=== PATIENT | female | born 1995 | race Caucasian/White ===

== ENCOUNTER → 2018-03-16 16:09 | Outpatient (CLI) | payer OTHER, SELFPAY ==
[2018-03-16 17:48] LABS: hCG Titer Quant., Serum 9526 mIU/mL (<9 non-preg)
== END ==
PROVIDERS: Visit Provider Obstetrics & Gynecology
DX: O20.0 Threatened abortion (principal)
CPT/HCPCS: 36415; 84702

== ENCOUNTER → 2018-03-16 17:44 | Outpatient (CLI) | payer OTHER, SELFPAY ==
[2018-03-16 20:15] LABS: Chlamydia Trachomatis by PCR Negative (Negative); Neisserai gonorrhoeae by PCR Negative (Negative); Probe Check PASS; Sample Adequacy Control PASS; Specimen Processing Control PASS
[2018-03-21 08:52] LABS: HPV Reflexed? NOT INDICATED
== END ==
PROVIDERS: Visit Provider Obstetrics & Gynecology
DX: O20.0 Threatened abortion (principal); Z12.4 Encounter for screening for malignant neoplasm of cervix
CPT/HCPCS: 87086; 87088; 87491; 87591; 88175; G0145

== ENCOUNTER → 2018-03-23 16:15 | Outpatient (CLI) | payer OTHER, SELFPAY ==
--- NOTE | 2018-03-23 16:17 | US_ITS ---
STUDY: FIRST TRIMESTER OBSTETRICAL ULTRASOUND REASON FOR EXAM: Female, 22 years old. Threaded miscarriage. LMP: Unknown. TECHNIQUE: Transvaginal PRIOR ULTRASOUND: None. FINDINGS: There is visualization of a single gestational sac in a normal intrauterine position. The mean sac diameter (MSD) measures 2.11 cm, indicating an estimated gestational age (EGA) of 7 weeks, 1 days. The gestational sac shape is within normal limits. There is a visualized yolk sac. The yolk sac measures 0.35 cm. The placenta is non-visualized. There is visualization of a live embryo. The crown-rump length (CRL) measures 0.62 cm, indicating an estimated gestational age (EGA) of 6 weeks, 4 days. There is demonstrated cardiac activity with a heart rate of 124 bpm. The estimated gestation age (EGA) by US is 6 weeks, 6 days. The estimated date of delivery (CAMILLE) by US is November 10, 2018. The uterus measures 9.2 x 6 x 5.1 cm. There is no demonstrated uterine fibroid. The cervix is closed. The right ovary is not visualized. There is no visualized right adnexal mass or complex lesion. The left ovary measures 2.2 x 2.0 x 1.3 cm. There is no left ovarian cyst. There is no visualized left adnexal mass or complex lesion. There is no fluid in the cul de sac. US/Init OB < 14Wks US IMPRESSION: 1. Single intrauterine at 6 weeks, 6 days. CAMILLE is November 10, 2018. 2. heart rate 124 bpm. 3. Nonvisualization of the right ovary. Electronically Signed: Christopher Amaya DO at 23:10 EDT Tel [phone], Service support ,
== END ==
PROVIDERS: Family Provider Family Medicine; PCP Family Medicine; Visit Provider Obstetrics & Gynecology
DX: O20.0 Threatened abortion (principal)
CPT/HCPCS: 76801

== ENCOUNTER 2018-03-30 06:48 | Emergency (ER) | payer OTHER, SELFPAY ==
[2018-03-30 06:49] VITALS: BP 121/68; PULSE 74; RESP 24; TEMP 36.6; O2SAT 97; BMI 55.0
--- NOTE | 2018-03-30 07:17 | EKG12_ITS ---
Test Reason : SOB Blood Pressure : / mmHG Vent. Rate : 065 BPM Atrial Rate : 065 BPM P-R Int : 130 ms QRS Dur : 094 ms QT Int : 392 ms P-R-T Axes : -11 -10 010 degrees QTc Int : 407 ms Normal sinus rhythm with sinus arrhythmia Normal ECG Confirmed by ASAF RM, RASHAD ([id number]), magazine editor MARY BELTRAN ([id number]) on 03/31/2018 1:17:40 PM Referred By: Kristie Longo Confirmed By:RASHAD RON MD
--- NOTE | 2018-03-30 07:17 | VDLE_ITS ---
Reason For Study: SOB RIGHT LEFT GSV is normal. GSV is normal. CFV is compressible, spontaneous, phasic, CFV is compressible, spontaneous, phasic, competent and demonstrates normal competent, and demonstrates normal augmentation. augmentation. FV is compressible, spontaneous, phasic, FV is compressible, spontaneous, phasic, competent and demonstrates normal competent and demonstrates normal augmentation. augmentation. POP V is compressible, spontaneous, phasic, POP V is compressible, spontaneous, phasic, competent and demonstrates normal competent and demonstrates normal augmentation. augmentation. T/P Trunk is compressible. T/P Trunk is compressible. PTV is compressible. PTV is compressible. RT PerV is compressible. LT PerV is compressible. Procedure Exam performed portable in ED. The exam was diagnostic. A preliminary report was called and/or faxed to Dr. Fenton. Interpretation Summary Deep veins of the lower extremities are bilaterally patent and compressible segmentally. There is no evidence of deep vein thrombosis on either side. Valvular competence appears intact within the proximal deep venous systems bilaterally. The greater saphenous veins appear bilaterally patent and compressible segmentally. Ordering Physician: Deric Fenton Performed By: Sin Villanueva RVT
--- NOTE | 2018-03-30 07:18 | ED.VISSUMM ---
- ER Visit Summary Date of Service: 03/30/18 Chief Complaint: Shortness of breath History of Present Illness: The patient is a [address] Calle and Dr. Marco Galindo. She is a at 8 weeks by an ultrasound on March 23. She reports she has shortness of breath began at 130 this morning. It is moderate in severity currently and at worst. Is worsened by nothing including exertion or coughing. Is relieved by nothing. Patient denies any fever or cough. She has chest tightness that began approximately 1 AM. 5 out of 10 severity. It is increased with laying back and deep breaths. There is no change with exertion. She denies any personal or family history of DVT. No recent travel. She does report that she has mild ankle swelling bilaterally that is chronic and unchanged. She denies any calf pain. Physical Examination: Vitals: Stable. Afebrile. General: Well-nourished and well-developed. Head: Normocephalic atraumatic. Neck: Supple, no lymphadenopathy. No JVD. Nontender. Cardiovascular: Regular rate and rhythm. No murmurs. Respiratory: No respiratory distress. Clear to auscultation bilaterally. Abdominal: Soft, nontender, nondistended, normal bowel sounds. No guarding, rebound, or peritoneal signs. Back: Nontender. Extremities: Nontender, no edema. Skin: Normal color, no rash. Neurologic: Alert and oriented ?3. Cranial nerves II through XII are intact. Normal strength and sensation. Psych: Normal affect. Test Results: EKG shows sinus arrhythmia with no acute changes. Troponins negative. 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 Chem-7 is marked for creatinine is 0.47. CBC is more for hemoglobin 11.8 and segment neutrophils 72. Chest x-ray shows no acute disease. Bilateral lower extremity Dopplers are negative. Emergency Department Course and Treatment: We were unable to obtain heart tones. Patient is resting comfortably. She has had no vaginal bleeding or abdominal pain. Treatment Plan: Patient will be discharged instructions follow-up her primary care physician 1-2 days if not improving. Return to the emergency department for any worsening symptoms. Disposition: To home in improved and stable condition. Impression: 1. Dyspnea, uncertain cause. 2. First trimester . This note was generated with [employer] software. It may contain incorrect words, spelling, and punctuation that were not noted in review of the chart prior to signing ED Disposition - Plan for ED Patient: Chief Complaint: Shortness of Breath Instructions: ED Dyspnea Shortness of Breath Referrals: Kimani Kim MD [Primary Care Provider] - 1-2 Days if not improving
[2018-03-30] MEDS: 0.9% Normal Saline 1,000 ML 150 ML IV (07:57)
[2018-03-30 07:58] LABS: Absolute Lymphocyte Count 1.49 X10^3/ul (0.83-4.51); Absolute Neutrophil Count 5.5 X10^3/uL (2.0-7.7); Basophil# 0.02 X10^3/uL; Basophil% 0.3 % (0-1); Eosinophil# 0.05 X10^3/uL; Eosinophils% 0.6 % (0-5); Hematocrit 37.1 % (37-47); Hemoglobin 11.8 g/dl (12.0-15.0); Lymphocyte # 1.49 X10^3/ul (4.0); Lymphocyte % 19.4 % (19-41); Mean Corp Hgb Conc 31.8 g/gl (32-36); Mean Corpuscular Hgb 26.8 pg (27.0-32.0); Mean Corpuscular Volume 84.3 fL (81-99); Mean Platelet Vol. 9.9 fl (6.2-12.0); Monocyte# 0.61 X10^3/uL; Monocyte% 7.9 % (0-10); Neutrophil # 5.52 X10^3/uL (2.7-7.7); Neutrophil % 71.7 % (47-70); POSITIVE COUNT NO; POSITIVE DIFFERENTIAL NO; POSITIVE MORPHOLOGY NO; Platelet Count 307 K/mm3 (150-450); RBC Distribution Width CV 14.1 % (11.6-14.6); White Blood Count 7.7 K/mm3 (4.4-11.0)
--- NOTE | 2018-03-30 08:06 | RAD_ITS ---
STUDY: X-RAY CHEST REASON FOR EXAM: Female, 22 years old. Shortness of breath. TECHNIQUE: Single AP portable view of the chest. COMPARISON: None. FINDINGS: EKG electrodes are seen. Mild degree of vascular congestion. There is no demonstrated pleural abnormality. Normal size heart. Normal mediastinum and henrique. Normal visualized pulmonary arteries. Normal visualized aortic arch and descending thoracic aorta. Normal visualized thoracic spine. Normal visualized ribs, clavicles, and shoulders. There is no demonstrated abnormality of the visualized soft tissue structures of the upper abdomen. RAD/Chest 1 View (Portable) IMPRESSION: Mild degree of pulmonary vascular congestion. Electronically Signed: Obinna Mason MD at 8:27 EDT Tel [phone], Service support ,
[2018-03-30 08:15] LABS: Anion Gap 7 (5-15); BUN 7 mg/dL (7-18); BUN/Creat Ratio 14.8 RATIO (10-20); Calcium,Total 8.8 mg/dL (8.5-10.1); Chloride 106 mmol/L (98-107); Creatinine, Serum 0.47 mg/dL (0.55-1.02); EST Glomerular Filtration Rate 170 mL/min (>60); Est Glom Filt Rate - Afr Amer 206 mL/min (>60); Estimated Creatinine Clearance 159.38 ml/min; Glucose 103 mg/dL (74-106); Potassium 3.8 mmol/L (3.5-5.1); Sodium Level 139 mmol/L (136-145)
[2018-03-30 08:22] LABS: BNP,B-Type NATRIURETIC PEPTIDE 11.9 pg/mL (0-100)
[2018-03-30 09:05] VITALS: BP 126/79; PULSE 61; RESP 15; O2SAT 99
--- NOTE | 2018-03-31 10:10 | CM.ED ---
ED CALLBACK: Follow-up call placed to patient. Patient states she is feeling well today and denies shortness of breath. Patient denies further needs at this time.
== END 2018-03-30 09:06 | disposition home or self-care (01) ==
LOC: ED 07:22
PROVIDERS: Emergency Provider Emergency Medicine; Family Provider Family Medicine; PCP Family Medicine
DX: O26.891 Other specified pregnancy related conditions, first trimester (principal); R06.00 Dyspnea, unspecified; Z3A.08 8 weeks gestation of pregnancy; R56.9 Unspecified convulsions; F32.9 Major depressive disorder, single episode, unspecified; Z79.899 Other long term (current) drug therapy
CPT/HCPCS: 71045; 80048; 83880; 84484; 85025; 93005; 93970; 96360; 99284; J7030; A4216

== ENCOUNTER → 2018-05-04 11:43 | Outpatient (CLI) | payer OTHER, SELFPAY ==
[2018-05-04 12:54] LABS: Absolute Lymphocyte Count 1.31 X10^3/ul (0.83-4.51); Basophil# 0.01 X10^3/uL; Basophil% 0.1 % (0-1); Eosinophil# 0.03 X10^3/uL; Eosinophils% 0.4 % (0-5); Hematocrit 35.3 % (37-47); Hemoglobin 11.4 g/dl (12.0-15.0); Lymphocyte # 1.31 X10^3/ul (4.0); Lymphocyte % 17.1 % (19-41); Mean Corp Hgb Conc 32.3 g/gl (32-36); Mean Corpuscular Hgb 27.2 pg (27.0-32.0); Mean Corpuscular Volume 84.2 fL (81-99); Mean Platelet Vol. 10.1 fl (6.2-12.0); Monocyte# 0.34 X10^3/uL; Monocyte% 4.4 % (0-10); Neutrophil # 5.96 X10^3/uL (2.7-7.7); Neutrophil % 77.9 % (47-70); Platelet Count 308 K/mm3 (150-450); RBC Distribution Width CV 13.8 % (11.6-14.6); RBC Distribution Width SD 42.1 fl (35.1-43.9); Red Blood Count 4.19 M/mm3 (4.2-5.4); White Blood Count 7.7 K/mm3 (4.4-11.0)
[2018-05-04 12:56] LABS: POSITIVE COUNT NO; POSITIVE DIFFERENTIAL NO; POSITIVE MORPHOLOGY NO
[2018-05-04 13:13] LABS: Glucose Challenge Gest 1H 50g 150 mg/dL (70-140)
[2018-05-05 03:59] LABS: Rapid Plasmin Reagin (RPR) NONREACTIVE (NONREACTIVE)
[2018-05-05 10:57] LABS: HIV - WCH Non-Reactive (Nonreactive); Rubella IgG 63.3 IU/mL
[2018-05-08 14:17] LABS: HEPATITIS B SURFACE AG Negative (Negative)
== END ==
PROVIDERS: Family Provider Family Medicine; PCP Family Medicine; Visit Provider Obstetrics & Gynecology
DX: O09.90 Supervision of high risk pregnancy, unspecified, unspecified trimester (principal); O99.351 Diseases of the nervous system complicating pregnancy, first trimester; Z3A.00 Weeks of gestation of pregnancy not specified
CPT/HCPCS: 36415; 80177; 82950; 85025; 86592; 86703; 86762; 86850; 86900; 87340

== ENCOUNTER → 2018-05-05 06:58 | Outpatient (CLI) | payer OTHER, SELFPAY ==
[2018-05-05 08:14] LABS: Glucose GTT-Gestation. Fasting 93 mg/dL (<105)
[2018-05-05 09:21] LABS: Glucose GTT-Gestational 1 Hr 160 mg/dL (<190)
[2018-05-05 10:10] LABS: Glucose GTT-Gestational 2 Hr 122 mg/dL (<165)
[2018-05-05 11:34] LABS: Glucose GTT-Gestational 3 Hr 111 L (<145)
[2018-05-05 12:06] LABS: Chlamydia Trachomatis by PCR Negative (Negative); Neisserai gonorrhoeae by PCR Negative (Negative); Probe Check PASS; Sample Adequacy Control PASS; Specimen Processing Control PASS
== END ==
PROVIDERS: Nurse Practitioner Women's Health; Family Provider Family Medicine; PCP Family Medicine; Visit Provider Obstetrics & Gynecology
DX: O09.90 Supervision of high risk pregnancy, unspecified, unspecified trimester (principal); R73.09 Other abnormal glucose
CPT/HCPCS: 36415; 82951; 82952; 87086; 87088; 87491; 87591

== ENCOUNTER → 2018-06-01 16:17 | Outpatient (CLI) | payer OTHER, SELFPAY | PROVIDERS: Family Provider Family Medicine; PCP Family Medicine; Visit Provider Nurse Practitioner Women's Health | DX: R10.2 Pelvic and perineal pain (principal) | CPT/HCPCS: 87086; 87088 ==

== ENCOUNTER → 2018-08-08 18:28 | Outpatient (CLI) | payer OTHER, SELFPAY ==
[2018-08-08 14:39] VITALS: BMI 53.8
--- OUTSIDE RECORDS SUMMARY | 2018-10-04 09:52 | XMS RPT_ITS ---
:1995 Author Organization OHIP Support Name Relationship Address Phone COW Unavailable [address] + [place] [address] ARMANI MISHRA Unavailable [address] + [place] [address] DOLORES QUINN Unavailable [address] + [place] [address] COW Unavailable [address] + [place] [address] ARMANI MISHRA Unavailable [address] + [place] [address] DOLORES QUINN Unavailable [address] + [place] [address] COW Unavailable [address] + [place] [address] ARMANI MISHRA Unavailable [address] + [place] [address] DOLORES QUINN Unavailable . + [place] [address] COW Unavailable [address] + [place] [address] ARMANI MISHRA Unavailable [address] + [place] [address] DOLORES QUINN Unavailable Unavailable + [place] [address] COW Unavailable [address] + [place] [address] ARMANI MISHRA Unavailable [address] + [place] [address] DOLORES QUINN Unavailable . + [place] [address] ARMANI MISHRA Unavailable Unavailable Unavailable ARMANI MISHRA Unavailable [address] [place] [address] ARMANI MISHRA Unavailable [address] [place] [address] GABE MISHRA Unavailable [address] + [place] [address] DOLORES QUINN Unavailable [address] + [place] [address] COW Unavailable [address] + [place] [address] ARMANI MISHRA Unavailable [address] + [place] [address] DOLORES QUINN Unavailable . + [place] [address] COW Unavailable [address] + [place] [address] ARMANI MISHRA Unavailable [address] + [place] [address] DOLORES QUINN Unavailable . + [place] [address] COW Unavailable [address] + [place] [address] ARMANI MISHRA Unavailable [address] + [place] [address] DOLORES QUINN Unavailable . + [place] [address] ARMANI MISHRA Unavailable [address] + [place] [address] COW Unavailable [address] + [place] [address] ARMANI MISHRA Unavailable [address] + [place] [address] DOLORES QUINN Unavailable . + [place] [address] COW Unavailable [address] + [place] [address] ARMANI MISHRA Unavailable [address] + [place] [address] DOLORES QUINN Unavailable . + [place] [address] + [place] [address] ARMANI MISHRA Unavailable [address] + [place] [address] DOLORES QUINN Unavailable . + [place] [address] + [place] [address] ARMANI MISHRA Unavailable [address] + [place] [address] DOLORES QUINN Unavailable Unavailable + [place] [address] + [place] [address] ARMANI MISHRA Unavailable [address] + [place] [address] DOLORES QUINN Unavailable Unavailable + [place] [address] + [place] [address] ARMANI MISHRA Unavailable [address] + [place] [address] DOLORES QUINN Unavailable Unavailable + [place] [address] + [place] [address] ARMANI MISHRA Unavailable [address] + [place] [address] DOLORES QUINN Unavailable . + [place] [address] + [place] [address] ARMANI MISHRA Unavailable [address] + [place] [address] DOLORES QUINN Unavailable . + [place] [address] + [place] [address] ARMANI MISHRA Unavailable [address] + [place] [address] DOLORES QUINN Unavailable Unavailable + COW Unavailable [address] + [place] [address] ARMANI MISHRA Unavailable [address] + [place] [address] DOLORES QUINN Unavailable Unavailable + ARMANI MISHRA Unavailable [address] + [place] [address] UE Unavailable Unavailable Unavailable . Unavailable . + [place] [address] + [place] [address] ARMANI MISHRA Unavailable [address] + [place] [address] DOLORES QUINN Unavailable Unavailable + [place] [address] . Unavailable Unavailable + [place] [address] . Unavailable Unavailable + [place] [address] ARMANI MISHRA Unavailable Unavailable Unavailable ARMANI MISHRA Unavailable [address] [place] [address] ARMANI MISHRA Unavailable [address] [place] [address] GABE MISHRA Unavailable [address] + [place] [address] DOLORES QUINN Unavailable [address] + [place] [address] ARMANI MISHRA Unavailable Unavailable Unavailable ARMANI MISHRA Unavailable [address] [place] [address] ARMANI MISHRA Unavailable [address] [place] [address] GABE MISHRA Unavailable [address] + [place] [address] DOLORES QUINN Unavailable [address] + [place] [address] ARMANI MISHRA Unavailable Unavailable Unavailable ARMANI MISHRA Unavailable [address] [place] [address] ARMANI MISHRA Unavailable [address] [place] [address] GABE MISHRA Unavailable [address] + [place] [address] DOLORES QUINN Unavailable [address] + [place] [address] ARMANI MISHRA Unavailable [address] [place] [address] GABE MISHRA Unavailable [address] + [place] [address] ARMANI MISHRA Unavailable [address] [place] [address] DOLORES QUINN Unavailable [address] + [place] [address] Care Team Providers Name Role Phone Burak RM, Mago Whittaker Attending Unavailable ELZBIETA RM, ULICES H. Primary Care Unavailable TULIO URIARTE MD, JR. Attending Unavailable ELZBIETA RM, ULICES H. Primary Care Unavailable TULIO URIARTE MD, JR. Attending Unavailable ELZBIETA RM, ULICES H. Primary Care Unavailable Mago Sumner MD Attending Unavailable ELZBIETA RM, ULICES H. Primary Care Unavailable TULIO URIARTE MD, JR. Attending Unavailable ELZBIETA RM, ULICES H. Primary Care Unavailable ERIC BONILLA Attending Unavailable KRISTIE RAMÍREZ Referring Unavailable NO PRIMARY CARE, Primary Care Unavailable AnsonanthKristie anthony Attending Unavailable Marcanthony, Kristie Attending Unavailable Marcanthony, Kristie Referring Unavailable Marcanthony, Kristie Attending Unavailable Marcanthony, Kristie Attending Unavailable Marcanthony, Kristie Attending Unavailable Marcanthony Kristie Referring Unavailable Elzbieta, Ulices Primary Care Unavailable Elzbieta, Ulices Primary Care Unavailable Deric Fenton Attending Unavailable MarcanthonyKristie Attending Unavailable Elzbieta, Ulices Referring Unavailable Elzbieta, Ulices Primary Care Unavailable MarcanthonyKristie Attending Unavailable Elzbieta, Ulices Referring Unavailable Elzbieta, Ulices Primary Care Unavailable MarcanthonyKristie Attending Unavailable Elzbieta, Ulices Primary Care Unavailable MarcanthonyKristie Attending Unavailable Marcanthony, Kristie Referring Unavailable Elzbieta, Ulices Primary Care Unavailable Tulio Uriarte Attending Unavailable Elzbieta, Ulices Primary Care Unavailable MarcanthonyKristie Attending Unavailable Elzbieta, Ulices Referring Unavailable Elzbieta, Ulices Primary Care Unavailable Jacky, Sofy Attending Unavailable Elzbieta, Ulices Referring Unavailable Elzbieta, Ulices Primary Care Unavailable Jacky, Sofy Attending Unavailable Ple[place], Sofy Referring Unavailable Elzbieta, Ulices Primary Care Unavailable MarcanthonyKristie Attending Unavailable Elzbieta, Ulices Referring Unavailable Jen Donaldson Attending Unavailable Jacky, Sofy Attending Unavailable Elzbieta, Ulices Referring Unavailable [place], Sofy Attending Unavailable Elzbieta, Ulices Referring Unavailable Jacky, Sofy Attending Unavailable Elzbieta, Ulices Primary Care Unavailable [place], Sofy Referring Unavailable MarcanthonyKristie Attending Unavailable Elzbieta, Ulices Referring Unavailable Marcanthony, Kristie Attending Unavailable Kristie Ramírez Referring Unavailable Maria Fernanda Garduno Primary Care Unavailable Kristie Ramírez Attending Unavailable Kristie Ramírez Referring Unavailable Maria Fernanda Garduno Primary Care Unavailable PROBLEMS PROBLEMS DATE TYPE CONDITION / CODE ATTENDING STATUS SOURCE 08/15/2018 Unknown O09.90 - Marcanthony, Active [place] Supervision of [facility] high risk Hospital , Repository unspecified, unspecified trimester / O09.90(ICD-10) 08/15/2018 Unknown Z23 - Encounter Marcanthony, Active [place] for immunization / [facility] Z23(ICD-10) Hospital Repository 08/09/2018 Unknown N39.0 - Urinary [place], Sofy Active [place] tract infection, Community site not specified Hospital / N39.0(ICD-10) Repository 07/19/2018 Unknown O34.219 - Maternal [place], Sofy Active [place] care for Community unspecified type Hospital scar from previous Repository delivery / O34.219(ICD-10) 07/19/2018 Unknown R73.09 - Other [place], Sofy Active [place] abnormal glucose / Community R73.09(ICD-10) Hospital Repository 07/19/2018 Unknown O99.352 - Diseases Jacky, Sofy Active [place] of the nervous [facility] Hospital complicating Repository , second trimester / O99.352(ICD-10) 07/19/2018 Unknown Z3A.23 - 23 weeks [place], Sofy Active [place] gestation of [facility] / Hospital Z3A.23(ICD-10) Repository 06/23/2018 Unknown G40.909 - Marcanthony, Active [place] Epilepsy, [facility] unspecified, not Hospital intractable, Repository without status epilepticus / G40.909(ICD-10) 06/23/2018 Unknown Z3A.19 - 19 weeks Marcanthony, Active [place] gestation of [facility] / Hospital Z3A.19(ICD-10) Repository 06/01/2018 Unknown O99.351 - Diseases Jacky, Sofy Active [place] of the nervous [facility] Hospital complicating Repository , first trimester / O99.351(ICD-10) 06/01/2018 Unknown Z3A.12 - 12 weeks Jacky, Sofy Active [place] gestation of [facility] / Hospital Z3A.12(ICD-10) Repository 06/01/2018 Unknown R10.2 - Pelvic and Pleasant DaleSofy ang Active [place] perineal pain / Community R10.2(ICD-10) Hospital Repository 06/01/2018 Unknown O26.899 - Other Pleasant DaleSofy Active [place] specified [facility] related Hospital conditions, Repository unspecified trimester / O26.899(ICD-10) 06/01/2018 Unknown R10.9 - JackySofy Active [place] Unspecified Community abdominal pain / Hospital R10.9(ICD-10) Repository 03/22/2018 Unknown O20.0 - Threatened Donta, Active [place] / [facility] O20.0(ICD-10) Hospital Repository 03/16/2018 Unknown Z12.4 - Encounter Donta, Active [place] for screening for [facility] malignant neoplasm Hospital of cervix / Repository Z12.4(ICD-10) PROCEDURES PROCEDURES No Procedure Records FoundRESULTS RESULTS OB ANATOMY SCAN Observed: 08/21/2018 Status: F Source: [place] 4:03 PM [facility] REPOSITORY [facility] Imaging Services [address] [place] [id number] OB Anatomy Scan MR#: [id number] Acct: [id number] Name: ROBERT MISHRA Rep #: [id number] : 1995 F 23 From: Christopher Amaya DO PCP: SHERLY Anton Status: REG CLI Study: OB Anatomy Scan Date of Exam: 08/21/18 Exam# [id number] Ordering Dr: Kristie Ramírez MD STUDY: SECOND AND THIRD TRIMESTER OBSTETRICAL ULTRASOUND REASON FOR EXAM: Female, 23 years old. Anatomy scan. LMP: March 23, 2018. TECHNIQUE: PICC line TECHNICAL QUALITY: Adequate. PRIOR ULTRASOUND: None. FINDINGS: There is a single intrauterine fetus. The fetus is in a cephalic presentation. There is demonstrated cardiac activity with a heart rate of 153 bpm. There is a normal amniotic fluid volume. The largest amniotic fluid pocket measures 5.17 cm. The amniotic fluid index (FRANCIE) is 12.48 cm. The placenta is fundal and posterior and not low-lying There are Grade 1 placental changes. The cervix measures 4.45 cm in length. The bilateral adnexal regions are normal. BIOMETRY: BPD: 7.4 cm: 29 weeks, 5 days HC: 26.65 cm: 29 weeks, 1 days AC: 24.26 cm: 28 weeks, 4 days FL: 5.49 cm: 29 weeks, 0 days CI: 79 FL/BPD: 74 FL/HC: FL/AC: 23 HC/AC: 1.10 age by current US: 29 weeks, 1 days. CAMILLE by current US: November 05, 2018. Estimated weight: 1287 grams, +/- 188 grams, 63 %. Age by LMP: 28 weeks, 1 days. CAMILLE by LMP: November 12, 2018. ANATOMY: Gender: Male Cranium: Normal lateral ventricles. Normal choroid plexus. Normal cerebellum. Normal cisterna magna. There is limited visualization of the face, nose and lips. Chest: Normal 4-chamber heart. Abdomen/Pelvis: Normal diaphragm. Normal stomach. Normal abdominal wall. Is limited visualization of the cord insertion. Normal 3 vessel cord. Normal kidneys. Normal bladder. Spine: Normal cervical spine. Normal thoracic spine. Normal lumbar spine. Normal sacrum. Extremities: There is limited visualization of the bilateral upper extremities. Normal bilateral lower extremities. US/OB Anatomy Scan IMPRESSION: 1. Live single intrauterine at 29 weeks, 1 day. CAMILLE is November 05, 2018. 2. EFW of 1287 g. 3. FRANCIE of 12.48 cm. 4. Fundal and posterior grade 1 placenta. 5. Vertex presentation. 6. Mildly limited evaluation of anatomy due to maternal habitus. There is no visualized abnormality. Electronically Signed: Christopher Amaya DO at 16:56 EST Tel [phone], Service support , CC: SHERLY Garduno; Kristie Ramírez MD Interpretative Dancer: Signed CBC W/DIFF, AUTOMATED Collected: 08/15/2018 Status: F Source: [place] 4:39 PM [facility] REPOSITORY TYPE CODE TESTS RESULT OUT OF RANGE REFERENCE UNITS LAB L100.1000 4.4-11.0 K/mm3 Normal WBC 10.5 LAB L100.1200 4.2-5.4 M/mm3 Low RBC 4.10 LAB L100.1300 12.0-15.0 g/dl Low HGB 10.8 LAB L100.1400 37-47 % Low HCT 33.9 LAB L100.1500 81-99 fL Normal MCV 82.7 LAB L100.1600 27.0-32.0 pg Low MCH 26.3 LAB L100.1700 32-36 g/gl Low MCHC 31.9 LAB L100.1810 11.6-14.6 % High RDW CV 14.9 LAB L100.1820 35.1-43.9 fl High RDW SD 44.0 LAB L100.1900 150-450 K/mm3 Normal PLT 371 LAB L100.2000 6.2-12.0 fl Normal MPV 10.5 LAB L100.2100 47-70 % High NEUT% 77.5 LAB L100.2200 19-41 % Low LY% 15.5 LAB L100.2300 0-10 % Normal MONO% 6.2 LAB L100.2400 0-5 % Normal EO% 0.5 LAB L100.2500 0-1 % Normal BASO% 0.1 LAB L100.2550 0.0-0.9 % Normal IM GRAN % 0.200 Result Comment: IG% - Immature Granulocytes (promyelocytes, myelocytes and metamyelocytes) > 1% indicates that a LEFT SHIFT is Present. LAB L100.2620 2.0-7.7 X10 3/uL High Absolute Neut 8.1 LAB L100.2720 0.83-4.51 X10 3/ul Normal Absolute Lymph 1.62 Performed By: #### L100.0100 #### [facility] [address], [address] GLUCOSE CHALLENGE GEST Collected: 08/15/2018 Status: F Source: [place] 1H 50G 4:39 PM [facility] REPOSITORY TYPE CODE TESTS RESULT OUT OF RANGE REFERENCE UNITS LAB L501.0250 70-140 mg/dL Normal GLU GEST 100 50g 1H Performed By: #### L501.0250 #### [facility] [address] [place], [address] OUTREACH TEAM MEMBER OFFICE VISIT Observed: 08/15/2018 Status: F Source: [place] REPORT 4:12 PM [facility] REPOSITORY [facility] [address] [place] [address] OFFICE VISIT Date of Service: 08/15/18 MR#: [id number] Acct: [id number] Name: ROBERT MISHRA Rep #: [id number] : 1995 Provider: Kristie Ramírez MD Age/Sex: 23/F Location: [facility] Status: Signed Intake Vital Signs08/15/18 Body Mass Index (BMI) 53.8 08/15/18 Height 5 ft 4 in 08/15/18 Weight: 313 lb 4 oz 08/15/18 Body Mass Index (BMI) 53.7 08/15/18 Blood Pressure 110/82 H Intake Visit Reasons: 27 weeks Chief Complaint: est ob Flue Gas Analyst Required: No Is patient in pain?: No Allergies acetaminophen [From Percocet] Allergy (Verified 08/15/18 15:23) Rash oxycodone [From Percocet] Allergy (Verified 08/15/18 15:23) Rash paper tape Adverse Reaction (Mild, Uncoded 08/15/18 15:23) Rash Medications sertraline 50 mg tablet 50 mg PO QDAY 03/16/18 [History Confirmed 08/15/18] esomeprazole magnesium 20 mg capsule,delayed release 20 mg PO DAILY 05/04/18 [History Confirmed 08/15/18] folic acid 1 mg tablet 1 mg PO DAILY 05/04/18 [History Confirmed 08/15/18] vitamin,calcium,zjsmklmr-alpi-vnogg acid tablet 1 tab PO DAILY 05/04/18 [History Confirmed 08/15/18] levetiracetam ER 500 mg tablet,extended release 24 hr 2,000 mg PO DAILY 05/26/18 [History Confirmed 08/15/18] Last Menstral Period: 02/03/18 Zika: Zika virus screening: Negative : No 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) MRSA infection (Acute 2017) Migraine with aura (Acute) Surgical History H/O section (Acute 03/2016) H/O exploratory laparotomy (Acute) Family History Father Hypertension Heart disease Depression Grandfather Cancer Unknown Leukemia Social History adopted: No household members: children housing: condominium number of children: 2 current occupational status: employed current occupation: [employer] pets and animals: Yes history of recent travel: No other: comes 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 DateName GA/Weeks Outcome Route Bth WeighInfant GeLabor LgtAnesthesiDel LocatProvider FOB t n h a n Delivery Date: 03/17/16 On 03/16/18 @ 15:30 Juani Tobar Bennett Breech failed version HPI 27 weeks: Details: ROBERT MISHRA is a 23 year old who presents for routine OB visit. OB Visit CAMILLE Calculator Estimated Delivery Date 11/12/18 Based on Ultrasound Date 03/23/18 Current WG 27w 2d Number 1 Expected Delivery Route/Plan desires TOLAC - 41% likelihood of success but previous cs for breech, will proceed with TOLAC. handouts given on education Specific Issue/Plans flu vaccine: given tdap vaccine: given rhogam: na LARC form signed: labor support person: [] pain management: [] cut cord/dad catch: [] : [] PP control planned: [] special requests: [] Initial Weight: 319 lb Date Weight BP Urine PrFHR FuHt Pres MoCTX DilationFetal StVisit NoProviderComments E ot v te GA G Effac lucose ed Visit Notes Visit Date: 08/15/18 no vb lof good fm no regular ctx cbc gct tdap Kristie Ramírez MD on 08/15/18 Visit Date: 08/08/18 Work in for lower right pelvic pain into back. Good FM. No VB, LOF SHERLY Fernando on 08/08/18 Visit Date: 07/19/18 No VB, LOF. Doing well SHERLY Fernando on 07/19/18 Visit Date: 06/23/18 no vb some crmaping. having a boy. declined afp Kristie Ramírez MD on 06/23/18 Visit Date: 06/01/18 work in for cramping. Was awake most of night worried. No spotting or bleeding. Brief US confirms active IUD with FHT SHERLY Fernando on 06/01/18 Visit Date: 05/26/18 no vb lof some nausea still. declines genetic and AFP screening. Kristie Ramírez MD on 05/26/18 Visit Date: 05/04/18 had some bleeding last week, some cramping. nausea present but manageable Kristie Ramírez MD on 05/04/18 Visit Date: 04/21/18 no vb cramping doing well Kristie Ramírez MD on 04/22/18 Visit Date: 03/16/18 No visit notes to display Diagnostics Diagnostics Labs Blood Type O POSITIVE 05/04/18 Antibody Screen NEGATIVE 05/04/18 Hct 35.3 % (37-47) L 05/04/18 Hgb 11.4 g/dl (12.0-15.0) L 05/04/18 Rubella IgG Antibody 63.3 IU/mL 05/04/18 RPR NONREACTIVE (NONREACTIVE) 05/04/18 Hep Bs Antigen Negative (Negative) 05/04/18 Chlam trachomat DNA PCR Negative (Negative) 05/05/18 N.gonorrhoeae DNA (PCR) Negative (Negative) 05/05/18 Glucose 1 Hr 50 gm 150 mg/dL (70-140) H 05/04/18 Miscellaneous Test Cancelled 05/04/18 Details: HIV: Urine Culture: Sequential Screen: NIPT Screen: Results [id number] Office Urine Glucose Negative Last Edit by Jen M Donaldson on 08/15/18 16:01 Office Urine Protein Negative Last Edit by Jen Donaldson on 08/15/18 16:01 Immunizations Boostrix Tdap Performing Provider: Kristie Ramírez MD Administered by: Jen Donaldson on 08/15/18 15:45 Dose Route Admin Location Lot Number Expiration Date NDC Ruby Developer 0.5 mL IM Right Arm (SQ) [id number] 07/01/25 49093-272-06 [employer] VIS Given Date VIS Publication Date 08/15/18 11/05/14 Eligibility Eligibility Date Assessment AND Plan Problems 1. BMI greater than 40 1st trimester glucola, weekly nsts and q4 week us after 32 weeks 2. Previous delivery affecting , antepartum O34.219 3. Supervision of high risk , antepartum O09.90 CAMILLE 11/12/18 PC Chris tiffanie Ames (Reign) 4. Seizure disorder during in second trimester O99.352 dr xiomara webb at [facility], growth us q 4 weeks after 28, nsts weekly after 32 5. 27 weeks gestation of Z3A.27 Normal anatomy scan, will need repeat US as they could not visualize all of anatomy. 6. Abnormal glucose R73.09 3 hr GTT normal Plan movement and labor precautions reviewed. ACOG trimester education reviewed and updated. see problem list details for updated plan management information and see below for orders placed at this visit. GA appropriate handout given. Orders Orders: Medications Discontinued: Boostrix Tdap (diphth,pertus(acell),tetanus) Discontinued 0.5 mL IM ONCE #1 0RF NS Z23 Reason: Office Medication has been Documented as given Coding Level of Care Code OB Routine Diagnoses BMI greater than 40 Previous delivery affecting , antepartum O34.219 Supervision of high risk , antepartum O09.90 Seizure disorder during in second trimester O99.352 Trimester: second trimester 27 weeks gestation of Z3A.27 Weeks of gestation: 27 weeks Abnormal glucose R73.09 08/15/18 1612 <Electronically signed by Kristie Ramírez MD> Date Kristie Viera Signature: Date (if applicable) CC: OUTREACH TEAM MEMBER OFFICE VISIT Observed: 08/08/2018 Status: F Source: [place] REPORT 2:54 PM [facility] REPOSITORY [facility] [place] [address] [place] [address] OFFICE VISIT Date of Service: 08/08/18 MR#: [id number] Acct: [id number] Name: ROBERT MISHRA Rep #: [id number] : 1995 Provider: SHARI Rico Age/Sex: 23/F Location: [facility] Status: Signed Intake Vital Signs08/08/18 Height 5 ft 4 in 08/08/18 Weight: 313 lb 8 oz 08/08/18 Body Mass Index (BMI) 53.8 08/08/18 Blood Pressure 128/64 H Intake Visit Reasons: 26 weeks-cramping Flue Gas Analyst Required: No Is patient in pain?: Yes Allergies acetaminophen [From Percocet] Allergy (Verified 07/19/18 15:49) Rash oxycodone [From Percocet] Allergy (Verified 07/19/18 15:49) Rash paper tape Adverse Reaction (Mild, Uncoded 06/23/18 08:13) Rash Medications sertraline 50 mg tablet 50 mg PO QDAY 03/16/18 [History Confirmed 08/08/18] venlafaxine ER 75 mg capsule,extended release 24 hr 75 mg PO QHS 03/16/18 [History Confirmed 08/08/18] esomeprazole magnesium 20 mg capsule,delayed release 20 mg PO DAILY 05/04/18 [History Confirmed 08/08/18] folic acid 1 mg tablet 1 mg PO DAILY 05/04/18 [History Confirmed 08/08/18] mecobalamin (vitamin B12) 1,000 mcg disintegrating tablet,sublingual 1,000 mcg SUBLINGUAL DAILY 05/04/18 [History Confirmed 08/08/18] vitamin,calcium,nrkgownm-ivfg-sswoh acid tablet 1 tab PO DAILY 05/04/18 [History Confirmed 08/08/18] levetiracetam ER 500 mg tablet,extended release 24 hr 2,000 mg PO DAILY 05/26/18 [History Confirmed 08/08/18] Last Menstral Period: 02/03/18 Zika: Zika virus screening: Negative : No 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) MRSA infection (Acute 2017) Migraine with aura (Acute) Surgical History H/O section (Acute 03/2016) H/O exploratory laparotomy (Acute) Family History Father Hypertension Heart disease Depression Grandfather Cancer Unknown Leukemia Social History adopted: No household members: [facility] number [facility]: 2 current occupational status: employed current occupation: [employer] pets and animals: Yes history of recent travel: No other: comes 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 DateName GA/Weeks Outcome Route Bth WeighInfant GeLabor LgtAnesthesiDel LocatProvider FOB t n h a n Delivery Date: 03/17/16 On 03/16/18 @ 15:30 Juani Tobar Bennett Breech failed version HPI 26 weeks-cramping: Details: ROBERT MISHRA is a 23 year old who presents for routine OB visit. OB Visit CAMILLE Calculator Estimated Delivery Date 11/12/18 Based on Ultrasound Date 03/23/18 Current WG 26w 2d Number 1 Expected Delivery Route/Plan desires TOLAC - 41% likelihood of success but previous cs for breech, will proceed with TOLAC. handouts given on education Specific Issue/Plans flu vaccine: given tdap vaccine: [] rhogam: [] LARC form signed: [] labor support person: [] pain management: [] cut cord/dad catch: [] : [] PP control planned: [] special requests: [] Initial Weight: 319 lb Date Weight BP Urine PrFHR FuHt Pres MoCTX DilationFetal StVisit NoProviderComments E ot v te GA G Effac lucose ed Visit Notes Visit Date: 08/08/18 Work in for lower right pelvic pain into back. Good FM. No VB, LOF SHERLY Fernando on 08/08/18 Visit Date: 07/19/18 No VB, LOF. Doing well SHERLY Fernando on 07/19/18 Visit Date: 06/23/18 no vb some crmaping. having a boy. declined afp Kristie Ramírez MD on 06/23/18 Visit Date: 06/01/18 work in for cramping. Was awake most of night worried. No spotting or bleeding. Brief US confirms active IUD with FHT SHERLY Fernando on 06/01/18 Visit Date: 05/26/18 no vb lof some nausea still. declines genetic and AFP screening. Kristie Ramírez MD on 05/26/18 Visit Date: 05/04/18 had some bleeding last week, some cramping. nausea present but manageable Kristie Ramírez MD on 05/04/18 Visit Date: 04/21/18 no vb cramping doing well Kristie Ramírez MD on 04/22/18 Visit Date: 03/16/18 No visit notes to display Diagnostics Diagnostics Labs Blood Type O POSITIVE 05/04/18 Antibody Screen NEGATIVE 05/04/18 Hct 35.3 % (37-47) L 05/04/18 Hgb 11.4 g/dl (12.0-15.0) L 05/04/18 Obstetrics Ultrasound 03/23/18 Rubella IgG Antibody 63.3 IU/mL 05/04/18 RPR NONREACTIVE (NONREACTIVE) 05/04/18 Hep Bs Antigen Negative (Negative) 05/04/18 Chlam trachomat DNA PCR Negative (Negative) 05/05/18 N.gonorrhoeae DNA (PCR) Negative (Negative) 05/05/18 Glucose 1 Hr 50 gm 150 mg/dL (70-140) H 05/04/18 Miscellaneous Test Cancelled 05/04/18 Details: HIV: Urine Culture: Sequential Screen: NIPT Screen: Results BMSUA Office Urine Color STRAW Last Edit by Kristin Cummings on 08/08/18 14:46 Office Urine Clarity Cloudy Last Edit by Kristin Cummings on 08/08/18 14:46 Assessment AND Plan Problems 1. Pelvic pain affecting in second trimester, antepartum O26.892; R10.2 2. Supervision of high risk , antepartum O09. CAMILLE 11/12/18 PC Chris [employer] (Reign) 3. Seizure disorder during in second trimester O99.352 dr xiomara webb at [facility], growth us q 4 weeks after 28, nsts weekly after 32 4. BMI greater than 40 1st trimester glucola, weekly nsts and q4 week us after 32 weeks 5. Previous delivery affecting , antepartum O34.219 6. 26 weeks gestation of Z3A.26 Normal anatomy scan, will need repeat US as they could not visualize all of anatomy. Plan UA dip X 10 negative. Culture pending-denies UTI symptoms Reassured probably round ligament pain-heat to area, tylenol, stretching Reviewed S AND S labor, kick counts RTO routine OB. Orders Orders: Coding Level of Care Code OB Routine Diagnoses Pelvic pain affecting in second trimester, antepartum O26.892; R10.2 Trimester: second trimester Supervision of high risk , antepartum O Seizure disorder during in second trimester O99.352 Trimester: second trimester BMI greater than 40 Previous delivery affecting , antepartum O34.219 26 weeks gestation of Z3A.26 Weeks of gestation: 26 weeks 08/08/18 1454 <Electronically signed by Sofy DUBOIS> Date Sofy DUBOIS Cosigner Signature: Date (if applicable) CC: Observed: 08/08/2018 Status: F Source: [facility] CULTURE, URINE 12:00 AM [facility] REPOSITORY Urine Culture ORGANISM 1: Mixed Gram Positive Organisms Thompson Count 50,000-80,000 MIX CULTURE Mixed contaminants. Submit a new specimen if indicated. Performed By: #### M100.0650 #### [facility] [address] [place], [address] [facility] Collected: 07/21/2018 Status: F Source: [facility] 9:07 AM [facility] REPOSITORY TYPE CODE TESTS RESULT OUT OF REFERENCE UNITS RANGE LAB LEVETI(BRYANT 12.0-46.0 UG/ML NC) Levetiracetam Lvl Low <2.0 Result Comment: Result rechecked. This test was developed and its performance characteristics determined by [facility] [place] ([facility]). It has not been cleared or approved by the FDA. [facility] is regulated under CLIA as qualified to perform high-complexity testing. This test is used for clinical purposes. It should not be regarded as investigational or for research. Performed By: [facility] [address] [place] [address] Drum Sander: Destinee Issa M.D. IA#: [id number] Phone#: Performed By: #### ISIAH #### [place] [address] [address] OUTREACH TEAM MEMBER OFFICE VISIT Observed: 07/19/2018 Status: F Source: [facility] REPORT 4:04 PM [facility] REPOSITORY [facility] [address] [place] [address] OFFICE VISIT Date of Service: 07/19/18 MR#: [id number] Acct: [id number] Name: ROEBRT MISHRA Panfilo Rep #: [id number] : 1995 Provider: SHARI Rico Age/Sex: 22/F Location: [facility] Status: Signed Intake Vital Signs07/19/18 Height 5 ft 4 in 07/19/18 Weight: 310 lb 2 oz 07/19/18 Body Mass Index (BMI) 53.2 07/19/18 Blood Pressure 122/76 H Intake Visit Reasons: 23 weeks Flue Gas Analyst Required: No Is patient in pain?: No Allergies acetaminophen [From Percocet] Allergy (Verified 07/19/18 15:49) Rash oxycodone [From Percocet] Allergy (Verified 07/19/18 15:49) Rash paper tape Adverse Reaction (Mild, Uncoded 06/23/18 08:13) Rash Medications sertraline 50 mg tablet 50 mg PO QDAY 03/16/18 [History Confirmed 07/19/18] venlafaxine ER 75 mg capsule,extended release 24 hr 75 mg PO QHS 03/16/18 [History Confirmed 07/19/18] esomeprazole magnesium 20 mg capsule,delayed release 20 mg PO DAILY 05/04/18 [History Confirmed 07/19/18] folic acid 1 mg tablet 1 mg PO DAILY 05/04/18 [History Confirmed 07/19/18] mecobalamin (vitamin B12) 1,000 mcg disintegrating tablet,sublingual 1,000 mcg SUBLINGUAL DAILY 05/04/18 [History Confirmed 07/19/18] vitamin,calcium,zoltlhgb-scdy-ghwwa acid tablet 1 tab PO DAILY 05/04/18 [History Confirmed 07/19/18] levetiracetam ER 500 mg tablet,extended release 24 hr 2,000 mg PO DAILY 05/26/18 [History Confirmed 07/19/18] Last Menstral Period: 02/03/18 Zika: Zika virus screening: Negative : No Nurse's Note: Pt. states she has been light headed and dizzy at random times. 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) MRSA infection (Acute 2016) Migraine with aura (Acute) Surgical History H/O section (Acute 03/2016) H/O exploratory laparotomy (Acute) Family History Father Hypertension Heart disease Depression Grandfather Cancer Unknown Leukemia Social History adopted: No household members: [facility]: [facility] current occupational status: employed current occupation: [employer] pets and animals: Yes history of recent travel: No other: comes 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 DateName GA/Weeks Outcome Route Bth WeighInfant GeLabor LgtAnesthesiDel LocatProvider FOB t n h a n Delivery Date: 03/17/16 On 03/16/18 @ 15:30 Juani Tobar Bennett Breech failed version HPI 23 weeks: Details: ROBERT MISHRA is a 22 year old who presents for routine OB visit. OB Visit CAMILLE Calculator Estimated Delivery Date 11/12/18 Based on Ultrasound Date 03/23/18 Current WG 23w 3d Number 1 Expected Delivery Route/Plan desires TOLAC - 41% likelihood of success but previous cs for breech, will proceed with TOLAC. handouts given on education Specific Issue/Plans flu vaccine: given tdap vaccine: [] rhogam: [] LARC form signed: [] labor support person: [] pain management: [] cut cord/dad catch: [] : [] PP control planned: [] special requests: [] Initial Weight: 319 lb Date Weight BP Urine PrFHR FuHt Pres MoCTX DilationFetal StVisit NoProviderComments E ot v te GA G Effac lucose ed Visit Notes Visit Date: 07/19/18 No VB, LOF. Doing well SHERLY Fernando on 07/19/18 Visit Date: 06/23/18 no vb some crmaping. having a boy. declined afp Kristie Ramírez MD on 06/23/18 Visit Date: 06/01/18 work in for cramping. Was awake most of night worried. No spotting or bleeding. Brief US confirms active IUD with FHT SHERLY Fernando on 06/01/18 Visit Date: 05/26/18 no vb lof some nausea still. declines genetic and AFP screening. Kristie Ramírez MD on 05/26/18 Visit Date: 05/04/18 had some bleeding last week, some cramping. nausea present but manageable Kristie Ramírez MD on 05/04/18 Visit Date: 04/21/18 no vb cramping doing well Kristie Ramírez MD on 04/22/18 Visit Date: 03/16/18 No visit notes to display Diagnostics Diagnostics Labs Blood Type O POSITIVE 05/04/18 Antibody Screen NEGATIVE 05/04/18 Hct 35.3 % (37-47) L 05/04/18 Hgb 11.4 g/dl (12.0-15.0) L 05/04/18 Obstetrics Ultrasound 03/23/18 Rubella IgG Antibody 63.3 IU/mL 05/04/18 RPR NONREACTIVE (NONREACTIVE) 05/04/18 Hep Bs Antigen Negative (Negative) 05/04/18 Chlam trachomat DNA PCR Negative (Negative) 05/05/18 N.gonorrhoeae DNA (PCR) Negative (Negative) 05/05/18 Glucose 1 Hr 50 gm 150 mg/dL (70-140) H 05/04/18 Miscellaneous Test Cancelled 05/04/18 Details: HIV: Urine Culture: Sequential Screen: NIPT Screen: Results [id number] Office Urine Glucose Negative Last Edit by Kristin Cummings on 07/19/18 16:02 Office Urine Protein Negative Last Edit by Kristin Cummings on 07/19/18 16:02 Assessment AND Plan Problems 1. Supervision of high risk , antepartum O09.90 CAMILLE 11/12/18 PC Chris Armani (Reign) 2. 23 weeks gestation of Z3A.23 Normal anatomy scan, will need repeat US as they could not visualize all of anatomy. 3. Abnormal glucose level R73.09 3 hr GTT normal 4. Previous delivery affecting , antepartum O34.219 5. BMI greater than 40 1st trimester glucola, weekly nsts and q4 week us after 32 weeks 6. Seizure disorder during in second trimester O99.352 [facility] growth us q 4 weeks after 28, nsts weekly after 32 Plan Orders placed: none Reviewed of labor precautions, movement/kick counts ACOG trimester education reviewed and updated See problem list details for updated plan of care Gestational age appropriate handout given RTO: 4 weeks Orders Orders: Coding Level of Care Code OB Routine Diagnoses Supervision of high risk , antepartum O09.90 23 weeks gestation of Z3A.23 Weeks of gestation: 23 weeks Abnormal glucose level R73.09 Previous delivery affecting , antepartum O34.219 BMI greater than 40 Seizure disorder during in second trimester O99.352 Trimester: second trimester 07/19/18 1604 <Electronically signed by Sofy DUBOIS> Date Sofy Rico NP-C Cosigner Signature: Date (if applicable) CC: OUTREACH TEAM MEMBER OFFICE VISIT Observed: 06/23/2018 Status: F Source: [facility] REPORT 8:55 AM [facility] [address] [place] [address] OFFICE VISIT Date of Service: 06/23/18 MR#: [id number] Acct: [id number] Name: ROBERT MISHRA Rep #: [id number] : 1995 Provider: Kristie Ramírez MD Age/Sex: 22/F Location: [facility] Status: Signed with Addenda ADDENDUM by Jen Donaldson on 06/23/18 at 0855 OFFICE PROCEDURES Office Procedure Documentation entered by Jen Donaldson 06/23/18 08:55: Immunizations Fluad 2018- 65yr up(PF)45 mcg(15 mcgx3)/0.5 mL intramuscular syringe Performing Provider: Kristie Ramírez MD Administered by: Jen Donaldson on 06/23/18 08:54 Dose Route Admin Location Lot Number Expiration Date NDC Ruby Developer 0.5 mL IM Left Arm (SQ) [id number] 03/11/19 81679-830-28 SEQIRUS VIS Given Date VIS Publication Date 06/23/18 11/05/14 Eligibility Eligibility Date 06/23/18854 <Electronically signed by Jen Donaldson > Date Mendoza,Jen Villalta cc: * Signed Intake Vital Signs06/23/18 Height 5 ft 4 in 06/23/18 Weight: 306 lb 8 oz 06/23/18 Body Mass Index (BMI) 52.6 06/23/18 Blood Pressure 116/80 Intake Visit Reasons: 19 weeks Chief Complaint: est ob Flue Gas Analyst Required: No Is patient in pain?: No Allergies acetaminophen [From Percocet] Allergy (Verified 06/23/18 08:13) Rash oxycodone [From Percocet] Allergy (Verified 06/23/18 08:13) Rash paper tape Adverse Reaction (Mild, Uncoded 06/23/18 08:13) Rash Medications sertraline 50 mg tablet 50 mg PO QDAY 03/16/18 [History Confirmed 06/23/18] venlafaxine ER 75 mg capsule,extended release 24 hr 75 mg PO QHS 03/16/18 [History Confirmed 06/01/18] esomeprazole magnesium 20 mg capsule,delayed release 20 mg PO DAILY 05/04/18 [History Confirmed 06/01/18] folic acid 1 mg tablet 1 mg PO DAILY 05/04/18 [History Confirmed 06/23/18] mecobalamin (vitamin B12) 1,000 mcg disintegrating tablet,sublingual 1,000 mcg SUBLINGUAL DAILY 05/04/18 [History Confirmed 06/23/18] vitamin,calcium,zdtahthr-dpxm-xazww acid tablet 1 tab PO DAILY 05/04/18 [History Confirmed 06/23/18] levetiracetam ER 500 mg tablet,extended release 24 hr 2,000 mg PO DAILY 05/26/18 [History Confirmed 06/23/18] Last Menstral Period: 02/03/18 Zika: Zika virus screening: Negative PFS PFSH Medical History Anxiety (Acute) Depression (Acute) Epilepsy (Acute) 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) MRSA infection (Acute 2017) Migraine with aura (Acute) Surgical History H/O section (Acute 03/2016) H/O exploratory laparotomy (Acute) Family History Father Hypertension Heart disease Depression Grandfather Cancer Unknown Leukemia Social History adopted: No household members: [facility] number of children: 2 current occupational status: employed current occupation: [employer] pets and animals: Yes history of recent travel: No other: comes in contact with international school Smoking Status: Never smoker second hand exposure: No alcohol intake: current alcohol intake frequency: holidays/special occasions only details: not while substance use type: does not use seatbelt use: always do you feel safe at home: Yes additional social history: [employer]- [employer] Son- Gabe age 2 Step [facility]- Reign age 8 Pregancy History 2 Elective abortions Hx Para 1 Spontaneous abortions Past Pregnancies Del. DateName GA/Weeks Outcome Route Bt WeighInfant GeLabor LgtAnesthesiDel LocatProvider FOB t n h a n Delivery Date: 03/17/16 On 03/16/18 @ 15:30 Juani Tobar Bennett Breech failed version HPI 19 weeks: Details: ROBERT MISHRA is a 22 year old who presents for routine OB visit. OB Visit CAMILLE Calculator Estimated Delivery Date 11/12/18 Based on Ultrasound Date 03/23/18 Current WG 19w 5d Number 1 Expected Delivery Route/Plan desires TOLAC - 41% likelihood of success but previous cs for breech, will proceed with TOLAC. handouts given on education Specific Issue/Plans flu vaccine: given tdap vaccine: [] rhogam: [] LARC form signed: [] labor support person: [] pain management: [] cut cord/dad catch: [] : [] PP control planned: [] special requests: [] Initial Weight: 319 lb Date Weight BP Urine PrFHR FuHt Pres MoCTX DilationFetal StVisit NoProviderComments E ot v te GA G Effac lucose ed Visit Notes Visit Date: 06/23/18 no vb some crmaping. having a boy. declined afp Kristie Ramírez MD on 06/23/18 Visit Date: 06/01/18 work in for cramping. Was awake most of night worried. No spotting or bleeding. Brief US confirms active IUD with FHT SHERLY Fernando on 06/01/18 Visit Date: 05/26/18 no vb lof some nausea still. declines genetic and AFP screening. Kristie Ramírez MD on 05/26/18 Visit Date: 05/04/18 had some bleeding last week, some cramping. nausea present but manageable Kristie Ramírez MD on 05/04/18 Visit Date: 04/21/18 no vb cramping doing well Kristie Ramírez MD on 04/22/18 Visit Date: 03/16/18 No visit notes to display Diagnostics Diagnostics Labs Blood Type O POSITIVE 05/04/18 Antibody Screen NEGATIVE 05/04/18 Hct 35.3 % (37-47) L 05/04/18 Hgb 11.4 g/dl (12.0-15.0) L 05/04/18 Obstetrics Ultrasound 03/23/18 Rubella IgG Antibody 63.3 IU/mL 05/04/18 RPR NONREACTIVE (NONREACTIVE) 05/04/18 Hep Bs Antigen Negative (Negative) 05/04/18 Chlam trachomat DNA PCR Negative (Negative) 05/05/18 N.gonorrhoeae DNA (PCR) Negative (Negative) 05/05/18 Glucose 1 Hr 50 gm 150 mg/dL (70-140) H 05/04/18 Miscellaneous Test Cancelled 05/04/18 Details: HIV: Urine Culture: Sequential Screen: NIPT Screen: Results [id number] Office Urine Glucose Negative Last Edit by Jen Donaldson on 06/23/18 08:19 Office Urine Protein Negative Last Edit by Jen Donaldson on 06/23/18 08:19 Assessment AND Plan Problems 1. BMI greater than 40 1st trimester glucola, weekly nsts and q4 week us after 32 weeks 2. Previous delivery affecting , antepartum O34.219 3. Supervision of high risk , antepartum O09.90 [facility] 11/12/18 PC Chris Armani (Reign) 4. Seizure disorder during in second trimester O99.352; G40.909 dr xiomara webb at [facility], growth us q 4 weeks after 28, nsts weekly after 32 5. 19 weeks gestation of Z3A.19 6. Abnormal glucose R73.09 3 hr GTT normal Plan ACOG trimester education reviewed and updated. see problem list details for updated plan management information and see below for orders placed at this visit. GA appropriate handout given. Orders Orders: Coding Level of Care Code OB Routine Diagnoses BMI greater than 40 Previous delivery affecting , antepartum O34.219 Supervision of high risk , antepartum O09.90 Seizure disorder during in second trimester O99.352; G40.909 Trimester: second trimester 19 weeks gestation of Z3A.19 Weeks of gestation: 19 weeks Abnormal glucose R73.09 06/23/18 0853 <Electronically signed by Kristie Ramírez MD> Date Kristie Ramírez MD Cosigner Signature: Date (if applicable) CC: Observed: 06/01/2018 Status: F Source: [facility] CULTURE, URINE 4:28 PM [facility] REPOSITORY Urine Culture Below infection level. ORGANISM 1: Mixed Gram Positive Organisms Thompson Count 1000-10,000 Performed By: #### M100.0650 #### [place] [facility] J[place] [address], [address] OUTREACH TEAM MEMBER OFFICE VISIT Observed: 06/01/2018 Status: F Source: [facility] REPORT 8:09 AM [facility] REPOSITORY [facility] [address] [place] [address] OFFICE VISIT Date of Service: 06/01/18 MR#: [id number] Acct: [id number] Name: ROBERT MISHRA Rep #: [id number] : 1995 Provider: SHARI Rico Age/Sex: 22/F [facility] Status: Signed Intake Vital Signs06/01/18 Height 5 ft 4 in 06/01/18 Weight: 311 lb 4 oz 06/01/18 Body Mass Index (BMI) 53.4 06/01/18 Blood Pressure 120/80 Intake Visit Reasons: OB-CRAMPING Chief Complaint: est ob, cramping Flue Gas Analyst Required: No Is patient in pain?: Yes Allergies acetaminophen [From Percocet] Allergy (Verified 06/01/18 08:02) Rash oxycodone [From Percocet] Allergy (Verified 06/01/18 08:02) Rash paper tape Adverse Reaction (Mild, Uncoded 06/01/18 08:02) Rash Medications sertraline 50 mg tablet 50 mg PO QDAY 03/16/18 [History Confirmed 06/01/18] venlafaxine ER 75 mg capsule,extended release 24 hr 75 mg PO QHS 03/16/18 [History Confirmed 06/01/18] esomeprazole magnesium 20 mg capsule,delayed release 20 mg PO DAILY 05/04/18 [History Confirmed 06/01/18] folic acid 1 mg tablet 1 mg PO DAILY 05/04/18 [History Confirmed 06/01/18] mecobalamin (vitamin B12) 1,000 mcg disintegrating tablet,sublingual 1,000 mcg SUBLINGUAL DAILY 05/04/18 [History Confirmed 06/01/18] vitamin,calcium,qoqyjhlg-kxrc-jbxkk acid tablet 1 tab PO DAILY 05/04/18 [History Confirmed 06/01/18] levetiracetam ER 500 mg tablet,extended release 24 hr 2,000 mg PO DAILY 05/26/18 [History Confirmed 06/01/18] Last Menstral Period: 02/03/18 Zika: Zika virus screening: Negative : No 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) MRSA infection (Acute 2017) Migraine with aura (Acute) Surgical History H/O section (Acute 03/2016) H/O exploratory laparotomy (Acute) Family History Father Hypertension Heart disease Depression Grandfather Cancer Unknown Leukemia Social History adopted: No household members: [facility] number of children: 2 current occupational status: employed current occupation: [employer] pets and animals: Yes history of recent travel: No other: comes 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 DateName GA/Weeks Outcome Route Bth WeighInfant GeLabor LgtAnesthesiDel LocatProvider FOB t n h a n Delivery Date: 03/17/16 On 03/16/18 @ 15:30 Juani Tobar Bennett Breech failed version HPI OB-CRAMPING: Details: ROBERT MISHRA is a 22 year old who presents for routine OB visit. OB Visit CAMILLE Calculator Estimated Delivery Date 11/12/18 Based on Ultrasound Date 03/23/18 Current WG 16w 4d Number 1 Expected Delivery Route/Plan Specific Issue/Plans flu vaccine: [] tdap vaccine: [] rhogam: [] LARC form signed: [] labor support person: [] pain management: [] cut cord/dad catch: [] : [] PP control planned: [] special requests: [] Initial Weight: 319 lb Date Weight BP Urine PrFHR FuHt Pres MoCTX DilationFetal StVisit NoProviderComments E ot v te GA G Effac lucose ed Visit Notes Visit Date: 06/01/18 work in for cramping. Was awake most of night worried. No spotting or bleeding. Brief US confirms active IUD with FHT SHERLY Fernando on 06/01/18 Visit Date: 05/26/18 no vb lof some nausea still. declines genetic and AFP screening. Kristie Ramírez MD on 05/26/18 Visit Date: 05/04/18 had some bleeding last week, some cramping. nausea present but manageable Kristie Ramírez MD on 05/04/18 Visit Date: 04/21/18 no vb cramping doing well Kristie Ramírez MD on 04/22/18 Visit Date: 03/16/18 No visit notes to display Diagnostics Diagnostics Labs Blood Type O POSITIVE 05/04/18 Antibody Screen NEGATIVE 05/04/18 Hct 35.3 % (37-47) L 05/04/18 Hgb 11.4 g/dl (12.0-15.0) L 05/04/18 Obstetrics Ultrasound 03/23/18 Rubella IgG Antibody 63.3 IU/mL 05/04/18 RPR NONREACTIVE (NONREACTIVE) 05/04/18 Hep Bs Antigen Negative (Negative) 05/04/18 Chlam trachomat DNA PCR Negative (Negative) 05/05/18 N.gonorrhoeae DNA (PCR) Negative (Negative) 05/05/18 Glucose 1 Hr 50 gm 150 mg/dL (70-140) H 05/04/18 Miscellaneous Test Cancelled 05/04/18 Details: HIV: Urine Culture: Sequential Screen: NIPT Screen: Assessment AND Plan Problems 1. Cramping affecting , antepartum O26.899; R10.9 2. Supervision of high risk , antepartum O09.90 [facility] 11/12/18 PC Chris Armani (Reign) 3. Seizure disorder during in first trimester O99.351 dr xiomara webb at [facility] 4. BMI greater than 40 1st trimester glucola, weekly nsts and q4 week us after 32 weeks 5. Previous delivery affecting , antepartum O34.219 6. 12 weeks gestation of Z3A.12 7. Abnormal glucose R73.09 3 hr GTT normal Plan Reassured. Active IUP with FHT on US Tylenol, warm bath Has anatomy US and routine OB in 2 weeks Orders Orders: Coding Level of Care Code OB Routine Diagnoses Cramping affecting , antepartum O26.899; R10.9 Supervision of high risk , antepartum O09.90 Seizure disorder during in first trimester O99.351 Trimester: first trimester BMI greater than 40 Previous delivery affecting , antepartum O34.219 12 weeks gestation of Z3A.12 Weeks of gestation: 12 weeks Abnormal glucose R73.09 06/01/18 0809 <Electronically signed by Sofy DUBOIS> Date Sofy SHARPEC Cosigner Signature: Date (if applicable) CC: OUTREACH TEAM MEMBER OFFICE VISIT Observed: 05/26/2018 Status: F Source: [facility] REPORT 3:36 PM [facility] [address] [place] [address] OFFICE VISIT Date of Service: 05/26/18 MR#: [id number] Acct: [id number] Name: ROBERT MISHRA Rep #: [id number] : 1995 Provider: Kristie Ramírez MD Age/Sex: 22/F Location: [facility] Status: Signed Intake Vital Signs05/26/18 Height 5 ft 4 in 05/26/18 Weight: 315 lb 05/26/18 Body Mass Index (BMI) 54.1 05/26/18 Blood Pressure 121/60 Intake Visit Reasons: EST OB Chief Complaint: est ob Flue Gas Analyst Required: No Is patient in pain?: No Allergies acetaminophen [From Percocet] Allergy (Verified 05/26/18 15:15) Rash oxycodone [From Percocet] Allergy (Verified 05/26/18 15:15) Rash paper tape Adverse Reaction (Mild, Uncoded 05/26/18 15:15) Rash Medications sertraline 50 mg tablet 50 mg PO QDAY 03/16/18 [History Confirmed 05/26/18] venlafaxine ER 75 mg capsule,extended release 24 hr 75 mg PO QHS 03/16/18 [History Confirmed 05/26/18] esomeprazole magnesium 20 mg capsule,delayed release 20 mg PO DAILY 05/04/18 [History Confirmed 05/26/18] folic acid 1 mg tablet 1 mg PO DAILY 05/04/18 [History Confirmed 05/26/18] mecobalamin (vitamin B12) 1,000 mcg disintegrating tablet,sublingual 1,000 mcg SUBLINGUAL DAILY 05/04/18 [History Confirmed 05/26/18] vitamin,calcium,xfbkjdoq-wyvh-yfsex acid tablet 1 tab PO DAILY 05/04/18 [History Confirmed 05/26/18] levetiracetam ER 500 mg tablet,extended release 24 hr 2,000 mg PO DAILY 05/26/18 [History Confirmed 05/26/18] Last Menstral Period: 02/03/18 Zika: Zika virus screening: Negative : No 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) MRSA infection (Acute 2016) Migraine with aura (Acute) Surgical History H/O section (Acute 03/2016) H/O exploratory laparotomy (Acute) Family History Father Hypertension Heart disease Depression Grandfather Cancer Unknown Leukemia Social History adopted: No household members: children housing: condominium number of children: 2 current occupational status: employed current occupation: [employer] pets and animals: Yes history of recent travel: No other: comes 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 DateName GA/Weeks Outcome Route Bth WeighInfant GeLabor LgtAnesthesiDel LocatProvider FOB t n h a n Delivery Date: 03/17/16 On 03/16/18 @ 15:30 Juani Tobar Bennett Breech failed version HPI EST OB: Details: ROBERT MISHRA is a 22 year old who presents for routine OB visit. OB Visit CAMILLE Calculator Estimated Delivery Date 11/12/18 Based on Ultrasound Date 03/23/18 Current WG 15w 5d Number 1 Expected Delivery Route/Plan Initial Weight: 319 lb Date Weight BP Urine PrFHR FuHt Pres MoCTX DilationFetal StVisit NoProviderComments E ot v te GA G Effac lucose ed Visit Notes Visit Date: 05/26/18 no vb lof some nausea still. declines genetic and AFP screening. Kristie Ramírez MD on 05/26/18 Visit Date: 05/04/18 had some bleeding last week, some cramping. nausea present but manageable Kristie Ramírez MD on 05/04/18 Visit Date: 04/21/18 no vb cramping doing well Kristie Ramírez MD on 04/22/18 Visit Date: 03/16/18 No visit notes to display Diagnostics Diagnostics Labs Blood Type O POSITIVE 05/04/18 Antibody Screen NEGATIVE 05/04/18 Hct 35.3 % (37-47) L 05/04/18 Hgb 11.4 g/dl (12.0-15.0) L 05/04/18 Obstetrics Ultrasound 03/23/18 Rubella IgG Antibody 63.3 IU/mL 05/04/18 RPR NONREACTIVE (NONREACTIVE) 05/04/18 Hep Bs Antigen Negative (Negative) 05/04/18 Chlam trachomat DNA PCR Negative (Negative) 05/05/18 N.gonorrhoeae DNA (PCR) Negative (Negative) 05/05/18 Glucose 1 Hr 50 gm 150 mg/dL (70-140) H 05/04/18 Miscellaneous Test Cancelled 05/04/18 Details: HIV: Urine Culture: Sequential Screen: NIPT Screen: ROS Const Denies fever(s) GI Denies abdominal pain, Reports as per HPI Denies vaginal discharge, Denies abnormal vaginal bleeding, Reports as per HPI Exam Const General: healthy appearing, comfortable, no acute distress GI Inspection: normal to inspection Palpation: soft, nontender Assessment AND Plan Problems 1. Abnormal glucose R73.09 3 hr GTT normal 2. 12 weeks gestation of Z3A.12 3. Previous delivery affecting , antepartum O34.219 4. BMI greater than 40 1st trimester glucola, weekly nsts and q4 week us after 32 weeks 5. Seizure disorder during in first trimester O99.351 dr xiomara webb at [facility] 6. Supervision of high risk , antepartum O09.90 CAMILLE 11/12/18 PC Chris Ames (Reign) Plan ACOG trimester education reviewed and updated. see problem list details for updated plan management information and see below for orders placed at this visit. GA appropriate handout given. Orders Orders: Medications New: Coding Level of Care Code OB Routine Diagnoses Abnormal glucose R73.09 12 weeks gestation of Z3A.12 Weeks of gestation: 12 weeks Previous delivery affecting , antepartum O34.219 BMI greater than 40 Seizure disorder during in first trimester O99.351 Trimester: first trimester Supervision of high risk , antepartum O09.90 05/26/18 1536 <Electronically signed by Kristie Ramírez MD> Date Kristie Ramírez MD Cosigner Signature: Date (if applicable) CC: GESTATIONAL GTT 3HR Collected: 05/05/2018 Status: F Source: [facility] AguiarG 7:06 AM [facility] REPOSITORY Order Comment: Is Patient Fasting? Y TYPE CODE TESTS RESULT OUT OF RANGE REFERENCE UNITS LAB L501.0650 <105 mg/dL Normal GLU 93 GTT-FASTING Result Comment: GLUCOSE TOLERANCE TEST FOR Reference Interval GESTATIONAL DIABETES Fasting <105 mg/dL 1 hour <190 mg/dl 2 hour <165 mg/dl 3 hour <145 mg/dl LAB L501.0660 <190 mg/dL Normal GLU GTT- 1HR 160 LAB L501.0670 <165 mg/dL Normal GLU GTT- 2HR 122 LAB L501.0680 <145 L Normal GLU GTT- 3HR 111 Performed By: #### L500.4710 #### [facility] [address] [place], [address] CT/NG WCH BY PCR Collected: 05/05/2018 Status: F Source: [facility] 7:04 AM [facility] REPOSITORY TYPE CODE TESTS RESULT OUT OF RANGE REFERENCE UNITS LAB L8200.2100 Negative Normal Chlam Negative Trac PCR LAB L8200.2200 Negative Normal NG by Negative PCR Performed By: #### L8200.1999, M100.0650 #### [facility] [address] [place], [address] Observed: 05/05/2018 Status: F Source: [facility] CULTURE, URINE 7:04 AM [facility] REPOSITORY Urine Culture Below infection level. ORGANISM 1: Mixed Gram Pos AND Gram Neg Org Thompson Count 1000-10,000 Performed By: #### L8200.1999, M100.0650 #### [facility] [address] [place], [address] CBC W/DIFF, AUTOMATED Collected: 05/04/2018 Status: F Source: [facility] 12:29 PM [facility] REPOSITORY TYPE CODE TESTS RESULT OUT OF RANGE REFERENCE UNITS LAB L100.1000 4.4-11.0 K/mm3 Normal WBC 7.7 LAB L100.1200 4.2-5.4 M/mm3 Low RBC 4.19 LAB L100.1300 12.0-15.0 g/dl Low HGB 11.4 LAB L100.1400 37-47 % Low HCT 35.3 LAB L100.1500 81-99 fL Normal MCV 84.2 LAB L100.1600 27.0-32.0 pg Normal MCH 27.2 LAB L100.1700 32-36 g/gl Normal MCHC 32.3 LAB L100.1810 11.6-14.6 % Normal RDW CV 13.8 LAB L100.1820 35.1-43.9 fl Normal RDW SD 42.1 LAB L100.1900 150-450 K/mm3 Normal PLT 308 LAB L100.2000 6.2-12.0 fl Normal MPV 10.1 LAB L100.2100 47-70 % High NEUT% 77.9 LAB L100.2200 19-41 % Low LY% 17.1 LAB L100.2300 0-10 % Normal MONO% 4.4 LAB L100.2400 0-5 % Normal EO% 0.4 LAB L100.2500 0-1 % Normal BASO% 0.1 LAB L100.2550 0.0-0.9 % Normal IM GRAN % 0.100 Result Comment: IG% - Immature Granulocytes (promyelocytes, myelocytes and metamyelocytes) > 1% indicates that a LEFT SHIFT is Present. LAB L100.2620 2.0-7.7 X10 3/uL Normal Absolute Neut 6.0 LAB L100.2720 0.83-4.51 X10 3/ul Normal Absolute Lymph 1.31 Performed By: #### L100.0100, B101.7450 #### [facility] [address] [place], [place], [id number] #### L3100.0390, L3310.0000 #### [facility] (refer to report for specific site) refer to report for address and phone number TYPE AND SCREEN Collected: 05/04/2018 Status: F Source: [place] 12:29 PM [facility] REPOSITORY Order Comment: Reason for Type AND Screen/Red Cells: TYPE CODE TESTS RESULT OUT OF RANGE REFERENCE UNITS LAB B10.0800 O Normal BLOOD TYPE GEL POSITIVE LAB B100.4000 Normal Antibody NEGATIVE Screen Performed By: #### L100.0100, B101.7450 #### [facility] [address] [place], [place], [id number] #### L3100.0390, L3310.0000 #### [facility] (refer to report for specific site) refer to report for address and phone number HEPATITIS B SURFACE Collected: 05/04/2018 Status: F Source: [facility] AG 12:29 PM [facility] REPOSITORY TYPE CODE TESTS RESULT OUT OF RANGE REFERENCE UNITS LAB L3100.0400 Negative Normal HB Negative SURF AG Result Comment: Performed at: - [facility] [address] [id number] Drum Sander: Duy Abdi MD, Phone: [phone] Performed at: - [facility] [id number] Drum Sander: Akin Santa PhD, Phone: [phone] Performed By: #### L100.0100, B101.7450 #### [facility] [address] [place], [place], [id number] #### L3100.0390, L3310.0000 #### [facility] (refer to report for specific site) refer to report for address and phone number KEPPRA (LEVETIRACETAM) Collected: 05/04/2018 Status: F Source: [facility] 12:29 PM [facility] REPOSITORY TYPE CODE TESTS RESULT OUT OF REFERENCE UNITS RANGE LAB L3310.0000 10.0-40.0 ug/mL Low KEPPRA 5.0 Performed By: #### L100.0100, B101.7450 #### [facility] [address] [place], [place] [address]. [place], [place], [id number] #### L3100.0390, L3310.0000 #### [facility] (refer to report for specific site) refer to report for address and phone number GLUCOSE CHALLENGE GEST Collected: 05/04/2018 Status: F Source: [facility] 1H 50G 12:29 PM [facility] REPOSITORY TYPE CODE TESTS RESULT OUT OF RANGE REFERENCE UNITS LAB L501.0250 70-140 mg/dL High GLU GEST 150 50g 1H Performed By: #### L501.0250 #### [facility] [address] [place] [address]. [place], [place], [address] RAPID PLASMIN REAGIN Collected: 05/04/2018 Status: F Source: [facility] (RPR) 12:29 PM [facility] REPOSITORY TYPE CODE TESTS RESULT OUT OF REFERENCE UNITS RANGE LAB L700.5000 NONREACTIVE NONREACTIVE Normal RPR Performed By: #### L700.5000, L509.4000, L3890.6005 #### [facility] [address] [place], [place], [id number] RUBELLA IGG Collected: 05/04/2018 Status: F Source: [facility] 12:29 PM [facility] REPOSITORY Order Comment: Comments: keppra level TYPE CODE TESTS RESULT OUT OF RANGE REFERENCE UNITS LAB L509.4000 IU/mL Normal Rubella IgG 63.3 Result Comment: Antibody results Interpretation of Immune Status < 5 IU/ml Presumed Non-immune 5 - < 10 IU/ml Equivocal > or = 10 IU/ml Presumed Immune Performed By: #### L700.5000, L509.4000, L3890.6005 #### [facility] [address] [place], [address] HIV - [facility] Collected: 05/04/2018 Status: F Source: [facility] 12:29 PM [facility] REPOSITORY Order Comment: Comments: keppra level TYPE CODE TESTS RESULT OUT OF RANGE REFERENCE UNITS LAB L3890.6005 Nonreactive Normal HIV - [facility] Non-Reactive Performed By: #### L700.5000, L509.4000, L3890.6005 #### [facility] [address] [place], [address] OUTREACH TEAM MEMBER OFFICE VISIT Observed: 05/04/2018 Status: F Source: [facility] REPORT 11:24 AM [facility] REPOSITORY [facility] [address] [place] [address] OFFICE VISIT Date of Service: 05/04/18 MR#: [id number] Acct: [id number] Name: ROBERT MISHRA Rep #: [id number] : 1995 Provider: Kristie Ramírez MD Age/Sex: 22/F Location: [facility] Status: Signed Intake Vital Signs05/04/18 Height 5 ft 4 in 05/04/18 Weight: 313 lb 8 oz 05/04/18 Body Mass Index (BMI) 53.8 05/04/18 Blood Pressure 124/84 Intake Visit Reasons: OB- CRAMPING Flue Gas Analyst Required: No Is patient in pain?: Yes (Can get to a level 8 at times) Pain scale (1-10): 5 Allergies acetaminophen [From Percocet] Allergy (Verified 05/04/18 11:05) Rash oxycodone [From Percocet] Allergy (Verified 05/04/18 11:05) Rash paper tape Adverse Reaction (Mild, Uncoded 03/30/18 06:51) Rash Medications levetiracetam ER 500 mg tablet,extended release 24 hr 1,500 mg PO QDAY tab 03/16/18 [History Confirmed 05/04/18] sertraline 50 mg tablet 50 mg PO QDAY 03/16/18 [History Confirmed 05/04/18] venlafaxine ER 75 mg capsule,extended release 24 hr 75 mg PO QHS 03/16/18 [History Confirmed 05/04/18] esomeprazole magnesium 20 mg capsule,delayed release 20 mg PO DAILY 05/04/18 [History Confirmed 05/04/18] folic acid 1 mg tablet 1 mg PO DAILY 05/04/18 [History Confirmed 05/04/18] mecobalamin (vitamin B12) 1,000 mcg disintegrating tablet,sublingual 1,000 mcg SUBLINGUAL DAILY 05/04/18 [History Confirmed 05/04/18] vitamin,calcium,eyhkmpxu-oqqg-aghfb acid tablet 1 tab PO DAILY 05/04/18 [History Confirmed 05/04/18] Last Menstral Period: 02/03/18 Zika: Zika virus screening: Negative : No 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) MRSA infection (Acute 2016) Migraine with aura (Acute) Surgical History H/O section (Acute 03/2016) H/O exploratory laparotomy (Acute) Family History Father Hypertension Heart disease Depression Grandfather Cancer Unknown Leukemia Social History adopted: No household members: children housing: condominium number of children: 2 current occupational status: employed current occupation: [employer] pets and animals: Yes history of recent travel: No other: comes in contact with international school Smoking Status: Never smoker second hand exposure: No alcohol intake: current alcohol intake frequency: holidays/special occasions only details: not while substance use type: does not use seatbelt use: always do you feel safe at home: Yes additional social history: [employer]- [employer] Son- Gabe age 2 Step DGHT- Reign age 8 Pregancy History 2 Elective abortions Hx Para 1 Spontaneous abortions Past Pregnancies Del. DateName GA/Weeks Outcome Route Bth WeighInfant GeLabor LgtAnesthesiDel LocatProvider FOB t n h a n Delivery Date: 03/17/16 On 03/16/18 @ 15:30 Juani Tobar Bennett Breech failed version HPI OB- CRAMPING: Details: ROBERT MISHRA is a 22 year old who presents for routine OB visit. OB Visit CAMILLE Calculator Estimated Delivery Date 11/12/18 Based on Ultrasound Date 03/23/18 Current WG 12w 4d Number 1 Expected Delivery Route/Plan Initial Weight: 319 lb Date Weight BP Urine PrFHR FuHt Pres MoCTX DilationFetal StVisit NoProviderComments E ot v te [place] G Effac lucose ed Visit Notes Visit Date: 05/04/18 had some bleeding last week, some cramping. nausea present but manageable Kristie Ramírez MD on 05/04/18 Visit Date: 04/21/18 no vb cramping doing well Kristie Ramírez MD on 04/22/18 Visit Date: 03/16/18 No visit notes to display Diagnostics Diagnostics Labs Hct 37.1 % (37-47) 03/30/18 Hgb 11.8 g/dl (12.0-15.0) L 03/30/18 Obstetrics Ultrasound 03/23/18 Chlam trachomat DNA PCR Negative (Negative) 03/16/18 N.gonorrhoeae DNA (PCR) Negative (Negative) 03/16/18 Details: HIV: Urine Culture: Sequential Screen: NIPT Screen: Assessment AND Plan Problems 1. Supervision of high risk , antepartum O09.90 CAM[place] 11/12/18 PC Chris [employer] (Reign) 2. Seizure disorder during in first trimester O99.351 dr xiomara webb at [facility] 3. BMI greater than 40 1st trimester glucola, weekly nsts and q4 week us after 32 weeks 4. Previous delivery affecting , antepartum O34.219 5. 12 weeks gestation of Z3A.12 Plan Patient oriented to practice and discussed care expectations and screenings. ACOG book offered to patient. Discussed routine and specially indicated labs if needed- patient consents to testing. see problem list details for plan information. Optional screening including carrier screenings, neural tube defect screening, sequential screening, and NIPT screening offered to patient and patient chose: declined Coding Level of Care Code OB Routine Diagnoses Supervision of high risk , antepartum O09.90 Seizure disorder during in first trimester O99.351 Trimester: first trimester BMI greater than 40 Previous delivery affecting , antepartum O34.219 12 weeks gestation of Z3A.12 Weeks of gestation: 12 weeks 05/04/18 1124 <Electronically signed by Kristie Ramírez MD> Date Kristie Ramírez MD Cosigner Signature: Date (if applicable) CC: OUTREACH TEAM MEMBER OFFICE VISIT Observed: 04/22/2018 Status: F Source: [facility] REPORT 11:57 PM [facility] [address] [place] [address] OFFICE VISIT Date of Service: 04/21/18 MR#: [id number] Acct: [id number] Name: ROBERT MISHRA Rep #: [id number] : 1995 Provider: Kristie Ramírez MD Age/Sex: 22/F Location: [facility] Status: Signed Intake Vital Signs04/21/18 Height 5 ft 4 in 04/21/18 Weight: 319 lb 6 oz 04/21/18 Body Mass Index (BMI) 54.8 04/21/18 Blood Pressure 117/73 Intake Visit Reasons: 11 WEEK OB Flue Gas Analyst Required: No Is patient in pain?: No Allergies acetaminophen [From Percocet] Allergy (Verified 04/21/18 15:30) Rash oxycodone [From Percocet] Allergy (Verified 04/21/18 15:30) Rash paper tape Adverse Reaction (Mild, Uncoded 03/30/18 06:51) Rash Medications levetiracetam ER 500 mg tablet,extended release 24 hr 1,500 mg PO QDAY tab 03/16/18 [History Confirmed 04/21/18] multivitamin with iron tablet 1 tab PO QDAY 03/16/18 [History Confirmed 04/21/18] sertraline 50 mg tablet 50 mg PO QDAY 03/16/18 [History Confirmed 04/21/18] venlafaxine ER 75 mg capsule,extended release 24 hr 75 mg PO QHS 03/16/18 [History Confirmed 04/21/18] Last Menstral Period: 02/03/18 Zika: Zika virus screening: Negative : No 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) MRSA infection (Acute 2016) Migraine with aura (Acute) Surgical History H/O section (Acute 03/2016) H/O exploratory laparotomy (Acute) Family History Father Hypertension Heart disease Depression Grandfather Cancer Unknown Leukemia Social History adopted: No household members: [facility] number [facility]: 2 current occupational status: employed current occupation: [employer] pets and animals: Yes history of recent travel: No other: comes 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 DateName GA/Weeks Outcome Route Bth WeighInfant GeLabor LgtAnesthesiDel LocatProvider FOB t n h a n Delivery Date: 03/17/16 On 03/16/18 @ 15:30 Juani Tobar Bennett Breech failed version HPI 11 WEEK OB: Details: ROBERT MISHRA is a 22 year old who presents for routine OB visit. OB Visit CAMILLE Calculator Estimated Delivery Date 11/12/18 Based on Ultrasound Date 03/23/18 Current WG 10w 6d Number 1 Expected Delivery Route/Plan Initial Weight: Not Recorded Date Weight BP Urine PFHR FuHt Pres MCTX DilatioFetal SVisit NProvideComment rot ov n t ote r s EGA Ef Gluco faced se 03/16/1319 lb 131/86 8 6 oz 5w 4d Visit Notes Visit Date: 04/21/18 no vb cramping doing well Kristie Ramírez MD on 04/22/18 Visit Date: 03/16/18 No visit notes to display Diagnostics Diagnostics Labs Hct 37.1 % (37-47) 03/30/18 Hgb 11.8 g/dl (12.0-15.0) L 03/30/18 Obstetrics Ultrasound 03/23/18 Chlam trachomat DNA PCR Negative (Negative) 03/16/18 N.gonorrhoeae DNA (PCR) Negative (Negative) 03/16/18 Details: HIV: Urine Culture: Sequential Screen: NIPT Screen: Results [id number] Office Urine Glucose Negative Last Edit by Carolee Brantley on 04/21/18 15:31 Office Urine Protein Negative Last Edit by Carolee Brantley on 04/21/18 15:31 Assessment AND Plan Problems 1. BMI greater than 40 1st trimester glucola, weekly nsts and q4 week us after 32 weeks 2. Previous delivery affecting , antepartum O34.219 3. Seizure disorder during in first trimester O99.351; G40.909 dr xiomara webb at [facility] 4. Supervision of high risk , antepartum O09.90 [place] 11/12/18 CHAUNCEY Perez Armani (Reign) Plan ACOG trimester education reviewed and updated. see problem list details for updated plan management information and see below for orders placed at this visit. [place] appropriate handout given. Orders Orders: Coding Level of Care Code OB Routine Diagnoses BMI greater than 40 Previous delivery affecting , antepartum O34.219 Seizure disorder during in first trimester O99.351; G40.909 Trimester: first trimester Supervision of high risk , antepartum O09.90 04/22/18 2357 <Electronically signed by Kristie Ramírez MD> Date Kristie Ramírez MD Cosigner Signature: Date (if applicable) CC: VENOUS DUPLEX LOWER Observed: 04/05/2018 Status: F Source: [place] EXTREMITY 5:28 PM [facility] REPOSITORY [facility] Cardiovascular Services [address] [place] [address] Venous Duplex US - Bob Extrem 03/30/18817 MR#: [id number] Acct: [id number] Name: ROBERT MISHRA Rep #: [id number] : 1995 22 From: Chilo Ybarra MD Attending Dr: Status: DEP ER Ordering Dr: Deric Fenton MD Date: 03/30/18 Location: ED Sex: F C Admitted: Reason For Study: SOB RIGHT LEFT GSV is normal. GSV is normal. CFV is compressible, spontaneous, phasic, CFV is compressible, spontaneous, phasic, competent and demonstrates normal competent, and demonstrates normal augmentation. augmentation. FV is compressible, spontaneous, phasic, FV is compressible, spontaneous, phasic, competent and demonstrates normal competent and demonstrates normal augmentation. augmentation. POP V is compressible, spontaneous, phasic, POP V is compressible, spontaneous, phasic, competent and demonstrates normal competent and demonstrates normal augmentation. augmentation. T/P Trunk is compressible. T/P Trunk is compressible. PTV is compressible. PTV is compressible. RT PerV is compressible. LT PerV is compressible. Procedure Exam performed portable in ED. The exam was diagnostic. A preliminary report was called and/or faxed to Dr. Fenton. Interpretation Summary Deep veins of the lower extremities are bilaterally patent and compressible segmentally. There is no evidence of deep vein thrombosis on either side. Valvular competence appears intact within the proximal deep venous systems bilaterally. The greater saphenous veins appear bilaterally patent and compressible segmentally. Ordering Physician: Deric Fenton Performed By: Sin Villanueva RVT 04/05/181726 Date Chilo Ybarra MD CC: Ulices Kim MD; Deric Fenton MD Date Dictated: 03/30/18817 Date Transcribed: 04/05/181726 Interpretative Dancer: Signed 12 LEAD ELECTROCARDIOGRAM Observed: 03/31/2018 Status: F Source: [place] 1:18 PM [facility] REPOSITORY [facility] Cardiovascular Services [address] [place] [id number] 12 Lead EKG 03/30/18 0733 MR#: [id number] Acct: [id number] Name: ROBERT MISHRA Rep #: [id number] : 1995 22 From: Jose Juan Hunter MD Attending Dr: Status: DEP ER Ordering Dr: Deric Fenton MD Date: 03/30/18 Location: ED Sex: F C Admitted: Test Reason : SOB Blood Pressure : / mmHG Vent. Rate : 065 BPM Atrial Rate : 065 BPM P-R Int : 130 ms QRS Dur : 094 ms QT Int : 392 ms P-R-T Axes : -11 -10 010 degrees QTc Int : 407 ms Normal sinus rhythm with sinus arrhythmia Normal ECG Confirmed by JOSE JUAN HUNTER MD ([id number]), graphic editor MARY BELTRAN ([id number]) on 03/31/2018 1:17:40 PM Referred By: Kristie Ramírez Confirmed By:JOSE JUAN HUNTER MD 03/31/18 1317 Date Jose Juan Hunter MD CC: Ulices Kim MD; Deric Fenton MD Signed EMERGENCY DEPARTMENT Observed: 03/30/2018 Status: F Source: [place] SUMMARY 4:27 PM [facility] REPOSITORY [facility] Medical Records Department [address] [place] [address] Emergency Department Summary 03/30/18717 MR#: [id number] Acct: [id number] Name: ROBERT MISHRA Rep #: [id number] : 1995 22 From: Deric Fenton MD PCP: Ulices Kim MD Status: DEP ER - ER Visit Summary Date of Service: 03/30/18 Chief Complaint: Shortness of breath History of Present Illness: The patient is a [address] Calle and Dr. Marco Galindo. She is a at 8 weeks by an ultrasound on March 23. She reports she has shortness of breath began at 130 this morning. It is moderate in severity currently and at worst. Is worsened by nothing including exertion or coughing. Is relieved by nothing. Patient denies any fever or cough. She has chest tightness that began approximately 1 AM. 5 out of 10 severity. It is increased with laying back and deep breaths. There is no change with exertion. She denies any personal or family history of DVT. No recent travel. She does report that she has mild ankle swelling bilaterally that is chronic and unchanged. She denies any calf pain. Physical Examination: Vitals: Stable. Afebrile. General: Well-nourished and well-developed. Head: Normocephalic atraumatic. Neck: Supple, no lymphadenopathy. No JVD. Nontender. Cardiovascular: Regular rate and rhythm. No murmurs. Respiratory: No respiratory distress. Clear to auscultation bilaterally. Abdominal: Soft, nontender, nondistended, normal bowel sounds. No guarding, rebound, or peritoneal signs. Back: Nontender. Extremities: Nontender, no edema. Skin: Normal color, no rash. Neurologic: Alert and oriented 3. Cranial nerves II through XII are intact. Normal strength and sensation. Psych: Normal affect. Test Results: EKG shows sinus arrhythmia with no acute changes. Troponins negative. PT LOCKSTITCH ZIPPER SETTER is 11.9. Chem-7 is marked for creatinine is 0.47. CBC is more for hemoglobin 11.8 and segment neutrophils 72. Chest x-ray shows no acute disease. Bilateral lower extremity Dopplers are negative. Emergency Department Course and Treatment: We were unable to obtain heart tones. Patient is resting comfortably. She has had no vaginal bleeding or abdominal pain. Treatment Plan: Patient will be discharged instructions follow- up her primary care physician 1-2 days if not improving. Return to the emergency department for any worsening symptoms. Disposition: To home in improved and stable condition. Impression: 1. Dyspnea, uncertain cause. 2. First trimester . This note was generated with Interact.ioation software. It may contain incorrect words, spelling, and punctuation that were not noted in review of the chart prior to signing ED Disposition - Plan for ED Patient: Chief Complaint: Shortness of Breath Instructions: ED Dyspnea Shortness of Breath Referrals: Ulices Kim MD [Primary Care Provider] - 1-2 Days if not improving What to do if you have Problems For any increased pain, shortness of breath, bleeding, nausea or vomiting, chest pain, or any unexpected problems, contact your Primary Care Provider. Call [facility] ([phone]) or report to the closest Emergency Room. Call 911 if necessary. 03/30/18 7544 <Electronically signed by Deric Fenton MD> Date Deric Fenton MD Cosigner Signature (If Indicated): Date CC: Ulices Kim MD CHEST 1 VIEW Observed: 03/30/2018 Status: F Source: [place] (PORTABLE) 8:05 AM [facility] REPOSITORY [facility] Imaging Services [address] [place] [id number] Chest 1 View (Portable) MR#: [id number] Acct: [id number] Name: ROBERT MISHRA Rep #: [id number] : 1995 F 22 From: Obinna Mason MD PCP: Ulices Kim MD Status: REG ER Study: Chest 1 View (Portable) Date of Exam: 03/30/18 Exam# [id number] Ordering Dr: Deric Fenton MD STUDY: X-RAY CHEST REASON FOR EXAM: Female, 22 years old. Shortness of breath. TECHNIQUE: Single AP portable view of the chest. COMPARISON: None. FINDINGS: EKG electrodes are seen. Mild degree of vascular congestion. There is no demonstrated pleural abnormality. Normal size heart. Normal mediastinum and henrqiue. Normal visualized pulmonary arteries. Normal visualized aortic arch and descending thoracic aorta. Normal visualized thoracic spine. Normal visualized ribs, clavicles, and shoulders. There is no demonstrated abnormality of the visualized soft tissue structures of the upper abdomen. RAD/Chest 1 View (Portable) IMPRESSION: Mild degree of pulmonary vascular congestion. Electronically Signed: Obinna Mason MD at 8:27 EDT Tel [phone], Service support , CC: Ulices Kim MD; Deric Fenton MD Interpretative Dancer: Signed CBC W/DIFF, AUTOMATED Collected: 03/30/2018 Status: F Source: [facility] 7:45 AM [facility] REPOSITORY TYPE CODE TESTS RESULT OUT OF RANGE REFERENCE UNITS LAB L100.1000 4.4-11.0 K/mm3 Normal WBC 7.7 LAB L100.1200 4.2-5.4 M/mm3 Normal RBC 4.40 LAB L100.1300 12.0-15.0 g/dl Low HGB 11.8 LAB L100.1400 37-47 % Normal HCT 37.1 LAB L100.1500 81-99 fL Normal MCV 84.3 LAB L100.1600 27.0-32.0 pg Low MCH 26.8 LAB L100.1700 32-36 g/gl Low MCHC 31.8 LAB L100.1810 11.6-14.6 % Normal RDW CV 14.1 LAB L100.1820 35.1-43.9 fl High RDW SD 44.0 LAB L100.1900 150-450 K/mm3 Normal PLT 307 LAB L100.2000 6.2-12.0 fl Normal MPV 9.9 LAB L100.2100 47-70 % High NEUT% 71.7 LAB L100.2200 19-41 % Normal LY% 19.4 LAB L100.2300 0-10 % Normal MONO% 7.9 LAB L100.2400 0-5 % Normal EO% 0.6 LAB L100.2500 0-1 % Normal BASO% 0.3 LAB L100.2550 0.0-0.9 % Normal IM GRAN % 0.100 Result Comment: IG% - Immature Granulocytes (promyelocytes, myelocytes and metamyelocytes) > 1% indicates that a LEFT SHIFT is Present. LAB L100.2620 2.0-7.7 X10 3/uL Normal Absolute Neut 5.5 LAB L100.2720 0.83-4.51 X10 3/ul Normal Absolute Lymph 1.49 Performed By: #### L100.0100 #### [facility] [address] [place], [address] BASIC METABOLIC Collected: 03/30/2018 Status: F Source: [place] PROFILE ([facility]) 7:45 AM [facility] REPOSITORY TYPE CODE TESTS RESULT OUT OF RANGE REFERENCE UNITS LAB L501.0100 74-106 mg/dL Normal GLU 103 Result Comment: Fasting Glucose result from 100 to 125 mg/dL suggests IMPAIRED HOMEOSTASIS per A.D.A. criteria. Please note revised GLUCOSE reference range effective 2017. LAB L501.1000 7-18 mg/dL Normal BUN 7 LAB L501.1100 0.55-1.02 mg/dL Low CREAT,SERUM 0.47 Result Comment: The validity of the calculated GFR AND GFRAA in patients over 70 years has not been determined. Clinical correlation is essential. LAB L501.1110 >60 mL/min Normal EST GFR 170 Result Comment: Non- GFR Calc LAB L501.1115 >60 mL/min Normal EST GFR - AA 206 Result Comment: GFR Calc LAB L501.1255 ml/min Normal Estimated CRCL 159.38 LAB L501.1300 10-20 RATIO BUN/CRE Normal 14.8 LAB L501.2200 8.5-10 mg/dL .1 CA Normal 8.8 LAB L501.5300 136-14 mmol/L 5 NA Normal 139 LAB L501.5600 3.5-5. mmol/L 1 K Normal 3.8 LAB L501.5900 98-107 mmol/L CL Normal 106 LAB L501.6100 21.0-3 mmol/L 2.0 CO2 Normal 26.0 LAB L501.6200 5-15 GAP Normal 7 Performed By: #### L500.2500, L501.4010 #### [facility] [address] [place], [address] TROPONIN-I Collected: 03/30/2018 Status: F Source: [facility] 7:45 AM [facility] REPOSITORY TYPE CODE TESTS RESULT OUT OF RANGE REFERENCE UNITS LAB L501.4010 <0.045 ng/mL Normal < 0.015 TROPONIN-I Result Comment: TROPONIN-I EXPECTED VALUES <0.045 Negative 0.045 - 0.590 Consistent with Cardiac Damage > OR = 0.600 Critical Value Not every elevated troponin is indicative of PA. These values should be used with clinical judgement in examining the patient's clinical picture for diagnosis. To establish a diagnosis of PA versus myocardial injury, there must be a demonstrated rise and/or fall in the troponin values, in addition to ischemic symptoms, EKG changes, new regional wall motion abnormality, and/or angiographical evidence. PLEASE NOTE: REFERENCE RANGES EDITED 18 Performed By: #### L500.2500, L501.4010 #### [facility] [address] [place], [address] BNP,B-TYPE NATRIURETIC Collected: 03/30/2018 Status: F Source: [facility] PEPTIDE 7:45 AM [facility] REPOSITORY TYPE CODE TESTS RESULT OUT OF RANGE REFERENCE UNITS LAB L503.6620 0-100 pg/mL Normal B-TYPE 11.9 RYLEE PEP Performed By: #### L503.6620 #### [facility] [address] [place], [address] INIT OB < 14WKS US Observed: 03/23/2018 Status: F Source: [facility] 4:17 PM [facility] REPOSITORY [facility] Imaging Services [address] [address] Init OB < 14Wks US MR#: [id number] Acct: [id number] Name: ROBERT MISHRA Rep #: [id number] : 1995 F 22 From: Christopher Amaya DO PCP: Ulices Kim MD Status: REG CLI Study: Init OB < 14Wks US Date of Exam: 03/23/18 Exam# [id number] Ordering Dr: Kristie Ramírez MD STUDY: FIRST TRIMESTER OBSTETRICAL ULTRASOUND REASON FOR EXAM: Female, 22 years old. Threaded miscarriage. LMP: Unknown. TECHNIQUE: Transvaginal PRIOR ULTRASOUND: None. FINDINGS: There is visualization of a single gestational sac in a normal intrauterine position. The mean sac diameter (MSD) measures 2.11 cm, indicating an estimated gestational age (EGA) of 7 weeks, 1 days. The gestational sac shape is within normal limits. There is a visualized yolk sac. The yolk sac measures 0.35 cm. The placenta is non-visualized. There is visualization of a live embryo. The crown-rump length (CRL) measures 0.62 cm, indicating an estimated gestational age (EGA) of 6 weeks, 4 days. There is demonstrated cardiac activity with a heart rate of 124 bpm. The estimated gestation age (EGA) by US is 6 weeks, 6 days. The estimated date of delivery (CAMILLE) by US is November 10, 2018. The uterus measures 9.2 x 6 x 5.1 cm. There is no demonstrated uterine fibroid. The cervix is closed. The right ovary is not visualized. There is no visualized right adnexal mass or complex lesion. The left ovary measures 2.2 x 2.0 x 1.3 cm. There is no left ovarian cyst. There is no visualized left adnexal mass or complex lesion. There is no fluid in the cul de sac. US/Init OB < 14Wks US IMPRESSION: 1. Single intrauterine at 6 weeks, 6 days. CAMILLE is November 10, 2018. 2. heart rate 124 bpm. 3. Nonvisualization of the right ovary. Electronically Signed: Christopher Amaya DO at 23:10 EDT Tel [phone], Service support , CC: Ulices Kim MD; Kristie Ramírez MD Interpretative Dancer: Signed HCG TITER QUANT., Collected: 03/16/2018 Status: F Source: [place] SERUM 4:14 PM [facility] REPOSITORY TYPE CODE TESTS RESULT OUT OF RANGE REFERENCE UNITS LAB L700.8000 <9 non-preg mIU/mL High HCG 9526 QUANT. Performed By: #### L700.8000 #### [facility] [address] [place], [address] OUTREACH TEAM MEMBER OFFICE VISIT Observed: 03/16/2018 Status: F Source: [place] REPORT 4:10 PM [facility] REPOSITORY [facility] [address] [place] [address] OFFICE VISIT Date of Service: 03/16/18 MR#: [id number] Acct: [id number] Name: ROBERT MISHRA Rep #: [id number] : 1995 Provider: Kristie Ramírez MD Age/Sex: 22/F Location: [facility] Status: Signed Intake Vital Signs03/16/18 Height 5 ft 4 in 03/16/18 Weight: 319 lb 6 oz 03/16/18 Body Mass Index (BMI) 54.8 03/16/18 Blood Pressure 131/86 Intake Visit Reasons: NOB - LMP UNKNOWN -ER FOLLOW UP Flue Gas Analyst Required: No Accompanied by: Is patient in pain?: No Allergies acetaminophen [From Percocet] Allergy (Verified 03/16/18 15:15) Rash oxycodone [From Percocet] Allergy (Verified 03/16/18 15:15) Rash paper tape Adverse Reaction (Mild, Uncoded 03/16/18 15:15) Rash Medications levetiracetam ER 500 mg tablet,extended release 24 hr 1,500 mg PO QDAY tab 03/16/18 [History Confirmed 03/16/18] multivitamin with iron tablet 1 tab PO QDAY 03/16/18 [History Confirmed 03/16/18] sertraline 50 mg tablet 50 mg PO QDAY 03/16/18 [History Confirmed 03/16/18] venlafaxine ER 75 mg capsule,extended release 24 hr 75 mg PO QHS 03/16/18 [History Confirmed 03/16/18] Last Menstral Period: 02/03/18 Zika: Zika virus screening: Negative : No 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) MRSA infection (Acute 2016) Migraine with aura (Acute) Surgical History H/O section (Acute 03/2016) H/O exploratory laparotomy (Acute) Family History Father Hypertension Heart disease Depression Grandfather Cancer Unknown Leukemia Social History adopted: No household members: [facility] number of children: 2 current occupational status: employed current occupation: [employer] pets and animals: Yes history of recent travel: No other: comes in contact with international school Smoking Status: Former smoker second hand exposure: No alcohol intake: current alcohol intake frequency: holidays/special occasions only details: not while substance use type: does not use seatbelt use: always do you feel safe at home: Yes additional social history: [employer]- [employer] Son- Gabe age 2 Step DGHT- Reign age 8 Pregancy History 2 Elective abortions Hx Para 1 Spontaneous abortions Past Pregnancies Del. DateName GA/Weeks Outcome Route Bth WeighInfant GeLabor LgtAnesthesiDel LocatProvider FOB t n h a n Delivery Date: 03/17/16 On 03/16/18 @ 15:30 Juani Tobar Bennett Breech failed version HPI NOB - LMP UNKNOWN -ER FOLLOW UP: Details: ROBERT MISHRA is a 22 year old who presents for New OB visit. OB Visit CAMILLE Calculator Estimated Delivery Date 11/11/18 Based on Ultrasound Date 03/16/18 Current WG 5w 5d Number 1 Comments: us done at bedside, seeing a GS with MSD 13.7 mm and yolk sac but no pole. normal adnexa Initial Weight: Not Recorded Date Weight BP Urine PrFHR FuHt Pres MoCTX DilationFetal StVisit NoProviderComments E ot v te GA G Effac lucose ed Menstrual History Last Menstral Period: 02/03/18 ROS Const Denies fever(s), Reports system reviewed and no additional complaints, except as docu, Reports fatigue Eyes Reports system reviewed and no additional complaints, except as docu ENT Reports system reviewed and no additional complaints, except as docu Card Denies chest pain, Denies shortness of breath Resp Reports system reviewed and no additional complaints, except as docu, Denies shortness of breath, Denies cough GI Reports nausea, Denies abdominal pain Reports system reviewed and no additional complaints, except as docu Musc Reports system reviewed and no additional complaints, except as docu Skin/Breast Reports system reviewed and no additional complaints, except as docu Neuro Yes system reviewed and no additional complaints, except as docu Psych Reports system reviewed and no additional complaints, except as docu Endo Reports fatigue, Reports system reviewed and no additional complaints, except as docu Exam Const General: healthy appearing, comfortable, no acute distress Orientation: alert [facility] Head: normal to inspection, atraumatic, normocephalic Ears: external ears normal, hearing grossly normal bilaterally Nose: nares normal, external nose normal Mouth: oral mucosae normal Teeth and gingiva: dentition normal Eyes General: appearance normal, both eyes and all related structures Neck Neck: no lymphadenopathy, supple, normal visual inspection Thyroid: thyroid normal Chest Chest palpation AND inspection: normal inspection of the chest Breast inspection: normal inspection of the breasts, normal inspection of the axillae Breast palpation: normal palpation of the breasts, normal palpation of the axillae Resp Effort AND Inspection: normal respiratory effort GI Inspection: normal to inspection Palpation: soft, no hepatosplenomegaly General: bladder normal to palpation External Female Exam: normal external appearance, normal appearance of the urethra Urethra: normal appearance of the urethra Speculum Exam - Vagina: normal appearance of the vagina, normal vaginal discharge Speculum Exam - Cervix: normal appearance of the cervix Bimanual Exam- Vagina AND Uterus: bladder normal to palpation, normal bimanual exam, uterus non-tender, other Bimanual Exam- Adnexa, other: adnexae non-tender Skin General: no rashes or lesions noted Neuro Motor: muscle tone normal throughout, no movement abnormalities noted Extrem General: normal to inspection, full ROM Assessment AND Plan Problems 1. Threatened O20.0 Plan recommend fu visit in 1 week to confirm viability, will do new ob labs then, obtain [place] records. hcg today. Coding Level of Care Code OB Routine Diagnoses Threatened O20.0 03/16/18 1610 <Electronically signed by Kristie Ramírez MD> Date Kristie Ramírez MD Cosigner Signature: Date (if applicable) CC: CT/NG WCH BY PCR Collected: 03/16/2018 Status: F Source: [place] 4:00 PM [facility] REPOSITORY TYPE CODE TESTS RESULT OUT OF RANGE REFERENCE UNITS LAB L8200.2100 Negative Normal Chlam Negative Trac PCR LAB L8200.2200 Negative Normal NG by Negative PCR Performed By: #### L8200.2000 #### [facility] [address] [place], [address] Observed: 03/16/2018 Status: F Source: [facility] CULTURE, URINE 4:00 PM [facility] REPOSITORY Urine Culture ORGANISM 1: Mixed Gram Pos AND Gram Neg Org Thompson Count 1000-10,000 MIX CULTURE Mixed contaminants. Submit a new specimen if indicated. Performed By: #### M100.0650 #### [facility] [address] [place], [address] PAP I-G W/RFX Collected: 03/16/2018 Status: F Source: [facility] HRHPV-APTIMA 4:00 PM [facility] REPOSITORY Order Comment: CYTOLOGY INFORMATION: - CLINICAL INFORMATION: - DATE LMP/MENOPAUSE: UNK LMP - COLLECTION VIAL: Thin Prep Vial - SALVAGE WORKER SOURCE: CERVICAL - COLLECTION TECHNIQUE: CX BROOM ONLY Specimen Comment: [id number] Specimen Comment: No. of containers..01 ThinPrep Vial TYPE CODE TESTS RESULT OUT OF RANGE REFERENCE UNITS LAB L7400.0800 . Normal DIAGN Comment Result Comment: NEGATIVE FOR INTRAEPITHELIAL LESION AND MALIGNANCY. LAB L7400.0900 . Normal ADEQ Comment Result Comment: Satisfactory for evaluation. Endocervical and/or squamous metaplastic cells (endocervical component) are present. LAB L7400.1400 . Normal PERFORM Comment Result Comment: Ann Woodard, Ship Worker (ASCP) LAB L7400.2575 . Normal TEST METHOD Comment Result Comment: This liquid based ThinPrep(R) pap test was screened with the use of an image guided system. LAB L7400.2600 . Normal . COMM LAB L7400.2700 . Normal PAPSMR Comment Result Comment: The Pap smear is a screening test designed to aid in the detection of premalignant and malignant conditions of the uterine cervix. It is not a diagnostic procedure and should not be used as the sole means of detecting cervical cancer. Both false-positive and false-negative reports do occur. LAB L7400.2800 . Normal HPV RFLX Comment Result Comment: The HPV DNA reflex criteria were not met with this specimen result therefore, no HPV testing was performed. Performed at: [address] [id number] [place] Sander: Nina Coughlin MD, Phone: [phone] Performed By: #### L7400.0353 #### [facility] (refer to report for specific site) refer to report for address and phone number [phone] Collected: 03/13/2018 Status: F Source: [facility] 5:51 PM [facility] REPOSITORY TYPE CODE TESTS RESULT OUT OF REFERENCE UNITS RANGE LAB HCGQ(LOINC mIU/mL ) hCG, quantitative 4411.0 Result Comment: Above normal(expected)range Quantitative hCG reference ranges: 3 Weeks 5-12 mIU/mL 4 Weeks 10-708 mIU/mL 5 Weeks 217-8,245 mIU/mL 6 Weeks 152-32,177 mIU/mL 7 Weeks 4,059-153,767 mIU/mL 8 Weeks 31,366-149,094 mIU/mL 9 Weeks 59,109-135,901 mIU/mL 10 Weeks 44,186-170,409 mIU/mL 12 Weeks 27,107-201,615 mIU/mL 14 Weeks 24,302-93,646 mIU/mL 16 Weeks 8,905-55,332 mIU/mL Performed By: #### HCGQ, ABOG, ANSG #### [address] [address] GEL ABO Collected: 03/13/2018 Status: F Source: [facility] 5:51 PM [facility] REPOSITORY TYPE CODE TESTS RESULT OUT OF RANGE REFERENCE UNITS LAB ABORH(INC ) Unknown ABO/Rh O POS Interp Performed By: #### HCGQ, ABOG, ANSG #### [address] [address] GEL ABS Collected: 03/13/2018 Status: F Source: [facility] 5:51 PM [facility] REPOSITORY TYPE CODE TESTS RESULT OUT OF REFERENCE UNITS RANGE LAB ANSG(LOINC ) Antibody Negative ABSC Screen Gel Performed By: #### HCGQ, ABOG, ANSG #### [address] [address] UA Collected: 03/13/2018 Status: F Source: [facility] 5:32 PM [facility] REPOSITORY TYPE CODE TESTS RESULT OUT OF RANGE REFERENCE UNITS LAB SPCUA(BRYANT NC) UA Specimen Type Clean Catch LAB CLRUA(BRYANT NC) UA Color Yellow LAB APPUA(BRYANT Clear NC) UA Appear Unknown Slightly Cloudy LAB SGUA(LOIN C) UA Spec Grav 1.020 LAB GLUA(LOIN Negative mg/dL C) UA Glucose Negative LAB BILUA(BRYANT Negative NC) UA Bili Negative LAB KETUA(BRYANT Negative mg/dL NC) UA Ketones Negative LAB BLDUA(BRYANT Negative NC) UA Blood Unknown Large LAB PHUA(LOIN C) UA pH 6.5 LAB PROUA(BRYANT Negative mg/dL NC) UA Protein Trace LAB UROUA(BRYANT E.U./dL NC) UA Urobilinogen 0.2 LAB NITUA(BRYANT Negative NC) UA Nitrite Negative LAB LEUUA(BRYANT Negative NC) UA Leuk Est Unknown Trace Performed By: #### UA, UAMICAO, PREGU #### [address] [place], [place] [address] .URINALYSIS MICROSCOPIC Collected: 03/13/2018 Status: F Source: [place] () 5:32 PM [facility] REPOSITORY TYPE CODE TESTS RESULT OUT OF RANGE REFERENCE UNITS LAB WBCUA(LOIN None Seen /hpf C) Unknown UA WBC 0-5 LAB RBCUA(LOIN None Seen /hpf C) Unknown UA RBC LOADED LAB EPIUA(LOIN None Seen /hpf C) Unknown UA Squam Epithelial 0-5 Performed By: #### UA, UAMICAO, PREGU #### [place] [id number] PREGU Collected: 03/13/2018 Status: F Source: [facility] 5:32 PM [facility] REPOSITORY TYPE CODE TESTS RESULT OUT OF RANGE REFERENCE UNITS LAB PREGU(LOIN C) Test Positive Urine LAB PRUG1(LOIN C) Unknown test HCG detected. (u) int Performed By: #### UA, UAMICAO, PREGU #### [address] [address] ALLERGIES ALLERGIES DATE TYPE / CODE NAME / CODE REACTION SEVERITY SOURCE 08/15/2018 Drug oxycodone/F Rash Unknown [place] Allergy/816241777(S [id number](R [facility] NOMED CT) XNORM) Hospital Repository 08/15/2018 Drug acetaminoph Rash Unknown [facility] Allergy/[id number](S en/[id number] [facility] NOMED CT) 05(RXNORM) Hospital Repository 08/15/2018 Miscellaneous paper tape Rash PA [place] Allergy/942639051(S [facility]) Hospital Repository ENCOUNTERS ENCOUNTERS ADMIT/DISCHARGE ACCOUNT NUMBER ADMITTING ENCOUNTER LOCATION SOURCE CLASS 08/21/2018 [id number] Ambulatory [facility] ding:US Repository 08/15/2018 [id number] Ambulatory [facility] ding:LAB Repository 08/15/2018/08/15/20 [id number] Ambulatory BMSBuilding: [place] 18 BMS[facility] Repository 08/08/2018 [id number] Ambulatory [facility] ding:LABSPEC Repository 08/08/2018/08/08/20 [id number] Ambulatory BMSBuilding: [place] 18 BMS[facility] Repository 07/21/2018/07/22/20 [id number] Ambulatory BBuilding:[place] [facility] Repository 07/19/2018/07/19/20 [id number] Ambulatory BMSBuilding: [place] 18 BMS.[facility] Repository 07/11/2018 [id number] Ambulatory BMSBuilding: [place] BMS.[facility] Repository 06/23/2018/06/23/20 [id number] Ambulatory BMSBuilding: [place] 18 BMS.[facility] Repository 06/22/2018/06/22/20 [id number] [facility] Repository 06/01/2018 [id number] Ambulatory [facility] ding:LABSPEC Repository 06/01/2018/06/01/20 [id number] Ambulatory BMSBuilding: [place] 18 BMS.[facility] Repository 05/26/2018/05/26/20 [id number] Ambulatory BMSBuilding: [place] 18 BMS.[facility] Repository 05/16/2018 [id number] Ambulatory [facility] ding:LAB.FUT Repository URE 05/05/2018 [id number] Ambulatory [facility] ding:LAB Repository 05/04/2018 [id number] Ambulatory [facility] ding:LAB Repository 05/04/2018/05/04/20 [id number] Ambulatory BMSBuilding: [place] 18 BMS.[facility] Repository 04/21/2018/04/21/20 [id number] Ambulatory BMSBuilding: [place] 18 BMS.[facility] Repository 03/30/2018/03/30/20 [id number] Emergency [address] ding:ED Repository 03/23/2018 [id number] Ambulatory [facility] ding:US Repository 03/22/2018 [id number] Ambulatory BMSBuilding: [place] BMS.[facility] Repository 03/16/2018 [id number] Ambulatory [facility] ding:LABSPEC Repository 03/16/2018 [id number] Ambulatory [facility] ding:POLAB3 Repository 03/16/2018/03/16/20 [id number] Ambulatory BMSBuilding: [place] 18 BMS.[facility] Repository 03/16/2018 [id number] Ambulatory BMSBuilding: [place] BMS.[facility] Repository 03/13/2018/03/13/20 [id number] Emergency BBuilding:ER [address] [employer] [facility] Repository 01/31/2018/02/01/20 [id number] Ambulatory [address] ding:[employer] [facility] Repository 01/04/2018/01/05/20 [id number] Ambulatory [address] ding:[employer] [facility] Repository 10/26/2017/10/26/19 [id number] Emergency BBuilding:ER [address] [employer] [facility] Repository PAYERS PAYERS ENCOUNTER GUARANTOR PAYER SUBSCRIBER SOURCE 08/21/2018 ROBERT Whittaker Primary ROBERT PADGETT Insurance:Jose Alfredo NÚÑEZ: [facility] Number: [id number] [facility] [id number] [place], [place] [address]Rbr: Date:7927-20-02[address]DQJAHMFOCLW, [place] () [address]OP: 08/21/2018 Secondary NOT GIVENUNK [place] Insurance:SELF PAY [facility] Number: Effective Repository Date:2018-08-15 08/15/2018 ROBERT Whittaker Primary ROBERT [id number] Insurance:Jose Alfredo BARRIOSB: [facility] Number: [id number] [facility] [id number] [place], [place] [address]Sha: Date:7121-73-27[address]ZZFRZOTOSJF, [place] () [address]GU: 08/15/2018 Secondary NOT GIVENUNK [place] Insurance:SELF PAY [facility] Number: Effective Repository Date:2018-08-15 08/15/2018 ROBERT E Primary ROBERT E [place] [id number] Insurance:CIGNAPolicy [facility]: [id number] [facility] [id number] [place], [place] [address]Stq: Date:9579-20-38ZN [address]VGSSNNAOFLW, [place] () [address]LJ: 08/15/2018 Secondary NOT GIVENUNK [place] Insurance:SELF PAY [facility] Number: Effective Repository Date:2018-08-15 08/08/2018 ROBERT E Primary ROBERT E [place] [id number] Insurance:CIGNAPoly PINEY RIVERDOB: [facility] Number: [id number] [facility] [id number] [place], [place] [address]Fby: Date:6415-26-30[address]ZSPGSIEXYBH, [place] () [address]OL: 08/08/2018 Secondary NOT GIVENUNK [place] Insurance:SELF PAY [facility] Number: Effective Repository Date:2018-08-08 08/08/2018 ROBERT E Primary ROBERT E [place] [id number] Insurance:CIGNAPolicy HARRISDOB: [facility] Number: [id number] [facility] [id number] [place], [place] [address]Qal: Date:5096-47-25JQ [address]FZHJMDEHBTQ, [place] () [address]OM: 08/08/2018 Secondary NOT GIVENUNK [place] Insurance:SELF PAY [facility] Number: Effective Repository Date:2018-08-08 07/21/2018 ROBERT E Primary [facility]:NING BARRIOSB: [facility] [id number] Number: [id number] Repository [place] [id number] [facility] Date:2018-07-21 - [place] 4520-74-40Utyb [place] [address]Snv: [address]~SSTEINER1 Name:CPO ARGUETA 993@[facility] 737973Eqgtnzpvsqx, [place] ()Tel: (708) l: [phone]: () [phone] () () 07/19/2018 ROBERT E Primary ROBERT E [place] [id number] Insurance:CIGNAPolicy HARRISDOB: Community [place]ARA Number: [id number] [facility] [id number] [place], [place] [address]Cxy: Date:3971-79-04XB [address]ILDFLAGZZLM, [place] () [address]LI: 07/19/2018 Secondary NOT GIVENUNK [place] Insurance:SELF PAY [facility] Number: Effective Repository Date:2018-07-19 07/11/2018 ROBERT E Primary ROBERT E [place] [id number] Insurance:CIGNAPolicy HARRISDOB: Community [place] Number: [id number] [id number] [place] Date:3482-71-46QY [address] [address]Fsd: [phone]) 231809ENZTSRESJRX, [place] [phone] () [address]EV: 07/11/2018 Secondary NOT GIVENUNK [place] Insurance:SELF PAY [facility] Number: Effective Repository Date:2018-07-11 06/23/2018 ROBERT E Primary ROBERT E [place] [id number] Insurance:CIGNAPolicy HARRISDOB: Community [place] Number: [id number] [id number] Repository [place] Date:5193-99-52BR [address] [address]Ode: [phone]) 656061ZZUKEARYNLQ, [place] [phone] () [address]UN: 06/23/2018 Secondary NOT GIVENUNK [place] Insurance:SELF PAY [facility] Number: Effective Repository Date:2018-06-23 06/22/2018 ROBERT Primary ROBERT [facility] HARRISDOB: Insurance:CIGNAPolicy HARRISDOB: Hospital Number: [id number] N Repository DARA [id number] [facility]IN [facility] Date: [place], [place] [address]Hqi: , [place] [address] () 06/01/2018 ROBERT E Primary ROBERT E [place] [id number] [address] Insurance:CIGNAPolicy HARRISDOB: Community [place]T Number: [id number] Hospital [id number] [place] Date:4458-65-62QB [address]Dqi: 330 358214CTNMUAXADQS, [place] [phone] () [address]PH: 06/01/2018 Secondary NOT GIVENUNK [place] Insurance:SELF PAY [facility] Number: Effective Repository Date:2018-06-01 06/01/2018 ROBERT E Primary ROBERT E [place] [id number] [address] Insurance:CIGNAPolicy HARRISDOB: Community [place] Number: [id number] Hospital [id number] [place] Date:1315-01-62SW [address] [address]Lij: [phone]) 157530JNOIQIAKUAN, [place] [phone] () 298[address]WO: 06/01/2018 Secondary NOT GIVENUNK [place] Insurance:SELF PAY [facility] Number: Effective Repository Date:2018-06-01 05/26/2018 ROBERT E Primary ROBERT E [place] [id number] [address] Insurance:CIGNAPolicy HARRISDOB: Community [place] Number: [id number] Hospital [id number] [place] Date:6397-35-29VT [address] [address]Gsb: ([phone], [place] [phone] () [address]NK: 05/26/2018 Secondary NOT GIVENUNK [place] Insurance:SELF PAY [facility] Number: Effective Repository Date:2018-05-26 05/16/2018 ROBERT E Primary ROBERT E [place] [id number] [address] Insurance:CIGNAPolicy HARRISDOB: Community [place] Number: [id number] Hospital [id number] [place] Date:2338-42-90EA [address] [address]Exh: [phone]) 227740YMXAVAWQSTW, [place] [phone] () [address]EJ: 05/16/2018 Secondary NOT GIVENUNK [place] Insurance:SELF PAY [facility] Number: Effective Repository Date:2018-05-16 05/05/2018 ROBERT E Primary ROBERT E [place] [id number] [address] Insurance:CIGNAPolicy HARRISDOB: Community [place] Number: [id number] Hospital [id number] [place] Date:4752-94-69EI [address] [address]Xiu: [phone] 803118ITGFECAYVAY, [place] [phone] () [address]IH: 05/05/2018 Secondary NOT GIVENUNK [place] Insurance:SELF PAY [facility] Number: Effective Repository Date:2018-05-05 05/04/2018 ROBERT E Primary ROBERT E [place] [id number] [address] Insurance:CIGNAPolicy HARRISDOB: Community [place] Number: [id number] Hospital [id number] [place] Date:1435-40-04MK [address] [address]Abv: ([phone]) 319667LXYNJVLTBLN, [place] [phone] () 626[address]PF: 05/04/2018 Secondary NOT GIVENUNK [place] Insurance:SELF PAY [facility] Number: Effective Repository Date:2018-05-04 05/04/2018 ROBERT E Primary ROBERT E [place] [id number] [address] MA[address] Insurance:CIGNAPolicy DANICADOB: Community [place] Number: [id number] Hospital [id number] [place] Date:7317-76-55OL [address] [address]Zsi: ([phone], [place] [phone] () [address]ZF: 05/04/2018 Secondary NOT GIVENUNK [place] Insurance:SELF PAY [facility] Number: Effective Repository Date:2018-05-04 04/21/2018 ROBERT E Primary ROBERT E [place] [id number] [address] Insurance:CIGNAPolicy DANICADOB: Community [place] Number: [id number] Hospital [id number] [place] Date:1986-45-46AM [address] [address]Gqx: [phone]) 659896QUGTWFWPEFW, [place] [phone] () [address]OH: 04/21/2018 Secondary NOT GIVENUNK [place] Insurance:SELF PAY [facility] Number: Effective Repository Date:2018-04-21 03/30/2018 ROBERT E Primary ROBERT E [place] [id number] [address] Insurance:CIGNAPolicy DANICADOB: Community [place] Number: [id number] Hospital [id number] [place] Date:4251-34-20WA [address] [address]Alx: 330 [id number], [place] [phone] () [address]MZ: 03/30/2018 Secondary NOT GIVENUNK [place] Insurance:SELF PAY [facility] Number: Effective Repository Date:2018-03-30 03/23/2018 ROBERT E Primary ROBERT E [place] [id number] N [address] Insurance:CIGNAPolicy DANICADOB: Community [place] Number: [id number] Hospital [id number] [place] Date:7523-96-98SQ [address] [address]Rlr: ([phone]) 137473QSCNMIBJLIO, [place] [phone] () 53[address]FD: 03/23/2018 Secondary NOT GIVENUNK [place] Insurance:SELF PAY Community [facility] Number: Effective Repository Date:2018-03-20 03/22/2018 ROBERT Friend [id number] [address] Insurance:CIGNAPolicy Luis Community [place] Number: [facility] [id number] [place] Date:3652-02-67VQ [address] [address]Yab: (113) [phone], [place] [phone] () 68[address]PJ: 03/22/2018 Secondary NOT GIVENUNK [place] Insurance:SELF PAY Community [facility] Number: Effective Repository Date:2018-03-16 03/16/2018 ROBERT Villalta Ph[place] [id number] N [address] Insurance:CIGNAPolicy [place] Community [place] Number: [facility] [id number] [place] Date:5366-45-38OK [address] [address]Hre: (000) 751978PNIMETRRVOE, [place] [phone] () 389[address]CV: 03/16/2018 Secondary NOT GIVENUNK [place] Insurance:SELF PAY Community [facility] Number: Effective Repository Date:2018-03-16 03/16/2018 ROBERT Villalta Ph[place] [id number] [address] Insurance:CIGNAPolicy [place] Community [place] Number: [facility] [id number] [place] Date:7620-27-89DJ [address] [address]Rrl: ([phone]) 691775NRNWSOUWBFD, [place] [phone] () 23[address]QI: 03/16/2018 Secondary NOT GIVENUNK [place] Insurance:SELF PAY Community [facility] Number: Effective Repository Date:2018-03-16 03/16/2018 ROBERT Villalta Ph[place] [id number] [address] Insurance:CIGNAPolicy [place] Community [place] Number: [facility] [id number] [place] Date:3605-92-37CS [address] [address]Tsy: ([phone]) 155724OMJLVQTAMZW, [place] [phone] () 555[address]TH: 03/16/2018 Secondary NOT GIVENUNK [place] Insurance:SELF PAY Community [facility] Number: Effective Repository Date:2018-03-16 03/16/2018 ROBERT Primary NOT GIVENUNK [place] [id number] [address] Insurance:SELF PAY Community [facility] Number: Effective Repository , [place] Date:2018-03-13 285[address]Lnf: (HP) 03/13/2018 ROBERT E Primary ROBERT E [facility] Insurance:[place] HARRISDOB: [facility] N [id number] Number: [id number] N [address] [id number] [address] [facility] Date:2018-03-13 - [facility] [place] 1898-55-35Gpwf , [place] [address]Aou: 03284~SSTEINER1 Name:[address] ()Tel: (124) l: [phone]: (WP) [phone] () (WP) 01/31/2018 ROBERT E [facility] HARRISDOB: [facility] N [id number] Number: [id number] N [address] [id number] [address] [facility] Date:2018-01-31 - [facility] [place] 2078-65-15Qqxk , [place] [address]Wvy: 75471~SSTEINER1 Name:[address] ()Tel: 330) l: [phone] [address]-2692WP: (WP) [phone] (HP) (WP) 01/04/2018 ROBERT E Primary ROBERT E [facility] PINEY RIVERDOB: Insurance:[place] HARRISDOB: [facility] N [id number] Number: [id number] N Repository [facility] [id number] [facility] Date:2018-01-04 - [facility], [place] 5229-93-16Vuzh , [place] [address]Edw: 86703~SSTEINER1 Name:[address]@GMAIL.MARVEL Johnson (HP)Tel: (878) l: [phone]: (WP) [phone] (HP) (WP) 10/26/2017 ROBERT E Primary ROBERT E [facility] HARRISDOB: [place] HARRISDOB: [facility] N [id number] Number: [id number] N [facility] [id number] [facility] Date:2017-10-26 - [facility], [place] 9839-58-85Cfaq , [place] [address]Yer: 43910~SSTEINER1 Name:[address]@GMALICE.MARVEL Johnson (HP)Tel: (944) l: [phone] [address]-4[address]WP: (WP) [phone] (HP) (WP)
== END ==
PROVIDERS: Family Provider Family Medicine; PCP Family Medicine; Referring Provider Nurse Practitioner Women's Health; Visit Provider Nurse Practitioner Women's Health
DX: N39.0 Urinary tract infection, site not specified (principal)
CPT/HCPCS: 87086; 87088

== ENCOUNTER → 2018-08-15 16:14 | Outpatient (CLI) | payer OTHER, SELFPAY ==
[2018-08-15 15:24] VITALS: BMI 53.8
[2018-08-15 17:10] LABS: Absolute Lymphocyte Count 1.62 X10^3/ul (0.83-4.51); Absolute Neutrophil Count 8.1 X10^3/uL (2.0-7.7); Basophil# 0.01 X10^3/uL; Basophil% 0.1 % (0-1); Eosinophil# 0.05 X10^3/uL; Eosinophils% 0.5 % (0-5); Hematocrit 33.9 % (37-47); Hemoglobin 10.8 g/dl (12.0-15.0); Lymphocyte # 1.62 X10^3/ul (4.0); Lymphocyte % 15.5 % (19-41); Mean Corp Hgb Conc 31.9 g/gl (32-36); Mean Corpuscular Hgb 26.3 pg (27.0-32.0); Mean Corpuscular Volume 82.7 fL (81-99); Mean Platelet Vol. 10.5 fl (6.2-12.0); Monocyte# 0.65 X10^3/uL; Monocyte% 6.2 % (0-10); Neutrophil % 77.5 % (47-70); Platelet Count 371 K/mm3 (150-450); RBC Distribution Width CV 14.9 % (11.6-14.6); White Blood Count 10.5 K/mm3 (4.4-11.0)
[2018-08-15 17:11] LABS: POSITIVE COUNT NO; POSITIVE DIFFERENTIAL NO; POSITIVE MORPHOLOGY NO
[2018-08-15 17:59] LABS: Glucose Challenge Gest 1H 50g 100 mg/dL (70-140)
== END ==
PROVIDERS: Family Provider Nurse Practitioner Family; PCP Nurse Practitioner Family; Referring Provider Obstetrics & Gynecology; Visit Provider Obstetrics & Gynecology
DX: O09.90 Supervision of high risk pregnancy, unspecified, unspecified trimester (principal)
CPT/HCPCS: 36415; 82950; 85025

== ENCOUNTER → 2018-08-21 16:01 | Outpatient (CLI) | payer OTHER, SELFPAY ==
[2018-08-08 14:39] VITALS: BMI 53.8
[2018-08-15 15:24] VITALS: BMI 53.8
--- NOTE | 2018-08-21 16:03 | US_ITS ---
STUDY: SECOND AND THIRD TRIMESTER OBSTETRICAL ULTRASOUND REASON FOR EXAM: Female, 23 years old. Anatomy scan. LMP: March 23, 2018. TECHNIQUE: PICC line TECHNICAL QUALITY: Adequate. PRIOR ULTRASOUND: None. FINDINGS: There is a single intrauterine fetus. The fetus is in a cephalic presentation. There is demonstrated cardiac activity with a heart rate of 153 bpm. There is a normal amniotic fluid volume. The largest amniotic fluid pocket measures 5.17 cm. The amniotic fluid index (FRANCIE) is 12.48 cm. The placenta is fundal and posterior and not low-lying There are Grade 1 placental changes. The cervix measures 4.45 cm in length. The bilateral adnexal regions are normal. BIOMETRY: BPD: 7.4 cm: 29 weeks, 5 days HC: 26.65 cm: 29 weeks, 1 days AC: 24.26 cm: 28 weeks, 4 days FL: 5.49 cm: 29 weeks, 0 days CI: 79 FL/BPD: 74 FL/HC: FL/AC: 23 HC/AC: 1.10 age by current US: 29 weeks, 1 days. CAMILLE by current US: November 05, 2018. Estimated weight: 1287 grams, +/- 188 grams, 63 %. Age by LMP: 28 weeks, 1 days. CAMILLE by LMP: November 12, 2018. ANATOMY: Gender: Male Cranium: Normal lateral ventricles. Normal choroid plexus. Normal cerebellum. Normal cisterna magna. There is limited visualization of the face, nose and lips. Chest: Normal 4-chamber heart. Abdomen/Pelvis: Normal diaphragm. Normal stomach. Normal abdominal wall. Is limited visualization of the cord insertion. Normal 3 vessel cord. Normal kidneys. Normal bladder. Spine: Normal cervical spine. Normal thoracic spine. Normal lumbar spine. Normal sacrum. Extremities: There is limited visualization of the bilateral upper extremities. Normal bilateral lower extremities. US/OB Anatomy Scan IMPRESSION: 1. Live single intrauterine at 29 weeks, 1 day. CAMILLE is November 05, 2018. 2. EFW of 1287 g. 3. FRANCIE of 12.48 cm. 4. Fundal and posterior grade 1 placenta. 5. Vertex presentation. 6. Mildly limited evaluation of anatomy due to maternal habitus. There is no visualized abnormality. Electronically Signed: Christopher Amaya DO at 16:56 EST Tel [phone], Service support ,
--- OUTSIDE RECORDS SUMMARY | 2018-10-08 00:59 | XMS RPT_ITS ---
:1995 Author Organization OHIP Support Name Relationship Address Phone COW Unavailable [address] + [place] [address] ARMANI MISHRA Unavailable [address] + [place] [address] DOLORES QUINN Unavailable [address] + [place] [address] COW Unavailable [address] + [place] [address] ARMANI MISHRA Unavailable [address] + [place] [address] DOLORES QUINN Unavailable [address] + [place] [address] COW Unavailable [address] + [place] [address] ARMANI MISHRA Unavailable [address] + [place] [address] DOLORES QUINN Unavailable [address] + [place] [address] COW Unavailable [address] + [place] [address] ARMANI MISHRA Unavailable [address] + [place] [address] DOLORES QUINN Unavailable [address] + [place] [address] COW Unavailable [address] + [place] [address] ARMANI MISHRA Unavailable [address] + [place] [address] DOLORES QUINN Unavailable [address] + [place] [address] COW Unavailable [address] + [place] [address] ARMANI MISHRA Unavailable [address] + [place] [address] DOLORES QUINN Unavailable [address] + [place] [address] COW Unavailable [address] + [place] [address] ARMANI MISHRA Unavailable [address] + [place] [address] DOLORES QUINN Unavailable [address] + [place] [address] COW Unavailable [address] + [place] [address] ARMANI MISHRA Unavailable [address] + [place] [address] DOLORES QUINN Unavailable [address] + [place] [address] COW Unavailable [address] + [place] [address] ARMANI MISHRA Unavailable [address] + [place] [address] DOLORES QUINN Unavailable [address] + [place] [address] COW Unavailable [address] + [place] [address] ARMANI MISHRA Unavailable [address] + [place] [address] DOLORES QUINN Unavailable [address] + [place] [address] COW Unavailable [address] + [place] [address] ARMANI MISHRA Unavailable [address] + [place] [address] DOLORES QUINN Unavailable [address] + [place] [address] COW Unavailable [address] + [place] [address] ARMANI MISHRA Unavailable [address] + [place] [address] DOLORES QUINN Unavailable [address] + [place] [address] COW Unavailable [address] + [place] [address] ARMANI MISHRA Unavailable [address] + [place] [address] DOLORES QUINN Unavailable . + [place] [address] COW Unavailable [address] + [place] [address] ARMANI MISHRA Unavailable [address] + [place] [address] DOLORES QUINN Unavailable Unavailable + [place] [address] COW Unavailable [address] + [place] [address] ARMANI MISHRA Unavailable [address] + [place] [address] DOLORES QUINN Unavailable . + [place] [address] ARMANI MISHRA Unavailable Unavailable Unavailable ARMANI MISHRA Unavailable [address] [place] [address] ARMANI MISHRA Unavailable [address] [place] [place] [address] GABE MISHRA Unavailable [address] [place] + [place] [address] DOLORES QUINN Unavailable [address] + [place] [address] COW Unavailable [address] + [place] [address] ARMANI MISHRA Unavailable [address] + [place] [address] DOLORES QUINN Unavailable . + [place] [address] COW Unavailable [address] + [place] [address] ARMANI MISHRA Unavailable [address] + [place] [address] DOLORES UQINN Unavailable . + [place] [address] COW Unavailable [address] + [place] [address] ARMANI MISHRA Unavailable [address] + [place] [address] DOLORES QUINN Unavailable . + [place] [address] ARMANI MISHRA Unavailable [address] + [place] [address] COW Unavailable [address] + [place] [address] ARMANI MISHRA Unavailable [address] + [place] [address] DOLORES QUINN Unavailable . + [place] [address] COW Unavailable [address] + [place] [address] ARMANI MISHRA Unavailable [address] + [place] [address] DOLORES QUINN Unavailable . + [place] [address] + [place] [address] ARMANI MISHRA Unavailable [address] + [place] [address] DOLORES QUINN Unavailable . + [place] [address] + [place] [address] ARMANI MISHRA Unavailable [address] + [place] [address] DOLORES QUINN Unavailable Unavailable + [place] [address] + [place] [address] ARMANI MISHRA Unavailable [address] + [place] [address] DOLORES QUINN Unavailable Unavailable + [place] [address] + [place] [address] ARMANI MISHRA Unavailable [address] + [place] [address] DOLORES QUINN Unavailable Unavailable + [place] [address] + [place] [address] ARMANI MISHRA Unavailable [address] + [place] [address] DOLORES QUINN Unavailable . + [place] [address] + [place] [address] ARMANI MISHRA Unavailable [address] + [place] [address] DOLORES QUINN Unavailable . + [place] [address] + [place] [address] ARMANI MISHRA Unavailable [address] + [place] [address] DOLORES QUINN Unavailable Unavailable + COW Unavailable [address] + [place] [address] ARMANI MISHRA Unavailable [address] + [place] [address] DOLORES QUINN Unavailable Unavailable + ARMANI MISHRA Unavailable [address] + [place] [address] UE Unavailable Unavailable Unavailable . Unavailable . + [place] [address] + [place] [address] ARMANI MISHRA Unavailable [address] + [place] [address] DOLORES QUINN Unavailable Unavailable + [place] [address] . Unavailable Unavailable + [place] [address] . Unavailable Unavailable + [place] [address] ARMANI MISHRA Unavailable Unavailable Unavailable ARMANI MISHRA Unavailable [address] [place] [address] ARMANI MISHRA Unavailable [address] [place] [address] GABE MISHRA Unavailable [address] [place] + [place] [address] DOLORES QUINN Unavailable [address] + [place] [address] ARMANI MISHRA Unavailable Unavailable Unavailable DANICA ARMANI Unavailable [address] [place] [address] ARMANI MISHRA Unavailable [address] [place] [address] GABE MISHRA Unavailable [address] [place] + [place] [address] DOLORES QUINN Unavailable [address] + [place] [address] ARMANI MISHRA Unavailable Unavailable Unavailable MISHRA, ARMANI Unavailable [address] [place] [address] ARMANI MISHRA Unavailable [address] [place] [address] GABE MISHRA Unavailable [address] + [place] [address] DOLORES QUINN Unavailable [address] + [place] [address] ARMANI MISHRA Unavailable [address] [place] [address] GABE MISHRA Unavailable [address] [place] + [place] [address] ARMANI MISHRA Unavailable [address] [place] [address] DOLORES QUINN Unavailable [address] + [place] [address] Care Team Providers Name Role Phone Mago Sumner MD Attending Unavailable ULICES RUFF MD Primary Care Unavailable TULIO AYALA MD, JR. Attending Unavailable ULICES RUFF MD Primary Care Unavailable TULIO AYALA MD, JR. Attending Unavailable ULICES RUFF MD Primary Care Unavailable Mago Sumner MD Attending Unavailable ULICES RUFF MD Primary Care Unavailable TULIO AYALA MD, JR. Attending Unavailable ULICES RUFF MD Primary Care Unavailable ERIC BONILLA Attending Unavailable KRISTIE RAMÍREZ Referring Unavailable NO PRIMARY MD KIRT Primary Care Unavailable Sofy Rico Attending Unavailable Ulices Ruff Referring Unavailable Kristie Ramírez Attending Unavailable Kristie Ramírez Referring Unavailable Maria Fernanda Garduno Primary Care Unavailable Serjio Oconnor Attending Unavailable Maria Fernanda Garduno Referring Unavailable Serjio Oconnor Attending Unavailable Serjio Oconnor Referring Unavailable Lorson, Maria Fernanda Primary Care Unavailable Kristie Ramírez Attending Unavailable Marcanthony, Kristie Attending Unavailable Judy, Ulices Referring Unavailable Marcanthony, Kristie Attending Unavailable Marcanthony, Kristie Referring Unavailable Marcanthony, Kristie Attending Unavailable Marcanthony, Kristie Referring Unavailable Marcanthony, Kristie Consulting Unavailable Marcanthony, Kristie Attending Unavailable Judy, Ulices Referring Unavailable Lorson, Bement Primary Care Unavailable Marcanthony, Kristie Attending Unavailable Marcanthony, Kristie Referring Unavailable Bavis, Tulio Consulting Unavailable Marcanthony, Kristie Attending Unavailable Marcanthony, Kristie Referring Unavailable Lorson, Bement Primary Care Unavailable Bavis, Tulio Consulting Unavailable Marcanthony, Kristie Consulting Unavailable Marcanthony, Kristie Attending Unavailable Marcanthony, Kristie Referring Unavailable Marcanthony, Kristie Attending Unavailable Marcanthony, Kristie Attending Unavailable Marcanthony, Kristie Attending Unavailable Marcanthony, Kristie Referring Unavailable Judy, Ulices Primary Care Unavailable Judy, Ulices Primary Care Unavailable Deric Fenton Attending Unavailable Marcanthony, Kristie Attending Unavailable Judy, Ulices Referring Unavailable Judy, Ulices Primary Care Unavailable Marcanthony, Kristie Attending Unavailable Judy, Ulices Referring Unavailable Judy, Ulices Primary Care Unavailable Marcanthony, Kristie Attending Unavailable Judy, Ulices Primary Care Unavailable Marcanthony, Kristie Attending Unavailable Marcanthony, Kristie Referring Unavailable Judy, Ulices Primary Care Unavailable Bavis, Tulio Attending Unavailable Judy, Ulices Primary Care Unavailable Marcanthony, Kristie Attending Unavailable Judy, Ulices Referring Unavailable Judy, Ulices Primary Care Unavailable Jacky, Sofy Attending Unavailable Judy, Ulices Referring Unavailable Judy, Ulices Primary Care Unavailable ArmstrongSofy Attending Unavailable Jacky, Sofy Referring Unavailable Judy, Ulices Primary Care Unavailable Marcanthony, Kristie Attending Unavailable Judy, Ulices Referring Unavailable Jen Donaldson Attending Unavailable Armstrong, Sofy Attending Unavailable Judy, Ulices Referring Unavailable Armstrong, Sofy Attending Unavailable Judy, Ulices Referring Unavailable Armstrong, Sofy Attending Unavailable Judy, Ulices Primary Care Unavailable Jacky, Sofy Referring Unavailable Marcanthony, Kristie Attending Unavailable Judy, Ulices Referring Unavailable Marcanthony, Kristie Attending Unavailable Marcanthony, Kristie Referring Unavailable Lorson, Bement Primary Care Unavailable Marcanthony, Kristie Attending Unavailable Marcanthony, Kristie Referring Unavailable Lorson, Bement Primary Care Unavailable PROBLEMS PROBLEMS DATE TYPE CONDITION / CODE ATTENDING STATUS SOURCE 10/03/2018 Unknown G40.019 - Marcanthony, Active [place] Localization-relat [facility] ed (focal) Hospital (partial) 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, intractable, without status epilepticus / G40.019(ICD-10) 10/03/2018 Unknown R56.9 - Marcanthony, Active [place] Unspecified [facility] convulsions / Hospital R56.9(ICD-10) Repository 09/26/2018 Unknown O09.90 - Marcanthony, Active [place] Supervision of [facility] high risk Hospital , Repository unspecified, unspecified trimester / O09.90(ICD-10) 09/26/2018 Unknown G40.909 - Marcanthony, Active [facility] Epilepsy, [facility] unspecified, not Hospital intractable, Repository without status epilepticus / G40.909(ICD-10) 09/26/2018 Unknown O34.219 - Maternal Marcanthony, Active [place] care for [facility] unspecified type Hospital scar from previous Repository delivery / O34.219(ICD-10) 09/26/2018 Unknown R73.09 - Other Marcanthony, Active [facility] abnormal glucose / [facility] R73.09(ICD-10) Hospital Repository 09/26/2018 Unknown O99.019 - Anemia Marcanthony, Active [place] complicating [facility] , Hospital unspecified Repository trimester / O99.019(ICD-10) 09/26/2018 Unknown O99.213 - Obesity Marcanthony, Active [place] complicating [facility] , third Hospital trimester / Repository O99.213(ICD-10) 09/26/2018 Unknown O99.353 - Diseases Marcanthony, Active [place] of the nervous [facility] Hospital complicating Repository , third trimester / O99.353(ICD-10) 09/26/2018 Unknown Z3A.33 - 33 weeks Marcanthony, Active [place] gestation of [facility] / Hospital Z3A.33(ICD-10) Repository 09/18/2018 Unknown O99.350 - Diseases Marcanthony, Active [place] of the nervous [facility] Hospital complicating Repository , unspecified trimester / O99.350(ICD-10) 09/15/2018 Unknown O99.352 - Diseases Marcanthony, Active [facility] of the nervous [facility] complicating Repository , second trimester / O99.352(ICD-10) 09/15/2018 Unknown Z3A.31 - 31 weeks Donta, Active [place] gestation of [facility] / Hospital Z3A.31(ICD-10) Repository 09/11/2018 Unknown J02.9 - Acute Elvin, Serjio Active [place] pharyngitis, Community unspecified / Hospital J02.9(ICD-10) Repository 08/30/2018 Unknown Z3A.29 - 29 weeks Armstrong, Sofy Active [facility] gestation of [facility] / Hospital Z3A.29(ICD-10) Repository 08/15/2018 Unknown Z23 - Encounter Donta, Active [facility] for immunization / [place] [address](ICD-10) Hospital Repository 08/09/2018 Unknown N39.0 - Urinary Armstrong, Sofy Active [facility] tract infection, Community site not specified Hospital / N39.0(ICD-10) Repository 07/19/2018 Unknown Z3A.23 - 23 weeks Jacky, Sofy Active [facility] gestation of [facility] / Hospital Z3A.23(ICD-10) Repository 06/23/2018 Unknown Z3A.19 - 19 weeks Ansonanthony, Active [facility] gestation of [facility] / Hospital Z3A.19(ICD-10) Repository 06/01/2018 Unknown O99.351 - Diseases Armstrong, Sofy Active [facility] of the [facility] complicating Repository , first trimester / O99.351(ICD-10) 06/01/2018 Unknown Z3A.12 - 12 weeks Armstrong, Sofy Active [place] gestation of [facility] / Hospital Z3A.12(ICD-10) Repository 06/01/2018 Unknown R10.2 - Pelvic and Jacky, Sofy Active [facility] perineal pain / Community R10.2(ICD-10) Hospital Repository 06/01/2018 Unknown O26.899 - Other Armstrong, Sofy Active [place] specified Community related Hospital conditions, Repository unspecified trimester / O26.899(ICD-10) 06/01/2018 Unknown R10.9 - Armstrong, Sofy Active [facility] Unspecified Community abdominal pain / Hospital R10.9(ICD-10) Repository 03/22/2018 Unknown O20.0 - Threatened Donta Active [facility] / [facility] O20.0(ICD-10) Hospital Repository 03/16/2018 Unknown Z12.4 - Encounter Donta, Active [place] for screening for [facility] malignant neoplasm Hospital of cervix / Repository Z12.4(ICD-10) PROCEDURES PROCEDURES No Procedure Records FoundRESULTS RESULTS MAPPING PILOT OFFICE VISIT Observed: 09/26/2018 Status: F Source: [place] REPORT 3:58 PM [facility] REPOSITORY [facility] [address] [place] [address] OFFICE VISIT Date of Service: 09/26/18 MR#: [id number] Acct: [id number] Name: HAZEL MISHRA Rep #: [id number] : 1995 Provider: Kristie Ramírez MD Age/Sex: 23/F Location[place] [facility] Status: Signed Intake Vital Signs09/26/18 Body Mass Index (BMI) 54.4 09/26/18 Height 5 ft 4 in 09/26/18 Weight: 317 lb 09/26/18 Body Mass Index (BMI) 54.3 09/26/18 Blood Pressure 110/70 Intake Visit Reasons: 33 weeks/needs c/s packet and soap Chief Complaint: est ob Job Compositor Required: No Is patient in pain?: No Allergies acetaminophen [From Percocet] Allergy (Verified 09/26/18 15:16) Rash oxycodone [From Percocet] Allergy (Verified 09/26/18 15:16) Rash paper tape Adverse Reaction (Mild, Uncoded 09/26/18 15:16) Rash Medications sertraline 50 mg tablet 50 mg PO QDAY 03/16/18 [History Confirmed 09/26/18] esomeprazole magnesium 20 mg capsule,delayed release 20 mg PO DAILY 05/04/18 [History Confirmed 09/26/18] folic acid 1 mg tablet 1 mg PO DAILY 05/04/18 [History Confirmed 09/26/18] vitamin,calcium,nizgobag-wlqs-fbgwg acid tablet 1 tab PO DAILY 05/04/18 [History Confirmed 09/26/18] levetiracetam ER 500 mg tablet,extended release 24 hr 2,000 mg PO DAILY 05/26/18 [History Confirmed 09/26/18] ferrous sulfate 325 mg (65 mg iron) tablet 325 mg PO BID #60 tab 08/23/18 [Rx Confirmed 09/26/18] Last Menstral Period: 02/03/18 Zika: Zika virus screening: Negative : No 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) MRSA infection (Acute 2017) Migraine with aura (Acute) Surgical History H/O section (Acute 03/2016) H/O exploratory laparotomy (Acute) Family History Father Hypertension Heart disease Depression Grandfather Cancer Unknown Leukemia Social History adopted: No household members: [facility] number [facility] children: 2 current occupational status: employed current occupation: [employer] / [employer] pets and animals: Yes history of recent travel: No other: 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 DateName GA/Weeks Outcome Route Bt WeighInfant GeLabor LgtAnesthesiDel LocatProvider FOB t n h a n Delivery Date: 03/17/16 On 03/16/18 @ 15:30 Juani Tobar Bennett Breech failed version HPI 33 weeks/needs c/s packet and soap: Details: HAZEL MISHRA is a 23 year old who presents for routine OB visit. OB Visit CAMILLE Calculator Estimated Delivery Date 11/12/18 Based on Ultrasound Date 03/23/18 Current WG 33w 2d Number 1 Expected Delivery Route/Plan desires TOLAC - 41% likelihood of success but previous cs for breech, will proceed with TOLAC. handouts given on education Specific Issue/Plans flu vaccine: given tdap vaccine: given rhogam: na LARC form signed: declines labor support person: [employer] pain management: epidural cut cord/dad catch: yes : yes PP control planned: [] special requests: [] Initial Weight: 319 lb Date Weight BP Urine PrFHR FuHt Pres MoCTX DilationFetal StVisit NoProviderComments E ot v te GA G Effac lucose ed Visit Notes Visit Date: 09/26/18 discussed increased anxiety symptoms- recommend increased zoloft. growth us schedule oct 19 Kristie Ramírez MD on 09/26/18 Visit Date: 09/15/18 no vb lof good fm no regular ctx Kristie Ramírez MD on 09/15/18 Visit Date: 08/30/18 No VB, LOF. Doing well ANNEMARIE FernandoC on 08/30/18 Visit Date: 08/15/18 no vb lof good fm no regular ctx cbc gct tdap Kristie Ramírez MD on 08/15/18 Visit Date: 08/08/18 Work in for lower right pelvic pain into back. Good FM. No VB, LOF ANNEMARIE FernandoC on 08/08/18 Visit Date: 07/19/18 No VB, [...] notes to display Diagnostics Diagnostics Labs Hct 33.9 % (37-47) L 08/15/18 Hgb 10.8 g/dl (12.0-15.0) L 08/15/18 Obstetrics Ultrasound 09/18/18 Glucose 1 Hr 50 gm 100 mg/dL (70-140) 08/15/18 Details: HIV: Urine Culture: Sequential Screen: NIPT Screen: Results [id number] Office Urine Glucose Negative Last Edit by Jen Donaldson on 09/26/18 15:21 Office Urine Protein Negative Last Edit by Jen Donaldson on 09/26/18 15:21 Assessment AND Plan Problems 1. Obesity affecting in third trimester O99.213 2. Anemia during O99.019 Recommended Iron 3. Previous delivery affecting , antepartum O34.219 plan TOLAC if active labor. RLTCS and BTL 4. Supervision of high risk , antepartum O09.90 PRR CAMILLE 11/12/18 boy Yariel GROSSMAN Chris [employer] (Reign) 5. Seizure disorder during in third trimester O99.353; G40.909 dr xiomara webb at [facility], growth us q 4 weeks after 28, nsts weekly after 32 in WP 6. 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 Normal anatomy scan. 7. Abnormal glucose R73.09 3 hr GTT normal Plan movement and labor precautions reviewed. ACOG trimester education reviewed and updated. see problem list details for updated plan management information and see below for orders placed at this visit. GA appropriate handout given. Orders Orders: Coding Level of Care Code OB Routine Diagnoses Obesity affecting in third trimester O99.213 Anemia during O99.019 Previous delivery affecting , antepartum O34.219 Supervision of high risk , antepartum O09.90 Seizure disorder during in third trimester O99.353; G40.909 Trimester: third trimester 33 weeks gestation of Z3A.33 Weeks of gestation: 33 weeks Abnormal glucose R73.09 09/26/18 1558 <Electronically signed by Kristie Ramírez MD> Date Kristie Ramírez MD [facility] Signature: Date (if applicable) CC: OB LIMITED WITH Observed: 09/18/2018 Status: F Source: [facility] [employer] 3:51 PM [facility] REPOSITORY [facility] Imaging Services [address] [place] [address] OB Limited With Biometrics MR#: [id number] Acct: [id number] Name: HAZEL MISHRA Rep #: [id number] : 1995 F 23 From: Cory Hernandez MD PCP: Ulices Ruff MD Status: REG CLI Study: OB Limited With Biometrics Date of Exam: 09/18/18 Exam# [id number] Ordering Dr: Sofy Rico VALUE ADVISOR-C STUDY: SECOND AND THIRD TRIMESTER OBSTETRICAL ULTRASOUND - LIMITED REASON FOR EXAM: Female, 23 years old. Assess growth. Anatomy follow-up. On prior imaging, limited visualization of the face, nose and lips. Limited visualization of the bilateral upper extremities. LMP: 02/05/2018. GA (LMP) 32 week 1 day with CAMILLE 11/12/2018. PRIOR ULTRASOUND: 08/21/2018 TECHNIQUE: Transabdominal ultrasound evaluation was performed. FINDINGS: Single live intrauterine gestation, cephalic presentation, cardiac rate 155 bpm. The placenta is grade 1, fundal anterior, not low-lying. Next line cervical length 4.2 cm, closed. Amniotic fluid index 10.6 cm, deepest vertical pocket 4.5 cm. The maternal adnexa are visualized with no acute abnormality. BIOMETRY: Measurement in centimeters. BPD: 8.5: 34 weeks, 3 days HC: 30.2: 33 weeks, 5 days AC: 29.1: 33 weeks, 1 days FL: 6.4: 33 weeks, 2 days age by prior US: 33 weeks, 1 days. CAMILLE by prior US: 11/05/2018. age by current US: 33 weeks, 5 days. CAMILLE by current US: 11/01/2018. Estimated weight: 2167 grams, +/- 316 grams, 77 percentile. Gender: Gender is not assessed. Anatomic survey: facial features including nose and lips are appropriately visualized on today's study and appear normal. Sagittal midline view of the face appears normal. The 2 upper extremities are present. There is not detailed evaluation of the upper extremity bones. The remaining anatomic images were obtained for assessment of dates, positioning and viability only. No gross anatomic abnormality was observed. US/OB Limited With Biometrics IMPRESSION: Completed anatomic survey. No anatomic abnormality is observed. Single live intrauterine gestation with appropriate cardiac activity, normal amniotic fluid index, closed cervix, no previa. Measurements on today's study are closely concordant with last measured dates, within 4 days of measurements on the prior study of 08/21/2018. Measurements are discordant with dates based on last menses. No acute or maternal abnormality is evident. Electronically Signed: Cory Hernadnez MD at 14:47 EST Tel , Service support , CC: SHARI Rico; Ulices Ruff MD Petroleum Engineer: Signed MAPPING PILOT OFFICE VISIT Observed: 09/15/2018 Status: F Source: [facility] REPORT 3:54 PM [facility] REPOSITORY [facility] [address] [place] [address]. [address] [place] [address] OFFICE VISIT Date of Service: 09/15/18 MR#: [id number] Acct: [id number] Name: HAZEL MISHRA Rep #: [id number] : 1995 Provider: Kristie Ramírez MD Age/Sex: 23/F Location[place] [facility] Status: Signed Intake Vital Signs09/15/18 Body Mass Index (BMI) 53.8 09/15/18 Height 5 ft 5 in 09/15/18 Weight: 318 lb 09/15/18 Body Mass Index (BMI) 52.9 09/15/18 Blood Pressure 124/82 H Intake Visit Reasons: 31 weeks Chief Complaint: est ob Job Compositor Required: No Is patient in pain?: No Allergies acetaminophen [From Percocet] Allergy (Verified 09/15/18 15:25) Rash oxycodone [From Percocet] Allergy (Verified 09/15/18 15:25) Rash paper tape Adverse Reaction (Mild, Uncoded 09/15/18 15:25) Rash Medications sertraline 50 mg tablet 50 mg PO QDAY 03/16/18 [History Confirmed 09/15/18] esomeprazole magnesium 20 mg capsule,delayed release 20 mg PO DAILY 05/04/18 [History Confirmed 09/15/18] folic acid 1 mg tablet 1 mg PO DAILY 05/04/18 [History Confirmed 09/15/18] vitamin,calcium,uhvsgtfk-stgm-ogluw acid tablet 1 tab PO DAILY 05/04/18 [History Confirmed 09/15/18] levetiracetam ER 500 mg tablet,extended release 24 hr 2,000 mg PO DAILY 05/26/18 [History Confirmed 09/15/18] ferrous sulfate 325 mg (65 mg iron) tablet 325 mg PO BID #60 tab 08/23/18 [Rx Confirmed 09/15/18] Last Menstral Period: 02/03/18 Zika: Zika virus [...] 2 current occupational status: employed current occupation: [employer] pets and animals: Yes history of recent travel: No other: comes in contact with international school Smoking Status: Never smoker second hand exposure: No alcohol intake: current alcohol intake frequency: holidays/special occasions only details: not while substance use type: does not use seatbelt use: always do you feel safe at home: Yes additional social history: [employer]- [facility] Son- Gabe age 2 Step DGHT- Reign age 8 Pregancy History 2 Elective abortions Hx Para 1 Spontaneous abortions Past Pregnancies Del. DateName GA/Weeks Outcome Route Bth WeighInfant GeLabor LgtAnesthesiDel LocatProvider FOB t n h a n Delivery Date: 03/17/16 On 03/16/18 @ 15:30 Juani Tobar Bennett Breech failed version HPI 31 weeks: Details: HAZEL MISHRA is a 23 year old who presents for routine OB visit. OB Visit CAMILLE Calculator Estimated Delivery Date 11/12/18 Based on Ultrasound Date 03/23/18 Current WG 31w 5d Number 1 Expected Delivery Route/Plan desires TOLAC - 41% likelihood of success but previous cs for breech, will proceed with TOLAC. handouts given on education Specific Issue/Plans flu vaccine: given tdap vaccine: given rhogam: na LARC form signed: declines labor support person: [employer] pain management: epidural cut cord/dad catch: yes : yes PP control planned: [] special requests: [] Initial Weight: 319 lb Date Weight BP Urine PrFHR FuHt Pres MoCTX DilationFetal StVisit NoProviderComments E ot v te GA G Effac lucose ed Visit Notes Visit Date: 09/15/18 no vb lof good fm no regular ctx Kristie Ramírez MD on 09/15/18 Visit Date: 08/30/18 No VB, LOF. Doing well SHERLY Fernando on 08/30/18 Visit Date: 08/15/18 no vb lof good fm no regular ctx cbc gct tdap Kristie Ramírez MD on 08/15/18 Visit Date: 08/08/18 Work in for lower right pelvic pain into back. Good FM. No VB, LOF ANNEMARIE FernandoC on 08/08/18 Visit Date: 07/19/18 No VB, [...] notes to display Diagnostics Diagnostics Labs Hct 33.9 % (37-47) L 08/15/18 Hgb 10.8 g/dl (12.0-15.0) L 08/15/18 Obstetrics Ultrasound 08/21/18 Glucose 1 Hr 50 gm 100 mg/dL (70-140) 08/15/18 Blood Type O POSITIVE 05/04/18 Antibody Screen NEGATIVE 05/04/18 Rubella IgG Antibody 63.3 IU/mL 05/04/18 RPR NONREACTIVE (NONREACTIVE) 05/04/18 Hep Bs Antigen Negative (Negative) 05/04/18 Chlam trachomat DNA PCR Negative (Negative) 05/05/18 N.gonorrhoeae DNA (PCR) Negative (Negative) 05/05/18 Miscellaneous Test Cancelled 05/04/18 Details: HIV: Urine Culture: Sequential Screen: NIPT Screen: Results [id number] Office Urine Glucose Negative Last Edit by Jen Donaldson on 09/15/18 15:31 Office Urine Protein Negative Last Edit by Jen Donaldson on 09/15/18 15:31 Assessment AND Plan Problems 1. Previous delivery affecting , antepartum O34.219 plan TOLAC if active labor. RLTCS and BTL 2. Supervision of high risk , antepartum O09.90 PRR CAMILLE 11/12/18 PC Chris Armani (Reign) 3. Seizure disorder during in second trimester O99.352 keppra, dr bavis at [facility], growth us q 4 weeks after 28, nsts weekly after 32 in WP 4. 31 weeks gestation of Z3A.31 carrier, genetic, ntd screening declined. Normal anatomy scan. 5. Abnormal glucose R73.09 3 hr GTT normal 6. Anemia during O99.019 Recommended Iron 7. Obesity affecting in third trimester O99.213 Plan ACOG trimester education reviewed and updated. see problem list details for updated plan management information and see below for orders placed at this visit. GA appropriate handout given. Orders Orders: Coding Level of Care Code OB Routine Diagnoses Previous delivery affecting , antepartum O34.219 Supervision of high risk , antepartum O09.90 Seizure disorder during in second trimester O99.352 Trimester: second trimester 31 weeks gestation of Z3A.31 Weeks of gestation: 31 weeks Abnormal glucose R73.09 Anemia during O99.019 Obesity affecting in third trimester O99.213 09/15/18 1554 <Electronically signed by Kristie Ramírez MD> Date Kristie Ramírez MD [facility] Signature: Date (if applicable) CC: URGENT CARE VISIT Observed: 09/12/2018 Status: F Source: [facility] REPORT 2:06 PM [facility] REPOSITORY [facility] [address] [place] [address] OFFICE VISIT Date of Service: 09/11/18 MR#: [id number] Acct: [id number] Name: HAZEL MISHRA Rep #: [id number] : 1995 Provider: Serjio WEBB Age/Sex: 23/F Location: [facility] Status: Signed Intake Vital Signs09/11/18 Body Mass Index (BMI) 53.8 09/11/18 Height 5 ft 5 in Intake Visit Reasons: COUGH/SORE THROAT Chief Complaint: Cough/ sore throat Job Compositor Required: No Accompanied by: Self Allergies acetaminophen [From Percocet] Allergy (Verified 09/11/18 12:23) Rash oxycodone [From Percocet] Allergy (Verified 09/11/18 12:23) Rash paper tape Adverse Reaction (Mild, Uncoded 09/11/18 12:23) Rash Medications sertraline 50 mg tablet 50 mg PO QDAY 03/16/18 [History Confirmed 09/11/18] esomeprazole magnesium 20 mg capsule,delayed release 20 mg PO DAILY 05/04/18 [History Confirmed 09/11/18] folic acid 1 mg tablet 1 mg PO DAILY 05/04/18 [History Confirmed 09/11/18] vitamin,calcium,jsdqhroo-qozq-goezu acid tablet 1 tab PO DAILY 05/04/18 [History Confirmed 09/11/18] levetiracetam ER 500 mg tablet,extended release 24 hr 2,000 mg PO DAILY 05/26/18 [History Confirmed 09/11/18] ferrous sulfate 325 mg (65 mg iron) tablet 325 mg PO BID #60 tab 08/23/18 [Rx Confirmed 09/11/18] PFSH Medical History Anxiety (Acute) Depression (Acute) Epilepsy (Acute) 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) MRSA infection (Acute 2016) Migraine with aura (Acute) Surgical History H/O section (Acute 03/2016) H/O exploratory laparotomy (Acute) Family History Father Hypertension Heart disease Depression Grandfather Cancer Unknown Leukemia Social History adopted: No household members: [facility] number of children: 2 current occupational status: employed current occupation: [employer] / [employer] pets and animals: Yes history of recent travel: No other: comes in contact with international school Smoking Status: Never smoker second hand exposure: No alcohol intake: current alcohol intake frequency: holidays/special occasions only details: not while substance use type: does not use seatbelt use: always do you feel safe at home: Yes additional social history: [employer]- [employer] Son- Gabe age 2 Step DGHT- Reign age 8 HPI HPI Chief Complaint: Cough/ sore throat Details: HAZEL MISHRA, is a 23 F who presents to the office today for complaint of cough, sore throat for the past 2 days. Patient states that her sore throat is worse at night in the morning and then improves throughout the day. She describes her cough as dry, nonproductive and denies hemoptysis, shortness of breath or difficulty breathing. She denies any fever, chills, sweats. No other associated symptoms or alleviating/aggravating factors. ROS Const Constitutional: No fever(s), chills, headache(s), night sweats or abnormal sleep pattern ENT ENT: Positive for nasal discharge, nasal congestion, sore throat and post nasal drip; no headache(s), ear pain or ear discharge Resp Respiratory: Positive for cough Cough: Yes non-productive; no wheezing, hemoptysis, shortness of breath or pain with cough Cardio Cardiology: No chest pain at rest or shortness of breath Neuro Neurology: No headache(s), behavioral changes or confusion Psych Psychiatric: No abnormal sleep pattern, No behavioral changes, No confusion Aller/Imm Allergy/Immunologic: No wheezing Exam Const General: cooperative, well developed HENMT Head: normal to inspection, atraumatic Ears: hearing grossly normal bilaterally Nose: nasal discharge clear Face and sinus: normal facial exam Mouth: oral mucosae normal Throat: abnormal tonsil bilaterally Resp Effort AND Inspection: normal respiratory effort, no audible wheezes Auscultation: Bilateral: Clear to Auscultation Cardio Palpation: normal PMI Rate: regular rate Rhythm: regular rhythm Neuro General: alert, CN's II-XI intact bilaterally Psych Appearance: grossly normal Mental Status: mental status grossly normal Assessment AND Plan Problems 1. Acute pharyngitis, unspecified etiology J02.9 Status Acute Plan Patient was swabbed and the swab will be sent to the hospital for culture and patient advised of any positive results. Encouraged to get plenty of rest, drink lots of clear liquids, and use Tylenol or Ibuprofen (unless contraindicated) for fever and comfort. Patient also educated on other symptomatic management techniques. To be seen in 7-10 days if no improvement; sooner if worsening of symptoms. Patient advised of potential red flags and when appropriate to report to the ED. Patient verbalized understanding and agree with all the above. Orders Orders: Coding Level of Care Code Off vis,est,level 3 Diagnoses Acute pharyngitis, unspecified etiology J02.9 Pharyngitis/tonsillitis etiology: unspecified etiology 09/12/18 1406 <Electronically signed by Serjio WEBB> Date Serjio WEBB Cosigner Signature: Date (if applicable) CC: Observed: 09/11/2018 Status: F Source: [facility] CULTURE, R/O STREP A 12:00 AM [facility] REPOSITORY JACQUI Culture No Group A Beta Streptococcus isolated. * This cultures intended use is to screen for Beta Streptococcus A only. All other pathogens and potential pathogens will not be screened for or reported. If a complete workup of all potential pathogens is indicated an order for a routine throat culture is required. Performed By: #### M100.010 #### [facility] [address] [place], [address] MAPPING PILOT OFFICE VISIT Observed: 08/30/2018 Status: F Source: [facility] REPORT 3:32 PM [facility] REPOSITORY [facility] [address] [place] [address] OFFICE VISIT Date of Service: 08/30/18 MR#: [id number] Acct: [id number] Name: HAZEL MISHRA Rep #: [id number] : 1995 Provider: SHARI Rico Age/Sex: 23/F Location: [facility] Status: Signed Intake Vital Signs08/30/18 Body Mass Index (BMI) 53.8 08/30/18 Height 5 ft 4 in 08/30/18 Weight: 313 lb 8 oz 08/30/18 Body Mass Index (BMI) 53.8 08/30/18 Blood Pressure 100/62 Intake Visit Reasons: 29 weeks Job Compositor Required: No Is patient in pain?: No Allergies acetaminophen [From Percocet] Allergy (Verified 08/30/18 15:19) Rash oxycodone [From Percocet] Allergy (Verified 08/30/18 15:19) Rash paper tape Adverse Reaction (Mild, Uncoded 08/15/18 15:23) Rash Medications sertraline 50 mg tablet 50 mg PO QDAY 03/16/18 [History Confirmed 08/30/18] esomeprazole magnesium 20 mg capsule,delayed release 20 mg PO DAILY 05/04/18 [History Confirmed 08/30/18] folic acid 1 mg tablet 1 mg PO DAILY 05/04/18 [History Confirmed 08/30/18] vitamin,calcium,uaqsxasf-jggp-wobyi acid tablet 1 tab PO DAILY 05/04/18 [History Confirmed 08/30/18] levetiracetam ER 500 mg tablet,extended release 24 hr 2,000 mg PO DAILY 05/26/18 [History Confirmed 08/30/18] ferrous sulfate 325 mg (65 mg iron) tablet 325 mg PO BID #60 tab 08/23/18 [Rx Confirmed 08/30/18] Last Menstral Period: 02/03/18 Zika: Zika virus [...] 2 current occupational status: employed current occupation: [employer] / [employer] pets and animals: Yes history of recent travel: No other: 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 DateName GA/Weeks Outcome Route Bth WeighInfant GeLabor LgtAnesthesiDel LocatProvider FOB t n h a n Delivery Date: 03/17/16 On 03/16/18 @ 15:30 Juani Tobar Bennett Breech failed version HPI 29 weeks: Details: HAZEL MISHRA is a 23 year old who presents for routine OB visit. OB Visit CAMILLE Calculator Estimated Delivery Date 11/12/18 Based on Ultrasound Date 03/23/18 Current WG 29w 3d Number 1 Expected Delivery Route/Plan desires TOLAC - 41% likelihood of success but previous cs for breech, will proceed with TOLAC. handouts given on education Specific Issue/Plans flu vaccine: given tdap vaccine: given rhogam: na LARC form signed: declines labor support person: [employer] pain management: epidural cut cord/dad catch: yes : yes PP control planned: [] special requests: [] Initial Weight: 319 lb Date Weight BP Urine PFHR FuHt Pres MCTX DilatioFetal SVisit NProvideComment rot ov n t ote r s EGA Ef Gluco faced se 03/16/1319 lb 131/86 8 6 oz (+ 5w6 oz) 4d Visit Notes Visit Date: 08/30/18 No VB, LOF. Doing well Sofy Rico NP-C on 08/30/18 Visit Date: 08/15/18 no vb lof good fm no regular ctx cbc gct tdap Kristie Ramírez MD on 08/15/18 Visit Date: 08/08/18 Work in for lower right pelvic pain into back. Good FM. No VB, LOF Sofy Rico NP-C on 08/08/18 Visit Date: 07/19/18 No VB, LOF. Doing well Sofy Rico NP-C on 07/19/18 Visit Date: 06/23/18 no vb [...] notes to display Diagnostics Diagnostics Labs Hct 33.9 % (37-47) L 08/15/18 Hgb 10.8 g/dl (12.0-15.0) L 08/15/18 Obstetrics Ultrasound 08/21/18 Chlam trachomat DNA PCR Negative (Negative) 05/05/18 N.gonorrhoeae DNA (PCR) Negative (Negative) 05/05/18 Glucose 1 Hr 50 gm 100 mg/dL (70-140) 08/15/18 Details: HIV: Urine Culture: Sequential Screen: NIPT Screen: Results [id number] Office Urine Glucose Negative Last Edit by Kristin Cummings on 08/30/18 15:18 Office Urine Protein Negative Last Edit by Kristin Cummings on 08/30/18 15:18 Assessment AND Plan Problems 1. Supervision of high risk , antepartum O09.90 CAMILLE 11/12/18 PC Chris Armani (Reign) 2. Seizure disorder during in second trimester O99.352 dr xiomara webb at [facility], growth us q 4 weeks after 28, nsts weekly after 32 3. BMI greater than 40 1st trimester glucola, weekly nsts and q4 week us after 32 weeks 4. Previous delivery affecting , antepartum O34.219 5. 29 weeks gestation of Z3A.29 Normal anatomy scan, will need repeat US as they could not visualize all of anatomy. 6. Abnormal glucose level R73.09 3 hr GTT normal 7. Anemia during O99.019 Recommended Iron Plan Orders placed: growth US WCH at 32 wk then q 4 wk NST weekly at 32 weeks Encouraged to start FE Reviewed of labor precautions, movement/kick counts ACOG trimester education reviewed and updated See problem list details for updated plan of care Gestational age appropriate handout given RTO: 2 weeks Orders Orders: Coding Level of Care Code OB Routine Diagnoses Supervision of high risk , antepartum O09.90 Seizure disorder during in second trimester O99.352 Trimester: second trimester BMI greater than 40 Previous delivery affecting , antepartum O34.219 29 weeks gestation of Z3A.29 Weeks of gestation: 29 weeks Abnormal glucose level R73.09 Anemia during O99.019 08/30/18 1532 <Electronically signed by Sofy DUBOIS> Date Sofy DUBOIS Cosigner Signature: Date (if applicable) CC: OB ANATOMY SCAN Observed: 08/21/2018 Status: F Source: ARVERNE 4:03 PM [facility] REPOSITORY [facility] Imaging Services [address] [place] [address] OB Anatomy Scan MR#: [id number] Acct: [id number] Name: HAZEL MISHRA Rep #: [id number] : 1995 F 23 From: Christopher Amaya DO PCP: SHERLY Anton Status: REG CLI Study: OB Anatomy Scan Date of Exam: 08/21/18 Exam# [id number] Ordering Dr: Kristie Ramírez MD STUDY: SECOND [...] Christopher Amaya DO at 16:56 EST Tel [phone], Service support , CC: SHERLY Garduno; Kristie Ramírez MD Petroleum Engineer: Signed CBC W/DIFF, AUTOMATED Collected: 08/15/2018 Status: F Source: [facility] 4:39 PM [facility] REPOSITORY TYPE CODE TESTS RESULT OUT OF [...] Lymph 1.62 Performed By: #### L100.0100 #### [facility] [address] [place], [address] GLUCOSE CHALLENGE GEST Collected: 08/15/2018 Status: F Source: [facility] 1H 50G 4:39 PM [facility] REPOSITORY TYPE CODE TESTS RESULT OUT OF RANGE REFERENCE UNITS LAB L501.0250 70-140 mg/dL Normal GLU GEST 100 50g 1H Performed By: #### L501.0250 #### [facility] [address] [place], [address] MAPPING PILOT OFFICE VISIT Observed: 08/15/2018 Status: F Source: ARVERNE REPORT 4:12 PM [facility] REPOSITORY [facility] [address] [place] [address] OFFICE VISIT Date of Service: 08/15/18 MR#: [id number] Acct: [id number] Name: HAZEL MISHRA Rep #: [id number] : 1995 Provider: Kristie Ramírez MD Age/Sex: 23/F Location[place] [facility] Status: Signed Intake Vital Signs08/15/18 Body Mass Index (BMI) 53.8 08/15/18 Height 5 ft 4 in 08/15/18 Weight: 313 lb 4 oz 08/15/18 Body Mass Index (BMI) 53.7 08/15/18 Blood Pressure 110/82 H Intake Visit Reasons: 27 weeks Chief Complaint: est ob Job Compositor Required: No Is patient in pain?: No [...] mg PO DAILY 05/04/18 [History Confirmed 08/15/18] vitamin,calcium,wvsmnqmm-spfp-cahcu acid tablet 1 tab PO DAILY 05/04/18 [...] 2 current occupational status: employed current occupation: [employer] / [employer] pets and animals: Yes history of recent travel: No other: 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 DateName GA/Weeks Outcome Route Bth WeighInfant GeLabor LgtAnesthesiDel LocatProvider FOB t n h a n Delivery Date: 03/17/16 On 03/16/18 @ 15:30 Juani Tobar Bennett Breech failed version HPI 27 weeks: Details: HAZEL MISHRA is a 23 year old who [...] into back. Good FM. No VB, LOF ANNEMARIE FernandoC on 08/08/18 Visit Date: 07/19/18 No VB, [...] Edit by Jen Donaldson on 08/15/18 16:01 Office Urine Protein Negative Last Edit by Jen Donaldson on 08/15/18 16:01 Immunizations Boostrix Tdap Performing Provider: Kristie Ramírez MD Administered by: Jen Donaldson on 08/15/18 15:45 Dose Route Admin Location Lot Number Expiration Date NDC Automatic Door Mechanic 0.5 mL IM Right Arm (SQ) [id number] 07/01/25 05011-715-38 [employer] VIS Given Date VIS Publication Date 08/15/18 11/05/14 Eligibility Eligibility Date Assessment AND Plan Problems 1. BMI greater than 40 1st trimester glucola, weekly nsts and q4 week us after 32 weeks 2. Previous delivery affecting , antepartum O34.219 3. Supervision of high risk , antepartum O09.90 CAMILLE 11/12/18 PC Chris Ames (Reign) 4. Seizure disorder during in second trimester O99.352 dr xiomara webb at [facility], growth us q 4 weeks after [...] Kristie Viera Signature: Date (if applicable) CC: MAPPING PILOT OFFICE VISIT Observed: 08/08/2018 Status: F Source: [facility] REPORT 2:54 PM [facility] REPOSITORY [facility] [address] [place] [address] OFFICE VISIT Date of Service: 08/08/18 MR#: [id number] Acct: [id number] Name: HAZEL MISHRA Rep #: [id number] : 1995 Provider: SHARI Rico Age/Sex: 23/F Location: [facility] Status: Signed Intake Vital Signs08/08/18 Height 5 ft 4 in 08/08/18 Weight: 313 lb 8 oz 08/08/18 Body Mass Index (BMI) 53.8 08/08/18 Blood Pressure 128/64 H Intake Visit Reasons: 26 weeks-cramping Job Compositor Required: No Is patient in pain?: Yes [...] mcg SUBLINGUAL DAILY 05/04/18 [History Confirmed 08/08/18] vitamin,calcium,netrbuhm-xnei-pmtlf acid tablet 1 tab PO DAILY 05/04/18 [...] History adopted: No household members: children housing: [facility] number of children: 2 current occupational status: employed current occupation: [employer] / [employer] pets and animals: Yes history of recent travel: No other: 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 DateName GA/Weeks Outcome Route Bth WeighInfant GeLabor LgtAnesthesiDel LocatProvider FOB t n h a n Delivery Date: 03/17/16 On 03/16/18 @ 15:30 Juani Tobar Bennett Breech failed version HPI 26 weeks-cramping: Details: HAZEL MISHRA is a 23 year old who [...] 2. Supervision of high risk , antepartum O. CAMILLE 11/12/18 PC Chris Ames (Reign) 3. Seizure disorder during in second trimester O99.352 dr xiomara webb at [facility], growth us q 4 weeks after [...] trimester Supervision of high risk , antepartum O.90 Seizure disorder during in second trimester O99.352 Trimester: second trimester BMI greater than 40 Previous delivery affecting , antepartum O34.219 26 weeks gestation of Z3A.26 Weeks of gestation: 26 weeks 08/08/18 1454 <Electronically signed by Sofy DUBOIS> Date Sofy DUBOIS Cosign Signature: Date (if applicable) CC: Observed: 08/08/2018 Status: F Source: [facility] CULTURE, URINE 12:00 AM [facility] REPOSITORY Urine Culture ORGANISM 1: Mixed Gram Positive Organisms [place] Count 50,000-80,000 MIX CULTURE Mixed contaminants. Submit a new specimen if indicated. Performed By: #### M100.0650 #### [facility] [address] [place], [address] KE Collected: 07/21/2018 Status: F Source: [facility] 9:07 AM [facility] REPOSITORY TYPE CODE TESTS RESULT OUT OF REFERENCE UNITS RANGE LAB LEVETI(BRYANT 12.0-46.0 UG/ML NC) Levetiracetam Lvl Low <2.0 Result Comment: Result rechecked. This test was developed and its performance characteristics determined by [facility] [place] ([facility]). It has not been cleared or approved by the FDA. [facility] is regulated under CLIA as qualified to perform high-complexity testing. This test is used for clinical purposes. It should not be regarded as investigational or for research. Performed By: [facility] [address] [place] [address] Ribbing Machine Operator: Destinee Issa M.D. IA#: [id number] Phone#: Performed By: #### ISIAH #### [address] [address] MAPPING PILOT OFFICE VISIT Observed: 07/19/2018 Status: F Source: [facility] REPORT 4:04 PM [facility] REPOSITORY [facility] [address] [place] [address] OFFICE VISIT Date of Service: 07/19/18 MR#: [id number] Acct: [id number] Name: HAZEL MISHRA Rep #: [id number] : 1995 Provider: SHARI Rico Age/Sex: 22/F Location: [facility] Status: Signed Intake Vital Signs07/19/18 Height 5 ft 4 in 07/19/18 Weight: 310 lb 2 oz 07/19/18 Body Mass Index (BMI) 53.2 07/19/18 Blood Pressure 122/76 H Intake Visit Reasons: 23 weeks Job Compositor Required: No Is patient in pain?: No [...] mcg SUBLINGUAL DAILY 05/04/18 [History Confirmed 07/19/18] vitamin,calcium,rmctchqm-mqxn-plhzz acid tablet 1 tab PO DAILY 05/04/18 [History Confirmed 07/19/18] levetiracetam ER 500 mg tablet,extended release 24 hr 2,000 mg PO DAILY 05/26/18 [History Confirmed 07/19/18] Last Menstral Period: 02/03/18 Zika: Zika virus screening: Negative : No Nurse's Note: Pt. states she has been light headed and dizzy at random times. 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) MRSA infection (Acute 2016) Migraine with aura (Acute) Surgical History H/O section (Acute 03/2016) H/O exploratory laparotomy (Acute) Family History Father Hypertension Heart disease Depression Grandfather Cancer Unknown Leukemia Social History adopted: No household members: children housing: condominium number of children: 2 current occupational status: employed current occupation: [employer] pets and animals: Yes history of recent travel: No other: 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 DateName GA/Weeks Outcome Route Bth WeighInfant GeLabor LgtAnesthesiDel LocatProvider FOB t n h a n Delivery Date: 03/17/16 On 03/16/18 @ 15:30 Juani Tobar Bennett Breech failed version HPI 23 weeks: Details: HAZEL MISHRA is a 22 year old who [...] second trimester O99.352 dr xiomara webb at [facility], [place] q 4 weeks after [...] DUBOIS Cosigner Signature: Date (if applicable) CC: MAPPING PILOT OFFICE VISIT Observed: 06/23/2018 Status: F Source: [facility] REPORT 8:55 AM [facility] [address] [place] [address] OFFICE VISIT Date of Service: 06/23/18 MR#: [id number] Acct: [id number] Name: HAZEL MISHRA Panfilo Rep #: [id number] : 1995 Provider: Kristie Ramírez MD Age/Sex: 22/F Location[place] [facility] Status: Signed with Addenda ADDENDUM by Jen Donaldson on 06/23/18 at 0855 OFFICE PROCEDURES Office Procedure Documentation entered by Jen Donaldson 06/23/18 08:55: Immunizations Fluad 2017- 65yr up(PF)45 mcg(15 mcgx3)/0.5 mL intramuscular syringe Performing Provider: Kristie Ramírez MD Administered by: Jen Donaldson on 06/23/18 08:54 Dose Route Admin Location Lot Number Expiration Date [facility] Automatic Door Mechanic 0.5 mL IM Left Arm (SQ) [id number] 03/11/19 [id number] SEQIRUS VIS Given Date VIS Publication Date 06/23/18 11/05/14 Eligibility Eligibility Date 06/23/1855 <Electronically signed by Jen Donaldson > Date Jen Donaldson cc: * Signed Intake Vital Signs06/23/18 Height 5 ft 4 in 06/23/18 Weight: 306 lb 8 oz 06/23/18 Body Mass Index (BMI) 52.6 06/23/18 Blood Pressure 116/80 Intake Visit Reasons: 19 weeks Chief Complaint: est ob Job Compositor Required: No Is patient in pain?: No [...] mcg SUBLINGUAL DAILY 05/04/18 [History Confirmed 06/23/18] vitamin,calcium,hucgfgrs-qrns-gvqzl acid tablet 1 tab PO DAILY 05/04/18 [History Confirmed 06/23/18] levetiracetam ER 500 mg tablet,extended release 24 hr 2,000 mg PO DAILY 05/26/18 [History Confirmed 06/23/18] Last Menstral Period: 02/03/18 Zika: Zika virus screening: Negative 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) MRSA infection (Acute 2017) Migraine with aura (Acute) Surgical History H/O section (Acute 03/2016) H/O exploratory laparotomy (Acute) Family History Father Hypertension Heart disease Depression Grandfather Cancer Unknown Leukemia Social History adopted: No household members: [facility] number [facility]: 2 current occupational status: employed current occupation: [employer] pets [employer] animals: Yes history of recent travel: No other: 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 DateName GA/Weeks Outcome Route Bth WeighInfant GeLabor LgtAnesthesiDel LocatProvider FOB t n h a n Delivery Date: 03/17/16 On 03/16/18 @ 15:30 Juani Tobar Bennett Breech failed version HPI 19 weeks: Details: HAZEL MISHRA is a 22 year old who [...] trimester O99.352; G40.909 dr xiomara webb at [facility], [place] q 4 weeks after [...] F Source: [facility] CULTURE, URINE 4:28 PM [facility] REPOSITORY Urine Culture Below infection level. ORGANISM 1: Mixed Gram Positive Organisms Brighton Count 1000-10,000 Performed By: #### M100.0650 #### [facility] [address] [place], [address] MAPPING PILOT OFFICE VISIT Observed: 06/01/2018 Status: F Source: [facility] REPORT 8:09 AM [facility] REPOSITORY [facility] [address] [place] [address] OFFICE VISIT Date of Service: 06/01/18 MR#: [id number] Acct: [id number] Name: HAZEL MISHRA Rep #: [id number] : 1995 Provider: SHARI Rico Age/Sex: 22/F Location[place] [facility] Status: Signed Intake Vital Signs06/01/18 Height 5 ft 4 in 06/01/18 Weight: 311 lb 4 oz 06/01/18 Body Mass Index (BMI) 53.4 06/01/18 Blood Pressure 120/80 Intake Visit Reasons: OB-CRAMPING Chief Complaint: est ob, cramping Job Compositor Required: No Is patient in pain?: Yes [...] mcg SUBLINGUAL DAILY 05/04/18 [History Confirmed 06/01/18] vitamin,calcium,hbaewdav-ilgq-ovmha acid tablet 1 tab PO DAILY 05/04/18 [...] History adopted: No household members: children [facility] number of children: 2 current occupational status: employed current occupation: [employer] / [employer] pets [employer] animals: Yes history of recent travel: No other: 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 DateName GA/Weeks Outcome Route Bth WeighInfant GeLabor LgtAnesthesiDel LocatProvider FOB t n h a n Delivery Date: 03/17/16 On 03/16/18 @ 15:30 Juani Tobar Bennett Breech failed version HPI OB-CRAMPING: Details: HAZEL MISHRA is a 22 year old who [...] DUBOIS Cosigner Signature: Date (if applicable) CC: MAPPING PILOT OFFICE VISIT Observed: 05/26/2018 Status: F Source: [facility] REPORT 3:36 PM [facility] [address] [place], [place] [address] OFFICE VISIT Date of Service: 05/26/18 MR#: [id number] Acct: [id number] Name: HAZEL MISHRA Rep #: [id number] : 1995 Provider: Kristie Ramírez MD Age/Sex: 22/F Location[place] [facility] Status: Signed Intake Vital Signs05/26/18 Height 5 ft 4 in 05/26/18 Weight: 315 lb 05/26/18 Body Mass Index (BMI) 54.1 05/26/18 Blood Pressure 121/60 Intake Visit Reasons: EST OB Chief Complaint: est ob Job Compositor Required: No Is patient in pain?: No [...] mcg SUBLINGUAL DAILY 05/04/18 [History Confirmed 05/26/18] vitamin,calcium,pogvrkxr-dfit-blhkt acid tablet 1 tab PO DAILY 05/04/18 [...] History adopted: No household members: children [facility] number of children: 2 current occupational status: employed current occupation: [employer] pets and animals: Yes history of recent travel: No other: 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 DateName GA/Weeks Outcome Route Bth WeighInfant GeLabor LgtAnesthesiDel LocatProvider FOB t n h a n Delivery Date: 03/17/16 On 03/16/18 @ 15:30 Juani Tobar Bennett Breech failed version HPI EST OB: Details: HAZEL MISHRA is a 22 year old who [...] first trimester O99.351 dr xiomara webb at [facility] 6. Supervision of high risk , antepartum [...] 3HR Collected: 05/05/2018 Status: F Source: [facility] 100G 7:06 AM [facility] REPOSITORY Order Comment: Is Patient Fasting? Y [...] 3HR 111 Performed By: #### L500.4710 #### [facility] [address] [place], [address] CT/NG WCH BY PCR Collected: 05/05/2018 Status: F Source: [facility] 7:04 AM [facility] REPOSITORY TYPE CODE TESTS RESULT OUT OF RANGE REFERENCE UNITS LAB L8200.2100 Negative Normal Chlam Negative Trac PCR LAB L8200.2200 Negative Normal NG by Negative PCR Performed By: #### L8200.1999, M100.0650 #### [facility] [address] [place], [address] Observed: 05/05/2018 Status: F Source: [facility] CULTURE, URINE 7:04 AM [facility] REPOSITORY Urine Culture Below infection level. ORGANISM 1: Mixed Gram Pos AND Gram Neg Org Brighton Count 1000-10,000 Performed By: #### L8200.1999, M100.0650 #### [facility] [address] [place], [address] CBC W/DIFF, AUTOMATED Collected: 05/04/2018 Status: F Source: [facility] 12:29 PM [facility] REPOSITORY TYPE CODE TESTS RESULT OUT OF [...] 1.31 Performed By: #### L100.0100, B101.7450 #### [facility] [address] [place], [address] #### L3100.0390, L3310.0000 #### [facility] (refer to report for specific site) refer to report for address and phone number TYPE AND SCREEN Collected: 05/04/2018 Status: F Source: [place] 12:29 PM [facility] REPOSITORY Order Comment: Reason for Type AND Screen/Red Cells: TYPE CODE TESTS RESULT OUT OF RANGE REFERENCE UNITS LAB B10.0800 O Normal BLOOD TYPE GEL POSITIVE LAB B100.4000 Normal Antibody NEGATIVE Screen Performed By: #### L100.0100, B101.7450 #### [facility] [address] [place], [address] #### L3100.0390, L3310.0000 #### [facility] (refer to report for specific site) refer to report for address and phone number HEPATITIS B SURFACE Collected: 05/04/2018 Status: F Source: [place] AG 12:29 PM [facility] REPOSITORY TYPE CODE TESTS RESULT OUT OF RANGE REFERENCE UNITS LAB L3100.0400 Negative Normal HB Negative SURF AG Result Comment: Performed at: [facility] [id number] Ribbing Machine Operator: Duy Abdi MD, Phone: [phone] Performed at: [address] [id number] Ribbing Machine Operator: Akin Santa PhD, Phone: [phone] Performed By: #### L100.0100, B101.7450 #### [facility] [address] [place] [address]. [place], [place], [address] #### L3100.0390, L3310.0000 #### [facility] (refer to report for specific site) refer to report for address and phone number KEPPRA (LEVETIRACETAM) Collected: 05/04/2018 Status: F Source: [facility] 12:29 PM [facility] REPOSITORY TYPE CODE TESTS RESULT OUT OF REFERENCE UNITS RANGE LAB L3310.0000 10.0-40.0 ug/mL Low KEPPRA 5.0 Performed By: #### L100.0100, B101.7450 #### [facility] [address] [place], [place] [address]. [place], [place], [id number] #### L3100.0390, L3310.0000 #### [facility] (refer to report for specific site) refer to report for address and phone number GLUCOSE CHALLENGE GEST Collected: 05/04/2018 Status: F Source: [facility] 1H 50G 12:29 PM [facility] REPOSITORY TYPE CODE TESTS RESULT OUT OF RANGE REFERENCE UNITS LAB L501.0250 70-140 mg/dL High GLU GEST 150 50g 1H Performed By: #### L501.0250 #### [facility] [address] [place], [place] [address]. [place], [place], [id number] RAPID PLASMIN REAGIN Collected: 05/04/2018 Status: F Source: [facility] (RPR) 12:29 PM [facility] REPOSITORY TYPE CODE TESTS RESULT OUT OF REFERENCE UNITS RANGE LAB L700.5000 NONREACTIVE NONREACTIVE Normal RPR Performed By: #### L700.5000, L509.4000, L3890.6005 #### [facility] [address] [place] [address]. [place], [address] RUBELLA IGG Collected: 05/04/2018 Status: F Source: [facility] 12:29 PM [facility] REPOSITORY Order Comment: Comments: keppra level TYPE CODE TESTS RESULT OUT OF RANGE REFERENCE UNITS LAB L509.4000 IU/mL Normal Rubella IgG 63.3 Result Comment: Antibody results Interpretation of Immune Status < 5 IU/ml Presumed Non-immune 5 - < 10 IU/ml Equivocal > or = 10 IU/ml Presumed Immune Performed By: #### L700.5000, L509.4000, L3890.6005 #### [facility] [address] [place], [address] HIV - [facility] Collected: 05/04/2018 Status: F Source: [facility] 12:29 PM [facility] REPOSITORY Order Comment: Comments: keppra level TYPE CODE TESTS RESULT OUT OF RANGE REFERENCE UNITS LAB L3890.6005 Nonreactive Normal HIV - [facility] Non-Reactive Performed By: #### L700.5000, L509.4000, L3890.6005 #### [facility] [address] [place], [address] MAPPING PILOT OFFICE VISIT Observed: 05/04/2018 Status: F Source: [facility] REPORT 11:24 AM [facility] REPOSITORY [facility] [address] [place] [address] OFFICE VISIT Date of Service: 05/04/18 MR#: [id number] Acct: [id number] Name: HAZEL MISHRA Rep #: [id number] : 1995 Provider: Kristie Ramírez MD Age/Sex: 22/F Location[place] [facility] Status: Signed Intake Vital Signs05/04/18 Height 5 ft 4 in 05/04/18 Weight: 313 lb 8 oz 05/04/18 Body Mass Index (BMI) 53.8 05/04/18 Blood Pressure 124/84 Intake Visit Reasons: OB- CRAMPING Job Compositor Required: No Is patient in pain?: Yes [...] mcg SUBLINGUAL DAILY 05/04/18 [History Confirmed 05/04/18] vitamin,calcium,lmformtu-wzup-sedqt acid tablet 1 tab PO DAILY 05/04/18 [...] 2 current occupational status: employed current occupation: [employer] animals: Yes history of recent travel: No other: comes in contact with international school Smoking Status: Never smoker second hand exposure: No alcohol intake: current alcohol intake frequency: holidays/special occasions only details: not while substance use type: does not use seatbelt use: always do you feel safe at home: Yes additional social history: [employer]- [facility] Son- Gabe age 2 Step DGHT- Reign age 8 Pregancy History 2 Elective abortions Hx Para 1 Spontaneous abortions Past Pregnancies Del. DateName GA/Weeks Outcome Route Bth WeighInfant GeLabor LgtAnesthesiDel LocatProvider FOB t n h a n Delivery Date: 03/17/16 On 03/16/18 @ 15:30 Juani Tobar Bennett Breech failed version HPI OB- CRAMPING: Details: HAZEL MISHRA is a 22 year old who [...] MD Cosigner Signature: Date (if applicable) CC: MAPPING PILOT OFFICE VISIT Observed: 04/22/2018 Status: F Source: [facility] REPORT 11:57 PM [facility] [address] [place] [address] OFFICE VISIT Date of Service: 04/21/18 MR#: [id number] Acct: [id number] Name: DANICAHAZEL E Rep #: [id number] : 1995 Provider: Kristie Ramírez MD Age/Sex: 22/F Location[place] [facility] Status: Signed Intake Vital Signs04/21/18 Height 5 ft 4 in 04/21/18 Weight: 319 lb 6 oz 04/21/18 Body Mass Index (BMI) 54.8 04/21/18 Blood Pressure 117/73 Intake Visit Reasons: 11 WEEK OB Job Compositor Required: No Is patient in pain?: No [...] History adopted: No household members: children [facility] number of children: 2 current occupational status: employed current occupation: [employer] pets [employer] animals: Yes history of recent travel: No other: 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 DateName GA/Weeks Outcome Route Bth WeighInfant GeLabor LgtAnesthesiDel LocatProvider FOB t n h a n Delivery Date: 03/17/16 On 03/16/18 @ 15:30 Juani Tobar Bennett Breech failed version HPI 11 WEEK OB: Details: HAZEL MISHRA is a 22 year old who [...] O09.90 [place] 11/12/18 PC Chris [employer] (Reign) Plan ACOG trimester education reviewed [...] of high risk , antepartum O09.90 04/22/18 7707 <Electronically signed by Kristie Ramírez MD> Date Kristie Ramírez MD Cosigner Signature: Date (if applicable) CC: VENOUS DUPLEX LOWER Observed: 04/05/2018 Status: F Source: [facility] EXTREMITY 5:28 PM [facility] REPOSITORY [facility] Cardiovascular Services [address] [place] [address] Venous Duplex US - Bob Extrem 03/30/18817 MR#: [id number] Acct: [id number] Name: HAZEL MISHRA Rep #: [id number] : 1995 22 From: Chilo Ybarra MD [...] 04/05/181726 Date Chilo Ybarra MD CC: Ulices Ruff MD; Deric Fenton MD Date Dictated: 03/30/18817 Date Transcribed: 04/05/181726 Petroleum Engineer: Signed 12 LEAD ELECTROCARDIOGRAM Observed: 03/31/2018 Status: F Source: [place] 1:18 PM [facility] REPOSITORY [facility] Cardiovascular Services [address] [place] [address] [place] [address] 12 Lead EKG 03/30/18 0733 MR#: [id number] Acct: [id number] Name: HAZEL MISHRA Rep #: [id number] : 1995 22 From: Jose Juan Hunter [...] with sinus arrhythmia Normal ECG Confirmed by ASAF RM, JOSE JUAN ([id number]), supervising editor news reel MARY BELTRAN ([id number]) on 03/31/2018 1:17:40 PM Referred By: Kristie Ramírez Confirmed By:JOSE JUAN HUNTER MD 03/31/18 1317 Date Jose Juan Hunter MD CC: Ulices Ruff MD; Deric Fenton MD Signed EMERGENCY DEPARTMENT Observed: 03/30/2018 Status: F Source: [place] SUMMARY 4:27 PM [facility] REPOSITORY [facility] Medical Records Department [address] [place] [address] Emergency Department Summary 03/30/18717 MR#: [id number] Acct: [id number] Name: HAZEL MISHRA Rep #: [id number] : 1995 22 From: Deric Fenton MD PCP: Ulices Ruff MD Status: DEP ER - ER Visit [...] with no acute changes. Troponins negative. PT VALUE ADVISOR is 11.9. Chem-7 is marked for creatinine [...] trimester . This note was generated with WALTOP dictation software. It may contain incorrect words, spelling, and punctuation that were not noted in review of the chart prior to signing ED Disposition - Plan for ED Patient: Chief Complaint: Shortness of Breath Instructions: ED Dyspnea Shortness of Breath Referrals: Ulices Ruff MD [Primary Care Provider] - 1-2 Days if not improving What to do if you have Problems For any increased pain, shortness of breath, bleeding, nausea or vomiting, chest pain, or any unexpected problems, contact your Primary Care Provider. Call [facility] ([phone]) or report to the closest Emergency Room. Call 911 if necessary. 03/30/18 3565 <Electronically signed by Deric Fenton MD> Date Deric Fenton MD Cosigner Signature (If Indicated): Date CC: Ulices Ruff MD CHEST 1 VIEW Observed: 03/30/2018 Status: F Source: [facility] (PORTABLE) 8:05 AM [facility] REPOSITORY [facility] Imaging Services [address] [place] [address] Chest 1 View (Portable) MR#: [id number] Acct: [id number] Name: HAZEL MISHRA Rep #: [id number] : 1995 F 22 From: Obinna Mason MD PCP: Ulices Ruff MD Status: REG ER Study: Chest 1 View (Portable) Date of Exam: 03/30/18 Exam# [id number] Ordering Dr: Deric Fenton MD STUDY: X-RAY CHEST REASON FOR EXAM: Female, 22 years old. Shortness of breath. TECHNIQUE: Single AP portable view of the chest. COMPARISON: None. FINDINGS: EKG electrodes are seen. Mild degree of vascular congestion. There is no demonstrated pleural abnormality. Normal size heart. Normal mediastinum and henrique. Normal visualized pulmonary arteries. Normal visualized aortic arch and descending thoracic aorta. Normal visualized thoracic spine. Normal visualized ribs, clavicles, and shoulders. There is no demonstrated abnormality of the visualized soft tissue structures of the upper abdomen. RAD/Chest 1 View (Portable) IMPRESSION: Mild degree of pulmonary vascular congestion. Electronically Signed: Obinna Mason MD at 8:27 EDT Tel [phone], Service support , CC: Ulices Ruff MD; Deric Fenton MD Petroleum Engineer: Signed CBC W/DIFF, AUTOMATED Collected: 03/30/2018 Status: F Source: [place] 7:45 AM [facility] REPOSITORY TYPE CODE TESTS RESULT OUT OF [...] Lymph 1.49 Performed By: #### L100.0100 #### [facility] [address] [place] [address]. [place], [address] BASIC METABOLIC Collected: 03/30/2018 Status: F Source: [facility] PROFILE (BMP) 7:45 AM [facility] REPOSITORY TYPE CODE TESTS RESULT OUT OF [...] 7 Performed By: #### L500.2500, L501.4010 #### [facility] [address] [place], [place], [address] TROPONIN-I Collected: 03/30/2018 Status: F Source: [facility] 7:45 AM [facility] REPOSITORY TYPE CODE TESTS RESULT OUT OF RANGE REFERENCE UNITS LAB L501.4010 <0.045 ng/mL Normal < 0.015 TROPONIN-I Result Comment: TROPONIN-I EXPECTED VALUES <0.045 Negative 0.045 - 0.590 Consistent with Cardiac Damage > OR = 0.600 Critical Value Not every elevated troponin is indicative of MA. These values should be used with clinical judgement in examining the patient's clinical picture for diagnosis. To establish a diagnosis of MA versus myocardial injury, there must be a demonstrated rise and/or fall in the troponin values, in addition to ischemic symptoms, EKG changes, new regional wall motion abnormality, and/or angiographical evidence. PLEASE NOTE: REFERENCE RANGES EDITED 18 Performed By: #### L500.2500, L501.4010 #### [facility] [address] [place], [place], [address] BNP,B-TYPE NATRIURETIC Collected: 03/30/2018 Status: F Source: [facility] PEPTIDE 7:45 [facility] TYPE CODE TESTS RESULT OUT OF RANGE REFERENCE UNITS LAB L503.6620 0-100 pg/mL Normal B-TYPE 11.9 RYLEE PEP Performed By: #### L503.6620 #### [facility] [address] [place], [address] INIT OB < 14WKS US Observed: 03/23/2018 Status: F Source: [facility] 4:17 PM [facility] REPOSITORY [facility] Imaging Services [address] [place] [address] Init OB < 14Wks US MR#: [id number] Acct: [id number] Name: HAZEL MISHRA Rep #: [id number] : 1995 F 22 From: Christopher Amaya DO PCP: Ulices Ruff MD Status: REG CLI Study: Init OB < 14Wks US Date of Exam: 03/23/18 Exam# [id number] Ordering Dr: Kristie Ramírez MD STUDY: FIRST [...] Christopher Amaya DO at 23:10 EDT Tel [phone], Service support , CC: Ulices Ruff MD; Kristie Ramírez MD Petroleum Engineer: Signed HCG TITER QUANT., Collected: 03/16/2018 Status: F Source: [facility] SERUM 4:14 PM [facility] REPOSITORY TYPE CODE TESTS RESULT OUT OF RANGE REFERENCE UNITS LAB L700.8000 <9 non-preg mIU/mL High HCG 9526 QUANT. Performed By: #### L700.8000 #### [facility] [address] [place], [address] MAPPING PILOT OFFICE VISIT Observed: 03/16/2018 Status: F Source: ARVERNE REPORT 4:10 PM [facility] REPOSITORY [facility] [address] [place] [address] OFFICE VISIT Date of Service: 03/16/18 MR#: [id number] Acct: [id number] Name: HZAEL MISHRA Rep #: [id number] : 1995 Provider: Kristie Ramírez MD Age/Sex: 22/F [place] [facility] [place]: Signed Intake Vital Signs03/16/18 Height 5 ft 4 in 03/16/18 Weight: 319 lb 6 oz 03/16/18 Body Mass Index (BMI) 54.8 03/16/18 Blood Pressure 131/86 Intake Visit Reasons: NOB - LMP UNKNOWN -ER FOLLOW UP Job Compositor Required: No Accompanied by: Is patient in [...] History adopted: No household members: [facility] number [facility] children: 2 current occupational status: employed current occupation: [employer] pets and animals: Yes history of recent travel: No other: comes in contact with international school Smoking Status: Former smoker second hand exposure: No alcohol intake: current alcohol intake frequency: holidays/special occasions only details: not while substance use type: does not use seatbelt use: always do you feel safe at home: Yes additional social history: [employer]- [employer] Son- Gabe age 2 Step DGHT- Reign age 8 Pregancy History 2 Elective abortions Hx Para 1 Spontaneous abortions Past Pregnancies Del. DateName GA/Weeks Outcome Route Bth WeighInfant GeLabor LgtAnesthesiDel LocatProvider FOB t n h a n Delivery Date: 03/17/16 On 03/16/18 @ 15:30 Juani Tobar Bennett Breech failed version HPI NOB - LMP UNKNOWN -ER FOLLOW UP: Details: HAZEL MISHRA is a 22 year old who [...] appearing, comfortable, no acute distress Orientation: alert [facility] Head: normal to inspection, atraumatic, normocephalic Ears: [...] will do new ob labs then, obtain [place] records. hcg today. Coding Level of Care Code OB Routine Diagnoses Threatened O20.0 03/16/18 1610 <Electronically signed by Kristie Ramírez MD> Date Kristie Ramírez MD Cosigner Signature: Date (if applicable) CC: CT/NG WCH BY PCR Collected: 03/16/2018 Status: F Source: ARVERNE 4:00 PM [facility] REPOSITORY TYPE CODE TESTS RESULT OUT OF RANGE REFERENCE UNITS LAB L8200.2100 Negative Normal Chlam Negative Trac PCR LAB L8200.2200 Negative Normal NG by Negative PCR Performed By: #### L8200.2000 #### [facility] [place], [place], [address] Observed: 03/16/2018 Status: F Source: AR[place]NE CULTURE, URINE 4:00 PM [facility] REPOSITORY Urine Culture ORGANISM 1: Mixed Gram Pos AND Gram Neg Org [place] Count 1000-10,000 MIX CULTURE Mixed contaminants. Submit a new specimen if indicated. Performed By: #### M100.0650 #### [facility] [address] [facility] [place], [place], [address] PAP I-G W/RFX Collected: 03/16/2018 Status: F Source: PHUC HRHPV-APTIMA 4:00 PM [facility] REPOSITORY Order Comment: CYTOLOGY INFORMATION: - CLINICAL INFORMATION: - DATE LMP/MENOPAUSE: UNK LMP - COLLECTION VIAL: Thin Prep Vial - [place] FORMER SOURCE: CERVICAL - COLLECTION TECHNIQUE: CX BROOM ONLY Specimen Comment: [id number] Specimen Comment: No. of containers..01 ThinPrep Vial TYPE CODE TESTS RESULT OUT OF RANGE REFERENCE UNITS LAB L7400.0800 . Normal DIAGN Comment Result Comment: NEGATIVE FOR INTRAEPITHELIAL LESION AND MALIGNANCY. LAB L7400.0900 . Normal ADEQ Comment Result Comment: Satisfactory for evaluation. Endocervical and/or squamous metaplastic cells (endocervical component) are present. LAB L7400.1400 . Normal PERFORM Comment Result Comment: Ann Woodard, Wedding Photographer (ASCP) LAB L7400.2575 . Normal TEST METHOD [...] no HPV testing was performed. Performed at: - [facility] [id number] Ribbing Machine Operator: Nina Coughlin MD, Phone: [phone] Performed By: #### L7400.0353 #### [facility] (refer to report for specific site) refer to report for address and phone number HCGQ Collected: 03/13/2018 Status: F Source: [facility] 5:51 PM [facility] REPOSITORY TYPE CODE TESTS RESULT OUT OF [...] Performed By: #### HCGQ, ABOG, ANSG #### [facility] [address] [place], [place] [address] GEL ABO Collected: 03/13/2018 Status: F Source: [facility] 5:51 PM [facility] REPOSITORY TYPE CODE TESTS RESULT OUT OF RANGE REFERENCE UNITS LAB ABORH(INC ) Unknown ABO/Rh O POS Interp Performed By: #### HCGQ, ABOG, ANSG #### [address] [place] [place], [place] [address] GEL ABS Collected: 03/13/2018 Status: F Source: [facility] 5:51 PM [facility] REPOSITORY TYPE CODE TESTS RESULT OUT OF REFERENCE UNITS RANGE LAB ANSG(LOINC ) Antibody Negative ABSC Screen Gel Performed By: #### HCGQ, ABOG, ANSG #### [address] [place], [place] [address] UA Collected: 03/13/2018 Status: F Source: [facility] 5:32 PM [facility] REPOSITORY TYPE CODE TESTS RESULT OUT OF [...] Performed By: #### UA, UAMICAO, PREGU #### [address] [address] .URINALYSIS MICROSCOPIC Collected: 03/13/2018 Status: F Source: FLEISCHMANNS () 5:32 PM [facility] REPOSITORY TYPE CODE TESTS RESULT OUT OF RANGE REFERENCE UNITS LAB WBCUA(LOIN None Seen /hpf C) Unknown UA WBC 0-5 LAB RBCUA(LOIN None Seen /hpf C) Unknown UA RBC LOADED LAB EPIUA(LOIN None Seen /hpf C) Unknown UA Squam Epithelial 0-5 Performed By: #### UA, UAMICAO, PREGU #### [address] [address] PREGU Collected: 03/13/2018 Status: F Source: [facility] 5:32 PM [facility] REPOSITORY TYPE CODE TESTS RESULT OUT OF RANGE REFERENCE UNITS LAB PREGU(LOIN C) Test Positive Urine LAB PRUG1(LOIN C) Unknown test HCG detected. (u) int Performed By: #### UA, UAMICAO, PREGU #### [address] [address] ALLERGIES ALLERGIES DATE TYPE / CODE NAME / CODE REACTION SEVERITY SOURCE 10/03/2018 Drug oxycodone/F Rash Unknown Petty Allergy/918164015(S 540194644(R [facility] NOMED CT) XNORM) Hospital Repository 10/03/2018 Drug acetaminoph Rash Unknown Petty Allergy/354139058(S en/O9411728 [facility] NOMED CT) 05(RXNORM) Hospital Repository 10/03/2018 Miscellaneous paper tape Rash MA Phuc Allergy/529738526(S [facility]) Hospital Repository ENCOUNTERS ENCOUNTERS ADMIT/DISCHARGE ACCOUNT NUMBER ADMITTING ENCOUNTER LOCATION SOURCE CLASS 10/03/2018 [id number] Ambulatory BMSBuilding: Petty BMS.CF.[facility] Repository 10/03/2018/10/03/19 [id number] Ambulatory Petty Phuc [facility] ding:WPOUTRo Repository om: WP013 09/26/2018/09/26/19 [id number] Ambulatory BMSBuilding: Petty 19 BMS.[facility] Repository 09/26/2018 [id number] Ambulatory BMSBuilding: Phuc BMS.CF.[facility] Repository 09/25/2018/09/25/19 [id number] Ambulatory [address] ding:WPOUTRo Repository om: WP012 09/18/2018 [id number] Ambulatory [facility] ding:US Repository 09/15/2018/09/15/19 [id number] Ambulatory BMSBuilding: Petty 19 BMS.[facility] Repository 09/11/2018 [id number] Ambulatory [facility] ding:LABSPEC Repository 09/11/2018/09/11/20 [id number] Ambulatory BMSBuilding: Phuc 18 BMS.[facility] Repository 08/30/2018/08/30/20 [id number] Ambulatory BMSBuilding: Phuc 18 BMS.[facility] Repository 08/21/2018 [id number] Ambulatory [facility] ding:US Repository 08/15/2018 [id number] Ambulatory [facility] ding:LAB Repository 08/15/2018/08/15/20 [id number] Ambulatory BMSBuilding: Phuc 18 BMS.[facility] Repository 08/08/2018 [id number] Ambulatory [facility] ding:LABSPEC Repository 08/08/2018/08/08/20 [id number] Ambulatory BMSBuilding: Phuc 18 BMS.[facility] Repository 07/21/2018/07/22/20 [id number] Ambulatory BBuilding:OL [facility] Repository 07/19/2018/07/19/20 [id number] Ambulatory BMSBuilding: Petty 18 BMS.[facility] Repository 07/11/2018 [id number] Ambulatory BMSBuilding: Phuc BMS.[facility] Repository 06/23/2018/06/23/20 [id number] Ambulatory BMSBuilding: Phuc 18 BMS.[facility] Repository 06/22/2018/06/22/20 [id number] Ambulatory Building:MFM [place] 18 [facility] Repository 06/01/2018 [id number] Ambulatory [facility] ding:LABSPEC Repository 06/01/2018/06/01/20 [id number] Ambulatory BMSBuilding: Phuc 18 BMS.[facility] Repository 05/26/2018/05/26/20 [id number] Ambulatory BMSBuilding: Petty 18 BMS.[facility] Repository 05/16/2018 [id number] Ambulatory [facility] ding:LAB.FUT Repository URE 05/05/2018 [id number] Ambulatory [facility] ding:LAB Repository 05/04/2018 [id number] Ambulatory [facility] ding:LAB Repository 05/04/2018/05/04/20 [id number] Ambulatory BMSBuilding: Phuc 18 BMS.[facility] Repository 04/21/2018/04/21/20 [id number] Ambulatory BMSBuilding: Phuc 18 BMS.[facility] Repository 03/30/2018/03/30/20 [id number] Emergency [address] ding:ED Repository 03/23/2018 [id number] Ambulatory [facility] ding:US Repository 03/22/2018 [id number] Ambulatory BMSBuilding: Phuc BMS.[facility] Repository 03/16/2018 [id number] Ambulatory [facility] ding:LABSPEC Repository 03/16/2018 [id number] Ambulatory [facility] ding:POLAB3 Repository 03/16/2018/03/16/20 [id number] Ambulatory BMSBuilding: Phuc 18 BMS.[facility] Repository 03/16/2018 [id number] Ambulatory BMSBuilding: Petty BMS.[facility] Repository 03/13/2018/03/13/20 [id number] Emergency BBuilding:KEYANNA Nolen [address] [place] [address] Repository 01/31/2018/02/01/20 [id number] Ambulatory FLEISCHMANNS [address] ding:[facility] Repository 01/04/2018/01/05/20 [id number] Ambulatory [address] ding:[facility] Repository 10/26/2017/10/26/19 [id number] Emergency BBuilding:ER [address] Repository PAYERS PAYERS ENCOUNTER GUARANTOR PAYER SUBSCRIBER SOURCE 10/03/2018 HAZEL E Primary HAZEL E Petty [id number] Insurance:CIGNAPolicy HARRISDOB: [facility] Number: [id number] [id number] [place]ository [place], [place] [address]Qyb: Date:5444-43-45YG [address]OHHOZPJDLEI, [place] () [address]DN: 10/03/2018 Secondary NOT GIVENUNK Phuc Insurance:SELF PAY [facility] Number: Effective Repository Date:2018-10-03 10/03/2018 HAZEL E Primary HAZEL E Petty [id number] Insurance:CIGNAPolicy HARRISDOB: [facility] Number: [id number] [id number] Repository [place], [place] [address]Ajz: Date:7716-35-55KD [address]NBPOLOKHBYY, [place] () [address]SA: 10/03/2018 Secondary NOT GIVENUNK Phuc Insurance:SELF PAY [facility] Number: Effective Repository Date:2018-10-03 09/26/2018 HAZEL E Primary HAZEL E Petty [id number] Insurance:CIGNAPolicy HARRISDOB: [facility] Number: [id number] [facility] [id number] [place], [place] [address]Cxd: Date:6836-42-92BK [address]OBQEPRDMRQN, [place] () [address]KY: 09/26/2018 Secondary NOT GIVENUNK Phuc Insurance:SELF PAY [facility] Number: Effective Repository Date:2018-09-21 09/26/2018 HAZEL E Primary HAZEL E Petty [id number] Insurance:CIGNAPolicy HARRISDOB: Community DARA Number: [id number] [id number] Repository [place], [place] [address]Feu: Date:4044-89-60GM [address]LECQUYVPCFM, [place] () [address]PI: 09/26/2018 Secondary NOT GIVENUNK Phuc Insurance:SELF PAY [facility] Number: Effective Repository Date:2018-09-26 09/25/2018 HAZEL E Primary HAZEL E Phuc [id number] Insurance:CIGNAPolicy HARRISDOB: [facility] Number: [id number] [id number] Repository [place], [place] [address]Ntb: Date:7554-20-98NH [address]ZQODYPQKFMD, [place] () [address]AO: 09/25/2018 Secondary NOT GIVENUNK Petty Insurance:SELF PAY [facility] Number: Effective Repository Date:2018-09-25 09/18/2018 HAZEL E Primary HAZEL E Phuc [id number] Insurance:CIGNAPolicy HARRISDOB: [facility] Number: [id number] [facility] [id number] Rep[place], [place] [address]Gyd: Date:7285-95-16WK [address]KMHXRGMTYXW, [place] () [address]PD: 09/18/2018 Secondary NOT GIVENUNK Petty Insurance:SELF PAY [facility] Number: Effective Repository Date:2018-09-01 09/15/2018 HAZEL E Primary HAZEL E Phuc [id number] Insurance:CIGNAPolicy HARRISDOB: [facility] Number: [id number] [facility] [id number] Repository [place], [place] [address]Yio: Date:4726-12-32OS [address]YQGLQSDZACHMARVEL VIEIRA () [address]IJ: 09/15/2018 Secondary NOT GIVENUNK Petty Insurance:SELF PAY [facility] Effective Repository Date:2018-09-15 09/11/2018 HAZEL E Primary HAZEL E Phuc [id number] Insurance:CIGNAPolicy HARRISDOB: Community DARA Number: [id number] [id number] Repository [place], [place] [address]Aoy: Date:5096-93-55BR [address]HCXNWXKVSIO, [place] () [address]TD: 09/11/2018 Secondary NOT GIVENUNK Petty Insurance:SELF PAY [facility] Number: Effective Repository Date:2018-09-11 09/11/2018 HAZEL E Primary HAZEL E Phuc [id number] Insurance:CIGNAPolicy [facility] Number: [id number] [id number] Repository [place], [place] [address]Whe: Date:1795-96-17MK [address]PPAYTBPIGFX, [place] () [address]HQ: 09/11/2018 Secondary NOT GIVENUNK Phuc Insurance:SELF PAY [facility] Number: Effective Repository Date:2018-09-11 08/30/2018 HAZEL E Primary HAZEL E Petty [id number] Insurance:CIGNAPolicy HARRISDOB: [facility] DARA Number: [id number] [id number] Repository [place], [place] [address]Vid: Date:9483-84-99YE [address]OZCHGBBYOUPMARVEL VIEIRA () [address]TZ: 08/30/2018 Secondary NOT GIVENUNK Phuc Insurance:SELF PAY [facility] Number: Effective Repository Date:2018-08-30 08/21/2018 HAZEL E Primary HAZEL E Phuc [id number] Insurance:CIGNAPolicy HARRISDOB: Community DARA Number: [id number] [facility] [id number] [place], [place] [address]Fet: Date:0226-02-76LN [address]GKLOVNUDTJWMARVEL VIEIRA () [address]WN: 08/21/2018 Secondary NOT GIVENUNK Phuc Insurance:SELF PAY [facility] Number: Effective Repository Date:2018-08-15 08/15/2018 HAZEL E Primary HAZEL E Phuc [id number] Insurance:CIGNAPolicy HARRISDOB: Community DARA Number: [id number] Health [facility] [id number] Repository [place], [place] [address]Nfi: Date:6130-86-19VI [address]BVULNLAWNJM, [place] () [address]UQ: 08/15/2018 Secondary NOT GIVENUNK Phuc Insurance:SELF PAY [facility] Number: Effective Repository Date:2018-08-15 08/15/2018 HAZEL E Primary HAZEL E Phuc [id number] Insurance:CIGNAPolicy HARRISDOB: Community DARA Number: [id number] [id number] Repository [place], [place] [address]Xir: Date:7434-65-57ZS [address]NKKDLEOWIWZ, [place] () [address]SJ: 08/15/2018 Secondary NOT GIVENUNK Petty Insurance:SELF PAY [facility] Number: Effective Repository Date:2018-08-15 08/08/2018 HAZEL E Primary HAZEL E Phuc [id number] Insurance:CIGNAPolicy HARRISDOB: Community DARA Number: [id number] Health [facility] [id number] Repository [place], [place] [address]Xnd: Date:6311-07-68JE [address]QIAWTHIHBEK, [place] () [address]CP: 08/08/2018 Secondary NOT GIVENUNK Petty Insurance:SELF PAY [facility] Number: Effective Repository Date:2018-08-08 08/08/2018 HAZEL E Primary HAZEL E Petty [id number] Insurance:CIGNAPolicy [facility] Number: [id number] [facility] [id number] Repository [place], [place] [address]Boc: Date:1250-11-77HQ [address]WJHIJKBWVEP, [place] () [address]YO: 08/08/2018 Secondary NOT GIVENUNK Phuc Insurance:SELF PAY [facility] Number: Effective Repository Date:2018-08-08 07/21/2018 HAZEL E Primary [facility]ZEL E [facility]:ARAVIND [facility]: [facility] [address]Qimhhh Number: [id number] [facility] [id number] [facility] Date:2018-07-21 - [place], [place] 4545-71-62Gdfe [place] [address]Ydx: [address]~SSTEINER1 Name:[facility] [address]@[facility] [address]Ubaknlngxfm, [place] ()Tel: (461) l: [phone]: ([phone]) [phone] () () 07/19/2018 HAZEL E Primary HAZEL E Phuc [id number] Insurance:CIGNAPoliczoe HARRISDOB: [facility] Number: [id number] [facility] [id number] Repository [place], [place] [address]Ufu: Date:1869-39-97YC [address]WWSWQFIKCLG, [place] () [address]QL: 07/19/2018 Secondary NOT GIVENUNK Phuc Insurance:SELF PAY [facility] Number: Effective Repository Date:2018-07-19 07/11/2018 HAZEL E Primary HAZEL E Phuc [id number] Insurance:CIGNAPolicy HARRISDOB: Community Dara Number: [id number] [facility] [id number] Repository [place] Date:6928-45-81MK [address] [address]Fkd: [phone], [place] [phone] () [address]LZ: 07/11/2018 Secondary NOT GIVENUNK Phuc Insurance:SELF PAY [facility] Number: Effective Repository Date:2018-07-11 06/23/2018 HAZEL E Primary HAZEL E Petty [id number] Insurance:CIGNAPolicy HARRISDOB: Community Dara Number: [id number] [facility] [id number] Repository [place] Date:5321-41-81OM [address] [address]Roo: [phone], [place] [phone] () [address]BH: 06/23/2018 Secondary NOT GIVENUNK Phuc Insurance:SELF PAY [facility] Number: Effective Repository Date:2018-06-23 06/22/2018 HAZEL Primary HAZEL [facility] HARRISDOB: Insurance:CIGNAPolicy HARRISDOB: [facility] Number: [id number] N Repository DARA [id number] MAIN [facility] Date: [facility], [place] [address]Vvo: , [place] [address] () 06/01/2018 HAZEL E Primary HAZEL E Phuc [id number] Insurance:CIGNAPolicy HARRISDOB: Community STAPT Number: [id number] [facility] [id number] [place] Date:6128-06-80QP [address] [address]Snt: [phone]) [phone], [place] [phone] () [address]DM: 06/01/2018 Secondary NOT GIVENUNK Petty Insurance:SELF PAY [facility] Number: Effective Repository Date:2018-06-01 06/01/2018 HAZEL E Primary HAZEL E Phuc [id number] [address] Insurance:CIGNAPolicy HARRISDOB: Community STAPT Number: [id number] Peaks [facility] [id number] [place] Date:4921-99-42UZ [address] [address]Qbw: [phone], [place] [phone] () [address]CR: 06/01/2018 Secondary NOT GIVENUNK Petty Insurance:SELF PAY [facility] Number: Effective Repository Date:2018-06-01 05/26/2018 HAZEL E Primary HAZEL E Phuc [id number] [address] Insurance:CIGNAPolicy HARRISDOB: Community ST[place] Number: [id number] Peaks Regional Health Center [id number] [place] Date:8539-61-20OJ [address] [address]Wni: [phone], [place] [phone] () [address]RB: 05/26/2018 Secondary NOT GIVENUNK Phuc Insurance:SELF PAY [facility] Number: Effective Repository Date:2018-05-26 05/16/2018 HAZEL E Primary HAZEL E Phuc [id number] [address] Insurance:CIGNAPolicy HARRISDOB: Community ST[place]T Number: [id number] Peaks Regional Health Center [id number] [place] Date:2999-76-19WL [address] [address]Hgw: [phone], [place] [phone] () [address]JA: 05/16/2018 Secondary NOT GIVENUNK Petty Insurance:SELF PAY [facility] Number: Effective Repository Date:2018-05-16 05/05/2018 HAZEL E Primary HAZLE E Petty [id number] [address] Insurance:CIGNAPolicy HARRISDOB: Community [place]T Number: [id number] Peaks Regional Health Center [id number] [place] Date:4782-95-14ZE [address] [address]Wps: [phone]) [phone], [place] [phone] () [address]AG: 05/05/2018 Secondary NOT GIVENUNK Petty Insurance:SELF PAY [facility] Number: Effective Repository Date:2018-05-05 05/04/2018 HAZEL E Primary HAZEL E Petty [id number] [address] Insurance:CIGNAPolicy HARRISDOB: Community [place] Number: [id number] Peaks Regional [facility] Center [id number] [place] Date:9631-08-48MS [address] [address]Xmv: [phone]) [phone], [place] [phone] () [address]XY: 05/04/2018 Secondary NOT GIVENUNK Petty Insurance:SELF PAY [facility] Number: Effective Repository Date:2018-05-04 05/04/2018 HAZEL E Primary HAZEL E Phuc [id number] [address] MA[address] Insurance:CIGNAPolicy HARRISDOB: Community [place] Number: [id number] Peaks Regional Health Center [id number] [place] Date:2269-23-00RG [address] [address]Tib: [phone]) [phone], [place] [phone] () [address]US: 05/04/2018 Secondary NOT GIVENUNK Petty Insurance:SELF PAY [facility] Number: Effective Repository Date:2018-05-04 04/21/2018 HAZEL E Primary HAZEL E Petty [id number] [address] MA[address] Insurance:CIGNAPolicy HARRISDOB: Community [place]T Number: [id number] Peaks Regional Health Center [id number] [place] Date:8278-89-25XP [address] [address]Eng: [phone], [place] [phone] () [address]RP: 04/21/2018 Secondary NOT GIVENUNK Petty Insurance:SELF PAY [facility] Number: Effective Repository Date:2018-04-21 03/30/2018 HAZEL E Primary HAZEL E Petty [id number] [address] MA[address] Insurance:CIGNAPolicy HARRISDOB: Community [place] Number: [id number] Peaks Regional Health Center [id number] [place] Date:9248-12-75HX [address] [address]Bde: 330 [id number], [place] [phone] () [address]BA: 03/30/2018 Secondary NOT GIVENUNK Phuc Insurance:SELF PAY [facility] Number: Effective Repository Date:2018-03-30 03/23/2018 HAZEL E Primary HAZEL Panfilo Pettyabhay [id number] [address] Insurance:CIGNAPolicy HARRISDOB: Community ST[place]T Number: [id number] Peaks Regional Health Center [id number] [place] Date:5993-48-29VB [address] [address]Fuw: 330 165771ZDCQVTLXBYG, [place] [phone] () [address]CU: 03/23/2018 Secondary NOT GIVENUNK Petty Insurance:SELF PAY [facility] Number: Effective Repository Date:2018-03-20 03/22/2018 HAZEL Primary Armani [id number] [address] Insurance:CIGNAPolicy [place] Community [place] Number: [facility] [id number] [place] Date:7702-86-75PY [address] [address]Ygu: 330 846669GYDNHGTVUUV, [place] [phone] () [address]TW: 03/22/2018 Secondary NOT GIVENUNK Phuc Insurance:SELF PAY [facility] Number: Effective Repository Date:2018-03-16 03/16/2018 HAZEL Primary Armani [place] Phuc [id number] [address] Insurance:CIGNAPolicy [place] Community [place] Number: [facility] [id number] [place] Date:8162-20-69JN [address] [address]Ffv: [phone]) [phone], [place] [phone] () [address]TF: 03/16/2018 Secondary NOT GIVENUNK Petty Insurance:SELF PAY [facility] Number: Effective Repository Date:2018-03-16 03/16/2018 HAZEL E Primary Armani [id number] [address] Insurance:CIGNAPolicy [place] Community STAPT Number: [facility] [id number] Repository , [place] Date:0376-38-66WN [address] [address]Omf: [phone], [place] [phone] () [address]MI: 03/16/2018 Secondary NOT GIVENUNK Phuc Insurance:SELF PAY Community [facility] Number: Effective Repository Date:2018-03-16 03/16/2018 HAZEL Primary Armani [id number] [address] Insurance:CIGNAPolicy [place] Community ST[place]T Number: [facility] [id number] Repository [place], [place] Date:[id number] [address]Mbm: [phone] [id number], [place] [phone] () [id number]: 03/16/2018 Secondary NOT GIVENUNK Petty Insurance:SELF PAY [facility] Number: Effective Repository Date:2018-03-16 03/16/2018 HAZEL Primary NOT GIVENUNK Petty [id number] Insurance:SELF PAY [facility]: [place] Repository [place] Date:2018-03-13 [id number]: () 03/13/2018 [facility]EL [facility] [place] N [address]Sjlzco Number: [id number] [id number] [facility] Date:2018-03-13 - [place], [place] [id number] , [place] [address]Pws: [id number]~[email or web address] Name:KULWANT [email or web address] 711214Gwslhbmdfgr [place] ()Tel: [phone] l: [phone]: () [phone] (HP) (WP) 01/31/2018 HAZEL E Primary HAZEL E [facility] HARRISDOB: Insurance[place] HARRISDOB: [facility] [place] N [address]Tbatar Number: [id number] [address] [id number] [facility] Date:2018-01-31 - [place], [place] [id number] , [place] [address]Bwj: [id number]~[email or web address] Name:[email or web address] Johnson (HP)Tel: [phone] l: [phone]: (WP) [phone] (HP) (WP) 01/04/2018 HAZEL E Primary HAZEL E [facility] HARRISDOB: Insurance:[place] HARRISDOB: [facility] [place] N [address]Byzcjp Number: [id number] N Repository [address] [id number] [facility] Date:2018-01-04 - [facility], [place] [id number] , [place] [address]Nec: [id number]~[email or web address] Name:[email or web address] Johnson (HP)Tel: [phone]) l: [phone]: (WP) [phone] (HP) (WP) 10/26/2017 HAZEL E Primary HAZEL E [facility] HARRISDOB: Insurance:[place] HARRISDOB: [facility] [place] N [address]Ltoxek Number: [id number] N Repository [address] [id number] [facility] Date:2017-10-26 - [place], [place] [id number] , [place] [address]Lya: [id number]~[email or web address] Name:KULWANT ARGUETA [email or web address]ENTERpanfilo [id number], [place] ()Tel: [phone]) l: [phone]: (EI) [phone] () (WP)
== END ==
PROVIDERS: Family Provider Nurse Practitioner Family; PCP Nurse Practitioner Family; Referring Provider Obstetrics & Gynecology; Visit Provider Obstetrics & Gynecology
DX: Z36.89 Encounter for other specified antenatal screening (principal)
CPT/HCPCS: 76805

== ENCOUNTER → 2018-09-11 14:09 | Outpatient (CLI) | payer OTHER, SELFPAY ==
[2018-09-11 12:24] VITALS: BMI 53.8
== END ==
PROVIDERS: Family Provider Nurse Practitioner Family; PCP Nurse Practitioner Family; Referring Provider Physician Assistant Surgical; Visit Provider Physician Assistant Surgical
DX: J02.9 Acute pharyngitis, unspecified (principal)
CPT/HCPCS: 87081

== ENCOUNTER → 2018-09-18 15:50 | Outpatient (CLI) | payer OTHER, SELFPAY ==
[2018-08-30 15:19] VITALS: BMI 53.8
[2018-09-15 15:28] VITALS: BMI 53.8
--- NOTE | 2018-09-18 15:51 | US_ITS ---
STUDY: SECOND AND THIRD TRIMESTER OBSTETRICAL ULTRASOUND - LIMITED REASON FOR EXAM: Female, 23 years old. Assess growth. Anatomy follow-up. On prior imaging, limited visualization of the face, nose and lips. Limited visualization of the bilateral upper extremities. LMP: 02/05/2018. GA (LMP) 32 week 1 day with CAMILLE 11/12/2018. PRIOR ULTRASOUND: 08/21/2018 TECHNIQUE: Transabdominal ultrasound evaluation was performed. FINDINGS: Single live intrauterine gestation, cephalic presentation, cardiac rate 155 bpm. The placenta is grade 1, fundal anterior, not low-lying. Next line cervical length 4.2 cm, closed. Amniotic fluid index 10.6 cm, deepest vertical pocket 4.5 cm. The maternal adnexa are visualized with no acute abnormality. BIOMETRY: Measurement in centimeters. BPD: 8.5: 34 weeks, 3 days HC: 30.2: 33 weeks, 5 days AC: 29.1: 33 weeks, 1 days FL: 6.4: 33 weeks, 2 days age by prior US: 33 weeks, 1 days. CAMILLE by prior US: 11/05/2018. age by current US: 33 weeks, 5 days. CAMILLE by current US: 11/01/2018. Estimated weight: 2167 grams, +/- 316 grams, 77 percentile. Gender: Gender is not assessed. Anatomic survey: facial features including nose and lips are appropriately visualized on today's study and appear normal. Sagittal midline view of the face appears normal. The 2 upper extremities are present. There is not detailed evaluation of the upper extremity bones. The remaining anatomic images were obtained for assessment of dates, positioning and viability only. No gross anatomic abnormality was observed. US/OB Limited With Biometrics IMPRESSION: Completed anatomic survey. No anatomic abnormality is observed. Single live intrauterine gestation with appropriate cardiac activity, normal amniotic fluid index, closed cervix, no previa. Measurements on today's study are closely concordant with last measured dates, within 4 days of measurements on the prior study of 08/21/2018. Measurements are discordant with dates based on last menses. No acute or maternal abnormality is evident. Electronically Signed: Cory Hernandez MD at 14:47 EST Tel , Service support ,
== END ==
PROVIDERS: Family Provider Nurse Practitioner Family; PCP Family Medicine; Referring Provider Obstetrics & Gynecology; Visit Provider Obstetrics & Gynecology
DX: O99.350 Diseases of the nervous system complicating pregnancy, unspecified trimester (principal); G40.909 Epilepsy, unspecified, not intractable, without status epilepticus; O09.90 Supervision of high risk pregnancy, unspecified, unspecified trimester; Z3A.00 Weeks of gestation of pregnancy not specified
CPT/HCPCS: 76816

== ENCOUNTER 2018-09-25 15:10 | Outpatient (CLI) | payer OTHER, SELFPAY ==
[2018-09-15 15:28] VITALS: BMI 53.8
[2018-09-25 16:04] VITALS: BMI 54.4
--- NOTE | 2018-09-26 02:13 | OB.TRI.HP_ITS ---
- Problem List (1) Anemia during Status: Acute Comment: Recommended Iron (2) Abnormal glucose Status: Acute Comment: 3 hr GTT normal (3) Status: Acute Qualifiers: Comment: carrier, genetic, ntd screening declined. Normal anatomy scan. (4) Previous delivery affecting , antepartum Status: Acute Comment: plan TOLAC if active labor. RLTCS and BTL (5) BMI greater than 40 Status: Acute Comment: 1st trimester glucola, weekly nsts and q4 week us after 32 weeks (6) Seizure disorder during Status: Acute Qualifiers: Comment: [facility], [place] q 4 weeks after 28, nsts weekly after 32 in (7) Supervision of high risk , antepartum Status: Acute Comment: PRR CAMILLE 11/12/18 PC Chris Kwaku (Reign) History of Present Illness Date of Service: 09/25/18 Was patient seen by the physician?: No Reason For Visit: NST History of Present Illness: nst secondary obesity Allergies acetaminophen [From Percocet] Allergy (Verified 09/25/18 16:18) Rash oxycodone [From Percocet] Allergy (Verified 09/25/18 16:18) Rash paper tape Adverse Reaction (Mild, Uncoded 09/25/18 16:18) Rash - Pertinent Past Medical History Medical History: Past Medical History (Last Reviewed 09/15/18 @ 15:28 by Jen Donaldson) Anxiety Depression Epilepsy Grand mal seizure MRSA infection Onset Date: ~2017 Debridement surgery 2017 Migraine with aura Surgical History: Past Surgical History (Last Reviewed 09/15/18 @ 15:28 by Jen Donaldson) H/O section Onset Date: ~03/2016 H/O exploratory laparotomy NST - FHR Rate Baby A Baseline: 140 Variability:: Moderate Accelerations:: 15 x 15 Decelerations:: None NST Reactive:: Yes FHR Category:: Category I Uterine Activity:: no regular Impression/Plan obesity- reassuring NST reactive cat I recommend weekly testing
== END 2018-09-25 16:10 | disposition home or self-care (01) ==
LOC: WPOUT 15:20 → WP 15:21
PROVIDERS: Referring Provider Obstetrics & Gynecology; Visit Provider Obstetrics & Gynecology
DX: O99.213 Obesity complicating pregnancy, third trimester (principal); Z3A.00 Weeks of gestation of pregnancy not specified
CPT/HCPCS: 59025; 59050; 99218; G0378

== ENCOUNTER 2018-10-03 15:25 | Outpatient (CLI) | payer OTHER, SELFPAY ==
[2018-09-26 15:16] VITALS: BMI 54.4
[2018-10-03 15:35] VITALS: BMI 53.9
--- NOTE | 2018-10-03 19:33 | OB.TRI.NOTE ---
- Problem List (1) Anemia during Status: Acute Comment: Recommended Iron (2) Abnormal glucose Status: Acute Comment: 3 hr GTT normal (3) Status: Acute Qualifiers: Comment: carrier, genetic, ntd screening declined. Normal anatomy scan. (4) Previous delivery affecting , antepartum Status: Acute Comment: plan TOLAC if active labor. RLTCS and BTL (5) BMI greater than 40 Status: Acute Comment: 1st trimester glucola, weekly nsts and q4 week us after 32 weeks (6) Seizure disorder during Status: Acute Qualifiers: Comment: [facility], [place] q 4 weeks after 28, nsts weekly after 32 in (7) Supervision of high risk , antepartum Status: Acute Comment: PRR CAMILLE 11/12/18 boy Yariel PC Chris Kwaku (Reign) History of Present Illness Date of Service: 10/03/18 Was patient seen by the physician?: No Reason For Visit: NON STRESS History of Present Illness: nst Allergies acetaminophen [From Percocet] Allergy (Verified 10/03/18 15:37) Rash oxycodone [From Percocet] Allergy (Verified 10/03/18 15:37) Rash paper tape Adverse Reaction (Mild, Uncoded 10/03/18 15:37) Rash - Pertinent Past Medical History Medical History: Past Medical History (Last Reviewed 09/26/18 @ 15:16 by Jen Donaldson) Anxiety Depression Epilepsy Grand mal seizure MRSA infection Onset Date: ~2017 Debridement surgery 2017 Migraine with aura Surgical History: Past Surgical History (Last Reviewed 09/26/18 @ 15:16 by Jen Donaldson) H/O section Onset Date: ~03/2016 H/O exploratory laparotomy NST - FHR Rate Baby A Baseline: 130s Variability:: Moderate Accelerations:: 15 x 15 Decelerations:: None NST Reactive:: Yes FHR Category:: Category I Uterine Activity:: no regular Impression/Plan reactive nst dc home
[2018-10-09 08:53] LABS: KEPPRA (LEVETIRACETAM) 4.9 ug/mL (10.0-40.0)
--- OUTSIDE RECORDS SUMMARY | 2018-12-05 21:26 | XMS RPT_ITS ---
:1995 Author Organization OHIP Support Name Relationship Address Phone COW Unavailable [address] + [place] [address] ARMANI MISHRA Unavailable [address] + [place] [address] DOLORES QUINN Unavailable [address] + [place] [address] COW Unavailable [address] + [place] [address] ARMANI MISHRA Unavailable [address] + [place] [address] DOLORES QUINN Unavailable [address] + [place] [address] COW Unavailable [address] + [place] [address] ARMANI MISHRA Unavailable [address] + [place] [address] DOLORES QUINN Unavailable [address] + [place] [address] COW Unavailable [address] + [place] [address] ARMANI MISHRA Unavailable [address] + [place] [address] DOLORES QUINN Unavailable [address] + [place] [address] COW Unavailable [address] + [place] [address] ARMANI MISHRA Unavailable [address] + [place] [address] DOLORES QUINN Unavailable [address] + [place] [address] COW Unavailable [address] + [place] [address] ARMANI MISHRA Unavailable [address] + [place] [address] DOLORES QUINN Unavailable [address] + [place] [address] COW Unavailable [address] + [place] [address] ARMANI MISHRA Unavailable [address] + [place] [address] DOLORES QUINN Unavailable [address] + [place] [address] COW Unavailable [address] + [place] [address] ARMANI MISHRA Unavailable [address] + [place] [address] DOLORES QUINN Unavailable [address] + [place] [address] COW Unavailable [address] + [place] [address] ARMANI MISHRA Unavailable [address] + [place] [address] DOLORES QUINN Unavailable [address] + [place] [address] COW Unavailable [address] + [place] [address] ARMANI MISHRA Unavailable [address] + [place] [address] DOLORES QUINN Unavailable [address] + [place] [address] COW Unavailable [address] + [place] [address] ARMANI MISHRA Unavailable [address] + [place] [address] DOLORES QUINN Unavailable [address] + [place] [address] COW Unavailable [address] + [place] [address] ARMANI MISHRA Unavailable [address] + [place] [address] DOLORES QUINN Unavailable [address] + [place] [address] COW Unavailable [address] + [place] [address] ARMANI MISHRA Unavailable [address] + [place] [address] DOLORES QUINN Unavailable [address] + [place] [address] COW Unavailable [address] + [place] [address] ARMANI MISHRA Unavailable [address] + [place] [address] DOLORES QUINN Unavailable . + [place] [address] COW Unavailable [address] + [place] [address] ARMANI MISHRA Unavailable [address] + [place] [address] DOLORES QUINN Unavailable Unavailable + [place] [address] COW Unavailable [address] + [place] [address] ARMANI MISHRA Unavailable [address] + [place] [address] DOLORES QUINN Unavailable . + [place] [address] ARMANI MISHRA Unavailable Unavailable Unavailable ARMANI MISHRA Unavailable [address] [place] [place] [address] ARMANI MISHRA Unavailable [address] [place] [address] GABE MISHRA Unavailable [address] [place] + [place] [address] DOLORES QUINN Unavailable [address] + [place] [address] COW Unavailable [address] + [place] [address] ARMANI MISHRA Unavailable [address] + [place] [address] DOLORES QUINN Unavailable . + [place] [address] COW Unavailable [address] + [place] [address] ARMANI MISHRA Unavailable [address] + [place] [address] DOLORES QUINN Unavailable . + [place] [address] COW Unavailable [address] + [place] [address] ARMANI MISHRA Unavailable [address] + [place] [address] DOLORES QUINN Unavailable . + [place] [address] ARMANI MISHRA Unavailable [address] + [place] [address] COW Unavailable [address] + [place] [address] ARMANI MISHRA Unavailable [address] + [place] [address] DOLORES QUINN Unavailable . + [place] [address] COW Unavailable [address] + [place] [address] ARMANI MISHRA Unavailable [address] + [place] [address] DOLORES QUINN Unavailable . + [place] [address] + [place] [address] ARMANI MISHRA Unavailable [address] + [place] [address] DOLORES QUINN Unavailable . + [place] [address] + [place] [address] ARMANI MISHRA Unavailable [address] + [place] [address] DOLORES QUINN Unavailable Unavailable + [place] [address] + [place] [address] ARMANI MISHRA Unavailable [address] + [place] [address] DOLORES QUINN Unavailable Unavailable + [place] [address] + [place] [address] ARMANI MISHRA Unavailable [address] + [place] [address] DOLORES QUINN Unavailable Unavailable + [place] [address] + [place] [address] ARMANI MISHRA Unavailable [address] + [place] [address] DOLORES QUINN Unavailable . + [place] [address] + [place] [address] ARMANI MISHRA Unavailable [address] + [place] [address] DOLORES QUINN Unavailable . + [place] [address] + [place] [address] ARMANI MISHRA Unavailable [address] + [place] [address] DOLORES QUINN Unavailable Unavailable + COW Unavailable [address] + [place] [address] ARMANI MISHRA Unavailable [address] + [place] [address] DOLORES QUINN Unavailable Unavailable + ARMANI MISHRA Unavailable [address] + [place] [address] UE Unavailable Unavailable Unavailable . Unavailable . + [place] [address] + [place] [address] ARMANI MISHRA Unavailable [address] + [place] [address] DOLORES QUINN Unavailable Unavailable + [place] [address] . Unavailable Unavailable + [place] [address] . Unavailable Unavailable + [place] [address] ARMANI MISHRA Unavailable Unavailable Unavailable ARMANI MISHRA Unavailable [address] [place] [place] [address] ARMANI MISHRA Unavailable [address] [place] [place] [address] GABE MISHRA Unavailable [address] + [place] [address] DOLORES QUINN Unavailable [address] + [place] [address] ARMANI MISHRA Unavailable Unavailable Unavailable ARMANI MISHRA Unavailable [address] [place] [place] [address] ARMANI MISHRA Unavailable [address] [place] [place] [address] GABE MISHRA Unavailable [address] + [place] [address] DOLORES QIUNN Unavailable [address] + [place] [address] ARMANI MISHRA Unavailable Unavailable Unavailable ARMANI MISHRA Unavailable [address] [place] [place] [address] ARMANI MISHRA Unavailable [address] [place] [address] GABE MISHRA Unavailable [address] + [place] [address] DOLORES QUINN Unavailable [address] + [place] [address] ARMANI MISHRA Unavailable [address] [place] [place] [address] GABE MISHRA Unavailable [address] + [place] [address] ARMANI MISHRA Unavailable [address] [place] [address] DOLORES QUINN Unavailable [address] + [place] [address] Care Team Providers Name Role Phone Mago Sumner MD Attending Unavailable ULCIES RUFF MD Primary Care Unavailable TULIO AYALA MD, JR. Attending Unavailable ULICES RUFF MD Primary Care Unavailable TULIO AYALA MD, JR. Attending Unavailable ULICES RUFF MD Primary Care Unavailable Mago Sumner MD Attending Unavailable ULICES RUFF MD Primary Care Unavailable TULIO AYALA MD, JR. Attending Unavailable ULICES RUFF MD Primary Care Unavailable ERIC BONILLA Attending Unavailable KRISTIE RAMÍREZ Referring Unavailable NO CAROLYN MORALEZ MD Primary Care Unavailable Serjio Oconnor Attending Unavailable Elvin, Serjio Referring Unavailable Lorson, Gibsland Primary Care Unavailable Marcanthony, Kristie Attending Unavailable Marcanthony, Kristie Referring Unavailable Marcanthony, Kristie Consulting Unavailable Lorson, [place] Primary Care Unavailable Marcanthony, Kristie Attending Unavailable Marcanthony, Kristie Referring Unavailable Bavis, Tulio Consulting Unavailable Marcanthony, Kristie Attending Unavailable Marcanthony, Kristie Referring Unavailable Lorson, [place] Primary Care Unavailable Bavis, Tulio Consulting Unavailable Marcanthony, Kristie Consulting Unavailable Marcanthony, Kristie Attending Unavailable Marcanthony, Kristie Referring Unavailable Judy, Ulices Primary Care Unavailable Marcanthony, Kristie Attending Unavailable Judy, Ulices Referring Unavailable Judy, Ulices Primary Care Unavailable Marcanthony, Kristie Attending Unavailable Judy, Ulices Referring Unavailable Judy, Ulices Primary Care Unavailable Bavis, Tulio Attending Unavailable Judy, Ulices Primary Care Unavailable Jacky, Sofy Attending Unavailable Mobile, Sofy Referring Unavailable Judy, Ulices Primary Care Unavailable Jen Donaldson Attending Unavailable Mobile, Sofy Attending Unavailable Judy, Ulices Referring Unavailable Marcanthony, Kristie Attending Unavailable Marcanthony, Kristie Referring Unavailable Lorson, [place] Primary Care Unavailable Judy, Mulberry Primary Care Unavailable JossyDeric blanton Attending Unavailable Marcanthony, Kristie Attending Unavailable Marcanthony, Kristie Attending Unavailable Marcanthony, Kristie Attending Unavailable Marcanthony, Kristie Referring Unavailable Lorson, [place] Primary Care Unavailable Marcanthony, Kristie Attending Unavailable Judy, Ulices Referring Unavailable Marcanthony, Kristie Attending Unavailable Marcanthony, Kristie Referring Unavailable Marcanthony, Kristie Attending Unavailable Marcanthony, Kristie Attending Unavailable Marcanthony, Kristie Referring Unavailable Marcanthony, Kristie Attending Unavailable Judy, Ulices Referring Unavailable Elvin, Serjio Attending Unavailable Lorson, Maria Fernanda Referring Unavailable Marcanthony, Kristie Attending Unavailable Marcanthony, Kristie Referring Unavailable Lorson, [place] Primary Care Unavailable Marcanthony, Kristie Attending Unavailable Marcanthony, Kristie Referring Unavailable Lorson, [place] Primary Care Unavailable Marcanthony, Kristie Attending Unavailable Judy, Ulices Referring Unavailable Mobile, Sofy Attending Unavailable Judy, Ulices Primary Care Unavailable Mobile, Sofy Referring Unavailable Jacky, Sofy Attending Unavailable Judy, Ulices Referring Unavailable Marcanthony, Kristie Attending Unavailable Judy, Ulices Referring Unavailable Marcanthony, Kristie Attending Unavailable Judy, Ulices Referring Unavailable Judy, Ulices Primary Care Unavailable Sofy Rico Attending Unavailable Judy, Ulices Referring Unavailable Marcanthony, Kristie Attending Unavailable Judy, Ulices Primary Care Unavailable JackySofy ang Attending Unavailable Judy, Ulices Referring Unavailable Judy, Ulices Primary Care Unavailable Marcanthony, Kristie Attending Unavailable Marcanthony, Kristie Referring Unavailable Judy, Ulices Primary Care Unavailable PROBLEMS PROBLEMS DATE TYPE CONDITION / CODE ATTENDING STATUS SOURCE 10/03/2018 Unknown G40.019 - Marcanthony, Active [place] Localization-relat [facility] ed (focal) Hospital (partial) 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, intractable, without status epilepticus / G40.019(ICD-10) 10/03/2018 Unknown R56.9 - Marcanthony, Active [place] Unspecified [facility] convulsions / Hospital R56.9(ICD-10) Repository 09/26/2018 Unknown O09.90 - Marcanthony, Active [place] Supervision of [facility] risk Hospital , Repository unspecified, unspecified trimester / O09.90(ICD-10) 09/26/2018 Unknown O34.219 - Maternal Marcanthony, Active [place] care for [facility] unspecified type Hospital scar from previous Repository delivery / O34.219(ICD-10) 09/26/2018 Unknown O99.213 - Obesity Marcanthony, Active [place] complicating [facility] , third Hospital trimester / Repository O99.213(ICD-10) 09/26/2018 Unknown O99.019 - Anemia Marcanthony, Active [place] complicating [facility] , Hospital unspecified Repository trimester / O99.019(ICD-10) 09/26/2018 Unknown O99.353 - Diseases Marcanthony, Active [place] of the nervous [facility] system Hospital complicating Repository , third trimester / O99.353(ICD-10) 09/26/2018 Unknown G40.909 - Marcanthony, Active [place] Epilepsy, [facility] unspecified, not Hospital intractable, Repository without status epilepticus / G40.909(ICD-10) 09/26/2018 Unknown Z3A.33 - 33 weeks Marcanthony, Active [place] gestation of [facility] / Hospital Z3A.33(ICD-10) Repository 09/26/2018 Unknown R73.09 - Other Marcanthony, Active [place] abnormal glucose / [facility] R73.09(ICD-10) Hospital Repository 09/18/2018 Unknown O99.350 - Diseases Marcanthony, Active [place] of the nervous [facility] Hospital complicating Repository , unspecified trimester / O99.350(ICD-10) 09/15/2018 Unknown O99.352 - Diseases Marcanthony, Active [place] of the [facility] complicating Repository , second trimester / O99.352(ICD-10) 09/15/2018 Unknown Z3A.31 - 31 weeks Marcanthony, Active [place] gestation of [facility] / Hospital Z3A.31(ICD-10) Repository 09/11/2018 Unknown J02.9 - Acute Elvin, Serjio Active [place] pharyngitis, Community unspecified / Hospital J02.9(ICD-10) Repository 08/30/2018 Unknown Z3A.29 - 29 weeks Mobile, Sofy Active [place] gestation of [facility] / Hospital Z3A.29(ICD-10) Repository 08/15/2018 Unknown Z23 - Encounter Marcanthraj, Active [place] for immunization / [facility] Z23(ICD-10) Hospital Repository 08/09/2018 Unknown N39.0 - Urinary Jacky, Sofy Active [place] tract infection, Community site not specified Hospital / N39.0(ICD-10) Repository 07/19/2018 Unknown Z3A.23 - 23 weeks Jacky, Sofy Active [place] gestation of [facility] / Hospital Z3A.23(ICD-10) Repository 06/23/2018 Unknown Z3A.19 - 19 weeks Marcanthony, Active [place] gestation of [facility] / Hospital Z3A.19(ICD-10) Repository 06/01/2018 Unknown O99.351 - Diseases Jacky, Sofy Active [place] of the [facility] Hospital complicating Repository , first trimester / O99.351(ICD-10) 06/01/2018 Unknown Z3A.12 - 12 weeks Jacky, Sofy Active [place] gestation of [facility] / Hospital Z3A.12(ICD-10) Repository 06/01/2018 Unknown R10.2 - Pelvic and Jacky, Sofy Active [place] perineal pain / Community R10.2(ICD-10) Hospital Repository 06/01/2018 Unknown O26.899 - Other Jacky, Sofy Active [place] specified Community related Hospital conditions, Repository unspecified trimester / O26.899(ICD-10) 06/01/2018 Unknown R10.9 - Mobile, Sofy Active [place] Unspecified Community abdominal pain / Hospital R10.9(ICD-10) Repository 03/22/2018 Unknown O20.0 - Threatened Donta, Active [facility] / [facility] O20.0(ICD-10) Hospital Repository 03/16/2018 Unknown Z12.4 - Encounter Donta, Active [place] for screening for [facility] malignant neoplasm [facility] / Repository Z12.4(ICD-10) PROCEDURES PROCEDURES No Procedure Records FoundRESULTS RESULTS PRINCIPAL ANDROID DEVELOPER OFFICE VISIT Observed: 09/26/2018 Status: F Source: [facility] REPORT 3:58 PM [facility] REPOSITORY [facility] [address] [place] [address]. [address] [place] [address] OFFICE VISIT Date of Service: 09/26/18 MR#: [id number] Acct: [id number] Name: HAZEL MISHRA Rep #: [id number] : 1995 Provider: Kristie Ramírez MD Age/Sex: 23/F Location: [facility] Status: Signed Intake Vital Signs09/26/18 Body Mass Index (BMI) 54.4 09/26/18 Height 5 ft 4 in 09/26/18 Weight: 317 lb 09/26/18 Body Mass Index (BMI) 54.3 09/26/18 Blood Pressure 110/70 Intake Visit Reasons: 33 weeks/needs c/s packet and soap Chief Complaint: est ob Quill Fixer Required: No Is patient in pain?: No [...] mg PO DAILY 05/04/18 [History Confirmed 09/26/18] vitamin,calcium,smrljsvq-yhng-cnbew acid tablet 1 tab PO DAILY 05/04/18 [...] 2 current occupational status: employed current occupation: [employer] pets and animals: Yes history of recent travel: No other: 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 Seizure disorder during in third trimester O99.353; G40.909 dr xiomara webb at [facility], growth us q 4 weeks after [...] MD Cosigner Signature: Date (if applicable) CC: OB LIMITED WITH Observed: 09/18/2018 Status: F Source: [facility] BIOMETRICS 3:51 PM [facility] REPOSITORY [facility] Imaging Services [address] [place] [address] [place] [address] OB Limited With Biometrics MR#: [id number] Acct: [id number] Name: HAZEL MISHRA Rep #: [id number] : 1995 F 23 From: Coyr Hernandez MD PCP: Ulices Ruff MD Status: REG CLI Study: OB Limited With Biometrics Date of Exam: 09/18/18 Exam# [id number] Ordering Dr: Sofy Rico TUBE BACKER-C STUDY: SECOND AND THIRD TRIMESTER OBSTETRICAL ULTRASOUND [...] maternal abnormality is evident. Electronically Signed: Cory Hernandez MD at 14:47 EST Tel , Service support , CC: SHARI Rico; Ulices Ruff MD Immunohematologist: Signed PRINCIPAL ANDROID DEVELOPER OFFICE VISIT Observed: 09/15/2018 Status: F Source: [facility] REPORT 3:54 PM [facility] REPOSITORY [facility] [address] [place] [address] OFFICE VISIT Date of Service: 09/15/18 MR#: [id number] Acct: [id number] Name: HAZEL MISHRA Rep #: [id number] : 1995 Provider: Kristie Ramírez MD Age/Sex: 23/F Location: [facility] Status: Signed Intake Vital Signs09/15/18 Body Mass Index (BMI) 53.8 09/15/18 Height 5 ft 5 in 09/15/18 Weight: 318 lb 09/15/18 Body Mass Index (BMI) 52.9 09/15/18 Blood Pressure 124/82 H Intake Visit Reasons: 31 weeks Chief Complaint: est ob Quill Fixer Required: No Is patient in pain?: No [...] mg PO DAILY 05/04/18 [History Confirmed 09/15/18] vitamin,calcium,dxqicmqr-oaej-vtadz acid tablet 1 tab PO DAILY 05/04/18 [...] 2 current occupational status: employed current occupation: [employer] pets and animals: Yes history of recent travel: No other: comes in contact with international school Smoking Status: Never smoker second hand exposure: No alcohol intake: current alcohol intake frequency: holidays/special occasions only details: not while substance use type: does not use seatbelt use: always do you feel safe at home: Yes additional social history: [employer] Son- Gabe age 2 Step DGHT- Reign [...] second trimester O99.352 dr xiomara webb at [facility], [place] q 4 weeks after [...] MD Cosigner Signature: Date (if applicable) CC: URGENT CARE VISIT Observed: 09/12/2018 Status: F Source: [facility] REPORT 2:06 PM [facility] REPOSITORY [address] [place] [address] OFFICE VISIT Date of Service: 09/11/18 MR#: [id number] Acct: [id number] Name: HAZEL MISHRA Rep #: [id number] : 1995 Provider: Serjio WEBB Age/Sex: 23/F Location: [facility] Status: Signed Intake Vital Signs09/11/18 Body Mass Index (BMI) 53.8 09/11/18 Height 5 ft 5 in Intake Visit Reasons: COUGH/SORE THROAT Chief Complaint: Cough/ sore throat Quill Fixer Required: No Accompanied by: Self Allergies acetaminophen [...] mg PO DAILY 05/04/18 [History Confirmed 09/11/18] vitamin,calcium,dwwchxhy-csvg-ubkul acid tablet 1 tab PO DAILY 05/04/18 [...] History adopted: No household members: [facility] number of children: 2 current occupational status: employed current occupation: [employer] pets and animals: Yes history of recent travel: No other: comes in contact with international school Smoking Status: Never smoker second hand exposure: No alcohol intake: current alcohol intake frequency: holidays/special occasions only details: not while substance use type: does not use seatbelt use: always do you feel safe at home: Yes additional social history: [employer]- [employer] Son- Gabe age 2 Step DGHT- Reign [...] wheezing Exam Const General: cooperative, well developed HENDE Head: normal to inspection, atraumatic Ears: hearing [...] CC: Observed: 09/11/2018 Status: F Source: [facility] MARTE, R/O STREP A 12:00 AM [facility] REPOSITORY JACQUI Culture No Group A Beta Streptococcus isolated. * This cultures intended use is to screen for Beta Streptococcus A only. All other pathogens and potential pathogens will not be screened for or reported. If a complete workup of all potential pathogens is indicated an order for a routine throat culture is required. Performed By: #### M100.010 #### [facility] [address] [place], [address] PRINCIPAL ANDROID DEVELOPER OFFICE VISIT Observed: 08/30/2018 Status: F Source: [facility] REPORT 3:32 PM [facility] REPOSITORY [facility] [address] [place] [address] OFFICE VISIT Date of Service: 08/30/18 MR#: [id number] Acct: [id number] Name: HAZEL MISHRA Rep #: [id number] : 1995 Provider: SHARI Rico Age/Sex: 23/F Location[facility] Status: Signed Intake Vital Signs08/30/18 Body Mass Index (BMI) 53.8 08/30/18 Height 5 ft 4 in 08/30/18 Weight: 313 lb 8 oz 08/30/18 Body Mass Index (BMI) 53.8 08/30/18 Blood Pressure 100/62 Intake Visit Reasons: 29 weeks Quill Fixer Required: No Is patient in pain?: No [...] mg PO DAILY 05/04/18 [History Confirmed 08/30/18] vitamin,calcium,zpxioidk-wxht-atjus acid tablet 1 tab PO DAILY 05/04/18 [...] 2 current occupational status: employed current occupation: [employer] [place] pets and animals: Yes history of recent travel: No other: comes in contact with international school Smoking Status: Never smoker second hand exposure: No alcohol intake: current alcohol intake frequency: holidays/special occasions only details: not while substance use type: does not use seatbelt use: always do you feel safe at home: Yes additional social history: [employer]- [employer] Son- Gabe age 2 Step DGHT- Reign [...] second trimester O99.352 dr [facility] webb [facility] [place] q 4 weeks after [...] ANATOMY SCAN Observed: 08/21/2018 Status: F Source: [facility] 4:03 PM [facility] REPOSITORY [facility] Imaging Services [address] [place] [id number] OB Anatomy Scan MR#: [id number] Acct: [id number] Name: HAZEL MISHRA Rep #: [id number] : 1995 F 23 From: Christopher Amaya DO PCP: SHERLY Anton Status: REG CLI Study: OB Anatomy Scan Date of Exam: 08/21/18 Exam# [id number] Ordering Dr: Kristie Ramírez MD STUDY: SECOND [...] Christopher Amaya DO at 16:56 EST Tel [phone], Service support , CC: SHERLY Garduno; Kristie Ramírez MD Immunohematologist: Signed CBC W/DIFF, AUTOMATED Collected: 08/15/2018 Status: F Source: [facility] 4:39 PM [facility] REPOSITORY TYPE CODE TESTS RESULT OUT OF [...] Lymph 1.62 Performed By: #### L100.0100 #### [facility] [address] [place], [address] GLUCOSE CHALLENGE GEST Collected: 08/15/2018 Status: F Source: [facility] 1H 50G 4:39 PM [facility] REPOSITORY TYPE CODE TESTS RESULT OUT OF RANGE REFERENCE UNITS LAB L501.0250 70-140 mg/dL Normal GLU GEST 100 50g 1H Performed By: #### L501.0250 #### [facility] [address] [place], [address] PRINCIPAL ANDROID DEVELOPER OFFICE VISIT Observed: 08/15/2018 Status: F Source: [facility] REPORT 4:12 PM [facility] REPOSITORY [facility] [address] [address] [place] [address] OFFICE VISIT Date of Service: 08/15/18 MR#: [id number] Acct: [id number] Name: HAZEL MISHRA Rep #: [id number] : 1995 Provider: Kristie Ramírez MD Age/Sex: 23/F Location: [facility] Status: Signed Intake Vital Signs08/15/18 Body Mass Index (BMI) 53.8 08/15/18 Height 5 ft 4 in 08/15/18 Weight: 313 lb 4 oz 08/15/18 Body Mass Index (BMI) 53.7 08/15/18 Blood Pressure 110/82 H Intake Visit Reasons: 27 weeks Chief Complaint: est ob Quill Fixer Required: No Is patient in pain?: No [...] mg PO DAILY 05/04/18 [History Confirmed 08/15/18] vitamin,calcium,tctlzvfx-scut-rkocm acid tablet 1 tab PO DAILY 05/04/18 [...] History adopted: No household members: [facility]: 2 current occupational status: employed current occupation: [employer]: Yes history of recent travel: No other: comes in contact with international school Smoking Status: Never smoker second hand exposure: No alcohol intake: current alcohol intake frequency: holidays/special occasions only details: not while substance use type: does not use seatbelt use: always do you feel safe at home: Yes additional social history: [employer]- [employer] Son- Gabe age 2 Step HT- Reign age 8 Pregancy History 2 Elective [...] Admin Location Lot Number Expiration Date NDC Dynamics Ax Developer 0.5 mL IM Right Arm (SQ) [id number] 07/01/25 93534-605-31 SANOFI-PASTEUR VIS Given Date VIS Publication Date [...] second trimester O99.352 dr xiomara webb at [facility], growth us q 4 weeks after [...] MD Cosigner Signature: Date (if applicable) CC: PRINCIPAL ANDROID DEVELOPER OFFICE VISIT Observed: 08/08/2018 Status: F Source: PULLMAN REPORT 2:54 PM [facility] [address] [place] [address] OFFICE VISIT Date of Service: 08/08/18 MR#: [id number] Acct: [id number] Name: HAZEL MISHRA Rep #: [id number] : 1995 Provider: SHARI Rico Age/Sex: 23/F Location: [facility] Status: Signed Intake Vital Signs08/08/18 Height 5 ft 4 in 08/08/18 Weight: 313 lb 8 oz 08/08/18 Body Mass Index (BMI) 53.8 08/08/18 Blood Pressure 128/64 H Intake Visit Reasons: 26 weeks-cramping Quill Fixer Required: No Is patient in pain?: Yes [...] mcg SUBLINGUAL DAILY 05/04/18 [History Confirmed 08/08/18] vitamin,calcium,dzbwyzat-fuek-wovyq acid tablet 1 tab PO DAILY 05/04/18 [...] History adopted: No household members: children [facility] number of children: 2 current occupational status: employed current occupation: [employer]: Yes history of recent travel: No other: comes in contact with international school Smoking Status: Never smoker second hand exposure: No alcohol intake: current alcohol intake frequency: holidays/special occasions only details: not while substance use type: does not use seatbelt use: always do you feel safe at home: Yes additional social history: [employer]- [employer] Son- Gabe age 2 Step DGHT- Reign [...] US confirms active IUD with FHT SHERLY eFrnando on 06/01/18 Visit Date: 05/26/18 no vb [...] Office Urine Color STRAW Last Edit by Kritsin Cummings on 08/08/18 14:46 Office Urine Clarity Cloudy Last Edit by Kristin Cummings on 08/08/18 14:46 Assessment AND Plan Problems 1. Pelvic pain affecting in second trimester, antepartum O26.892; R10.2 2. Supervision of high risk , antepartum O09.90 [place] 11/12/18 PC Chris [employer]ani (Reign) 3. Seizure disorder during in second trimester O99.352 dr xiomara webb at [facility], growth us q 4 weeks after [...] applicable) CC: Observed: 08/08/2018 Status: F Source: PULLMAN CULTURE, URINE 12:00 AM [facility] REPOSITORY Urine Culture ORGANISM 1: Mixed Gram Positive Organisms Buffalo Count 50,000-80,000 MIX CULTURE Mixed contaminants. Submit a new specimen if indicated. Performed By: #### M100.0650 #### [facility] [address] [place], [address] KEPPRA Collected: 07/21/2018 Status: F Source: [place] 9:07 AM [facility] REPOSITORY TYPE CODE TESTS RESULT OUT OF REFERENCE UNITS RANGE LAB LEVETI(BRYANT 12.0-46.0 UG/ML NC) Levetiracetam Lvl Low <2.0 Result Comment: Result rechecked. This test was developed and its performance characteristics determined by [facility] [place] ([facility]). It has not been cleared or approved by the FDA. -[facility] is regulated under CLIA as qualified to perform high-complexity testing. This test is used for clinical purposes. It should not be regarded as investigational or for research. Performed By: [facility] [address] [place] [address] Craps Manager: Destinee Issa M.D. CLIA#: [id number] Phone#: Performed By: #### ISIAH #### [place] [address] PRINCIPAL ANDROID DEVELOPER OFFICE VISIT Observed: 07/19/2018 Status: F Source: PHUC REPORT 4:04 PM [facility] [address] [place] [address] OFFICE VISIT Date of Service: 07/19/18 MR#: [id number] Acct: [id number] Name: HAZEL MISHRA Rep #: [id number] : 1995 Provider: SHARI Rico Age/Sex: 22/F Location: [facility] Status: Signed Intake Vital Signs07/19/18 Height 5 ft 4 in 07/19/18 Weight: 310 lb 2 oz 07/19/18 Body Mass Index (BMI) 53.2 07/19/18 Blood Pressure 122/76 H Intake Visit Reasons: 23 weeks Quill Fixer Required: No Is patient in pain?: No [...] mcg SUBLINGUAL DAILY 05/04/18 [History Confirmed 07/19/18] vitamin,calcium,cqrlwyjh-uuaa-irhqa acid tablet 1 tab PO DAILY 05/04/18 [History Confirmed 07/19/18] levetiracetam ER 500 mg tablet,extended release 24 hr 2,000 mg PO DAILY 05/26/18 [History Confirmed 07/19/18] Last Menstral Period: 02/03/18 Zika: Zika virus screening: Negative : No Nurse's Note: Pt. states she has been light headed and dizzy at random times. 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) MRSA infection (Acute 2017) Migraine with aura (Acute) Surgical History H/O section (Acute 03/2016) H/O exploratory laparotomy (Acute) Family History Father Hypertension Heart disease Depression Grandfather Cancer Unknown Leukemia Social History adopted: No household members: [facility] number of children: 2 current occupational status: employed current occupation: [employer]: Yes history of recent travel: No other: comes in contact with international school Smoking Status: Never smoker second hand exposure: No alcohol intake: current alcohol intake frequency: holidays/special occasions only details: not while substance use type: does not use seatbelt use: always do you feel safe at home: Yes additional social history: [employer]- [employer] Son- Gabe age 2 Step DGHT- Reign [...] second trimester O99.352 dr xiomara webb at [facility], growth us q 4 weeks after [...] DUBOIS Cosigner Signature: Date (if applicable) CC: PRINCIPAL ANDROID DEVELOPER OFFICE VISIT Observed: 06/23/2018 Status: F Source: PHUC REPORT 8:55 AM [facility] [address] [place] [address] OFFICE VISIT Date of Service: 06/23/18 MR#: [id number] Acct: [id number] Name: HAZEL MISHRA Rep #: [id number] : 1995 Provider: Kristie Ramírez MD Age/Sex: 22/F Location: [facility] Status: Signed with Addenda ADDENDUM by Jen Donaldson on 06/23/18 at 0855 OFFICE PROCEDURES Office Procedure Documentation entered by Jen Donaldson 06/23/18 08:55: Immunizations Fluad 2017- 65yr up(PF)45 mcg(15 mcgx3)/0.5 mL intramuscular syringe Performing Provider: Kristie Ramírez MD Administered by: Jen Donaldson on 06/23/18 08:54 Dose Route Admin Location Lot Number Expiration Date NDC Dynamics Ax Developer 0.5 mL IM Left Arm (SQ) [id number] 03/11/19 50042-153-20 SEQIRUS VIS Given Date VIS Publication Date 06/23/18 11/05/14 Eligibility Eligibility Date 06/23/18 0855 <Electronically signed by Jen Donaldson > Date Jen Donaldson cc: * Signed Intake Vital Signs06/23/18 Height 5 ft 4 in 06/23/18 Weight: 306 lb 8 oz 06/23/18 Body Mass Index (BMI) 52.6 06/23/18 Blood Pressure 116/80 Intake Visit Reasons: 19 weeks Chief Complaint: est ob Quill Fixer Required: No Is patient in pain?: No [...] mcg SUBLINGUAL DAILY 05/04/18 [History Confirmed 06/23/18] vitamin,calcium,thbgding-dgks-dkkie acid tablet 1 tab PO DAILY 05/04/18 [History Confirmed 06/23/18] levetiracetam ER 500 mg tablet,extended release 24 hr 2,000 mg PO DAILY 05/26/18 [History Confirmed 06/23/18] Last Menstral Period: 02/03/18 Zika: Zika virus screening: Negative [facility] Medical History Anxiety (Acute) Depression (Acute) Epilepsy (Acute) 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) MRSA infection (Acute 2016) Migraine with aura (Acute) Surgical History H/O section (Acute 03/2016) H/O exploratory laparotomy (Acute) Family History Father Hypertension Heart disease Depression Grandfather Cancer Unknown Leukemia Social History adopted: No household members: children [facility] number of children: 2 current occupational status: employed current occupation: [employer]: Yes history of recent travel: No other: comes in contact with international school Smoking Status: Never smoker second hand exposure: No alcohol intake: current alcohol intake frequency: holidays/special occasions only details: not while substance use type: does not use seatbelt use: always do you feel safe at home: Yes additional social history: [employer]- [employer] Son- Gabe age 2 Step HT- Reign age 8 Pregancy History 2 Elective [...] trimester O99.352; G40.909 dr xiomara webb at [facility], growth us q 4 weeks after [...] F Source: PHUC CULTURE, URINE 4:28 PM [facility] REPOSITORY Urine Culture Below infection level. ORGANISM 1: Mixed Gram Positive Organisms [place] Count 1000-10,000 Performed By: #### M100.0650 #### [facility] [address], [address] PRINCIPAL ANDROID DEVELOPER OFFICE VISIT Observed: 06/01/2018 Status: F Source: PHUC REPORT 8:09 AM [facility] REPOSITORY [facility] [address] [place] [address] OFFICE VISIT Date of Service: 06/01/18 MR#: [id number] Acct: [id number] Name: HAZEL MISHRA Rep #: [id number] : 1995 Provider: SHARI Rico Age/Sex: 22/F Location: [facility] Status: Signed Intake Vital Signs06/01/18 Height 5 ft 4 in 06/01/18 Weight: 311 lb 4 oz 06/01/18 Body Mass Index (BMI) 53.4 06/01/18 Blood Pressure 120/80 Intake Visit Reasons: OB-CRAMPING Chief Complaint: est ob, cramping Quill Fixer Required: No Is patient in pain?: Yes [...] mcg SUBLINGUAL DAILY 05/04/18 [History Confirmed 06/01/18] vitamin,calcium,szkctytv-rsgb-vgdxe acid tablet 1 tab PO DAILY 05/04/18 [...] 2 current occupational status: employed current occupation: [employer]: Yes history of recent travel: No other: comes in contact with international school Smoking Status: Never smoker second hand exposure: No alcohol intake: current alcohol intake frequency: holidays/special occasions only details: not while substance use type: does not use seatbelt use: always do you feel safe at home: Yes additional social history: [employer]- [employer] Son- Gabe age 2 Step DGHT- Reign [...] Seizure disorder during in first trimester O99.351 keppra[facility] 4. BMI greater than 40 1st trimester [...] DUBOIS Cosigner Signature: Date (if applicable) CC: PRINCIPAL ANDROID DEVELOPER OFFICE VISIT Observed: 05/26/2018 Status: F Source: PHUC REPORT 3:36 PM [facility] [address] [place] [address] OFFICE VISIT Date of Service: 05/26/18 MR#: [id number] Acct: [id number] Name: HAZEL MISHRA Rep #: [id number] : 1995 Provider: Kristie Ramírez MD Age/Sex: 22/F Location: [facility] Status: Signed Intake Vital Signs05/26/18 Height 5 ft 4 in 05/26/18 Weight: 315 lb 05/26/18 Body Mass Index (BMI) 54.1 05/26/18 Blood Pressure 121/60 Intake Visit Reasons: EST OB Chief Complaint: est ob Quill Fixer Required: No Is patient in pain?: No [...] mcg SUBLINGUAL DAILY 05/04/18 [History Confirmed 05/26/18] vitamin,calcium,ozktjhlj-nnyb-qlwdg acid tablet 1 tab PO DAILY 05/04/18 [...] History adopted: No household members: children [facility] number of children: 2 current occupational status: employed current occupation: [employer] [place] [employer]: Yes history of recent travel: No other: comes in contact with international school Smoking Status: Never smoker second hand exposure: No alcohol intake: current alcohol intake frequency: holidays/special occasions only details: not while substance use type: does not use seatbelt use: always do you feel safe at home: Yes additional [facility]- Gabe age 2 Step DGHT- [...] first trimester O99.351 dr xiomara webb at [facility] 6. Supervision of high risk , [...] Status: F Source: PHUC 100G 7:06 AM [facility] REPOSITORY Order Comment: Is Patient Fasting? Y [...] 3HR 111 Performed By: #### L500.4710 #### [facility] [address] [facility] [place], [address] CT/NG WCH BY PCR Collected: 05/05/2018 Status: F Source: PHUC 7:04 AM [facility] REPOSITORY TYPE CODE TESTS RESULT OUT OF RANGE REFERENCE UNITS LAB L8200.2100 Negative Normal Chlam Negative Trac PCR LAB L8200.2200 Negative Normal NG by Negative PCR Performed By: #### L8200.1999, M100.0650 #### [facility] [address] [place], [address] Observed: 05/05/2018 Status: F Source: PHUC CULTURE, URINE 7:04 AM [facility] REPOSITORY Urine Culture Below infection level. ORGANISM 1: Mixed Gram Pos AND Gram Neg Org Buffalo Count 1000-10,000 Performed By: #### L8200.1999, M100.0650 #### [facility] [address] [facility] [place], [address] CBC W/DIFF, AUTOMATED Collected: 05/04/2018 Status: F Source: PHUC 12:29 PM [facility] REPOSITORY TYPE CODE TESTS RESULT OUT OF [...] 1.31 Performed By: #### L100.0100, B101.7450 #### [facility] [address] [place] [address], [address] #### L3100.0390, L3310.0000 #### [facility] (refer to report for specific site) refer to report for address and phone number TYPE AND SCREEN Collected: 05/04/2018 Status: F Source: PULLMAN 12:29 PM [facility] REPOSITORY Order Comment: Reason for Type AND Screen/Red Cells: TYPE CODE TESTS RESULT OUT OF RANGE REFERENCE UNITS LAB B10.0800 O Normal BLOOD TYPE GEL POSITIVE LAB B100.4000 Normal Antibody NEGATIVE Screen Performed By: #### L100.0100, B101.7450 #### [facility] [address] [place], [address] #### L3100.0390, L3310.0000 #### [facility] (refer to report for specific site) refer to report for address and phone number HEPATITIS B SURFACE Collected: 05/04/2018 Status: F Source: PHUC AG 12:29 PM [facility] REPOSITORY TYPE CODE TESTS RESULT OUT OF RANGE REFERENCE UNITS LAB L3100.0400 Negative Normal HB Negative SURF AG Result Comment: Performed at: - [facility] [id number] Craps Manager: Duy Abdi MD, Phone: [phone] Performed at: - [facility] [id number] Craps Manager: Akin Santa PhD, Phone: [phone] Performed By: #### L100.0100, B101.7450 #### [facility] [address] [place] [address], [address] #### L3100.0390, L3310.0000 #### [facility] (refer to report for specific site) refer to report for address and phone number KEPPRA (LEVETIRACETAM) Collected: 05/04/2018 Status: F Source: PHUC 12:29 PM [facility] REPOSITORY TYPE CODE TESTS RESULT OUT OF REFERENCE UNITS RANGE LAB L3310.0000 10.0-40.0 ug/mL Low KEPPRA 5.0 Performed By: #### L100.0100, B101.7450 #### [facility] [address] [facility] [place], [place], [address] #### L3100.0390, L3310.0000 #### [facility] (refer to report for specific site) refer to report for address and phone number GLUCOSE CHALLENGE GEST Collected: 05/04/2018 Status: F Source: PHUC 1H 50G 12:29 PM [facility] REPOSITORY TYPE CODE TESTS RESULT OUT OF RANGE REFERENCE UNITS LAB L501.0250 70-140 mg/dL High GLU GEST 150 50g 1H Performed By: #### L501.0250 #### [facility] [address] [facility] [place], [place], [id number] RAPID PLASMIN REAGIN Collected: 05/04/2018 Status: F Source: PHUC (RPR) 12:29 PM [facility] REPOSITORY TYPE CODE TESTS RESULT OUT OF REFERENCE UNITS RANGE LAB L700.5000 NONREACTIVE NONREACTIVE Normal RPR Performed By: #### L700.5000, L509.4000, L3890.6005 #### [facility] [address] [place], [address] RUBELLA IGG Collected: 05/04/2018 Status: F Source: PHUC 12:29 PM [facility] REPOSITORY Order Comment: Comments: keppra level TYPE CODE TESTS RESULT OUT OF RANGE REFERENCE UNITS LAB L509.4000 IU/mL Normal Rubella IgG 63.3 Result Comment: Antibody results Interpretation of Immune Status < 5 IU/ml Presumed Non-immune 5 - < 10 IU/ml Equivocal > or = 10 IU/ml Presumed Immune Performed By: #### L700.5000, L509.4000, L3890.6005 #### [facility] [address] [place], [address] HIV - WCH Collected: 05/04/2018 Status: F Source: PHUC 12:29 PM [facility] REPOSITORY Order Comment: Comments: keppra level TYPE CODE TESTS RESULT OUT OF RANGE REFERENCE UNITS LAB L3890.6005 Nonreactive Normal HIV - WCH Non-Reactive Performed By: #### L700.5000, L509.4000, L3890.6005 #### [facility] [address] [place], [address] PRINCIPAL ANDROID DEVELOPER OFFICE VISIT Observed: 05/04/2018 Status: F Source: HPUC REPORT 11:24 AM [facility] REPOSITORY [facility] [address] [place] [address] OFFICE VISIT Date of Service: 05/04/18 MR#: [id number] Acct: [id number] Name: SELINA MISHRAKisha Whittaker Rep #: [id number] : 1995 Provider: Kristie Ramírez MD Age/Sex: 22/F Location: [facility] Status: Signed Intake Vital Signs08/23/18 Height 5 ft 4 in 05/04/18 Weight: 313 lb 8 oz 05/04/18 Body Mass Index (BMI) 53.8 05/04/18 Blood Pressure 124/84 Intake Visit Reasons: OB- CRAMPING Quill Fixer Required: No Is patient in pain?: Yes [...] mcg SUBLINGUAL DAILY 05/04/18 [History Confirmed 05/04/18] vitamin,calcium,mcpmcyxz-aedd-rsorz acid tablet 1 tab PO DAILY 05/04/18 [...] 2 current occupational status: employed current occupation: [employer]: Yes history of recent travel: No other: comes in contact with international school Smoking Status: Never smoker second hand exposure: No alcohol intake: current alcohol intake frequency: holidays/special occasions only details: not while substance use type: does not use seatbelt use: always do you feel safe at home: Yes additional social history: [employer]- [employer] Son- Gabe age 2 Step DGHT- Reign [...] first trimester O99.351 dr xiomara webb at [facility] 3. BMI greater than 40 1st trimester [...] MD Cosigner Signature: Date (if applicable) CC: PRINCIPAL ANDROID DEVELOPER OFFICE VISIT Observed: 04/22/2018 Status: F Source: PHUC REPORT 11:57 PM [facility] [address] [place] [address] OFFICE VISIT Date of Service: 04/21/18 MR#: [id number] Acct: [id number] Name: HAZEL MISHRA Rep #: [id number] : 1995 Provider: Kristie Ramírez MD Age/Sex: 22/F Location: [facility] Status: Signed Intake Vital Signs04/21/18 Height 5 ft 4 in 04/21/18 Weight: 319 lb 6 oz 04/21/18 Body Mass Index (BMI) 54.8 04/21/18 Blood Pressure 117/73 Intake Visit Reasons: 11 WEEK OB Quill Fixer Required: No Is patient in pain?: No [...] 2 current occupational status: employed current occupation: [employer] pets and animals: Yes history of recent travel: No other: comes in contact with international school Smoking Status: Never smoker second hand exposure: No alcohol intake: current alcohol intake frequency: holidays/special occasions only details: not while substance use type: does not use seatbelt use: always do you feel safe at home: Yes additional social history: [facility] Son- Gabe age 2 Step DGHT- [...] trimester O99.351; G40.909 dr [facility] 4. Supervision of high risk , antepartum [...] DUPLEX LOWER Observed: 04/05/2018 Status: F Source: PULLMAN EXTREMITY 5:28 PM [facility] REPOSITORY [facility] Cardiovascular Services [address] [place] [address] Venous Duplex - Bob Extrem 03/30/18817 MR#: [id number] Acct: [id number] Name: HAZEL MISHRA Rep #: [id number] : 1995 22 From: Chilo Ybarra MD [...] Ordering Physician: Deric Fenton Performed By: Sin Villanueva, RVT 04/05/181726 Date Chilo Ybarra MD CC: Ulices Ruff MD; Deric Fenton MD Date Dictated: 03/30/18817 Date Transcribed: 04/05/181726 Immunohematologist: Signed 12 LEAD ELECTROCARDIOGRAM Observed: 03/31/2018 Status: F Source: PULLMAN 1:18 PM [facility] REPOSITORY [facility] Cardiovascular Services [address] [place] [address] 12 Lead EKG 03/30/18 0733 MR#: [id number] Acct: [id number] Name: HAZEL MISHRA Rep #: [id number] : 1995 22 From: Jose Juan Hunter [...] Confirmed by JOSE JUAN HUNTER MD ([id number]), editor farm journal MARY BELTRAN ([id number]) on 03/31/2018 1:17:40 PM Referred By: Kristie Ramírez Confirmed By:JOSE JUAN HUNTER MD 03/31/18 1317 Date Jose Juan Hunter MD CC: Ulices Ruff MD; Deric Fenton MD Signed EMERGENCY DEPARTMENT Observed: 03/30/2018 Status: F Source: PULLMAN SUMMARY 4:27 PM [facility] REPOSITORY [facility] Medical Records Department [address] [place] [address] Emergency Department Summary 03/30/18 0718 MR#: [id number] Acct: [id number] Name: HAZEL MISHRA Rep #: [id number] : 1995 22 From: Deric Fenton MD [...] with no acute changes. Troponins negative. PT TUBE BACKER is 11.9. Chem-7 is marked for creatinine [...] trimester . This note was generated with Ensocare dictation software. It may contain incorrect words, [...] problems, contact your Primary Care Provider. Call [facility] ([phone]) or report to the closest Emergency Room. Call 911 if necessary. 03/30/18 9434 <Electronically signed by Deric Fenton MD> Date Deric Fenton MD Cosigner Signature (If Indicated): Date CC: Ulices Ruff MD CHEST 1 VIEW Observed: 03/30/2018 Status: F Source: PHUC (PORTABLE) 8:05 AM [facility] REPOSITORY [facility] Imaging Services [address] [place] [address] Chest 1 View (Portable) MR#: [id number] Acct: [id number] Name: HAZEL MISHRA Rep #: [id number] : 1995 F 22 From: Obinna Mason MD PCP: Ulices Ruff MD Status: REG ER Study: Chest 1 View (Portable) Date of Exam: 03/30/18 Exam# [id number] Ordering Dr: Deric Fenton MD STUDY: X-RAY [...] Obinna Mason MD at 8:27 EDT Tel [phone], Service support , CC: Ulices Ruff MD; Deric Fenton MD Immunohematologist: Signed CBC W/DIFF, AUTOMATED Collected: 03/30/2018 Status: F Source: PHUC 7:45 AM [facility] REPOSITORY TYPE CODE TESTS RESULT OUT OF [...] Lymph 1.49 Performed By: #### L100.0100 #### [facility] [address] [place], [address] BASIC METABOLIC Collected: 03/30/2018 Status: F Source: PH[facility] PROFILE (BMP) 7:45 AM [facility] REPOSITORY TYPE CODE TESTS RESULT OUT OF [...] 7 Performed By: #### L500.2500, L501.4010 #### [facility] [address] [place], [address] TROPONIN-I Collected: 03/30/2018 Status: F Source: PULLMAN 7:45 AM [facility] REPOSITORY TYPE CODE TESTS RESULT OUT OF RANGE REFERENCE UNITS LAB L501.4010 <0.045 ng/mL Normal < 0.015 TROPONIN-I Result Comment: TROPONIN-I EXPECTED VALUES <0.045 Negative 0.045 - 0.590 Consistent with Cardiac Damage > OR = 0.600 Critical Value Not every elevated troponin is indicative of KS. These values should be used with clinical judgement in examining the patient's clinical picture for diagnosis. To establish a diagnosis of KS versus myocardial injury, there must be a demonstrated rise and/or fall in the troponin values, in addition to ischemic symptoms, EKG changes, new regional wall motion abnormality, and/or angiographical evidence. PLEASE NOTE: REFERENCE RANGES EDITED 18 Performed By: #### L500.2500, L501.4010 #### [facility] [address] [place], [address] BNP,B-TYPE NATRIURETIC Collected: 03/30/2018 Status: F Source: PHUC PEPTIDE 7:45 AM [facility] REPOSITORY TYPE CODE TESTS RESULT OUT OF RANGE REFERENCE UNITS LAB L503.6620 0-100 pg/mL Normal B-TYPE 11.9 RYLEE PEP Performed By: #### L503.6620 #### [facility] [address] [place], [address] INIT OB < 14WKS US Observed: 03/23/2018 Status: F Source: PHUC 4:17 PM [facility] REPOSITORY [facility] Imaging Services [address] [place] [address] Init OB < 14Wks US MR#: [id number] Acct: [id number] Name: HAZEL MISHRA Rep #: [id number] : 1995 F 22 From: Christopher Amaya DO PCP: Ulices Ruff MD Status: REG CLI Study: Init OB < 14Wks US Date of Exam: 03/23/18 Exam# [id number] Ordering Dr: Kristie Ramírez MD STUDY: FIRST [...] Christopher Amaya DO at 23:10 EDT Tel [phone], Service support , CC: Ulices Ruff MD; Kristie Ramírez MD Immunohematologist: Signed HCG TITER QUANT., Collected: 03/16/2018 Status: F Source: PULLMAN SERUM 4:14 PM [facility] REPOSITORY TYPE CODE TESTS RESULT OUT OF RANGE REFERENCE UNITS LAB L700.8000 <9 non-preg mIU/mL High HCG 9526 QUANT. Performed By: #### L700.8000 #### [facility] [address] [place], [address] PRINCIPAL ANDROID DEVELOPER OFFICE VISIT Observed: 03/16/2018 Status: F Source: PHUC REPORT 4:10 PM [facility] REPOSITORY [facility] [address] [place] [address] OFFICE VISIT Date of Service: 03/16/18 MR#: [id number] Acct: [id number] Name: HAZEL MISHRA Rep #: [id number] : 1995 Provider: Kristie Ramírez MD Age/Sex: 22/F Location: [facility] Status: Signed Intake Vital Signs03/16/18 Height 5 ft 4 in 03/16/18 Weight: 319 lb 6 oz 03/16/18 Body Mass Index (BMI) 54.8 03/16/18 Blood Pressure 131/86 Intake Visit Reasons: NOB - LMP UNKNOWN -ER FOLLOW UP Quill Fixer Required: No Accompanied by: Is patient in [...] 2 current occupational status: employed current occupation: [employer] pets and animals: Yes history of recent travel: No other: comes in contact with international school Smoking Status: Former smoker second hand exposure: No alcohol intake: current alcohol intake frequency: holidays/special occasions only details: not while substance use type: does not use seatbelt use: always do you feel safe at home: Yes additional social history: [employer] [place] Son- Gabe age 1 Step DGHT- Reign [...] appearing, comfortable, no acute distress Orientation: alert [facility] Head: normal to inspection, atraumatic, normocephalic [...] will do new ob labs then, obtain [facility] records. hcg today. Coding Level of Care Code OB Routine Diagnoses Threatened O20.0 03/16/18 1610 <Electronically signed by Kristie Ramírez MD> Date Kristie Ramírez MD Cosigner Signature: Date (if applicable) CC: CT/NG WCH BY PCR Collected: 03/16/2018 Status: F Source: PHUC 4:00 PM [facility] REPOSITORY TYPE CODE TESTS RESULT OUT OF RANGE REFERENCE UNITS LAB L8200.2100 Negative Normal Chlam Negative Trac PCR LAB L8200.2200 Negative Normal NG by Negative PCR Performed By: #### L8200.2000 #### [place] [facility] [address] [place], [address] Observed: 03/16/2018 Status: F Source: PHUC CULTURE, URINE 4:00 PM [facility] REPOSITORY Urine Culture ORGANISM 1: Mixed Gram Pos AND Gram Neg Org [place] Count 1000-10,000 MIX CULTURE Mixed contaminants. Submit a new specimen if indicated. Performed By: #### M100.0650 #### [facility] [address] [place], [address] PAP I-G W/RFX Collected: 03/16/2018 Status: F Source: PHUC HRHPV-APTIMA 4:00 PM [facility] REPOSITORY Order Comment: CYTOLOGY INFORMATION: - CLINICAL INFORMATION: - DATE LMP/MENOPAUSE: UNK LMP - COLLECTION VIAL: Thin Prep Vial - KEY ACCOUNT EXECUTIVE SOURCE: CERVICAL - COLLECTION TECHNIQUE: CX BROOM ONLY Specimen Comment: [id number] Specimen Comment: No. of containers..01 ThinPrep Vial TYPE CODE TESTS RESULT OUT OF RANGE REFERENCE UNITS LAB L7400.0800 . Normal DIAGN Comment Result Comment: NEGATIVE FOR INTRAEPITHELIAL LESION AND MALIGNANCY. LAB L7400.0900 . Normal ADEQ Comment Result Comment: Satisfactory for evaluation. Endocervical and/or squamous metaplastic cells (endocervical component) are present. LAB L7400.1400 . Normal PERFORM Comment Result Comment: Ann Woodard, Implementation Lead (ASCP) LAB L7400.2575 . Normal TEST METHOD [...] HPV testing was performed. Performed at: - [facility] [place] [id number] Craps Manager: Nina Coughlin MD, Phone: [phone] Performed By: #### L7400.0353 #### [facility] (refer to report for specific site) refer to report for address and phone number HCGQ Collected: 03/13/2018 Status: F Source: [facility] 5:51 PM [facility] REPOSITORY TYPE CODE TESTS RESULT OUT OF [...] Performed By: #### HCGQ, ABOG, ANSG #### [address] [address] GEL ABO Collected: 03/13/2018 Status: F Source: [facility] 5:51 [facility] REPOSITORY TYPE CODE TESTS RESULT OUT OF RANGE REFERENCE UNITS LAB ABORH(LOINC ) Unknown ABO/Rh O POS Interp Performed By: #### HCGQ, ABOG, ANSG #### [address] [address] GEL ABS Collected: 03/13/2018 Status: F Source: [facility] 5:51 [facility] REPOSITORY TYPE CODE TESTS RESULT OUT OF REFERENCE UNITS RANGE LAB ANSG(LOINC ) Antibody Negative ABSC Screen Gel Performed By: #### HCGQ, ABOG, ANSG #### [address] [address] UA Collected: 03/13/2018 Status: F Source: [facility] 5:32 [facility] REPOSITORY TYPE CODE TESTS RESULT OUT OF [...] Performed By: #### UA, UAMICAO, PREGU #### [address] [place], [place] [address] .URINALYSIS MICROSCOPIC Collected: 03/13/2018 Status: F Source: [place] [facility] 5:32 PM [facility] REPOSITORY TYPE CODE TESTS RESULT OUT OF RANGE REFERENCE UNITS LAB WBCUA(LOIN None Seen /hpf C) Unknown UA WBC 0-5 LAB RBCUA(LOIN None Seen /hpf C) Unknown UA RBC LOADED LAB EPIUA(LOIN None Seen /hpf C) Unknown UA Squam Epithelial 0-5 Performed By: #### UA, UAMICAO, PREGU #### [address] [address] PREGU Collected: 03/13/2018 Status: F Source: [facility] 5:32 [facility] REPOSITORY TYPE CODE TESTS RESULT OUT OF RANGE REFERENCE UNITS LAB PREGU(LOIN C) Test Positive Urine LAB PRUG1(LOIN C) Unknown test HCG detected. (u) int Performed By: #### UA, UAMICAO, PREGU #### [address] [address] ALLERGIES ALLERGIES DATE TYPE / CODE NAME / CODE REACTION SEVERITY SOURCE 10/06/2018 Drug oxycodone/F Rash Unknown [facility] Allergy/390003629(S 870741178(R [facility] NOMED CT) XNORM) Hospital Repository 10/06/2018 Drug acetaminoph Rash Unknown [place] Allergy/102258997(S en/K9518700 [facility] NOMED CT) 05(RXNORM) Hospital Repository 10/06/2018 Miscellaneous paper tape Rash [place] Allergy/975512708(S Community NOMED CO) Hospital Repository ENCOUNTERS ENCOUNTERS ADMIT/DISCHARGE ACCOUNT NUMBER ADMITTING ENCOUNTER LOCATION SOURCE CLASS 10/06/2018/10/06/19 [id number] Ambulatory [address] ding:WPOUTRo Repository om: WP013 10/03/2018 [id number] Ambulatory BMSBuilding: [place] BMS.CF.[facility] Repository 10/03/2018/10/03/19 [id number] Ambulatory [address] ding:WPOUTRo Repository om: WP013 09/26/2018/09/26/19 [id number] Ambulatory BMSBuilding: [place] 19 BMS.[facility] Repository 09/26/2018 [id number] Ambulatory BMSBuilding: [place] BMS.CF.[facility] Repository 09/25/2018/09/25/19 [id number] Ambulatory [address] ding:OUTRo Repository om: WP012 09/18/2018 [id number] Ambulatory [facility] ding:US Repository 09/15/2018/09/15/19 [id number] Ambulatory BMSBuilding: [place] 19 BMS.[facility] Repository 09/11/2018 [id number] Ambulatory [facility] ding:LABSPEC Repository 09/11/2018/09/11/20 [id number] Ambulatory BMSBuilding: [place] 18 BMS.[facility] Repository 08/30/2018/08/30/20 [id number] Ambulatory BMSBuilding: [place] 18 BMS.[facility] Repository 08/21/2018 [id number] Ambulatory [facility] ding:US Repository 08/15/2018 [id number] Ambulatory [facility] ding:LAB Repository 08/15/2018/08/15/20 [id number] Ambulatory BMSBuilding: [place] 18 BMS.[facility] Repository 08/08/2018 [id number] Ambulatory [facility] ding:LABSPEC Repository 08/08/2018/08/08/20 [id number] Ambulatory BMSBuilding: [place] 18 BMS.[facility] Repository 07/21/2018/07/22/20 [id number] Ambulatory BBuilding:OL Damián 18 [facility] Repository 07/19/2018/07/19/20 [id number] Ambulatory BMSBuilding: [place] 18 BMS.[facility] Repository 07/11/2018 [id number] Ambulatory BMSBuilding: [place] BMS.[facility] Repository 06/23/2018/06/23/20 [id number] Ambulatory BMSBuilding: [place] 18 BMS.[facility] Repository 06/22/2018/06/22/20 [id number] Ambulatory Building:[facility] [place] 18 [facility] Repository 06/01/2018 [id number] Ambulatory [facility] ding:LABSPEC Repository 06/01/2018/06/01/20 [id number] Ambulatory BMSBuilding: [place] 18 BMS.[facility] Repository 05/26/2018/05/26/20 [id number] Ambulatory BMSBuilding: [place] 18 BMS.[facility] Repository 05/16/2018 [id number] Ambulatory [facility] ding:LAB.FUT Repository URE 05/05/2018 [id number] Ambulatory [facility] ding:LAB Repository 05/04/2018 [id number] Ambulatory [facility] ding:LAB Repository 05/04/2018/05/04/20 [id number] Ambulatory BMSBuilding: [place] 18 BMS.[facility] Repository 04/21/2018/04/21/20 [id number] Ambulatory BMSBuilding: [place] 18 BMS.[facility] Repository 03/30/2018/03/30/20 [id number] Emergency [address] ding:ED Repository 03/23/2018 [id number] Ambulatory [facility] ding:US Repository 03/22/2018 [id number] Ambulatory BMSBuilding: [place] BMS.[facility] Repository 03/16/2018 [id number] Ambulatory [facility] ding:LABSPEC Repository 03/16/2018 [id number] Ambulatory [facility] ding:POLAB3 Repository 03/16/2018/03/16/20 [id number] Ambulatory BMSBuilding: [place] 18 BMS.[facility] Repository 03/16/2018 [id number] Ambulatory BMSBuilding: [place] BMS.[facility] Repository 03/13/2018/03/13/20 [id number] Emergency BBuilding:ER Damián 18 [facility] Repository 01/31/2018/02/01/20 [id number] Ambulatory DAMIÁN Damián [address] [place] [address] ding:ZFixya [facility] Repository 01/04/2018/01/05/20 [id number] Ambulatory DAMIÁN Damián [address] [place] [address] ding:Infinit [facility] Repository 10/26/2017/10/26/19 [id number] Emergency BBuilding:ER Damián[address] [facility] Repository PAYERS PAYERS ENCOUNTER GUARANTOR PAYER SUBSCRIBER SOURCE 10/06/2018 HAZEL E Primary HAZEL E [place] [id number] [facility]: [facility] Number: [id number] Inter[facility] [id number] [place]ository [place], [place] [address]Ghq: Date:4131-20-81QW [address]UKYX[address], [place] () [address]FR: 10/06/2018 Secondary NOT GIVENUNK [place] Insurance:SELF PAY [facility] Number: Effective Repository Date:2018-10-06 10/03/2018 HAZEL E Primary HAZEL E [place] [id number] Insurance:[facility]: [facility] Number: [id number] Intercommunity Hospital [id number] Repository [place], [place] [address]Eqk: Date:0204-15-76UI [address]DGYEUCYKPQS, [place] () [address]GI: 10/03/2018 Secondary NOT GIVENUNK [place] Insurance:SELF PAY [facility] Number: Effective Repository Date:2018-10-03 10/03/2018 HAZEL Panfilo Primary HAZEL E [place] [id number] Insurance:CIGNAPolicy HARRISDOB: Community DARA Number: [id number] Intercommunity Hospital [id number] [place], [place] [address]Ocn: Date:5929-33-60QC [address]NZKCKEYCZCJ, [place] () [address]KJ: 10/03/2018 Secondary NOT GIVENUNK [place] Insurance:SELF PAY [facility] Number: Effective Repository Date:2018-10-03 09/26/2018 HAZEL E Primary HAZEL E [place] [id number] Insurance:CIGNAPolicy HARRISDOB: [facility] DARA Number: [id number] Intercommunity Hospital [id number] Repository [place], [place] [address]Yst: Date:5677-21-95OW [address]JUXLMFECGNO, [place] () [address]PV: 09/26/2018 Secondary NOT GIVENUNK [place] Insurance:SELF PAY [facility] Number: Effective Repository Date:2018-09-21 09/26/2018 HAZEL Whittaker Primary NOT GIVENUNK [place] [id number] Insurance:SELF PAY [facility] Number: Effective [place]ository [place], [place] [address]Wkq: Date:2018-09-26 () 09/25/2018 HAZEL Whittaker Primary HAZEL E [place] [id number] Insurance:CIGNAPolicy HARRISDOB: [facility] [place] Number: [id number] Intercommunity Hospital [id number] Repository [place], [place] [address]Mub: Date:0978-33-20DZ [address]HJHCFWLGZEU, [place] () [address]VQ: 09/25/2018 Secondary NOT GIVENUNK [place] Insurance:SELF PAY [facility] Number: Effective Repository Date:2018-09-25 09/18/2018 HAZEL E Primary HAZEL E [place] [id number] Insurance:CIGNAPolicy HARRISDOB: Community DARA Number: [id number] Intercommunity Hospital [id number] [place], [place] [address]Gao: Date:9872-08-87YI [address]JOLHWUDZGZX, [place] () [address]IT: 09/18/2018 Secondary NOT GIVENUNK [place] Insurance:SELF PAY [facility] Number: Effective Repository Date:2018-09-01 09/15/2018 HAZEL E Primary HAZEL E [place] [id number] Insurance:CIGNAPolicy HARRISDOB: Community DARA Number: [id number] Intercommunity Hospital [id number] Repository [place], [place] [address]Fqy: Date:9510-37-00NU [address]JFGERYEAOIC, [place] () [address]KE: 09/15/2018 Secondary NOT GIVENUNK [place] Insurance:SELF PAY [facility] Number: Effective Repository Date:2018-09-15 09/11/2018 HAZEL E Primary HAZEL E [place] [id number] Insurance:CIGNAPolicy HARRISDOB: Community DARA Number: [id number] Intercommunity Hospital [id number] [place]ository [place], [place] [address]Suk: Date:3419-29-35IR [address]UXTMSVWDJMF, [place] () [address]NB: 09/11/2018 Secondary NOT GIVENUNK [place] Insurance:SELF PAY [facility] Number: Effective Repository Date:2018-09-11 09/11/2018 HAZEL E Primary HAZEL E [place] [id number] Insurance:CIGNAPolicy HARRISDOB: [facility] Number: [id number] Intercommunity Hospital [id number] Repository [place], [place] [address]Ate: Date:6549-11-74QL [address]VEOWADPPBSH, [place] () [address]KC: 09/11/2018 Secondary NOT GIVENUNK [place] Insurance:SELF PAY [facility] Number: Effective Repository Date:2018-09-11 08/30/2018 HAZEL E Primary HAZEL E [place] [id number] Insurance:CIGNAPolicy HARRISDOB: Community DARA Number: [id number] Intercommunity Hospital [id number] [place], [place] [address]Svg: Date:8690-88-92HH [address]NDLEUYLLUKO, [place] () [address]HI: 08/30/2018 Secondary NOT GIVENUNK [place] Insurance:SELF PAY [facility] Number: Effective Repository Date:2018-08-30 08/21/2018 HAZEL E Primary HAZEL E [place] [id number] Insurance:CIGNAPolicy HARRISDOB: [facility] DARA Number: [id number] Intercommunity Hospital [id number] Repository [place], [place] [address]Cjz: Date:8331-52-09RB [address]YQFANXLNVPW, [place] () [address]DF: 08/21/2018 Secondary NOT GIVENUNK [place] Insurance:SELF PAY [facility] Number: Effective Repository Date:2018-08-15 08/15/2018 HAZEL E Primary HAZEL E [place] [id number] Insurance:CIGNAPolicy HARRISDOB: Community DARA Number: [id number] Intercommunity Hospital [id number] Repository [place], [place] [address]Bti: Date:9340-99-60XS [address]JLVBLWWSDYZ, [place] () [address]QK: 08/15/2018 Secondary NOT GIVENUNK [place] Insurance:SELF PAY [facility] Number: Effective Repository Date:2018-08-15 08/15/2018 HAZEL E Primary HAZEL E [place] [id number] Insurance:CIGNAPolicy HARRISDOB: Community DARA Number: [id number] Intercommunity Hospital [id number] Repository [place], [place] [address]Mht: Date:0419-37-15DM [address]ANPNLDDNYPK, [place] () [address]HV: 08/15/2018 Secondary NOT GIVENUNK [place] Insurance:SELF PAY [facility] Number: Effective Repository Date:2018-08-15 08/08/2018 HAZEL E Primary HAZEL E [place] [id number] Insurance:CIGNAPolicy HARRISDOB: Community DARA Number: [id number] Intercommunity Hospital [id number] Repository [place], [place] [address]Hwt: Date:7718-03-21VP [address]LESTCFAOIGL, [place] () [address]NA: 08/08/2018 Secondary NOT GIVENUNK [place] Insurance:SELF PAY [facility] Number: Effective Repository Date:2018-08-08 08/08/2018 HAZEL E Primary HAZEL E [place] [id number] Insurance:CIGNAPolicy HARRISDOB: [facility] [place] Number: [id number] Intercommunity Hospital [id number] Repository [place], [place] [address]Wbv: Date:5557-15-74RD [address]FPFOTDYMVQY, [place] () [address]SJ: 08/08/2018 Secondary NOT GIVENUNK [place] Insurance:SELF PAY [facility] Number: Effective Repository Date:2018-08-08 07/21/2018 HAZEL E Primary [facility]EL E [facility]:CIGNA [facility] [address]Upklxf Number: [id number] Repository DARA [id number] [facility] Date:2018-07-21 - [place], [place] 1029-56-64[place] [address]Gsu: [id number] Name:MARINE FIREFIGHTER ELLIE 993@[facility] [address]Phffyvuqctj, [place] (HP)Tel: (323) l: [phone]: (WP) [phone] (HP) (WP) 07/19/2018 HAZEL E Primary HAZEL E [place] [id number] Insurance:CIGNAPolicy HARRISDOB: [facility] DARA Number: [id number] Intercommunity Hospital [id number] Repository [place], [place] [address]Yxf: Date:3424-83-17TQ [address]DWWAFXDZILW, [place] () [address]JN: 07/19/2018 Secondary NOT GIVENUNK [place] Insurance:SELF PAY [facility] Number: Effective Repository Date:2018-07-19 07/11/2018 HAZEL E Primary HAZEL E [place] [id number] Insurance:CIGNAPolicy [facility] Number: [id number] Medical Center [id number] [place]ository [place] Date:9394-63-74SA [address]Xkw: [phone], [place] [phone] () [address]XC: 07/11/2018 Secondary NOT GIVENUNK [place] Insurance:SELF PAY [facility] Number: Effective Repository Date:2018-07-11 06/23/2018 HAZEL E Primary HAZEL E [place] [id number] Insurance:CIGNAPolicy [facility]ISDOB: [facility] Number: [id number] Medical Center [id number] Repository [place] Date:8338-64-93OS [address] [address]Vwr: [phone], [place] [phone] () [address]AS: 06/23/2018 Secondary NOT GIVENUNK [place] Insurance:SELF PAY [facility] Number: Effective Repository Date:2018-06-23 06/22/2018 HAZEL Primary HAZEL [facility] HARRISDOB: Insurance:CIGNAPolicy HARRISDOB: [facility] Number: [id number] N Repository DARA [id number] [facility] [facility] Date: [facility] [place], [place] [address]: , [place] [address] () 06/01/2018 HAZEL E Primary HAZEL E [place] [id number] Insurance:CIGNAPolicy HARRISDOB: Community STAPT Number: [id number] [facility] Regional Hospital [id number] [place] Date:8593-62-98DI [address] [address]Tsb: [phone]) [phone], [place] [phone] () [address]ED: 06/01/2018 Secondary NOT GIVENUNK [place] Insurance:SELF PAY [facility] Number: Effective Repository Date:2018-06-01 06/01/2018 HAZEL E Primary HAZEL E [place] [id number] Insurance:CIGNAPolicy HARRISDOB: Community STAPT Number: [id number] Peak Regional Hospital [id number] [place] Date:4320-41-97PS [address] [address]Aqe: [phone], [place] [phone] () [address]YE: 06/01/2018 Secondary NOT GIVENUNK [place] Insurance:SELF PAY [facility] Number: Effective Repository Date:2018-06-01 05/26/2018 HAZEL E Primary HAZEL E [place] [id number] [address] Insurance:CIGNAPolicy HARRISDOB: Community STAPT Number: [id number] Peak Regional Hospital [id number] [place] Date:7264-96-97BM [address] [address]Vnq: [phone], [place] [phone] () [address]RL: 05/26/2018 Secondary NOT GIVENUNK [place] Insurance:SELF PAY [facility] Number: Effective Repository Date:2018-05-26 05/16/2018 HAZEL E Primary HAZEL E [place] [id number] Insurance:CIGNAPolicy HARRISDOB: Community [place]APT Number: [id number] Peak Regional Hospital [id number] [place] Date:8348-22-48PR [address] [address]Pnc: [phone]) [phone], [place] [phone] () 201[address]WD: 05/16/2018 Secondary NOT GIVENUNK [place] Insurance:SELF PAY [facility] Number: Effective Repository Date:2018-05-16 05/05/2018 HAZEL E Primary HAZEL E [place] [id number] [address] Insurance:CIGNAPolicy RENEDOB: Community STAPT Number: [id number] Peak Regional Hospital [id number] [place] Date:2567-23-73ZN [address] [address]Gzq: [phone], [place] [phone] () 80[address]OC: 05/05/2018 Secondary NOT GIVENUNK [place] Insurance:SELF PAY [facility] Number: Effective Repository Date:2018-05-05 05/04/2018 HAZEL E Primary HAZEL E [place] [id number] Insurance:CIGNAPolicy RENEDOB: Community STAPT Number: [id number] Peak Regional Hospital [id number] [place] Date:1113-68-05NL [address] [address]Evq: [phone], [place] [phone] () [address]FS: 05/04/2018 Secondary NOT GIVENUNK [place] Insurance:SELF PAY [facility] Number: Effective Repository Date:2018-05-04 05/04/2018 HAZEL E Primary HAZEL E [place] [id number] Insurance:CIGNAPolicy HARRISDOB: Community STAPT Number: [id number] Peak Regional Hospital [id number] [place] Date:7209-24-23AZ [address] [address]Cvu: [phone]) [phone], [place] [phone] () [address]SM: 05/04/2018 Secondary NOT GIVENUNK [place] Insurance:SELF PAY [facility] Number: Effective Repository Date:2018-05-04 04/21/2018 HAZEL E Primary HAZEL E [place] [id number] [address] Insurance:CIGNAPolicy HARRISDOB: Community STAPT Number: [id number] Peak Regional Hospital [id number] [place] Date:7158-91-69QE [address] [address]Obb: [phone]) [phone], [place] [phone] () [address]GN: 04/21/2018 Secondary NOT GIVENUNK [place] Insurance:SELF PAY [facility] Number: Effective Repository Date:2018-04-21 03/30/2018 HAZEL E Primary HAZEL E [place] [id number] [address] Insurance:CIGNAPolicy HARRISDOB: Community [place]APT Number: [id number] Peak Regional Hospital [id number] [place] Date:0315-26-12BU [address] [address]Utp: [phone], [place] [phone] () [address]II: 03/30/2018 Secondary NOT GIVENUNK [place] Insurance:SELF PAY [facility] [facility] Number: Effective Repository Date:2018-03-30 03/23/2018 HAZEL E Primary HAZEL E [place] [id number] Insurance:CIGNAPolicy HARRISDOB: Community STAPT Number: [id number] [id number] [place] Date:8628-13-11[address]Aqq: [phone] [id number], [place] [phone] () 75659VZ: 03/23/2018 Secondary NOT GIVENUNK Phuc Insurance:SELF PAY [facility] Number: Effective Repository Date:2018-03-20 03/22/2018 HAZEL Primary Armani [id number] Insurance:CIGNAPolicy [place] Community STAPT Number: [facility] [id number] [place] Date:4213-99-18[address] [address]Zpx: [id number], [place] [phone] () 30786GC: 03/22/2018 Secondary NOT GIVENUNK Phuc Insurance:SELF PAY [facility] Effective Rep[facility] Date:2018-03-16 03/16/2018 HAZEL Primary Armani [id number] Insurance:CIGNAPolicy [place] Community STAPT Number: [facility] [id number] [place] Date:9849-11-36[address] [address]Fpw: [phone] [id number], [place] [phone] () 31464XO: 03/16/2018 Secondary NOT GIVENUNK Phuc Insurance:SELF PAY [facility] Number: Effective Repository Date:2018-03-16 03/16/2018 HAZEL E Primary Armani [id number] Insurance:CIGNAPolicy [place] Community STAPT Number: [facility] [id number] [place] Date:4790-92-79[address] [address]Bvq: [phone] [id number] [place] [phone] () 02692JD: 03/16/2018 Secondary NOT GIVENUNK [place] Insurance:SELF PAY [facility] Number: Effective Repository Date:2018-03-16 03/16/2018 HAZEL Primary Armani [id number] Insurance:CIGNAPolicy [place] Community STAPT Number: [facility] [id number] [place] Date:3414-69-63[address] [address]Kkk: [phone] [id number], [place] [phone] () 66141AG: 03/16/2018 Secondary NOT GIVENUNK Phuc Insurance:SELF PAY [facility] Number: Effective Repository Date:2018-03-16 03/16/2018 HAZEL Primary NOT GIVENUNK Phuc [id number] Insurance:SELF PAY Community ST[facility]: [place] Date:2018-03-13 91514Bys: (HP) 03/13/2018 HAZEL E Primary HAZEL E [facility] HARRISDOB: Insurance:[place] HARRISDOB: [facility] N [id number] Number: [id number] [address] [id number] [facility] Date:2018-03-13 - [place], [place] 5775-72-64Dfji , [place] [address]Qnm: 77678~SSTEINER1 Name:[email or web address] Johnosn (HP)Tel: [phone]) l: [phone]: (WP) [phone] (HP) (WP) 01/31/2018 HAZEL E Primary HAZEL E [facility] HARRISDOB: Insurance[place] HARRISDOB: [facility] N [id number] Number: [id number] N Repository [address] [id number] [facility] [address] [facility] Date:2018-01-31 - [place], [place] 7673-66-96[place]ge , [place] [address]Mtu: 36239~SSTEINER1 Name:[email or web address] [place] (HP)Tel: ([phone]) l: [phone]: (WP) [phone] (HP) (WP) 01/04/2018 HAZEL E Primary HAZEL E [facility] HARRISDOB: Insurance[place] HARRISDOB: [facility] N [id number] Number: [id number] [address] [id number] [facility] Date:2018-01-04 - [place], [place] 7335-51-20Zjhq , [place] [address]Ccx: 22117~SSTEINER1 Name:[email or web address] (HP)Tel: [phone]) l: [phone]: (WP) [phone] (HP) (WP) 10/26/2017 [facility] HARRISDOB: Insurance:[facility] HARRISDOB: [facility] [id number] N [id number] Number: [id number] N Repository [facility] [id number] [facility] Date:2017-10-26 - [facility] [place], [place] 8352-01-89[place] , [place] [address]Ucs: 41713~SSTEINER1 Name:[address]ANT [email or web address].[place] ()Tel: (095) l: [phone]: (WP) [phone] (HP) (WP)
== END 2018-10-03 16:30 | disposition home or self-care (01) ==
LOC: LAB 15:27 → WPOUT 15:29 → WP 15:30
PROVIDERS: Psychiatry & Neurology Neurology; Family Provider Nurse Practitioner Family; PCP Nurse Practitioner Family; Referring Provider Obstetrics & Gynecology; Visit Provider Obstetrics & Gynecology
DX: O99.350 Diseases of the nervous system complicating pregnancy, unspecified trimester (principal); G40.909 Epilepsy, unspecified, not intractable, without status epilepticus; Z3A.00 Weeks of gestation of pregnancy not specified; Z79.899 Other long term (current) drug therapy
CPT/HCPCS: 36415; 59025; 80177

== ENCOUNTER 2018-10-06 06:16 | Outpatient (CLI) | payer OTHER, SELFPAY ==
[2018-10-06 06:52] VITALS: BMI 54.2
--- NOTE | 2018-10-11 00:27 | OB.TRI.NOTE ---
- Problem List (1) Decreased movement Status: Acute History of Present Illness Date of Service: 10/06/18 Was patient seen by the physician?: No Reason For Visit: DECREASE MOVEMENT History of Present Illness: decased movememnt Allergies acetaminophen [From Percocet] Allergy (Verified 10/10/18 15:20) Rash oxycodone [From Percocet] Allergy (Verified 10/10/18 15:20) Rash paper tape Adverse Reaction (Mild, Uncoded 10/10/18 15:20) Rash - Pertinent Past Medical History Medical History: Past Medical History (Last Reviewed 10/10/18 @ 15:20 by Jen Donaldson) Anxiety Depression Epilepsy Grand mal seizure MRSA infection Onset Date: ~2017 Debridement surgery 2017 Migraine with aura Surgical History: Past Surgical History (Last Reviewed 10/10/18 @ 15:21 by Jen Donaldson) H/O section Onset Date: ~03/2016 H/O exploratory laparotomy NST - FHR Rate Baby A Baseline: 130 Variability:: Moderate Accelerations:: 15 x 15 Decelerations:: None NST Reactive:: Yes FHR Category:: Category I Uterine Activity:: no regular Impression/Plan decreased movement- reactive reassuring dc home
== END 2018-10-06 07:25 | disposition home or self-care (01) ==
LOC: WPOUT 06:41 → WP 06:43
PROVIDERS: Family Provider Nurse Practitioner Family; PCP Nurse Practitioner Family; Referring Provider Obstetrics & Gynecology; Visit Provider Obstetrics & Gynecology
DX: O36.8190 Decreased fetal movements, unspecified trimester, not applicable or unspecified (principal); Z3A.00 Weeks of gestation of pregnancy not specified
CPT/HCPCS: 59025; 59050; 99218; G0378

== ENCOUNTER 2018-10-13 15:20 | Outpatient (CLI) | payer OTHER, SELFPAY ==
[2018-10-10 15:21] VITALS: BMI 54.2
[2018-10-13 15:42] VITALS: BMI 54.8
--- NOTE | 2018-10-18 00:48 | OB.TRI.PN_ITS ---
Progress Notes Date of Service: 10/13/18 Progress Note: nst secondary to obesity FHT 130 moderate variability reactive no decelerations category I tracing [place]: no regular A/P: obesity- weekly nsts
--- NOTE | 2018-10-18 00:49 | OB.TRI.PN_ITS ---
Progress Notes Date of Service: 10/16/18 Progress Note: nst secondary to obesity FHT 130 moderate variability reactive no decelerations category I tracing [place]: no regular A/P: obesity- weekly nsts
== END 2018-10-13 17:15 | disposition home or self-care (01) ==
LOC: WPOUT 15:24 → WP 15:25
PROVIDERS: Referring Provider Obstetrics & Gynecology; Visit Provider Obstetrics & Gynecology
DX: O99.210 Obesity complicating pregnancy, unspecified trimester (principal); Z3A.00 Weeks of gestation of pregnancy not specified
CPT/HCPCS: 59050; 99218; G0378

== ENCOUNTER 2018-10-16 15:10 | Outpatient (CLI) | payer OTHER, SELFPAY ==
[2018-10-16 15:22] VITALS: BMI 54.8
--- NOTE | 2018-10-18 00:49 | OB.TRI.PN ---
Progress Notes Date of Service: 10/16/18 Progress Note: nst secondary to obesity FHT 130 moderate variability reactive no decelerations category I tracing [place]: no regular A/P: obesity- weekly nsts
== END 2018-10-16 16:18 | disposition home or self-care (01) ==
LOC: WPOUT 15:14 → WP 15:15
PROVIDERS: Referring Provider Obstetrics & Gynecology; Visit Provider Obstetrics & Gynecology
DX: O99.210 Obesity complicating pregnancy, unspecified trimester (principal); Z3A.00 Weeks of gestation of pregnancy not specified
CPT/HCPCS: 59025; 59050; 99218; G0378

== ENCOUNTER → 2018-10-17 17:53 | Outpatient (CLI) | payer OTHER, SELFPAY ==
[2018-10-17 15:55] VITALS: BMI 54.8
== END ==
PROVIDERS: Family Provider Family Medicine; PCP Family Medicine; Referring Provider Obstetrics & Gynecology; Visit Provider Obstetrics & Gynecology
DX: Z34.90 Encounter for supervision of normal pregnancy, unspecified, unspecified trimester (principal)
CPT/HCPCS: 87077; 87081; 87186

== ENCOUNTER 2018-10-23 15:40 | Outpatient (CLI) | payer OTHER, SELFPAY ==
[2018-10-17 15:55] VITALS: BMI 54.8
[2018-10-23 16:04] VITALS: BMI 54.8
[2018-10-23 16:38] LABS: Hematocrit 35.7 % (37-47); Mean Corp Hgb Conc 30.8 g/gl (32-36); Mean Corpuscular Hgb 25.5 pg (27.0-32.0); Mean Corpuscular Volume 82.6 fL (81-99); Mean Platelet Vol. 10.7 fl (6.2-12.0); Platelet Count 340 K/mm3 (150-450); RBC Distribution Width CV 15.9 % (11.6-14.6); RBC Distribution Width SD 46.3 fl (35.1-43.9); Red Blood Count 4.32 M/mm3 (4.2-5.4); White Blood Count 9.5 K/mm3 (4.4-11.0)
[2018-10-23 16:40] LABS: Scan Indicated on CBC? Y/N NO
[2018-10-23 16:57] LABS: Protein, Urine (Random) 20.8 mg/dL (<11.9); Protein:Creat Ratio 120 mg/g CRE (0-200)
[2018-10-23 17:15] LABS: ALB/GLOB Ratio 0.6 RATIO (0.9-2.4); AST(SGOT) 6 U/L (15-37); Alanine Aminotransfer ALT/SGPT 14 U/L (13-56); Albumin, Serum 2.3 g/dL (3.2-5.0); Alkaline Phosphatase 101 U/L (45-117); Anion Gap 10 (5-15); BUN 6 mg/dL (7-18); BUN/Creat Ratio 14.4 RATIO (10-20); Calcium,Total 8.6 mg/dL (8.5-10.1); Chloride 108 mmol/L (98-107); Creatinine, Serum 0.42 mg/dL (0.55-1.02); EST Glomerular Filtration Rate 197 mL/min (>60); Est Glom Filt Rate - Afr Amer 238 mL/min (>60); Estimated Creatinine Clearance 176.82 ml/min; Globulin 4.1 g/dL (2.2-4.2); Glucose 90 mg/dL (74-106); Potassium 3.8 mmol/L (3.5-5.1); Protein, Total 6.4 g/dL (6.4-8.2); Sodium Level 140 mmol/L (136-145)
--- NOTE | 2018-11-01 21:10 | OB.TRI.PN_ITS ---
Progress Notes Date of Service: 10/23/18 Progress Note: Progress Note: nst secondary to obesity FHT 130 moderate variability reactive no decelerations category I tracing [place]: no regular A/P: obesity- weekly nsts Laboratory Studies: Laboratory Tests 10/23/18 10/23/18 10/23/18 Range/Units 16:35 16:25 16:25 WBC 9.5 (4.4-11.0) K/mm3 RBC 4.32 (4.2-5.4) M/mm3 Hgb 11.0 L (12.0-15.0) g/dl Hct 35.7 L (37-47) % MCV 82.6 (81-99) fL MCH 25.5 L (27.0-32.0) pg MCHC 30.8 L (32-36) g/gl RDW 15.9 H (11.6-14.6) % RDW Differential 46.3 H (35.1-43.9) fl Plt Count 340 (150-450) K/mm3 MPV 10.7 (6.2-12.0) fl Sodium 140 (136-145) mmol/L Potassium 3.8 (3.5-5.1) mmol/L Chloride 108 H (98-107) mmol/L Carbon Dioxide 22.0 (21.0-32.0) mmol/L Anion Gap 10 (5-15) BUN 6 L (7-18) mg/dL Creatinine 0.42 L (0.55-1.02) mg/dL Estim Creat Clear Calc 176.82 ml/min Est GFR (MDRD) Af Amer 238 (>60) mL/min Est GFR (MDRD) Non-Af 197 (>60) mL/min BUN/Creatinine Ratio 14.4 (10-20) RATIO Glucose 90 (74-106) mg/dL Calcium 8.6 (8.5-10.1) mg/dL Total Bilirubin 0.20 (0.20-1.00) mg/dL AST 6 L (15-37) U/L ALT 14 (13-56) U/L Alkaline Phosphatase 101 (45-117) U/L Total Protein 6.4 (6.4-8.2) g/dL Albumin 2.3 L (3.2-5.0) g/dL Globulin 4.1 (2.2-4.2) g/dL Albumin/Globulin Ratio 0.6 L (0.9-2.4) RATIO U Random Total Protein 20.8 H (<11.9) mg/dL Urine Creatinine 173.00 (NO RANGE EST.) mg/dL Protein/Creatinin Ratio 120 (0-200) mg/g CRE
== END 2018-10-23 17:50 | disposition home or self-care (01) ==
LOC: WPOUT 15:47 → WP 15:47
PROVIDERS: Family Provider Family Medicine; PCP Family Medicine; Referring Provider Obstetrics & Gynecology; Visit Provider Obstetrics & Gynecology
DX: O99.210 Obesity complicating pregnancy, unspecified trimester (principal); Z3A.00 Weeks of gestation of pregnancy not specified
CPT/HCPCS: 59025; 59050; 80053; 82570; 84156; 85027; 99218; G0378

== ENCOUNTER 2018-10-30 15:35 | Outpatient (CLI) | payer OTHER, SELFPAY ==
[2018-10-24 16:15] VITALS: BMI 54.8
[2018-10-30 16:39] VITALS: BMI 55.1
--- NOTE | 2018-11-01 21:13 | OB.TRI.PN_ITS ---
Progress Notes Date of Service: 10/30/18 Progress Note: Progress Note: nst secondary to obesity FHT 130 moderate variability reactive no decelerations category I tracing [place]: no regular A/P: obesity- weekly nsts
== END 2018-10-30 16:42 | disposition home or self-care (01) ==
LOC: WPOUT 15:39 → OBT 15:39
PROVIDERS: Family Provider Family Medicine; PCP Family Medicine; Referring Provider Obstetrics & Gynecology; Visit Provider Obstetrics & Gynecology
DX: O99.210 Obesity complicating pregnancy, unspecified trimester (principal); Z3A.00 Weeks of gestation of pregnancy not specified
CPT/HCPCS: 59025; 59050; 99218; G0378

== ENCOUNTER 2018-11-07 10:00 | Inpatient (IN) | payer OTHER, SELFPAY ==
[2018-09-11 12:24] VITALS: BMI 53.8
[2018-09-15 15:28] VITALS: BMI 53.8
[2018-10-31 15:14] VITALS: BMI 55.1
[2018-11-07] VITALS (17 sets, daily range): BP systolic 107–134; BP diastolic 47–77; PULSE 72–100; RESP 16–20; TEMP 36.1–37; O2SAT 95–100; BMI 55.2
[2018-11-07] MEDS: Lactated Ringers 1,000 ML 999 ML IV (10:18)
[2018-11-07 10:56] LABS: Absolute Lymphocyte Count 1.17 X10^3/ul (0.83-4.51); Absolute Neutrophil Count 7.8 X10^3/uL (2.0-7.7); Basophil# 0.01 X10^3/uL; Basophil% 0.1 % (0-1); Eosinophil# 0.02 X10^3/uL; Eosinophils% 0.2 % (0-5); Hematocrit 37.5 % (37-47); Hemoglobin 11.5 g/dl (12.0-15.0); Lymphocyte # 1.17 X10^3/ul (4.0); Lymphocyte % 12.2 % (19-41); Mean Corp Hgb Conc 30.7 g/gl (32-36); Mean Corpuscular Hgb 25.3 pg (27.0-32.0); Mean Corpuscular Volume 82.4 fL (81-99); Mean Platelet Vol. 10.6 fl (6.2-12.0); Monocyte# 0.59 X10^3/uL; Monocyte% 6.2 % (0-10); Neutrophil # 7.78 X10^3/uL (2.7-7.7); Neutrophil % 81.1 % (47-70); Platelet Count 359 K/mm3 (150-450); RBC Distribution Width CV 15.9 % (11.6-14.6); RBC Distribution Width SD 46.9 fl (35.1-43.9); Red Blood Count 4.55 M/mm3 (4.2-5.4); White Blood Count 9.6 K/mm3 (4.4-11.0)
[2018-11-07 10:58] LABS: POSITIVE COUNT NO; POSITIVE DIFFERENTIAL NO; POSITIVE MORPHOLOGY NO
[2018-11-07] MEDS: Lactated Ringers 1,000 ML 150 ML IV ×2 (11:25→13:17)
--- NOTE | 2018-11-07 11:42 | PCM.HP.OB ---
- Problem List (1) GBS (group B Streptococcus carrier), +RV culture, currently Status: Acute (2) Anemia during Status: Acute Comment: Recommended Iron (3) Abnormal glucose Status: Acute Comment: 3 hr GTT normal (4) Status: Acute Qualifiers: Comment: carrier, genetic, ntd screening declined. Normal anatomy scan. (5) Previous delivery affecting , antepartum Status: Acute Comment: plan TOLAC if active labor. RLTCS and BTL (6) BMI greater than 40 Status: Acute Comment: 1st trimester glucola, weekly nsts and q4 week us after 32 weeks (7) Seizure disorder during Status: Acute Qualifiers: Comment: dr xiomara webb at [facility], growth us q 4 weeks after 28, nsts weekly after 32 in (8) Supervision of high risk , antepartum Status: Acute Comment: PRR CAMILLE 11/12/18 boy Yariel Perez Kwaku (Reign) History Date of Admission: 11/07/18 Final CAMILLE: 11/12/18 Gestational age: 39 Weeks and 2 Days History of this : This is a 23 year-old, , at 39 weeks gestational age presents for RLTCS declined TOLAC. 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 MRSA infection Onset Date: ~2017 A49.02 Debridement surgery 2017 Migraine with aura G43.109 Surgical History: Surgical History (Last Reviewed 10/31/18 @ 15:14 by Jen Donaldson) H/O section Onset Date: ~03/2016 Z98.891 H/O exploratory laparotomy Z98.890 Allergies acetaminophen [From Percocet] Allergy (Verified 11/07/18 09:38) Rash oxycodone [From Percocet] Allergy (Verified 11/07/18 09:38) Rash paper tape Adverse Reaction (Mild, Uncoded 11/07/18 09:38) Rash Home Medications: Home Medications sertraline 50 mg tablet 100 mg PO QDAY 03/16/18 folic acid 1 mg tablet 1 mg PO DAILY 05/04/18 vitamin,calcium,gwbvletw-piaz-obxrs acid tablet 1 tab PO DAILY 05/04/18 levetiracetam ER 500 mg tablet,extended release 24 hr 2,500 mg PO DAILY 05/26/18 Ferrous Sulfate 325 mg PO BID 11/07/18 Smoking Status: Never smoker Alcohol: None Number of Fetus(es): 1 Heart Tracin moderate variability reactive no decelerations category I tracing [place]: regular History Past Pregnancies: Past Pregnancies previos term cs for NRFHTs Labs: Mom's Labs & Results 11/07/18 11/07/18 10:13 10:13 WBC 9.6 RBC 4.55 Hgb 11.5 L Hct 37.5 MCV 82.4 MCH 25.3 L MCHC 30.7 L RDW 15.9 H RDW Differential 46.9 H Plt Count 359 MPV 10.6 Immature Gran % (Auto) 0.200 Neut % (Auto) 81.1 H Lymph % (Auto) 12.2 L [place] % (Auto) 6.2 Eos % (Auto) 0.2 Baso % (Auto) 0.1 Absolute Neuts (auto) 7.8 H Absolute Lymphs (auto) 1.17 Total Counted Not Reportable Blood Type Pending Antibody Screen Pending Course Did the patient receive Yes care? Labs Blood Type: O RH: POSITIVE RPR/VDRL/Syphilis Nonreactive Rubella status Immune HbSAg Negative Date Done: 05/05/18 Chlamydia Negative Gonorrhea Negative HIV/AIDS Non-Reactive Group B Strep: Positive Current Obstetrical History Gestational Diabetes No Incompetent Cervix No Infertility No IUGR No Macrosomia No Hypertension/Pre-eclampsia No Placenta Previa/Abruption No PTL/PROM No Uterine anomaly No Oligohydramnios No Polyhydramnios No Multiple gestation No Past Medical History Asthma No Diabetes No Hypertension No Heart disease No Mitral valve prolapse No Neurologic/Seizure disorder/ Yes: EPILEPSY, MIGRAINES Migraines Kidney disease No Liver disease No Varicosities Yes Clotting disorders/Hx of DVT No Thyroid Dysfunction No Other medical diseases No Psychiatric disorders Yes: ANXIETY, DEPRESSION Major trauma No Abnormal PAP smear No Sleep apnea Yes: CPAP Mammogram in the last 2 years No Medications Taken During Reason for taking medication [ SEIZURES MAGNESIUM] Reason for taking medication [ SEIZURES VITAMIN B] Social History Marital Status: Alleged father KWAKU Hx Smoking No Smoking Status Never smoker Expected Infant Delivery Method: Repeat Section Review of Systems Constitutional: Denies: Fever, Malaise Eyes: Denies: Blurred vision, Vision Change HEENT: Denies: Head Aches, Visual Changes Cardiovascular: Denies: Chest Pain, Palpitations Respiratory: Denies: Cough, Shortness of Breath, Wheezing Gastrointestinal: Denies: Abdominal Pain, Diarrhea, Nausea, Vomiting Genitourinary: Denies: Dysuria, Hematuria Musculoskeletal: Denies: Joint Pain, Muscle pain Skin: Denies: Lesions, Rash Neurological: Denies: Blurred vision, Focal weakness, Headaches Psychiatric: Denies: Anxiety, Depression Endocrine: Denies: Heat/ Cold Intolerance Hematologic/ Lymphatic: Denies: Easy Bruising, Easy Bleeding Physical Exam General: Alert, Cooperative, No apparent distress HEENT: Atraumatic, Normocephalic. Negative for: Thyromegaly, Lymphadenopathy Cardiovascular: Regular rate Lungs: Normal air movement Abdomen: Soft, Non Tender, Gravid Neurological: Deep Tendon Reflexes 2+/4 and Symmetrical, Neuro grossly intact. Negative for: Clonus VP SALES: Normal external genitalia. Negative for: Vulvar lesions Estimated gestational size: Appropriate for gestational size Presentation: Cephalic Assessment/Plan All Active Problems (Last Reviewed 10/31/18 @ 15:14 by Jen Donaldson) GBS (group B Streptococcus carrier), +RV culture, currently (Acute) Anemia during (Acute) Abnormal glucose (Acute) (Acute) Previous delivery affecting , antepartum (Acute) BMI greater than 40 (Acute) Seizure disorder during (Acute) Supervision of high risk , antepartum (Acute) Decreased movement (Resolved) Pharyngitis, acute (Resolved) This is a 23 year-old, , at 39 weeks gestational age presents for LTCS plan RLTCS
--- NOTE | 2018-11-07 11:49 | HP.PCM_ITS ---
- Problem List (1) GBS (group B Streptococcus carrier), +RV culture, currently Status: Acute (2) Anemia during Status: Acute Comment: Recommended Iron (3) Abnormal glucose Status: Acute Comment: 3 hr GTT normal (4) Status: Acute Qualifiers: Comment: carrier, genetic, ntd screening declined. Normal anatomy scan. (5) Previous delivery affecting , antepartum Status: Acute Comment: plan TOLAC if active labor. RLTCS and BTL (6) BMI greater than 40 Status: Acute Comment: 1st trimester glucola, weekly nsts and q4 week us after 32 weeks (7) Seizure disorder during Status: Acute Qualifiers: Comment: dr xiomara webb at [facility], growth us q 4 weeks after 28, nsts weekly after 32 in (8) Supervision of high risk , antepartum Status: Acute Comment: PRR CAM[place] 11/12/18 boy Yariel Perez Kwaku (Reign) History Date of Admission: 11/07/18 Final CAMILLE: 11/12/18 Gestational age: 39 Weeks and 2 Days History of this : This is a 23 year-old, , at 39 weeks gestational age presents for RLTCS declined TOLAC. 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 MRSA infection Onset Date: ~2017 A49.02 Debridement surgery 2017 Migraine with aura G43.109 Surgical History: Surgical History (Last Reviewed 10/31/18 @ 15:14 by Jen Donaldson) H/O section Onset Date: ~03/2016 Z98.891 H/O exploratory laparotomy Z98.890 Allergies acetaminophen [From Percocet] Allergy (Verified 11/07/18 09:38) Rash oxycodone [From Percocet] Allergy (Verified 11/07/18 09:38) Rash paper tape Adverse Reaction (Mild, Uncoded 11/07/18 09:38) Rash Home Medications: Home Medications sertraline 50 mg tablet 100 mg PO QDAY 03/16/18 folic acid 1 mg tablet 1 mg PO DAILY 05/04/18 vitamin,calcium,uwledobu-qtaa-ocyrh acid tablet 1 tab PO DAILY 05/04/18 levetiracetam ER 500 mg tablet,extended release 24 hr 2,500 mg PO DAILY 05/26/18 Ferrous Sulfate 325 mg PO BID 11/07/18 Smoking Status: Never smoker Alcohol: None Number of Fetus(es): 1 Heart Tracin moderate variability reactive no decelerations category I tracing [place]: regular History Past Pregnancies: Past Pregnancies previos term cs for NRFHTs Labs: Mom's Labs & Results 11/07/18 11/07/18 10:13 10:13 WBC 9.6 RBC 4.55 Hgb 11.5 L Hct 37.5 MCV 82.4 MCH 25.3 L MCHC 30.7 L RDW 15.9 H RDW Differential 46.9 H Plt Count 359 MPV 10.6 Immature Gran % (Auto) 0.200 Neut % (Auto) 81.1 H Lymph % (Auto) 12.2 L [place] % (Auto) 6.2 Eos % (Auto) 0.2 Baso % (Auto) 0.1 Absolute Neuts (auto) 7.8 H Absolute Lymphs (auto) 1.17 Total Counted Not Reportable Blood Type Pending Antibody Screen Pending Course Did the patient receive Yes care? Labs Blood Type: O RH: POSITIVE RPR/VDRL/Syphilis Nonreactive Rubella status Immune HbSAg Negative Date Done: 05/05/18 Chlamydia Negative Gonorrhea Negative HIV/AIDS Non-Reactive Group B Strep: Positive Current Obstetrical History Gestational Diabetes No Incompetent Cervix No Infertility No IUGR No Macrosomia No Hypertension/Pre-eclampsia No Placenta Previa/Abruption No PTL/PROM No Uterine anomaly No Oligohydramnios No Polyhydramnios No Multiple gestation No Past Medical History Asthma No Diabetes No Hypertension No Heart disease No Mitral valve prolapse No Neurologic/Seizure disorder/ Yes: EPILEPSY, MIGRAINES Migraines Kidney disease No Liver disease No Varicosities Yes Clotting disorders/Hx of DVT No Thyroid Dysfunction No Other medical diseases No Psychiatric disorders Yes: ANXIETY, DEPRESSION Major trauma No Abnormal PAP smear No Sleep apnea Yes: CPAP Mammogram in the last 2 years No Medications Taken During Reason for taking medication [ SEIZURES MAGNESIUM] Reason for taking medication [ SEIZURES VITAMIN B] Social History Marital Status: Alleged father KWAKU Hx Smoking No Smoking Status Never smoker Expected Infant Delivery Method: Repeat Section Review of Systems Constitutional: Denies: Fever, Malaise Eyes: Denies: Blurred vision, Vision Change HEENT: Denies: Head Aches, Visual Changes Cardiovascular: Denies: Chest Pain, Palpitations Respiratory: Denies: Cough, Shortness of Breath, Wheezing Gastrointestinal: Denies: Abdominal Pain, Diarrhea, Nausea, Vomiting Genitourinary: Denies: Dysuria, Hematuria Musculoskeletal: Denies: Joint Pain, Muscle pain Skin: Denies: Lesions, Rash Neurological: Denies: Blurred vision, Focal weakness, Headaches Psychiatric: Denies: Anxiety, Depression Endocrine: Denies: Heat/ Cold Intolerance Hematologic/ Lymphatic: Denies: Easy Bruising, Easy Bleeding Physical Exam General: Alert, Cooperative, No apparent distress HEENT: Atraumatic, Normocephalic. Negative for: Thyromegaly, Lymphadenopathy Cardiovascular: Regular rate Lungs: Normal air movement Abdomen: Soft, Non Tender, Gravid Neurological: Deep Tendon Reflexes 2+/4 and Symmetrical, Neuro grossly intact. Negative for: Clonus WE[place]ER [place]IRE LOOM: Normal external genitalia. Negative for: Vulvar lesions Estimated gestational size: Appropriate for gestational size Presentation: Cephalic Assessment/Plan All Active Problems (Last Reviewed 10/31/18 @ 15:14 by Jen Donaldson) GBS (group B Streptococcus carrier), +RV culture, currently (Acute) Anemia during (Acute) Abnormal glucose (Acute) (Acute) Previous delivery affecting , antepartum (Acute) BMI greater than 40 (Acute) Seizure disorder during (Acute) Supervision of high risk , antepartum (Acute) Decreased movement (Resolved) Pharyngitis, acute (Resolved) This is a 23 year-old, , at 39 weeks gestational age presents for LTCS plan RLTCS
[2018-11-07] MEDS: Sodium Citrate/Citric Acid 30 ML UDC PO (11:50)
--- NOTE | 2018-11-07 12:28 | FALS_PTH ---
PATIENT: ROBERT QUINN LOC: WP U#:[id number] AGE/SX: / ROOM: WP007 RE11/07/[address]: Dr. Kristie Longo MD : 1995 BED: 1 DIS: 11/10/2018 SPEC #: [id number] RECD: 11/07/18 14:38 STATUS: EMMANUEL REMady #: [id number] PAVAN: 11/07/18 12:[address]: Kristie Longo DEPT: SURGICAL PATHOLOGY RECD BY: Kwaku Littlejohn ENTERED: 11/07/18 14:48 SP TYPE: FALL TUBES OTHR DR: Dr. Kimani Kim MD Tissues: Fallopian tube Procedures: Surgery Specimen Level II HEADER OPERATION: Tubal ligation PRE-OP DIAGNOSIS: Desired sterilization TISSUE SUBMITTED: Fallopian tube MICROSCOPIC DIAGNOSIS Bilateral fallopian tubes, tubal ligation: Completely transected segments of bilateral fallopian tubes, no pathologic diagnosis. SJ:leonard 11/08/18 MICROSCOPIC DESCRIPTION Slides are reviewed. GROSS DESCRIPTION Received is one container labeled with the patient's name and designated bilateral fallopian tubes. The specimen consists of two tubular pieces of pink-vaughn soft tissue. One of the pieces shows a suture, however it is not identified as right or left and measures 1.5 cm in length and 0.5 cm in diameter and inked black. The second piece measures 2 cm in length and 0.5 cm in diameter. The entire specimen is submitted in one cassette. Both pieces will be sectioned at the time of embedding. / JAN:leonard 11/07/18 TC:4 CPT: 43548 x2
[2018-11-07] MEDS: Oxytocin 30 units/NS 500 ml 30 UNITS/500 ML IV.SOLN 167 UNITS IV (12:30)
[2018-11-07] MEDS: Ketorolac 30 MG/ML Syringe IV ×2 (12:51→18:05)
--- NOTE | 2018-11-07 17:24 | PCM.OPRPT ---
Problem List (1) GBS (group B Streptococcus carrier), +RV culture, currently Status: Acute (2) Anemia during Status: Acute Comment: Recommended Iron (3) Abnormal glucose Status: Acute Comment: 3 hr GTT normal (4) Status: Acute Qualifiers: Comment: carrier, genetic, ntd screening declined. Normal anatomy scan. (5) Previous delivery affecting , antepartum Status: Acute Comment: plan TOLAC if active labor. RLTCS and BTL (6) BMI greater than 40 Status: Acute Comment: 1st trimester glucola, weekly nsts and q4 week us after 32 weeks (7) Seizure disorder during Status: Acute Qualifiers: Comment: dr xiomara webb at [facility], growth us q 4 weeks after 28, nsts weekly after 32 in (8) Supervision of high risk , antepartum Status: Acute Comment: PRR CAMILLE 11/12/18 boy Yariel PC Chris Kwaku (Reign) Report of Operation Date of Procedure: 11/07/18 Pre-Operative Diagnosis: previous desired sterilization Post-Operative Diagnosis: same Surgery/Procedure Performed:: rltcs btl parkland method Description of Surgical Findings:: normal uterus tubes ovaries manager statistical programming: Dhiraj Kirk Type of Anesthesia:: Spinal Special Medications: none Specimen's removed: male verex Drains: dean Estimated Blood Loss (mL): 750 Fluids Replaced: crystalloid Description of Procedure: The patient is a 23 yo presented for repeat] . Spinal anesthesia was placed without difficulty. Dean catheter was placed. The patient was placed in the dorsal supine position with leftward tilt. Patient was prepped and draped in the normal sterile fashion. Pfannenstiel skin incision was made with the scalpel and carried through to the underlying layer of fascia with the scalpel. Fascia was nicked in the midline and the incision extended laterally. The rectus bellies were dissected off superiorly and inferiorly with out complication both sharply and bluntly. The peritoneum was entered digitally. The incision was stretched and a low transverse uterine incision was made with the scalpel. The infant's head was delivered atraumatically followed by the anterior and posterior shoulders without complication the rest of the infant delivered. The cord was clamped and cut and the infant was handed off to awaiting nurse. The placenta was delivered spontaneously immediately following and was noted to be intact and have a three-vessel cord. The uterus was exteriorized cleared of all clots and debris, and the incision was closed in a single layer closure using #1 Monocryl. bilateral tubes were ligated via the parkland method with 2-0 plain. The uterus was returned to the maternal abdomen and gutters were cleared of all clots and debris. The ovaries and fallopian tubes were noted to be within normal limits. The peritoneum was closed with 3-0 Monocryl in a running fashion. Fascia was closed with 0 PDS in a running fashion. Subcutaneous tissue was copiously irrigated and the skin was closed with 3-0 Monocryl in a subcuticular fashion. Mepilex dressing were applied without complication. Patient was taken to recovery in stable condition.
[2018-11-07] MEDS: 0.9% Saline Lock 10 ML Syringe IV (18:07)
--- NOTE | 2018-11-07 21:35 | NURSING ---
Dr. Longo called for order for Marjorie. New orders given to restart home meds
[2018-11-07] MEDS: Lactated Ringers 1,000 ML 100 ML IV (22:14)
[2018-11-08] VITALS (10 sets, daily range): BP systolic 96–118; BP diastolic 48–56; PULSE 65–100; RESP 16–20; TEMP 36.4–36.7; O2SAT 96–99
[2018-11-08] MEDS: Ketorolac 30 MG/ML Syringe IV ×5 (00:23→23:54)
[2018-11-08] MEDS: Enoxaparin 40 MG/0.4 ML Syringe SC (05:54)
[2018-11-08 06:19] LABS: Hematocrit 31.4 % (37-47); Hemoglobin 9.8 g/dl (12.0-15.0); Mean Corp Hgb Conc 31.2 g/gl (32-36); Mean Corpuscular Hgb 26.1 pg (27.0-32.0); Mean Corpuscular Volume 83.7 fL (81-99); Mean Platelet Vol. 10.1 fl (6.2-12.0); Platelet Count 271 K/mm3 (150-450); RBC Distribution Width SD 47.4 fl (35.1-43.9); Red Blood Count 3.75 M/mm3 (4.2-5.4); White Blood Count 7.5 K/mm3 (4.4-11.0)
[2018-11-08 06:29] LABS: Scan Indicated on CBC? Y/N NO
[2018-11-08] MEDS: Prenatal Vits Tablet 1 TABLET PO (10:01)
[2018-11-08] MEDS: Ferrous Sulfate 325 MG Tablet PO ×2 (10:02→21:10)
[2018-11-08] MEDS: 0.9% Saline Lock 10 ML Syringe IV ×4 (10:02→23:54)
--- NOTE | 2018-11-08 11:22 | PCM.PN.OB ---
Subjective: doing well no complaints pain controlled no CP SOB N V ambulating well tolerating po lochia moderate, going well - Physical Exam General: Alert, Oriented x3 Vital Signs Temp Pulse Resp BP Pulse Ox 97.9 F 65 18 97/51 L 99 11/08/18 04:00 11/08/18 06:00 11/08/18 06:00 11/08/18 04:00 11/08/18 06:00 Oxygen Flow Rate (L/min) 3 Oxygen Delivery Method Nasal Cannula Weight: 321 lb 13.998 oz Body Mass Index (BMI) 55.2 Intake and Output for Last 24 Hours 11/06/18 11/07/18 11/08/18 23:59 23:59 23:59 Intake Total 3695 / 3695 2207 / 2207 Output Total 575 / 575 1300 / 1300 Balance 3120 / 3120 907 / 907 Laboratory Tests Past 24 Hrs 11/07/18 11/08/18 10:13 06:05 WBC 7.5 RBC 3.75 L Hgb 9.8 L Hct 31.4 L MCV 83.7 MCH 26.1 L MCHC 31.2 L RDW 16.0 H RDW Differential 47.4 H Plt Count 271 MPV 10.1 Blood Type O POSITIVE Antibody Screen NEGATIVE Medical Necessity - Tobacco Use Smoking Status: Never smoker Assessment/Plan All Active Problems (Last Reviewed 10/31/18 @ 15:14 by Jen Donaldson) GBS (group B Streptococcus carrier), +RV culture, currently (Acute) Anemia during (Acute) Abnormal glucose (Acute) (Acute) Previous delivery affecting , antepartum (Acute) BMI greater than 40 (Acute) Seizure disorder during (Acute) Supervision of high risk , antepartum (Acute) Decreased movement (Resolved) Pharyngitis, acute (Resolved) s/p LTCS PPD # 1 1. routine post care 2. breast feeding- support given 3. rh positive 4. rubella immune
[2018-11-08] MEDS: HYDROcodone Bitartrate/Apap 5/325 Tablet PO ×2 (14:08→20:38)
--- NOTE | 2018-11-08 16:28 | NURSING ---
1510 pt facetiming her 1 year old. pt tearful and missing her child
--- NOTE | 2018-11-08 16:29 | NURSING ---
1600 pt up walking in [place] tolerating well
--- NOTE | 2018-11-08 16:35 | NURSING ---
pt void large amount missed hat; states that she feels like she emptied
[2018-11-08] MEDS: Folic Acid 1 MG Tablet PO (21:10)
[2018-11-08] MEDS: Sertraline 100 MG Tablet PO (21:10)
--- NOTE | 2018-11-08 21:34 | NURSING ---
Pt scored 17 on PHQ9. Miladis from crisis notified and notified pt reported thoughts that she would be better off or hurting herself in some way-several days. Per Miladis, Crisis team to be called prior to discharge. molecular biology director updated
--- NOTE | 2018-11-08 21:52 | NURSING ---
RN into room to discuss feelings of harming herself per PHQ9 worksheet. FOB was present in room, therefor RN wrote a note to pt asking if she currently has feelings or a plan to harm herself at this time. pt denies having current thoughts or a plan. Will continue to monitor
[2018-11-09 01:04] VITALS: BP 98/42; PULSE 81; RESP 16; TEMP 36.2; O2SAT 98
[2018-11-09] MEDS: Enoxaparin 40 MG/0.4 ML Syringe SC (05:29)
[2018-11-09] MEDS: 0.9% Saline Lock 10 ML Syringe IV (05:30)
[2018-11-09] MEDS: Ketorolac 30 MG/ML Syringe IV (05:30)
--- NOTE | 2018-11-09 07:26 | PCM.PN.OB ---
Subjective: doing well no complaints pain controlled no CP SOB N V ambulating well tolerating po lochia moderate, better this morning - Physical Exam General: Alert, Oriented x3 Abdomen: Soft, Non Tender, Non-Distended, - - Dressing dry and intact with only old drainage noted. Lower left abdomen mild erythema. Soft. FF below U Vital Signs Temp Pulse Resp BP Pulse Ox 97.1 F L 81 16 98/42 L 98 11/09/18 01:04 11/09/18 01:04 11/09/18 01:04 11/09/18 01:04 11/09/18 01:04 Oxygen Flow Rate (L/min) 3 Oxygen Delivery Method Room Air Weight: 321 lb 13.998 oz Body Mass Index (BMI) 55.2 Intake and Output for Last 24 Hours 11/07/18 11/08/18 11/09/18 23:59 23:59 23:59 Intake Total 3695 / 3695 2207 / 2207 Output Total 575 / 575 1500 / 1500 Balance 3120 / 3120 707 / 707 Medical Necessity - Tobacco Use Smoking Status: Never smoker Assessment/Plan All Active Problems (Last Reviewed 10/31/18 @ 15:14 by Jen Donaldson) GBS (group B Streptococcus carrier), +RV culture, currently (Acute) Anemia during (Acute) Abnormal glucose (Acute) (Acute) Previous delivery affecting , antepartum (Acute) BMI greater than 40 (Acute) Seizure disorder during (Acute) Supervision of high risk , antepartum (Acute) Decreased movement (Resolved) Pharyngitis, acute (Resolved) s/p LTCS PPD # 2 1. routine post care 2. breast feeding- support given/ today 3. rh positive 4. rubella immune
[2018-11-09 08:09] VITALS: BP 116/57; PULSE 85; RESP 18; TEMP 36.7; O2SAT 95
[2018-11-09] MEDS: Ferrous Sulfate 325 MG Tablet PO ×2 (08:15→21:16)
[2018-11-09 10:22] LABS: Pathology Specimen OB SEE PATHOLOGY REPORT
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
[2018-11-09] MEDS: HYDROcodone Bitartrate/Apap 5/325 Tablet PO ×2 (14:29→19:59)
[2018-11-09 14:30] VITALS: BP 128/70; PULSE 107; RESP 18; TEMP 36.9; O2SAT 94
[2018-11-09 19:45] VITALS: BP 127/59; PULSE 90; RESP 16; TEMP 36.9
--- NOTE | 2018-11-09 20:48 | NURSING ---
area of redness above mepilex dressing pt states it has been there all day today and that Sofy Rico saw it this am and didn't say anything about it. pt wonders if it is irritation from tape. will continue to monitor.pt afebrile.
[2018-11-09] MEDS: Folic Acid 1 MG Tablet PO (21:17)
[2018-11-09] MEDS: Sertraline 50 MG Tablet 150 MG PO (21:17)
[2018-11-09] MEDS: Prenatal Vits Tablet 1 TABLET PO (21:54)
--- NOTE | 2018-11-10 00:29 | DCINST_ITS ---
Discharge Diet: No Restrictions Discharge Activity: May Not Drive - for 2 weeks, May not drive while taking narcotic pain medications., May Shower, May Take a Tub Bath - in 7 days May resume sexual activity in: 4-6 weeks Lifting Restrictions: 20 pounds Additional Activity Instructions:: Nothing in the vagina for 4-6 weeks. You may return to work/school in 6 weeks. Call your doctor if your incision/area has: Continuous Slow Oozing, Sudden Increased Bleeding, Increased Pain/ Swelling, Increased Redness, Foul Smelling Discharge Call your doctor if you observe: Fever of 101 or Higher, Using more than one pad per hour - for 2 hours Suture Line Care: Avoid Pulling/Pushing, Avoid Pinching/Bending Cleanse incision/area with: Keep Dressing Clean & Dry Additional Instructions: If you experience any of the following, contact your healthcare provider. * Bleeding that soaks a pad every hour for 2 hours * Fever 100.4 or higher * Unrelieved incision or abdominal pain * Swelling, redness, discharge or bleeding from your incision or episiotomy site * Your incision begins to separate * Problems urinating (including inability to urinate or burning while urinating). * Visual changes * Severe headache * Flu-like symptoms * Pain or redness in one of both of your breasts * Pain, warmth, tenderness or swelling in your legs, especially the calf area * Frequent nausea and vomiting * Symptoms of depression or anxiety If you experience any of the following, call 911 or go to the nearest Emergency Room. * Chest pain * Problems breathing * Seizure activity * Partial or complete paralysis of a body part, slurred speech, weakness or drooping of the face, or a sudden inability to walk or hold your balance Allergies/Adverse Reactions: Allergies acetaminophen [From Percocet] Allergy (Verified 11/07/18 09:38) Rash oxycodone [From Percocet] Allergy (Verified 11/07/18 09:38) Rash paper tape Adverse Reaction (Mild, Uncoded 11/07/18 09:38) Rash Medications to take at Discharge sertraline 50 mg tablet 100 mg PO QDAY 03/16/18 folic acid 1 mg tablet 1 mg PO DAILY 05/04/18 vitamin,calcium,jwmjrwjc-fevt-lpdyj acid tablet 1 tab PO DAILY 05/04/18 levetiracetam ER 500 mg tablet,extended release 24 hr 2,500 mg PO DAILY 05/26/18 Ferrous Sulfate 325 mg PO BID 11/07/18 Hydrocodone/Acetaminophen [[place] 5-325 Tablet] 1 each PO Q4H PRN PRN 7 Days #28 tablet 11/10/18 Naproxen [Naprosyn] 250 - 500 mg PO Q8H PRN PRN #30 tablet 11/10/18 The following prescriptions were given: Hydrocodone/Acetaminophen [[place] 5-325 Tablet] 1 each PO Q4H PRN PRN 7 Days #28 tablet PRN Reason: Pain Naproxen [Naprosyn] 250 - 500 mg PO Q8H PRN PRN #30 tablet PRN Reason: MILD PAIN Follow-Up: Call to make an appointment with your doctor for an incision check in 1-2 weeks. You will also need a 6 week post- follow up appointment. Test results from this visit will be discussed in further detail at your follow- up appointment, if applicable. Please Follow Up With: Kristie Longo MD - Call to make an appointment for an incision check in 1-2 [phone] When: You will need a post- check in 6 weeks. Primary Care Physician: Kimani Kim MD [Primary Care Provider] -
--- NOTE | 2018-11-10 01:11 | NURSING ---
redness above on abdomen remains pt states it itches some she thisks maybe from the tape from surgery.
[2018-11-10] MEDS: Enoxaparin 40 MG/0.4 ML Syringe SC (05:49)
[2018-11-10] MEDS: Naproxen 250 MG Tablet PO (05:55)
--- NOTE | 2018-11-10 09:12 | PCM.PN.OB ---
Subjective: doing well no complaints pain controlled no CP SOB N V ambulating well tolerating po lochia moderate, going well - Physical Exam General: Alert, Oriented x3 Abdomen: - - erythema above incision- dermatitis Vital Signs Temp Pulse Resp BP Pulse Ox 98.5 F 90 16 127/59 H 94 11/09/18 19:45 11/09/18 19:45 11/09/18 19:45 11/09/18 19:45 11/09/18 14:30 Oxygen Flow Rate (L/min) 3 Oxygen Delivery Method Room Air Weight: 321 lb 13.998 oz Body Mass Index (BMI) 55.2 Intake and Output for Last 24 Hours 11/08/18 11/09/18 11/10/18 23:59 23:59 23:59 Intake Total 2207 / 2207 Output Total 1500 / 1500 Balance 707 / 707 Medical Necessity - Tobacco Use Smoking Status: Never smoker Assessment/Plan All Active Problems (Last Reviewed 10/31/18 @ 15:14 by Jen Donaldson) GBS (group B Streptococcus carrier), +RV culture, currently (Acute) Anemia during (Acute) Abnormal glucose (Acute) (Acute) Previous delivery affecting , antepartum (Acute) BMI greater than 40 (Acute) Seizure disorder during (Acute) Supervision of high risk , antepartum (Acute) Decreased movement (Resolved) Pharyngitis, acute (Resolved) s/p LTCS PPD # 3 1. routine post care 2. breast feeding- support given 3. rh positive 4. rubella immune zoloft increased due to depression
[2018-11-10 09:30] VITALS: BP 119/65; PULSE 70; RESP 18; TEMP 36.6; O2SAT 96
--- NOTE | 2018-11-10 11:44 | CM.ED ---
Social Work Note Face to face with pt and spouse. Pt reports to be feeling better. Expresses excitement with going home today. Spouse supportive. Deny further needs. Made aware that SW is available even after discharge and to contact the hospital if needs arise. Again discuss PPD with both MOB and FOB and what symptoms to be aware of. Encourage them to seek assistance from OBGYN or PCP is symptoms persist. PLAN: Discharge home with support of family. Carmela Ochoa, KRISTINE, ANA
--- NOTE | 2018-11-13 06:48 | PCM.DC.SUM ---
Discharge Date and Diagnosis Date of Admission: 11/07/18 Date of Discharge: 11/10/18 - Primary Discharge Diagnosis s/p repeat and tubal Hospital Course and Treatment Operations: - - and btl Summary of Care Provided: patient underwent a section and had a routine recovery with a return of bowel and bladder function, was ambulating, voiding, and tolerating po, and was stable for discharge to home on POD 3. - Physical Exam Vital Signs Temp Pulse Resp BP Pulse Ox 97.8 F 70 18 119/65 96 11/10/18 09:30 11/10/18 09:30 11/10/18 09:30 11/10/18 09:30 11/10/18 09:30 Oxygen Flow Rate (L/min) 3 Oxygen Delivery Method Room Air Weight: 321 lb 13.998 oz Body Mass Index (BMI) 55.2 Discharge Diet: No Restrictions Discharge Activity: May Not Drive - for 2 weeks, May not drive while taking narcotic pain medications., May Shower, May Take a Tub Bath - in 7 days May resume sexual activity in: 4-6 weeks Additional Activity Instructions:: Nothing in the vagina for 4-6 weeks. You may return to work/school in 6 weeks. Call your doctor if your incision/area has: Continuous Slow Oozing, Sudden Increased Bleeding, Increased Pain/ Swelling, Increased Redness, Foul Smelling Discharge Call your doctor if you observe: Fever of 101 or Higher, Using more than one pad per hour - for 2 hours Suture Line Care: Avoid Pulling/Pushing, Avoid Pinching/Bending Cleanse incision/area with: Keep Dressing Clean & Dry Home Medications: Medications to take at Discharge sertraline 50 mg tablet 100 mg PO QDAY 03/16/18 folic acid 1 mg tablet 1 mg PO DAILY 05/04/18 vitamin,calcium,fwwgojee-uluo-fblvw acid tablet 1 tab PO DAILY 05/04/18 levetiracetam ER 500 mg tablet,extended release 24 hr 2,500 mg PO DAILY 05/26/18 Ferrous Sulfate 325 mg PO BID 11/07/18 Hydrocodone/Acetaminophen [[place] 5-325 Tablet] 1 each PO Q4H PRN PRN 7 Days #28 tablet 11/10/18 Naproxen [Naprosyn] 250 - 500 mg PO Q8H PRN PRN #30 tablet 11/10/18 Following Prescrptions Were Given to Patient: Hydrocodone/Acetaminophen [[place] 5-325 Tablet] 1 each PO Q4H PRN PRN 7 Days #28 tablet PRN Reason: Pain Naproxen [Naprosyn] 250 - 500 mg PO Q8H PRN PRN #30 tablet PRN Reason: MILD PAIN Primary Care Physician: Kimani Kim MD [Primary Care Provider] - Please Follow Up With: Kristie Longo MD - Call to make an appointment for an incision check in 1-2 [phone] When: You will need a post- check in 6 weeks. Medical Necessity - Tobacco Use Smoking Status: Never smoker Meaningful Use Info Meaningful Use Diagnoses (Choose all that apply): None applicable
== END 2018-11-10 11:45 | disposition home or self-care (01) | DRG 785 ==
PROVIDERS: Admitting Provider Obstetrics & Gynecology; Family Provider Family Medicine; PCP Family Medicine; Referring Provider Obstetrics & Gynecology; Visit Provider Obstetrics & Gynecology
PROC: 10D00Z1 Extraction of Products of Conception, Low, Open Approach (ICD-10-PCS; CPT 59514; principal; 2018-11-07 11:45)
DX: O98.82 Other maternal infectious and parasitic diseases complicating childbirth (principal); B95.1 Streptococcus, group B, as the cause of diseases classified elsewhere; O99.02 Anemia complicating childbirth; D64.9 Anemia, unspecified; O99.344 Other mental disorders complicating childbirth; F32.9 Major depressive disorder, single episode, unspecified; Z3A.39 39 weeks gestation of pregnancy; Z37.0 Single live birth; O99.353 Diseases of the nervous system complicating pregnancy, third trimester; G40.909 Epilepsy, unspecified, not intractable, without status epilepticus; Z79.899 Other long term (current) drug therapy
CPT/HCPCS: 85025; 85027; 86850; 86900; 88302; 99218; J7120; A4216; G0378; J2405

== ENCOUNTER → 2020-08-14 11:45 | Outpatient (CLI) | payer MEDICAID, SELFPAY ==
[2020-08-14 11:09] VITALS: BMI 53.1
[2020-08-14 13:11] LABS: HIV - WCH Non-Reactive (Nonreactive)
[2020-08-14 20:25] LABS: Chlamydia Trachomatis by PCR Negative (Negative); Neisserai gonorrhoeae by PCR Negative (Negative); Probe Check PASS; Sample Adequacy Control PASS; Specimen Processing Control PASS
[2020-08-15 03:33] LABS: Rapid Plasmin Reagin (RPR) NONREACTIVE (NONREACTIVE)
[2020-08-15 20:07] LABS: HCV Quant. RNA PCR HCV Not Detected IU/mL (.)
[2020-08-18 04:30] LABS: HSV 2 IgG < 0.91 index (0.00-0.90)
== END ==
PROVIDERS: PCP Family Medicine; Referring Provider Nurse Practitioner Women's Health; Visit Provider Nurse Practitioner Women's Health
DX: Z11.3 Encounter for screening for infections with a predominantly sexual mode of transmission (principal)
CPT/HCPCS: 36415; 86592; 86695; 86696; 86703; 87491; 87522; 87591

== ENCOUNTER 2025-07-29 16:45 | Outpatient (CLI) | payer BC, SELFPAY ==
--- OUTSIDE RECORDS SUMMARY | 2025-07-29 19:13 | XMS RPT_ITS | CCD ---
Author Organization [facility] Care Team Providers Care Photoresist Contact Printer Name Role Phone ASHLEY GUNN Primary Care Physician Serjio Oconnor Attending Unavailable Ulices Ruff III Primary Care Provider ASHLEY WHITE Primary Care Unavailable DANIELA CONTRERAS PA-C Attending Unavailab ASHLEY Alvarez Primary Care Unavailable DANIELA CONTRERAS PA-C Attending Unavailab ASHLEY Alvarez Primary Care Unavailable ASHLEY WHITE Attending Unavailable DR MACARENA DRIVER DO Attending Unavailable ASHLEY WHITE Primary Care Unavailable Ulices Ruff III Primary Care Provider LETITIA WOODWARD DO Primary Care Physician [phone] No manager decision support, Md Primary Care Provider Celeste Cheyenne Kumar Unavailable Jaycee Chiu MA Unavailable Unavailable PAVEL PRIMARY MD KIRT Primary Care Unavailable CHEYENNE DE SOUZA Referring UnavailCHEYENNE Davis Attending Unavailrashaun e LETITIA WOODWARD DO Primary Care Unavailable LETITIA WOODWARD DO Attending Unavailable ASHLEY GUNN Attending Unavail able LETITIA WOODWARD DO Primary Care Unavailable AMBER MARCUS MD Attending Unavailable LETITIA WOODWARD DO Primary Care Unavailable ULICES RUFF III Primary Care Unavail able ELSA COWART Attending Unavailable ULICES RUFF III ELLIS Primary Care Unavail able CODY GIL Attending Unavailable Letitia Woodward DO Primary Care Provider [phone] LETITIA WOODWARD Primary Care Unavailable LETITIA WOODWARD Referring Unavailable ARLINE MCGREGOR Attending Unavailable LETITIA WOODWARD Primary Care Unavailable ARLINE MCGREGOR Attending Unavailable Allergies Allergy Classification Reported Allergen(s) Allergy Type Date of Onset Reaction(s) Facility (17 sources) Acetaminophen / oxyCODONE; Translations: [acetaminophen-ox ycodone] Drug Allergy 06-15-20 [facility] (10 sources) Tape, Paper Allergy to substance [facility] (1 source) Acetaminophen Drug Allergy 08-14-20 [facility] (1 source) oxyCODONE Drug Allergy 08-14-20 [facility] (1 source) paper tape; Translations: [paper tape] Propensity to adverse reactions (disorder) 08-14-20 [facility] (6 sources) Penicillins; Translations: [PENICILLINS] Drug Intolerance 05-28-20 [facility] (8 sources) Adhesive Tape-Silicones; Translations: [ADHESIVE TAPE-SILICONES] Drug Allergy 06-15-20 Other: See [facility] (2 sources) Penicillins Drug Intolerance 05-28-20 [facility] (5 sources) Acetaminophen / oxyCODONE; Translations: [OXYCODONE-ACETAM INOPHEN] Drug Allergy 06-15-20 [facility] (4 sources) Adhesive Tape Propensity to adverse reactions 03-20-20 [facility] Medications Current Medications Medication Drug Class(es) Dates Sig (Normalized) Sig (Original) [id number] 200 actuat albuterol 0.09 mg/actuat metered dose inhaler (7 sources) beta2-Adrenergic Agonist Start: 08-13-2024 take 2 puff(s) by inhalation every four hours as needed albuterol 108 (90 Base) MCG/ACT inhaler Inhale 2 puffs every 4 hours as needed for shortness of breath. 08/13/2024 Active Start: 09-13-2022 take 2 puff(s) by in halation every four hours as needed for wheezing Ventolin HFA MDI (90 mcg/inh) inhalation aerosol 2 puff(s), Inhalation, q4h, PRN as needed for wheezing, # 8 gram(s), 0 Refill(s), Pharmacy: [facility]/pharmacy #[id number], 162.6, cm, 08/30/22 13:16:00 EST, Height Start Date: 09/13/22 Status: Ordered Start: 03-27-2022 take 2 puff(s) by in halation every four hours as needed for wheezing ProAir HFA MDI (90 mcg/inh) inhalation aerosol 2 puff(s), Inhalation, q4h, PRN as needed for wheezing, # 8.5 gram(s), 0 Refill(s), Pharmacy: [facility]/pharmacy #[id number], Cough, 162.6, cm, 03/27/22 9:30:00 EDT, Height Start Date: 03/27/22 Status: Ordered azelastine hydrochloride 0.137 mg/actuat metered dose nasal spray (3 sources) Histamine-1 Receptor Antagonist Start: 02-21-2023 azelastine 137 mcg/inh (0.1%) nasal spray Dose = 2 spray(s), Intranasal, BID, # 30 mL, 0 Refill(s), Pharmacy: [facility]/pharmacy #[id number], 162, cm, 02/21/23 13:02:00 EDT, Height Start Date: 02/21/23 Status: Ordered brompheniramine maleate 0.4 mg/ml / dextromethorphan hydrobromide 2 mg/ml / pseudoephedrine hydrochloride 6 mg/ml oral solution (1 source) alpha-Adrenergic Agonist, Uncompetitive E-kxhiay-M-aspartat e Receptor Antagonist, Sigma-1 Agonist Start: 03-27-2022 End: 04-06-2022 take 1 dose by mouth every six hours as needed Bromfed DM oral syrup Dose = 2.5 mL, Oral, q6h, PRN for cold symptoms, X 5 day(s), # 120 mL, 1 Refill(s), Pharmacy: [facility]/pharmacy #[id number], Acute URI, 162.6, cm, 03/27/22 9:30:00 EDT, Height Start Date: 03/27/22 Stop Date: 04/06/22 Status: Ordered busPIRone hydrochloride 5 mg oral tablet (11 sources) Start: 01-09-2024 End: 08-15-2025 take 1 tablet by mouth twice daily busPIRone (Buspar) 5 MG tablet Take 5 mg by mouth 2 times daily. 03/12/2025 Active Start: 02-21-2023 End: 08-20-2023 busPIRone 5 mg oral tablet D ose : 5 mg = 1 tab(s), Oral, BID, # 60 tab(s), 5 Refill(s), Pharmacy: [facility]/pharmacy #[id number], 162, cm, 02/21/23 13:02:00 EDT, Height, kg, 02/21/23 13:02:00 EDT, Dosing Weight Start Date: 02/21/23 Stop Date: 08/20/23 Status: Ordered CPAP Supplies (9 sources) Start: 01-16-2025 CPAP Supplies See Instructions, Full setup (mask/tubing/water res), # 1 EA, 3 Refill(s), HERNAN (obstructive sleep apnea), 166.5 Start Date: 01/16/25 Status: Ordered Quantity: 1.0 Unit: EA Repeat number: 4 Indications: Obstructive sleep apnea (adult) (pediatric); Start: 07-29-2023 CPAP Supplies See Instructions, Mask, # 1 EA, 3 Refill(s), Sleep apnea in adult, 162.1 Start Date: 07/29/23 Status: Ordered Quantity: 1.0 Unit: EA Repeat number: 4 Indications: Sleep apnea, unspecified; Start: 07-29-2023 CPAP Supplies See Instructions, Mask, # 1 EA, 3 Refill(s), Sleep apnea in adult, 162.1 Start Date: 07/29/23 Status: Ordered Start: 07-25-2023 CPAP Supplies See Instructions, Mask, # 1 EA, 3 Refill(s), Pharmacy: [facility]/pharmacy #[id number], Sleep apnea in adult, 162, cm, 02/21/23 13:02:00 EDT, Height, 162.1, kg, 07/01/23 13:28:00 EDT, Dosing Weight Start Date: 07/25/23 Status: Ordered Quantity: 1.0 Unit: EA Repeat number: 4 Indications: Sleep apnea, unspecified; Start: 07-25-2023 CPAP Supplies See Instructions, Mask, # 1 EA, 3 Refill(s), Pharmacy: [facility]/pharmacy #[id number], Sleep apnea in adult, 162, cm, 02/21/23 13:02:00 EDT, Height, 162.1, kg, 07/01/23 13:28:00 EDT, Dosing Weight Start Date: 07/25/23 Status: Ordered famotidine 20 mg oral tablet (1 source) Histamine-2 Receptor Antagonist Start: 03-07-2022 End: 03-12-2022 Pepcid 20 mg oral tablet Dose : 20 mg = 1 tab(s), Oral, BID, # 10 tab(s), 0 Refill(s) Start Date: 03/07/22 Stop Date: 03/12/22 Status: Ordered fexofenadine hydrochloride 180 mg oral tablet (2 sources) Histamine-1 Receptor Antagonist Start: 01-09-2024 Nena 24 Hour Allergy oral tablet Dose : 180 mg = 1 tab(s), Oral, Daily, # 30 tab(s), 0 Refill(s), Pharmacy: [facility]/pharmacy #[id number], 163.5, cm, 01/09/24 16:03:00 EDT, Height, kg, 01/09/24 16:03:00 EDT, Dosing Weight Start Date: 01/09/24 Status: Ordered Start: 02-21-2023 Nena 24 Artur r Allergy oral tablet Dose : 180 mg = 1 tab(s), Oral, Daily, # 30 tab(s), 0 Refill(s), Pharmacy: [facility]/pharmacy #[id number], 162, cm, 02/21/23 13:02:00 EDT, Height Start Date: 02/21/23 Status: Ordered ketorolac tromethamine 10 mg oral tablet (1 source) Nonsteroidal Anti-inflammatory Drug, Cyclooxygenase Inhibitor Start: 01-15-2025 End: 01-18-2025 ketorolac 10 mg oral tablet Dose : 10 mg = 1 tab(s), Oral, QID, PRN as needed for pain, not to exceed 40 mg/day and 5 days duration for all dose forms, X 3 day(s), # 12 tab(s), 0 Refill(s), 01/18/25 12:53:00 AM EDT Start Date: 01/15/25 Stop Date: 01/18/25 Status: Ordered Quantity: 12.0 Unit: tab(s) Repeat number: 1 loratadine 10 mg oral tablet (1 source) Start: 03-07-2022 End: 03-12-2022 Claritin 10 mg oral tablet Dose : 10 mg = 1 tab(s), Oral, Daily, # 5 tab(s), 0 Refill(s) Start Date: 03/07/22 Stop Date: 03/12/22 Status: Ordered 24 hr metFORMIN hydrochloride 500 mg extended release oral tablet (4 sources) Biguanide Start: 03-14-2025 take 1 tablet by mouth every twenty-four hours at dinner metFORMIN XR (Glucophage-XR) 500 MG 24 hr tablet Take 500 mg by mouth with evening meal. Please see attached for detailed directions 03/14/2025 Active pantoprazole 40 mg delayed release oral tablet (5 sources) Proton Pump Inhibitor Start: 03-06-2025 take 1 tablet by mouth once daily before breakfast pantoprazole (ProtoNix) 40 MG EC tablet Take 40 mg by mouth every morning (before breakfast). 03/06/2025 Active Start: 01-16-2025 End: 02-27-2025 pantoprazole 40 mg oral ente patrick coated tablet Dose : 40 mg = 1 tab(s), Oral, BIDAC, # 84 tab(s), 0 Refill(s), Pharmacy: [facility]/pharmacy #[id number], 164, cm, 01/16/25 16:28:00 EDT, Height, kg, 01/16/25 16:28:00 EDT, Dosing Weight Start Date: 01/16/25 Stop Date: 02/27/25 Status: Ordered Quantity: 84.0 Unit: tab(s) Repeat number: 1 predniSONE 10 mg oral tablet (1 source) Start: 03-29-2022 take 3 tablets by mouth twice daily in the morning predniSONE 10 mg oral tablet 3, PO, BID, 1st dose in am, # 27 tab(s), 0 Refill(s) Start Date: 03/29/22 Status: Ordered 12 hr pseudoephedrine hydrochloride 120 mg extended release oral tablet (1 source) alpha-Adrenergi c Agonist Start: 11-19-2021 pseudoephedrine 120 mg oral tablet, extended release Dose : 120 mg = 1 tab(s), Oral, q12h, # 20 tab(s), 0 Refill(s), Pharmacy: [facility]/pharmacy #[id number], 162, cm, 11/19/21 10:00:00 EST, Height, kg, 11/19/21 10:00:00 EST, Dosing Weight Start Date: 11/19/21 Status: Ordered sertraline 100 mg oral tablet (20 sources) Serotonin Reuptake Inhibitor Start: 03-12-2025 take 2 tablets by mouth once daily sertraline (Zoloft) 100 MG tablet Take 200 mg by mouth daily. 03/12/2025 Active Start: 05-21-2024 End: 07-15-2025 sertraline 100 mg oral table t Dose : 200 mg = 2 tab(s), Oral, qDay, # 180 tab(s), 1 Refill(s), Pharmacy: [facility]/pharmacy #[id number], 164, cm, 01/16/25 16:28:00 EDT, Height, kg, 01/16/25 16:28:00 EDT, Dosing Weight Start Date: 01/16/25 Stop Date: 07/15/25 Status: Ordered Quantity: 180.0 Unit: tab(s) Repeat number: 2 Start: 10-10-2023 End: 05-07-2024 sertraline 100 mg oral table t Dose : 200 mg = 2 tab(s), Oral, qDay, # 60 tab(s), 6 Refill(s), Pharmacy: [facility]/pharmacy #[id number], 162, cm, 08/27/23 8:20:00 EST, Height, kg, 08/27/23 8:20:00 EST, Dosing Weight Start Date: 10/10/23 Stop Date: 05/07/24 Status: Ordered Start: 08-30-2022 End: 08-25-2023 sertraline 100 mg oral table t Dose : 200 mg = 2 tab(s), Oral, qDay, # 60 tab(s), 11 Refill(s), Pharmacy: [facility]/pharmacy #[id number], 162.6, cm, 08/30/22 13:16:00 EST, Height, kg, 08/30/22 13:16:00 EST, Dosing Weight Start Date: 08/30/22 Stop Date: 08/25/23 Status: Ordered Start: 01-15-2021 sertraline 100 mg oral tablet Dose : 150 mg = 1.5 tab(s), Oral, qDay, 1 1/2 (ONE AND A HALF) TABLET DAILY, # 135 tab(s), 4 Refill(s), Pharmacy: [facility]/pharmacy #[id number], 164, cm, 04/28/21 16:23:00 EDT, Height, kg, 01/07/21 16:23:00 EDT, Dosing Weight Start Date: 01/15/21 Status: Ordered Start: 06-19-2019 take 1.5 tablets by mouth once daily sertraline (ZOLOFT) 100 mg tablet Take 1.5 tablets by mouth once daily. CONTINUE HOME MEDICATION 06/19/2019 Active Comment on above: Take 1.5 tablets by mouth once daily. CONTINUE HOME MEDICATION Tirzepatide-Weight Management (Zepbound) 2.5 MG/0.5ML solution auto-injector (2 sources) Start: 04-02-2025 End: 05-02-2025 Tirzepatide-Weight Management (Zepbound) 2.5 MG/0.5ML solution auto-injector Indications: BMI 60.0-69.9, adult (HCC) , Class 3 severe obesity due to excess calories with serious comorbidity and body mass index (BMI) of 60.0 to 69.9 in adult , HERNAN on CPAP Inject 2.5 mg under the skin every 7 days. 2 mL 04/02/2025 05/02/2025 Active zonisamide 100 mg oral capsule (20 sources) Anti-epileptic Agent Start: 02-01-2023 End: 04-16-2025 zonisamide 100 mg oral capsule Dose : 400 mg = 4 cap(s), Oral, qHS, # 360 cap(s), 0 Refill(s), Pharmacy: [facility]/pharmacy #[id number], 164, cm, 01/16/25 16:28:00 EDT, Height, kg, 01/16/25 16:28:00 EDT, Dosing Weight Start Date: 01/16/25 Stop Date: 04/16/25 Status: Ordered Quantity: 360.0 Unit: cap(s) Repeat number: 1 Start: 11-18-2021 End: 03-29-2025 take 4 capsules by mouth once daily zonisamide (Zonegran) 100 MG capsule Take 400 mg by mouth daily. 01/22/2025 Active Start: 11-26-2020 zonisamide 100 mg oral capsule Dose : 400 mg = 4 cap(s), Oral, qHS, 0 Refill(s) Start Date: 11/26/20 Status: Ordered Comment on above: Take 4 capsules by m outh daily at bedtime. {20 (nirmatrelvir 150 MG Oral Tablet) / 10 (ritonavir 100 MG Oral Tablet) } Pack [Paxlovid 5-Day] (1 source) Start: 03-29-2022 End: 04-03-2022 Paxlovid 150 mg-100 mg (300 mg-100 mg Dose) oral tablet Dose = 1 packet(s), Oral, BID, Take 1 Packet = two 150mg nirmatrelvir tabs and one 100mg ritonavir tab. 3 tablets to be taken together by mouth twice a day for 5 days, X 5 day(s), # 5 EA, 0 Refill(s) Start Date: 03/29/22 Stop Date: 04/03/22 Status: Ordered Completed/Discontinued Medications Medication Drug Class(es) Dates Sig (Normalized) Sig (Original) albuterol MDI (90 mcg/inh) CFC free inhalation aerosol (2 sources) Start: 08-13-2024 End: 08-27-2024 take 2 puff(s) by inhalation every four hours as needed for wheezing albuterol MDI (90 mcg/inh) CFC free inhalation aerosol 2 puff(s), Inhalation, q4h, PRN as needed for wheezing, # 18 gram(s), 0 Refill(s), Pharmacy: [facility]/pharmacy #[id number], 163, cm, 08/13/24 8:40:00 EST, Height, kg, 08/13/24 8:40:00 EST, Dosing Weight Start Date: 08/13/24 Stop Date: 08/27/24 Status: Ordered Quantity: 18.0 Unit: g Repeat number: 1 erythromycin 0.005 mg/mg ophthalmic ointment (1 source) Macrolide, Macrolide Antimicrobial Start: 12-25-2021 End: 12-31-2021 erythromycin 0.5% ophthalmic ointment Dose = 1 rosalee, Eyes, both, QID, 1 rosalee = 0.5 inch, # 3.5 gram(s), 1 Refill(s), Pharmacy: [facility]/pharmacy #[id number], 162, cm, 11/19/21 10:00:00 EST, Height Start Date: 12/25/21 Stop Date: 12/31/21 Status: Ordered fluconazole 150 mg oral tablet (1 source) Azole Antifungal Start: 05-27-2023 End: 05-27-2023 Diflucan 150 mg oral tablet Dose : 150 mg = 1 tab(s), Oral, qDay, # 1 tab(s), 0 Refill(s), [id number], 162, cm, 02/21/23 13:02:00 EDT, Height, 159, kg, 05/27/23 14:57:00 EDT, Dosing Weight Start Date: 05/27/23 Stop Date: 05/27/23 Status: Ordered fluticasone propionate 0.05 mg/actuat metered dose nasal spray (1 source) Corticosteroid Start: 11-19-2021 End: 01-18-2022 take 1 dose nasal route once daily in the morning fluticasone proprionate NASAL 50 mcg/ spray Dose = 2 spray(s), Nostril, each, qAM, # 16 gram(s), 1 Refill(s), [id number], 162, cm, 11/19/21 10:00:00 EST, Height, kg, 11/19/21 10:00:00 EST, Dosing Weight Start Date: 11/19/21 Stop Date: 01/18/22 Status: Ordered Problems Active Problems Problem Classification Problem Date Documented Da te Episodic/Chronic Anxiety disorders (17 sources) Mixed anxiety and depressive disorder; Translations: [Other specified anxiety disorders] Onset: 06-15-2019 11-26-2020 Chronic Calculus of urinary tract (3 sources) Kidney stone; Translations: [Calculus of kidney] Onset: 01-14-2025 Episodic Conditions associated with dizziness or vertigo (6 sources) Dizziness 01-16-2021 Episodic Diabetes mellitus without complication (6 sources) Hyperglycemia; Translations: [Prediabetes] 01-09-2024 Episodic Epilepsy; convulsions (18 sources) Epilepsy, not refractory; Translations: [Epilepsy, unspecified, not intractable, without status epilepticus] Onset: 05-28-2019 05-28-2019 Chronic Headache; including migraine (10 sources) Headache 11-26-2020 Episodic Miscellaneous mental health disorders (7 sources) 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 Mood disorders (4 sources) Major depressive disorder; Translations: [Major depression in remission] 01-09-2024 Chronic Other circulatory disease (4 sources) Easy bruising 01-09-2024 Episodic Other hereditary and degenerative nervous system conditions (2 sources) Essential tremor 08-20-2024 Chronic Other lower respiratory disease (4 sources) Mass of respiratory structure 08-27-2023 Episodic Other nutritional; endocrine; and metabolic disorders (7 sources) Body mass index 40+ - severely obese; Translations: [Morbid (severe) obesity due to excess calories] Onset: 06-16-2019 06-18-2019 Chronic Other nutritional; endocrine; and metabolic disorders (17 sources) Morbid obesity; Translations: [Body mass index (BMI) 60.0-69.9, adult] 06-28-2022 Chronic Other nutritional; endocrine; and metabolic disorders (4 sources) Severe obesity; Translations: [Class 3 severe obesity due to excess calories with serious comorbidity and body mass index (BMI) of 60.0 to 69.9 in adult] 04-02-2025 Chronic Other nutritional; endocrine; and metabolic disorders (4 sources) Body mass index (BMI) 60.0-69.9, adult; Translations: [Body mass index (BMI) 60.0-69.9, adult ([facility])] Onset: 04-02-2025 Chronic Other nutritional; endocrine; and metabolic disorders (8 sources) Weight gain 08-30-2022 Episodic Other and delivery including normal (7 sources) 03-13-2018 Episodic Comment on above: System added from do cumentation. Status documented as Yes on Admission Other skin disorders (4 sources) Mass of soft tissue 01-09-2024 Episodic Other upper respiratory disease (10 sources) Allergic rhinitis 11-19-2021 Chronic Other upper respiratory disease (9 sources) Seasonal allergy 03-12-2022 Chronic Other upper respiratory disease (4 sources) Chronic rhinitis 01-09-2024 Chronic Otitis media and related conditions (6 sources) Dysfunction of eustachian tube 11-19-2021 Episodic Poisoning by nonmedicinal substances (3 sources) Allergic reaction to bee sting 04-25-2024 Episodic Residual codes; unclassified (14 sources) Obstructive sleep apnea syndrome; Translations: [Obstructive sleep apnea (adult) (pediatric)] 11-26-2020 Chronic Residual codes; unclassified (2 sources) Obstructive sleep apnea (adult) (pediatric); Translations: [Obstructive sleep apnea (adult) (pediatric)] Onset: 04-02-2025 Chronic Residual codes; unclassified (2 sources) Family history of gene mutation; Translations: [Family history of carrier of genetic disease] 08-14-2024 Episodic Skin and subcutaneous tissue infections (7 sources) Abscess; Translations: [Cellulitis of upper limb] 08-30-2022 Episodic Unclassified (20 sources) Patient encounter status 11-26-2020 Unclassified (1 source) Medication non-compliance due to excessive pill burden; Translations: [Medication non-compliance due to excessive pill burden] Onset: 01-29-2025 Unclassified (1 source) Obesity, class 3 (CMS/HCC); Translations: [Obesity, class 3 (CMS/HCC)] Onset: 06-24-2025 Unclassified (1 source) Obesity, class 3 (HCC); Translations: [Obesity, class 3 (HCC)] Onset: 04-02-2025 Past or Other Problems Problem Classification Problem Date Documented Da te Episodic/Chronic Epilepsy; convulsions (20 sources) Seizure; Translations: [Unspecified convulsions] Onset: 04-23-2019 10-30-2014 Episodic Genitourinary symptoms and ill-defined conditions (2 sources) Urgency of urination; Translations: [Urgency of urination] Onset: 05-27-2023 Episodic Unclassified (1 source) Obesity, class 3 (CMS/HCC); Translations: [Obesity, class 3 (CMS/HCC)] Onset: 06-24-2025 Unclassified (1 source) Obesity, class 3 (HCC); Translations: [Obesity, class 3 (HCC)] Onset: 04-02-2025 Results Test Name Value Interpretation Reference Range Facility Office Visiton 06-24-2025 Follow-up visit [id number] Hazel Quinn 1995 F Date Provider Department Center 06/24/2025 [id number] BOND MD None Family History Problem Relation Age of Onset Obesity Mother Hypertension Mother Heart disease Mother Obesity Father Hypertension Father Heart disease Father Heart disease Paternal Grandfather Stroke Paternal Grandfather Obesity Paternal Grandmother Diabetes Paternal Grandmother Heart disease Paternal Grandmother Heart disease Maternal Grandfather Stroke Maternal Grandfather Cancer Maternal Grandfather Family Status - Relation Status Age at Mother Father Paternal Grandfather Alive Paternal Grandmother Alive Maternal Grandfather Alive Level of Service:40141 [place] OFFICE/OUTPATIENT ESTABLISHED MOD MDM 30 MIN Reason for Visit and Comments: Weight Loss [[id number]] - Med Pt FU #2 [facility] Progress Noteon 06-24-2025 Progress Note HPI, PHYSICAL EXAMINATION & PLAN HPI: Patient here today for follow up for non-surgical weight loss management Weight trend since last visit: lost 2 lbs over 3 m stable This patient's excess weight is causing the following co-morbid conditions at this time:HERNAN with or without CPAP Physical Examination: Ht 5' 4 (1.626 m) Wt (!) 367 lb 12.8 oz (167 kg) BMI 63.13 kg/m? Blood pressure (!) 180/83, pulse 84, height 5' 4 (1.626 m), weight (!) 367 lb 12.8 oz (167 kg). General: This patient is calm and pleasant General: This patient is awake, alert, and oriented, and is in no apparent distress. Extremities: No cyanosis, clubbing or edema/ No calf tenderness/No restrictions of movement, is ambulatory without assistance. Neurological: Intact x 4 extremities, no focal deficits notes. Skin: No rashes or lesions noted. Social History: This patient is alone for the evaluation today. She does notsmoke, and does notdrink alcohol. Current Diet This patient?s current diet is: 80% meal plan Her diet contains adequate amounts of protein, adequate amounts of healthy fats, adequate amounts of green, leafy vegetables, and adequate amounts of fruits. Her comfort foods include:none Current Activity Does not exercise Current Eating Behaviors This patients demonstrates the following behaviors as they relate to her eating:structured She eats approximately 5-6 times per day. Her last meal/snack was at 6 am/pm. Progress Made Towards Goals: 3 month weight goal: 30 6 month weight goal: 20 12 month weight goal: 20 Plan: Obesity Class 3 stable Continue current management, continue weight loss program Focus on the meal structure, composition and portion control R/o [place]'s dse Test is ordered Discuss mindfulness in eating Discuss reminders for meal and meal planning HERNAN with or without CPAP Continue current management, continue weight loss program Stable preDM Continue current management, continue weight loss program stable [x] Protein goal of 1g protein per 1 kg of ideal body weight: 65-75 grams [] Patient advised to maintain a food/exercise/behav ior diary until next physician visit and to bring the completed diary to next visit [] Referred patient to surgical weight loss management program (FD to place referral) Physician Diet Recommendations given to patient See Follow up Section of today's encounter for next visit and additional scheduling orders Obtain follow up lab work: BARIATRIC; Non Surg Lab orders: no Patient is not taking anti-obesity medication. I spend a total of 30 minutes on the same day of the visit in discussing/counseli ng the patient regarding the diet and exercise in order to lose weight.Education on the meal plan and 7 rules of eating is provided. Meal prep is encouraged as a foundation of the meal plan. Food journal is encouraged as a feedback system. Exercise and its role in weight loss is explained. Weight loss medications role in weight loss journey is discussed HERNAN Is associated with obesity and weight loss is discussed as a treatment option for HERNAN Full chart review was performed.Clinical documentation is updated and completed. [facility] Progress Note [facility] MEDICAL WEIGHT LOSS MANAGEMENT PROGRAM ROOMING NOTE: FOLLOW UP VISIT Patient: Hazel Quinn Date of : 1995 Service Date: 06/24/2025 Patient History/Assessment Summary: The patient is a pleasant 29 y.o. year old female, who stands Height: 5' 4 (162.6 cm) tall with a weight of Weight: (!) 367 lb 12.8 oz (167 kg) pounds, resulting in a BMI of Body mass index is 63.13 kg/m?. kg/m2. She is here for follow-up for medical treatment of Morbid Obesity Patient has the following question(s): none Pre Program Weight Metrics (Epic) (Surgical Wt Loss Management- baseline) This Visit Medical Subsequent Eval Date: 06/24/25 Height: 5' 4 (162.6 cm) Weight: 367 lb 12.8 oz (167 kg) BMI: 63.13 Weight Change: -1.8 lbs Total Weight Change: -1.8 lbs % EBWL: 1% Subsequent Body Fat %: 75.76 Body Fat % Change: -0.36 Follow Up Weight Metrics Last Three Weights Including Today's Weight: Wt Readings from Last 3 Encounters: 06/24/25 (!) 367 lb 12.8 oz (167 kg) 04/02/25 (!) 369 lb 9.6 oz (168 kg) Diabetes Do you currently have diabetes? No Are you currently prescribed insulin? No Are you currently prescribed an oral medication for diabetes? No GERD (Gastroesophageal Reflux Disease) Do you currently have GERD? No Do you get heartburn type symptoms more than twice per week? No Are you currently on a medication for GERD? (not TUMS) (examples: Prilosec/omeprazole , Zantac/ranitidine, etc.) No Hyperlipidemia (high cholesterol) Do you currently have a diagnosis of high cholesterol? No Are you currently prescribed a medication for high cholesterol? (examples Lipitor/Atorvastati n, Pravastatin, Zetia, Tricor, etc.) No Have you been diagnosed with high cholesterol but chosen not to take medication? No Hypertension (high blood pressure) Do you currently have a diagnosis of Hypertension? No Are you currently on a medication for Hypertension? No Have you been diagnosed with Hypertension but have chosen not to take the medication? No Sleep Apnea Do you currently have Sleep Apnea? No Are you on a device (CPAP, BiPAP, etc) for Sleep Apnea? No Have you been diagnosed with Sleep Apnea but cannot tolerate or have chosen not to treat? No Comorbids summary (flow sheet comorbids) Falls Risk Assessment Patient does take medications which affect BP or mental status Patient does not have newly prescribed or changed dosage of medications within past 30 days which affect BP or mental status Patient has fallen in the past 2 months Patient does not demonstrate unsteady gait Patient uses the following ambulatory assistive devices: none Patient states the presence of the following traits which increases risk of fall: none Patient is not on home O2 Completed by: Latonya Thomas LPN [facility] [id number] 04-03-2025 [id number] Pt sent lab results via [employer]. [facility] 36on 04-03-2025 36 ----- Message from Arline Mcgregor MD sent at 04/02/2025 3:26 PM EDT ----- Please request blood work from PCP and please echo maldonado for HERNAN Thank you [facility] Office Visiton 04-02-2025 Follow-up visit [id number] Hazel Quinn 1995 F Date Provider Department Center 04/02/2025 [id number] MCGREGOR MD None Family History Problem Relation Age of Onset Obesity Mother Hypertension Mother Heart disease Mother Obesity Father Hypertension Father Heart disease Father Heart disease Paternal Grandfather Stroke Paternal Grandfather Obesity Paternal Grandmother Diabetes Paternal Grandmother Heart disease Paternal Grandmother Heart disease Maternal Grandfather Stroke Maternal Grandfather Cancer Maternal Grandfather Family Status - Relation Status Age at Mother Father Paternal Grandfather Alive Paternal Grandmother Alive Maternal Grandfather Alive Level of Service:[id number] FL OFFICE/OUTPATIENT NEW MODERATE MDM 45 MINUTES Reason for Visit and Comments: Weight Loss [595363] - Med Pt [facility] Progress Noteon 04-02-2025 Progress Note [facility] MEDICAL WEIGHT LOSS MANAGEMENT PROGRAM ROOMING NOTE - INITIAL CONSULTATION Patient: Hazel Quinn Date of : 1995 Service Date: 04/02/2025 Patient is here today to discuss medical weight loss management. This patient is alone for the evaluation today Weight Metrics: Non-Surgical Initial Eval Consult Date: 04/02/25 Initial Height: 5' 4 (162.6 cm) Initial Weight: 369 lb 9.6 oz (168 kg) [place] Body Weight: 131 lb (59.4 kg) Initial BMI: 63.43 Initial Body Fat %: 76.12 EBW: 238 lb (Flow Sheet: Surgical Wt Loss Management: Baseline) Diabetes Do you currently have diabetes? No Are you currently prescribed insulin? No Are you currently prescribed an oral medication for diabetes? No GERD (Gastroesophageal Reflux Disease) Do you currently have GERD? Yes Do you get heartburn type symptoms more than twice per week? Yes Are you currently on a medication for GERD? (not TUMS) (examples: Prilosec/omeprazole , Zantac/ranitidine, etc.) Yes Hyperlipidemia (high cholesterol) Do you currently have a diagnosis of high cholesterol? No Are you currently prescribed a medication for high cholesterol? (examples Lipitor/Atorvastati n, Pravastatin, Zetia, Tricor, etc.) No Have you been diagnosed with high cholesterol but chosen not to take medication? No Hypertension (high blood pressure) Do you currently have a diagnosis of Hypertension? No Are you currently on a medication for Hypertension? No Have you been diagnosed with Hypertension but have chosen not to take the medication? No Sleep Apnea Do you currently have Sleep Apnea? Yes Are you on a device (CPAP, BiPAP, etc) for Sleep Apnea? Yes Have you been diagnosed with Sleep Apnea but cannot tolerate or have chosen not to treat? Yes Comorbids Summary (flow sheet comorbids) Falls Risk Assessment Patient does take medications which affect BP or mental status Patient does not have newly prescribed or changed dosage of medications within past 30 days which affect BP or mental status Patient has not fallen in the past 2 months Patient does notdemonstrate unsteady gait Patient uses the following ambulatory assistive devices: none Patient states the presence of the following traits which increases risk of fall: none Patient is not on home O2 Completed by: Latonya Thomas LPN [facility] Progress Noteon 03-20-2025 Progress Note [facility] CNPNon 02-05-2025 CNPN Telephone (NE50MN) ---- HAZEL QUINN ([id number]) 1995 F Date Time Provider Department 02/05/25 CARMELA LONG NE50MN During your visit today, we recorded the following information about you: Carmela Long LISW 02/05/2025 5:09 PM Signed Out-patient Epilepsy Social Work Consult Patient: Hazel Whittaker KAI ) Reason for Consult: Community Resources/Financial Referring Provider: Elsa Cowart Contact Type: Phone call, 1st attempt Presenting Concerns: Patient had bad service during phone call and eventually call dropped. She described difficulties with getting her medications, though was able to get them filled. offered sending [employer] information if needed and patient was agreeable. Resources/Referrals provided: GoodRX coupons provided. Plan for follow up: No need for additional follow up at this time, patient to reach out with additional concerns ANA Guajardo February 05, 2025 5:05 PM Allergies As of Date: 02/05/2025 Noted Allergy Reaction PENICILLINS 05/28/2019 2 - Rash PERCOCET (OXYCODONE-ACETAMIN OPHEN)06/15/2019 2 - Rash TAPE (ADHESIVE TAPE-SILICONES) 06/15/2019 14 - Other: See Comments Comments: Paper tape only, causes irritation Date Reviewed: 10/02/2019 Reviewed by: Trinh Monson ([place]) - Fully Assessed Reason for Visit: Social Work Services [507] Prescriptions as of 02/05/2025 - zonisamide (ZONEGRAN) 100 mg capsule Take 4 capsules by mouth daily at bedtime. - sertraline (ZOLOFT) 100 mg tablet Take 1.5 tablets by mouth once daily. 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*05/28/2019 Convulsions (HCC) [R56.9] 05/28/2019 Seizure (HCC) [R56.9] 06/15/2019 Depression with anxiety [F41.8] 06/15/2019 Obesity, Class III, BMI >= 40 [E66.813] 06/16/2019 Encounter Status:Closed by CARMELA LONG on 02/05/25 Normal [facility] .Auto Diffon 01-26-2025 Basophil, Absolute 0.0 10 3/mcL Normal 0.0-0.3 [facility] Comment on above: Performed By: #### U AMIC, PREGU, UA #### [address] [address] Basophils/100 WBC (Bld) 0.3 % Normal 0.0-2.5 [facility] Comment on above: Performed By: #### U AMIC, PREGU, UA #### [id number] [place], [place] [address] Eosinophil, Absolute 0.1 10 3/mcL Normal 0.0-0.7 [facility] Comment on above: Performed By: #### U AMIC, PREGU, UA #### [id number] [place], [place] [address] Eosinophils/100 WBC (Bld) 0.8 % Normal 0.0-6.0 [facility] Comment on above: Performed By: #### U AMIC, PREGU, UA #### [address] [address] Lymphocyte, Absolute 1.4 10 3/mcL Normal 0.9-4.3 [facility] Comment on above: Performed By: #### U AMIC, PREGU, UA #### [address] [address] Lymphocytes/100 WBC (Bld) 21.0 % Normal 20.0-40.0 [facility] Comment on above: Performed By: #### U AMIC, PREGU, UA #### [address] [address] Monocyte, Absolute 0.5 10 3/mcL Normal 0.1-1.4 [facility] Comment on above: Performed By: #### U AMIC, PREGU, UA #### [address] [address] Monocytes/100 WBC (Bld) 7.8 % Normal 2.0-13.0 [facility] Comment on above: Performed By: #### U AMIC, PREGU, UA #### [address] [address] Neutrophils/100 WBC (Bld) 70.1 % Normal 50.0-75.0 [facility] Comment on above: Performed By: #### U AMIC, PREGU, UA #### [address] [address] .GFRon 01-26-2025 Estimated Glomerular Filtration Rate 102 ml/min/1.73sqm Normal [facility] Comment on above: Result Comment: Stages of Chronic Kidney Disease (CKD) Stage Description eGFR(ml/min/1.73 sq.m.) CKD 1 Normal kidney function or >=90 normal kindney function with possible kidney damage (ex. Proteinuria) CKD 2 Kidney damage with mild loss 60-89 of kidney function CKD 3a Mild to moderate loss of kidney 45-59 function CKD 3b Moderate to severe loss of 30-44 of kindey function CKD 4 Severe loss of kidney function 15-29 CKD 5 Kidney failure <15 Note: (go live 2024) the eGFR calculation was updated to the 2020 CKD-EPI creatinine equation without a race factor to calculate the eGFR results. Performed By: #### U AMIC PREGU, UA #### [place] [id number] .NEUABSon 01-26-2025 Neutrophil, Absolute 4.8 10 3/mcL Normal 2.3-8.1 [facility] Comment on above: Performed By: #### U AMIC PREGU, UA #### [place] [address] A1Con 01-26-2025 Glucose [Mass/Vol] 120 mg/dL Normal [facility] Comment on above: Result Comment: Radha mated Average Glucose calculated by equation ((28.7xA1C)-46.7) Estimated average glucose (eAG) is a calculated value from Hemoglobin A1C and is hardware supplies sales representative of the average blood glucose level in the last 2-3 month period. Normal range: less than 114 mg/dL Performed By: #### Keegan RO PREGU, UA #### [place] [address] HbA1c (Bld) [Mass fraction] 5.8 % Normal 4.3-6.4 [facility] Comment on above: Performed By: #### Keegan AMIC PREGU, UA #### [place] [address] CBCon 01-26-2025 Erythrocyte distribution width (RBC) [Ratio] 15.6 % High 11.5-15.5 [facility] Comment on above: Performed By: #### Keegan AMIC PREGU, UA #### [place] [address] Hematocrit (Bld) [Volume fraction] 40.0 % Normal 34.0-46.0 [facility] Comment on above: Performed By: #### U AMIC PREGU, UA #### [place] [address] Hgb 13.2 G/dL Normal 12.0-16.0 [facility] Comment on above: Performed By: #### ESAU MORA UA #### [address] [address] MCH (RBC) [Entitic mass] 26.9 pg Low 27.0-33.0 [facility] Comment on above: Performed By: #### ESAU MORA UA #### [address] [address] MCHC 33.1 G/dL Normal 32.0-36.0 [facility] Comment on above: Performed By: #### ESAU MORA UA #### [address] [address] MCV (RBC) [Entitic vol] 81.3 fL Normal 80.0-99.0 [facility] Comment on above: Performed By: #### ESAU MORA UA #### [address] [address] Platelet 318 10 3/mcL Normal 150-450 [facility] Comment on above: Performed By: #### ESAU MORA UA #### [address] [address] Platelet mean volume (Bld) [Entitic vol] 8.4 fL Normal 6.6-10.5 [facility] Comment on above: Performed By: #### ESAU MORA, UA #### [address] [address] RBC 4.92 10 6/mcL Normal 4.10-5.30 [facility] Comment on above: Performed By: #### LASHANDA MORAU, UA #### [address] [address] WBC 6.9 10 3/mcL Normal 4.5-10.8 [facility] Comment on above: Performed By: #### ESAU MORA, UA #### [address] [address] CMPon 01-26-2025 Albumin Level 3.5 G/dL Normal 3.5-5.0 [facility] Comment on above: Performed By: #### U AMIC PREGU, UA #### [address] [address] Albumin/Globulin [Mass ratio] 0.8 {ratio} Low 1.1-2.5 [facility] Comment on above: Performed By: #### U AMIC, PREGU, UA #### [address] [address] ALP [Catalytic activity/Vol] 82 U/L Normal 40-135 [facility] Comment on above: Performed By: #### U AMIC PREGU, UA #### [address] [address] ALT [Catalytic activity/Vol] 24 U/L Normal 14-59 [facility] Comment on above: Performed By: #### U AMIC PREGU, UA #### [address] [address] AST [Catalytic activity/Vol] 12 U/L Normal 10-40 [facility] Comment on above: Performed By: #### U AMIC PREGU, UA #### [address] [address] Bili Total 0.3 mg/dL Normal 0.2-1.0 [facility] Comment on above: Result Comment: Use of this assay is not recommended for patients undergoing treatment with eltrombopag due to the potential for falsely elevated results. Performed By: #### U AMIC, PREGU, UA #### [address] [address] BUN/Creatinine Ratio 20 ratio Normal 7-27 [facility] Comment on above: Performed By: #### U AMIC, PREGU, UA #### [address] [address] Calcium [Mass/Vol] 9.4 mg/dL Normal 8.4-10.2 [facility] Comment on above: Performed By: #### U AMIC, PREGU, UA #### [address] [address] Chloride [Moles/Vol] 104 mmol/L Normal 98-107 [facility] Comment on above: Performed By: #### U AMIC, PREGU, UA #### [address] [address] CO2 [Moles/Vol] 23 mmol/L Normal 22-29 [facility] Comment on above: Performed By: #### U AMIC, PREGU, UA #### [address] [address] Creatinine [Mass/Vol] 0.79 mg/dL Normal 0.51-0.95 [facility] Comment on above: Performed By: #### U AMIC, PREGU, UA #### [address] [address] Electrolyte Balance 13.0 mEq/L Normal 4.0-15.0 [facility] Comment on above: Performed By: #### U AMIC, PREGU, UA #### [address] [address] Globulin 4.4 G/dL Normal 2.7-4.4 [facility] Comment on above: Performed By: #### U AMIC, PREGU, UA #### [address] [address] Glucose [Mass/Vol] 118 mg/dL High 70-105 [facility] Comment on above: Performed By: #### U AMIC, PREGU, UA #### [address] [address] Potassium [Moles/Vol] 4.1 mmol/L Normal 3.5-5.1 [facility] Comment on above: Performed By: #### U AMIC, PREGU, UA #### [place] [address] Sodium [Moles/Vol] 140 mmol/L Normal 136-145 [facility] Comment on above: Performed By: #### U AMIC, PREGU, UA #### [place] [id number] Total Protein 7.9 G/dL Normal 6.4-8.2 [facility] Comment on above: Performed By: #### U AMIC, PREGU, UA #### [place] [address] Urea nitrogen [Mass/Vol] 16 mg/dL Normal 7-18 [facility] Comment on above: Performed By: #### U AMIC, PREGU, UA #### [place] [address] HCVon 01-26-2025 Hep C Ab Non-Reactive Normal Non-Reactive [facility] Comment on above: Performed By: #### U AMIC, PREGU, UA #### [place] [address] Hep C Ab Int Normal [facility] Comment on above: Result Comment: Nonr eactive: Samples with a value < 0.80 are considered nonreactive (negative) for antibodies to HCV. A negative test result does not exclude the possibility of exposure to or infection with HCV. HCV antibodies may be undetectable in some stages of the infection and in some clinical conditions. See Interp Performed By: #### U AMIC, PREGU, UA #### [place] [address] LABORATORYOrdered By: SYSTEM SYSTEM on 01-26-2025 Albumin BCP dye [Mass/Vol] 3.5 G/dL Normal 3.5 - 5.0 G/dL AO ADM SS Albumin/Globulin [Mass ratio] 0.8 {ratio} Low 1.1 - 2.5 ratio AO ADM SS ALP [Catalytic activity/Vol] 82 U/L Normal 40 - 135 U/L AO ADM SS ALT With P-5'-P [Catalytic activity/Vol] 24 U/L Normal 14 - 59 U/L AO ADM SS AST With P-5'-P [Catalytic activity/Vol] 12 U/L Normal 10 - 40 U/L AO ADM SS Basophils (Bld) [#/Vol] 0.0 103/mcL Normal 0.0 - 0.3 10^3/mcL AO Workflow SS Basophils/100 WBC (Bld) 0.3 % Normal 0.0 - 2.5 % AO Workflow SS Bilirubin [Mass/Vol] 0.3 mg/dL Normal 0.2 - 1 .0 mg/dL AO ADM SS Comment on above: Interpretive Data: U se of this assay is not recommended for patients undergoing treatment with eltrombopag due to the potential for falsely elevated results. Calcium [Mass/Vol] 9.4 mg/dL Normal 8.4 - 10. 2 mg/dL AO ADM SS Chloride [Moles/Vol] 104 mmol/L Normal 98 - 10 7 mmol/L AO ADM SS CO2 [Moles/Vol] 23 mmol/L Normal 22 - 29 mmol/L AO ADM SS Creatinine [Mass/Vol] 0.79 mg/dL Normal 0.51 - 0.95 mg/dL AO ADM SS Electrolyte Balance 13.0 mEq/L Normal 4.0 - 15 .0 mEq/L AO ADM SS Eosinophil, Absolute 0.1 103/mcL Normal 0.0 - 0 .7 10^3/mcL AO Workflow SS Eosinophils/100 WBC (Bld) 0.8 % Normal 0.0 - 6.0 % AO Workflow SS Erythrocyte distribution width (RBC) [Ratio] 15.6 % High 11.5 - 15.5 % AO Workflow SS Estimated Glomerular Filtration Rate 102 ml/min/1.73sqm Invalid Interpretation Code AO Chemistry S Comment on above: Interpretive Data: Stages of Chronic Kidney Disease (CKD) Stage Description eGFR(ml/min/1.73 sq.m.) CKD 1 Normal kidney function or >=90 normal kindney function with possible kidney damage (ex. Proteinuria) CKD 2 Kidney damage with mild loss 60-89 of kidney function CKD 3a Mild to moderate loss of kidney 45-59 function CKD 3b Moderate to severe loss of 30-44 of kindey function CKD 4 Severe loss of kidney function 15-29 CKD 5 Kidney failure <15 Note: (go live 2024) the eGFR calculation was updated to the 2020 CKD-EPI creatinine equation without a race factor to calculate the eGFR results. Globulin 4.4 G/dL Normal 2.7 - 4.4 G/dL AO ADM SS Glucose [Mass/Vol] 120 mg/dL Invalid Interpretation Code AO Chemistry S Comment on above: Interpretive Data: E stimated average glucose (eAG) is a calculated value from Hemoglobin A1C and is hardware supplies sales representative of the average blood glucose level in the last 2-3 month period. Normal range: less than 114 mg/dL Glucose [Mass/Vol] 118 mg/dL High 70 - 105 mg/dL AO ADM SS HbA1c (Bld) [Mass fraction] 5.8 % Normal 4.3 - 6.4 % AO ADM SS Hematocrit (Bld) [Volume fraction] 40.0 % Normal 34.0 - 46.0 % AO Workflow SS Hemoglobin (Bld) [Mass/Vol] 13.2 G/dL Normal 12.0 - 16.0 G/dL AO Workflow SS Lymphocytes (Bld) [#/Vol] 1.4 103/mcL Normal 0.9 - 4.3 10^3/mcL AO Workflow SS Lymphocytes/100 WBC (Bld) 21.0 % Normal 20.0 - 40.0 % AO Workflow SS MCH (RBC) [Entitic mass] 26.9 pg Low 27.0 - 33.0 pg AO Workflow SS MCHC 33.1 G/dL Normal 32.0 - 36.0 G/dL AO Workflow SS MCV (RBC) [Entitic vol] 81.3 fL Normal 80.0 - 99.0 fL AO Workflow SS Monocytes (Bld) [#/Vol] 0.5 103/mcL Normal 0.1 - 1.4 10^3/mcL AO Workflow SS Monocytes/100 WBC (Bld) 7.8 % Normal 2.0 - 13.0 % AO Workflow SS Neutrophils (Bld) [#/Vol] 4.8 103/mcL Normal 2.3 - 8.1 10^3/mcL AO Workflow SS Neutrophils/100 WBC (Bld) 70.1 % Normal 50.0 - 75.0 % AO Workflow SS Platelet mean volume (Bld) [Entitic vol] 8.4 fL Normal 6.6 - 10.5 fL AO Workflow SS Platelets (Bld) [#/Vol] 318 103/mcL Normal 150 - 450 10^3/mcL AO Workflow SS Potassium [Moles/Vol] 4.1 mmol/L Normal 3.5 - 5.1 mmol/L AO ADM SS Protein [Mass/Vol] 7.9 G/dL Normal 6.4 - 8.2 G/dL AO ADM SS RBC (Bld) [#/Vol] 4.92 106/mcL Normal 4.10 - 5.3 0 10^6/mcL AO Workflow SS Sodium [Moles/Vol] 140 mmol/L Normal 136 - 145 mmol/L AO ADM SS Urea nitrogen [Mass/Vol] 16 mg/dL Normal 7 - 18 mg/dL AO ADM SS Urea nitrogen/Creatinine [Mass ratio] 20 ratio Normal 7 - 27 ratio AO ADM SS WBC (Bld) [#/Vol] 6.9 103/mcL Normal 4.5 - 10.8 10^3/mcL AO Workflow SS LABORATORYOrdered By: Zohaib Parra on 01-26-2025 Cholesterol [Mass/Vol] 160 mg/dL Normal 0 - 200 mg/dL AO ADM SS Comment on above: Interpretive Data: C holesterol Reference Interval: Less than 200 Desirable 200-239 Borderline high risk 240 and above High risk Cholesterol in HDL [Mass/Vol] 54 mg/dL Normal 40 - 60 mg/dL AO ADM SS Cholesterol in LDL [Mass/Vol] 90 mg/dL Normal 0 - 130 mg/dL AO ADM SS Triglyceride [Mass/Vol] 78 mg/dL Normal 0 - 150 mg/dL AO ADM SS Comment on above: Interpretive Data: T riglyceride Reference Interval: Less than 150 Normal 150-199 Borderline high risk 200-499 High risk 500 or higher Very high risk LABORATORYOrdered By: Umesh Dhillon on 01-26-2025 HCV Ab IA Ql Non-Reactive (01/26/25 7:54 AM) Normal Non-Reactive ADM SS HCV Ab IA Ql Nonreactive: Samples with a value < 0.80 are considered nonreactive (negative) for antibodies to HCV. A negative test result does not exclude the possibility of exposure to or infection with HCV. HCV antibodies may be undetectable in some stages of the infection and in some clinical conditions. Invalid Interpretation Code Chemistry S LIPIDon 01-26-2025 Cholesterol [Mass/Vol] 160 mg/dL Normal 0-200 [facility] Comment on above: Result Comment: Chol esterol Reference Interval: Less than 200 Desirable 200-239 Borderline high risk 240 and above High risk Performed By: #### U AMIC, PREGU, UA #### [id number] [place], [place] [address] Cholesterol in HDL [Mass/Vol] 54 mg/dL Normal 40-60 [facility] Comment on above: Performed By: #### U AMIC, PREGU, UA #### [facility] [address] [place], [place] [address] Cholesterol in LDL [Mass/Vol] 90 mg/dL Normal 0-130 [facility] Comment on above: Performed By: #### U AMIC, PREGU, UA #### [facility] [address] [place], [place] [address] Triglyceride [Mass/Vol] 78 mg/dL Normal 0-150 [facility] Comment on above: Result Comment: Trig lyceride Reference Interval: Less than 150 Normal 150-199 Borderline high risk 200-499 High risk 500 or higher Very high risk Performed By: #### U AMIC, PREGU, UA #### [id number] [place], [place] [address] CT ABDOMEN/PELVIS W/O CONTRA STon 01-15-2025 CT ABDOMEN/PELVIS W/O CONTRAST ORIGINAL EXAMINATION: CT OF THE ABDOMEN AND PELVIS WITHOUT CONTRAST 01/15/2025 12:16 am TECHNIQUE: CT of the abdomen and pelvis was performed without the administration of intravenous contrast. Multiplanar reformatted images are provided for review. Automated exposure control, iterative reconstruction, and/or weight based adjustment of the mA/kV was utilized to reduce the radiation dose to as low as reasonably achievable. COMPARISON: CT abdomen-pelvis 06/21/2017 HISTORY: ORDERING SYSTEM PROVIDED HISTORY: Reason for Exam: L flank pain, hematuria FINDINGS: Lower Chest: Visualized lower thorax demonstrates no consolidation or pleural effusion. Organs: The liver demonstrates no biliary duct dilatation or gross mass. The gallbladder demonstrates no calcified gallstones or gross wall thickening. The pancreas demonstrates no gross mass, gross inflammatory process, or ductal dilatation. Spleen is normal in size. Adrenal glands are normal in size. Right kidney demonstrates no hydronephrosis or obstructive calculi. Right ureter is normal caliber. The left kidney demonstrates minimal hydronephrosis without renal calculi. There is minimal left hydroureter, without ureteral calculus. At the posterior left bladder lumen, adjacent the left uterovesical junction, there is a 5 mm calculus. GI/Bowel: Stomach and duodenal sweep demonstrate no acute abnormality. Small bowel and colon are normal in caliber. Appendix is normal in caliber without gross wall thickening or inflammatory change. There are mildly enlarged mesenteric nodes, nonspecific, which may be reactive. Pelvis: Uterus and ovaries are grossly normal in morphology. There are small pelvic calcifications, compatible with vascular calcifications. Peritoneum/Retroper itoneum: Aorta is normal in caliber. Bones/Soft Tissues: Osseous structures are intact. Evaluation for mass and inflammatory process is limited by absence of intravenous contrast. IMPRESSION: 1. 5 mm calculus at the posterior left bladder lumen, adjacent the left uterovesical junction. Minimal left hydroureteronephros is. No renal calculi. Interpreted by: Antonio Sadler Preliminary Report By: Antonio Sadler Electronically signed By Antonio Sadler Dictated Date: 01/15/2025 12:25:34 AM Prelim Date: 01/15/2025 12:41:09 AM Sign Date: 01/15/2025 12:41:09 AM Ordering Provider: AMBER Fernandes [facility]dered By: Carrol Isidro on 01-14-2025 Appearance (U) Slightly Cloudy *ABN* (01/14/25 11:30 PM) Invalid Interpretation Code Clear AO Auto Urine SS Bacteria LM.HPF (Urine sed) [#/Area] Trace /HPF Invalid Interpretation Code Negative AO Auto Urine SS Bilirubin Ql (U) Negative (01/14/25 11:30 PM) Normal Negative AO Auto Urine SS Color (U) Red *ABN* (01/14/25 11:30 PM) Invalid Interpretation Code AO Auto Urine SS Crystals.amorphous LM.HPF (Urine sed) [#/Area] Trace /HPF Normal AO Auto Urine SS Glucose Test strip (U) [Mass/Vol] Negative Normal Negative AO Auto Urine SS HCG ( test) Ql Negative (01/14/25 11:30 PM) Normal AO Manual Urine SS Hemoglobin Auto test strip (U) [Mass/Vol] Large *ABN* (01/14/25 11:30 PM) Invalid Interpretation Code Negative AO Auto Urine SS Ketones Ql (U) Trace mg/dL Invalid Interpretation Code Negative AO Auto Urine SS test (u) int Not detected Invalid Interpretation Code AO Manual Urine SS UA Leuk Est Negative (01/14/25 11:30 PM) Normal Negative AO Auto Urine SS UA Mucous 1+ /HPF Normal AO Auto Urine SS UA Nitrite Negative (01/14/25 11:30 PM) Normal Negative AO Auto Urine SS UA pH 6.0 (01/14/25 11:30 PM) Normal 5.0 - 8.0 AO Auto Urine SS UA Protein 30 mg/dL Normal Negative AO Auto Urine SS UA RBC 5-10 /HPF Invalid Interpretation Code 0-2 AO Auto Urine SS UA Spec Grav 1.025 (01/14/25 11:30 PM) Normal 1.015-1.025 AO Auto Urine SS UA Specimen Type Clean Catch (01/14/25 11:30 PM) Normal AO Auto Urine SS UA Squam Epithelial 0-2 /HPF Normal 0-20 AO Au to Urine SS UA Urobilinogen 0.2 E.U./dL Normal 0.2-1.0 AO Auto Urine SS WBC LM.HPF (Urine sed) [#/Area] 0-2 /HPF Normal 0-5 AO Auto Urine SS PREGUon 01-14-2025 HCG ( test) Ql (U) Negative Normal [facility] Comment on above: Performed By: #### U AMIC, PREGU, UA #### [address] [address] test (u) int Not detected Invalid Interpretation Code [facility] Comment on above: Performed By: #### U AMIC, PREGU, UA #### [address] [address] UAon 01-14-2025 Color (U) Red Abnormal [facility] Comment on above: Performed By: #### U AMIC, PREGU, UA #### [address] [address] Glucose (U) [Mass/Vol] Negative Normal Negative [facility] Comment on above: Performed By: #### U AMIC, PREGU, UA #### [address] [address] Ketones Ql (U) Trace Abnormal Negative [facility] Comment on above: Performed By: #### U AMIC, PREGU, UA #### [address] [address] UA Appear Slightly Cloudy Abnormal Clear [facility] Comment on above: Performed By: #### U AMIC, PREGU, UA #### [address] [address] UA Blood Large Abnormal Negative [facility] Comment on above: Performed By: #### U AMIC, PREGU, UA #### [address] [address] UA Leuk Est Negative Normal Negative [facility] Comment on above: Performed By: #### U AMIC, PREGU, UA #### [address] [address] UA Nitrite Negative Normal Negative [facility] Comment on above: Performed By: #### U AMIC, PREGU, UA #### [address] [address] UA pH 6.0 Normal 5.0 - 8.0 [facility] Comment on above: Performed By: #### U AMIC, PREGU, UA #### [address] [address] UA Protein 30 mg/dL Normal Negative [facility] Comment on above: Performed By: #### U AMIC, PREGU, UA #### [address] [address] UA Spec Grav 1.025 Normal 1.015-1.025 [facility] Comment on above: Performed By: #### U AMIC, PREGU, UA #### [address] [address] UA Specimen Type Clean Catch Normal [facility] Comment on above: Performed By: #### U AMIC, PREGU, UA #### [address] [address] UA Urobilinogen 0.2 E.U./dL Normal 0.2-1.0 [facility] Comment on above: Performed By: #### U AMIC, PREGU, UA #### [address] [address] Urobilinogen (U) [Mass/Vol] Negative Normal Negative [facility] Comment on above: Performed By: #### U AMIC, PREGU, UA #### [address] [address] UAMICon 01-14-2025 UA Amorphus Trace Normal [facility] Comment on above: Performed By: #### U AMIC, PREGU, UA #### [address] [address] UA Bacteria Trace Abnormal Negative [facility] Comment on above: Performed By: #### U AMIC, PREGU, UA #### [place] [address] UA Mucous 1+ /hpf Normal [facility] Comment on above: Performed By: #### U AMIC, PREGU, UA #### [place] [address] UA RBC 5-10 Abnormal 0-2 [facility] Comment on above: Performed By: #### U AMIC, PREGU, UA #### [address] [address] UA Squam Epithelial 0-2 Normal 0-20 [facility] Comment on above: Performed By: #### U AMIC, PREGU, UA #### [address] [address] UA WBC 0-2 Normal 0-5 [facility] Comment on above: Performed By: #### U AMIC, PREGU, UA #### [address] [address] CYTOGENOMIC MICROARRAY DAMIEN SIS OF BLOODon 08-14-2024 Clinical Information Invalid Interpretation Code [facility] Comment on above: Order Comment: No ch arge per proband report What is the reason for Microarray testing?->Parental Testing Child's name/MRN->Yariel López [id number] Billing type:->Institutional Should Pre Authorization be obtained before this is performed?->No CPT Code:->65065 Test code:->MCRY1 Result Comment: Romane r Diagnoses: Family history of gene mutation [Z84.81] 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; uncertain significance Microarray Result Invalid Interpretation Code [facility] Comment on above: Order Comment: No ch arge per proband report What is the reason for Microarray testing?->Parental Testing Child's name/MRN->Yariel López [id number] Billing type:->Institutional Should Pre Authorization be obtained before this is performed?->No CPT Code:->84734 Test code:->MCRY1 Result Comment: TEST : MATERNAL TARGETED CYTOGENOMIC MICROARRAY ANALYSIS This maternal targeted microarray analysis was limited to detect the ~862 Kb deletion of chromosome 2q13 initially reported in the proband (KIKE). 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 RECOMMENDATIONS: Genetic counseling is recommended and available through [facility] at . METHODS: The whole genome microarray analysis was performed the FDA-cleared Affymetrix CytoScan Dx platform, which contains approximately 2.7 million markers, including 1,953,246 unique non-polymorphic copy number probes and 743,304 single nucleotide polymorphism (SNP) probes. The genome-wide functional resolution of this assay is approximately 25 kb for deletions and 50 kb for duplications. This microarray and associated software (Chromosome Analysis Suite Dx) were manufactured by [employer] and used by the [facility] of [facility] for the purpose of identifying DNA copy number gains and losses associated with chromosomal imbalances. This assay will detect aneuploidies, deletions and duplications of the loci represented on the microarray. It will also detect regions of homozygosity (NEYMAR), also referred to as copy-neutral loss of heterozygosity (CN-MARIA DEL CARMEN), regions with absence of heterozygosity (AOH), or long continuous stretches of homozygosity (LCSH) that may represent uniparental isodisomy or regions of the genome identical by descent. Data was analyzed and reported using Oct 2008 genome build GRCh37 [[id number]]. Deletions larger than 200 kb, duplications larger than 500 kb, one NEYMAR larger than 10.0 Mb and >=2 ROHs (each) larger than 5 Mb are generally reported. However, smaller changes with pathogenic potential will also be reported, while larger changes that are well documented benign variants will not be reported. This assay does not rule out balanced chromosome alterations (reciprocal translocation, Robertsonian translocation, inversion and insertion), imbalances of chromosomal regions not represented by probes on the microarray, mosaicism, or point mutations. A normal result does not exclude the diagnosis of any of the disorders tested for on this assay. This test may reveal copy number changes (CNCs) that are associated with recessive disorders or presymptomatic conditions that are not related to this patient's referral indications. CNCs resulting in carrier status for autosomal recessive disorders may not be reported unless concern for a specific disorder is indicated in the test requisition. The microarray test results should only be used in conjunction with other clinical and diagnostic findings, consistent with professional standards of practice, including confirmation by alternative methods, evaluation of parental samples, clinical genetic evaluation, and counseling as appropriate. For further information regarding intended use and limitations, see [email or web address]/[email or web address] and 2020 ACMG Technical Standard on Chromosomal Microarray Analysis (PMID: 36790889). Signature . Invalid Interpretation Code [facility] Comment on above: Order Comment: No ch arge per proband report What is the reason for Microarray testing?->Parental Testing Child's name/MRN->Yariel López [id number] Billing type:->Institutional Should Pre Authorization be obtained before this is performed?->No CPT Code:->09842 Test code:->MCRY1 .Auto Diffon 07-07-2024 Basophil, Absolute 0.0 10 3/mcL Normal 0.0-0.2 [facility] Comment on above: Performed By: #### C BC, ADIFF, PRO, A1C, BMP, LIPID, ANEU, GFR #### [place] [id number] [place], [place] [address] Basophils/100 WBC (Bld) 0.5 % Normal 0.0-2.5 [facility] Comment on above: Performed By: #### C BC, ADIFF, PRO, A1C, BMP, LIPID, ANEU, GFR #### [address] [address] Eosinophil, Absolute 0.0 10 3/mcL Normal 0.0-0.7 [facility] Comment on above: Performed By: #### C BC, ADIFF, PRO, A1C, BMP, LIPID, ANEU, GFR #### [address] [address] Eosinophils/100 WBC (Bld) 0.7 % Normal 0.0-7.0 [facility] Comment on above: Performed By: #### C BC, ADIFF, PRO, A1C, BMP, LIPID, ANEU, GFR #### [address] [address] Lymphocyte, Absolute 1.2 10 3/mcL Normal 0.9-4.3 [facility] Comment on above: Performed By: #### C BC, ADIFF, PRO, A1C, BMP, LIPID, ANEU, GFR #### [address] [address] Lymphocytes/100 WBC (Bld) 19.7 % Low 20.0-40.0 [facility] Comment on above: Performed By: #### C BC, ADIFF, PRO, A1C, BMP, LIPID, ANEU, GFR #### [address] [address] Monocyte, Absolute 0.4 10 3/mcL Normal 0.1-1.4 [facility] Comment on above: Performed By: #### C BC, ADIFF, PRO, A1C, BMP, LIPID, ANEU, GFR #### [address] [address] Monocytes/100 WBC (Bld) 6.3 % Normal 2.0-13.0 [facility] Comment on above: Performed By: #### C BC, ADIFF, PRO, A1C, BMP, LIPID, ANEU, GFR #### [address] [address] Neutrophils/100 WBC (Bld) 72.8 % Normal 50.0-75.0 [facility] Comment on above: Performed By: #### C BC, ADIFF, PRO, A1C, BMP, LIPID, ANEU, GFR #### [address] [address] .GFRon 07-07-2024 GFR 117 ml/min/1.73sqm Normal [facility] Comment on above: Result Comment: GFR Population mean for , Non- Americans Ages 20-29 = 116 mL/min/1.73 sq.m. Ages 30-39 = 107 mL/min/1.73 sq.m. Ages 40-49 = 99 mL/min/1.73 sq.m. Ages 50-59 = 93 mL/min/1.73 sq.m. Ages 60-69 = 85 mL/min/1.73 sq.m. Ages 70+ = 75 mL/min/1.73 sq.m. Chronic Kidney Disease: Less than 60 mL/min/1.73 square meters End Stage Renal Disease: Less than 15 mL/min/1.73 square meters Performed By: #### C BC, ADIFF, PRO, A1C, BMP, LIPID, ANEU, GFR #### [address] [address] GFR Non- 97 ml/min/1.73sqm Normal [facility] Comment on above: Result Comment: GFR Population mean for , Non- Americans Ages 20-29 = 116 mL/min/1.73 sq.m. Ages 30-39 = 107 mL/min/1.73 sq.m. Ages 40-49 = 99 mL/min/1.73 sq.m. Ages 50-59 = 93 mL/min/1.73 sq.m. Ages 60-69 = 85 mL/min/1.73 sq.m. Ages 70+ = 75 mL/min/1.73 sq.m. Chronic Kidney Disease: Less than 60 mL/min/1.73 square meters End Stage Renal Disease: Less than 15 mL/min/1.73 square meters Performed By: #### C BC, ADIFF, PRO, A1C, BMP, LIPID, ANEU, GFR #### [address] [place] [place], [place] [address] .NEUABSon 07-07-2024 Neutrophil, Absolute 4.4 10 3/mcL Normal 2.3-8.1 [facility] Comment on above: Performed By: #### C BC, ADIFF, PRO, A1C, BMP, LIPID, ANEU, GFR #### [address] [address] A1Con 07-07-2024 Glucose [Mass/Vol] 114 mg/dL Normal [facility] Comment on above: Result Comment: Radha mated Average Glucose calculated by equation ((28.7xA1C)-46.7) Estimated average glucose (eAG) is a calculated value from Hemoglobin A1C and is hardware supplies sales representative of the average blood glucose level in the last 2-3 month period. Normal range: less than 114 mg/dL Performed By: #### C BC, ADIFF, PRO, A1C, BMP, LIPID, ANEU, GFR #### [address] [address] HbA1c (Bld) [Mass fraction] 5.6 % Normal 4.3-6.4 [facility] Comment on above: Performed By: #### C BC, ADIFF, PRO, A1C, BMP, LIPID, ANEU, GFR #### [address] [address] BMPon 07-07-2024 BUN/Creatinine Ratio 20 ratio Normal 7-27 [facility] Comment on above: Performed By: #### C BC, ADIFF, PRO, A1C, BMP, LIPID, ANEU, GFR #### [address] [address] Calcium [Mass/Vol] 8.8 mg/dL Normal 8.4-10.2 [facility] Comment on above: Performed By: #### C BC, ADIFF, PRO, A1C, BMP, LIPID, ANEU, GFR #### [address] [address] Chloride [Moles/Vol] 105 mmol/L Normal 98-107 [facility] Comment on above: Performed By: #### C BC, ADIFF, PRO, A1C, BMP, LIPID, ANEU, GFR #### [address] [address] CO2 [Moles/Vol] 25 mmol/L Normal 22-29 [facility] Comment on above: Performed By: #### C BC, ADIFF, PRO, A1C, BMP, LIPID, ANEU, GFR #### [address] [address] Creatinine [Mass/Vol] 0.71 mg/dL Normal 0.55-1.02 [facility] Comment on above: Result Comment: Test ing performed on Siemens Dimension EXL analyzer using a modified kinetic Quintin technique. Performed By: #### C BC, ADIFF, PRO, A1C, BMP, LIPID, ANEU, GFR #### [address] [address] Electrolyte Balance 9.0 mEq/L Normal 4.0-15.0 [facility] Comment on above: Performed By: #### C BC, ADIFF, PRO, A1C, BMP, LIPID, ANEU, GFR #### [place] [id number] Glucose [Mass/Vol] 97 mg/dL Normal 70-105 [facility] Comment on above: Performed By: #### C BC, ADIFF, PRO, A1C, BMP, LIPID, ANEU, GFR #### [address] [address] Potassium [Moles/Vol] 4.5 mmol/L Normal 3.5-5.1 [facility] Comment on above: Performed By: #### C BC, ADIFF, PRO, A1C, BMP, LIPID, ANEU, GFR #### [address] [address] Sodium [Moles/Vol] 139 mmol/L Normal 136-145 [facility] Comment on above: Performed By: #### C BC, ADIFF, PRO, A1C, BMP, LIPID, ANEU, GFR #### [address] [address] Urea nitrogen [Mass/Vol] 14 mg/dL Normal 7-18 [facility] Comment on above: Performed By: #### C BC, ADIFF, PRO, A1C, BMP, LIPID, ANEU, GFR #### [address] [address] CBCon 07-07-2024 Erythrocyte distribution width (RBC) [Ratio] 14.5 % Normal 11.5-15.5 [facility] Comment on above: Performed By: #### C BC, ADIFF, PRO, A1C, BMP, LIPID, ANEU, GFR #### [place] [id number] Hematocrit (Bld) [Volume fraction] 40.7 % Normal 34.0-46.0 [facility] Comment on above: Performed By: #### C BC, ADIFF, PRO, A1C, BMP, LIPID, ANEU, GFR #### [place] [id number] Hgb 13.3 G/dL Normal 12.0-16.0 [facility] Comment on above: Performed By: #### C BC, ADIFF, PRO, A1C, BMP, LIPID, ANEU, GFR #### [place] [id number] MCH (RBC) [Entitic mass] 28.0 pg Normal 27.0-33.0 [facility] Comment on above: Performed By: #### C BC, ADIFF, PRO, A1C, BMP, LIPID, ANEU, GFR #### [address] [address] MCHC 32.7 G/dL Normal 32.0-36.0 [facility] Comment on above: Performed By: #### C BC, ADIFF, PRO, A1C, BMP, LIPID, ANEU, GFR #### [address] [address] MCV (RBC) [Entitic vol] 85.9 fL Normal 80.0-99.0 [facility] Comment on above: Performed By: #### C BC, ADIFF, PRO, A1C, BMP, LIPID, ANEU, GFR #### [address] [address] Platelet 301 10 3/mcL Normal 150-450 [facility] Comment on above: Performed By: #### C BC, ADIFF, PRO, A1C, BMP, LIPID, ANEU, GFR #### [address] [address] Platelet mean volume (Bld) [Entitic vol] 8.2 fL Normal 6.6-10.5 [facility] Comment on above: Performed By: #### C BC, ADIFF, PRO, A1C, BMP, LIPID, ANEU, GFR #### [place] [address] RBC 4.74 10 6/mcL Normal 4.10-5.30 [facility] Comment on above: Performed By: #### C BC, ADIFF, PRO, A1C, BMP, LIPID, ANEU, GFR #### [place] [address] WBC 6.1 10 3/mcL Normal 4.5-10.8 [facility] Comment on above: Performed By: #### C BC, ADIFF, PRO, A1C, BMP, LIPID, ANEU, GFR #### [address] [address] LABORATORYOrdered By: SYSTEM SYSTEM on 07-07-2024 Basophils (Bld) [#/Vol] 0.0 103/mcL Normal 0.0 - 0.2 10^3/mcL AO Workflow SS Basophils/100 WBC (Bld) 0.5 % Normal 0.0 - 2.5 % AO Workflow SS Calcium [Mass/Vol] 8.8 mg/dL Normal 8.4 - 10. 2 mg/dL AO ADM SS Chloride [Moles/Vol] 105 mmol/L Normal 98 - 10 7 mmol/L AO ADM SS CO2 [Moles/Vol] 25 mmol/L Normal 22 - 29 mmol/L AO ADM SS Creatinine [Mass/Vol] 0.71 mg/dL Normal 0.55 - 1.02 mg/dL AO ADM SS Comment on above: Interpretive Data: T esting performed on Siemens Dimension EXL analyzer using a modified kinetic Quintin technique. Electrolyte Balance 9.0 mEq/L Normal 4.0 - 15 .0 mEq/L AO ADM SS Eosinophil, Absolute 0.0 103/mcL Normal 0.0 - 0 .7 10^3/mcL AO Workflow SS Eosinophils/100 WBC (Bld) 0.7 % Normal 0.0 - 7.0 % AO Workflow SS Erythrocyte distribution width (RBC) [Ratio] 14.5 % Normal 11.5 - 15.5 % AO Workflow SS GFR/1.73 sq M.predicted among blacks MDRD (S/P/Bld) [Vol rate/Area] 117 ml/min/1.73sqm Invalid Interpretation Code AO Chemistry S Comment on above: Interpretive Data: GFR Population mean for , Non- Americans Ages 20-29 = 116 mL/min/1.73 sq.m. Ages 30-39 = 107 mL/min/1.73 sq.m. Ages 40-49 = 99 mL/min/1.73 sq.m. Ages 50-59 = 93 mL/min/1.73 sq.m. Ages 60-69 = 85 mL/min/1.73 sq.m. Ages 70+ = 75 mL/min/1.73 sq.m. Chronic Kidney Disease: Less than 60 mL/min/1.73 square meters End Stage Renal Disease: Less than 15 mL/min/1.73 square meters GFR/1.73 sq M.predicted among non-blacks MDRD (S/P/Bld) [Vol rate/Area] 97 ml/min/1.73sqm Invalid Interpretation Code AO Chemistry S Comment on above: Interpretive Data: GFR Population mean for , Non- Americans Ages 20-29 = 116 mL/min/1.73 sq.m. Ages 30-39 = 107 mL/min/1.73 sq.m. Ages 40-49 = 99 mL/min/1.73 sq.m. Ages 50-59 = 93 mL/min/1.73 sq.m. Ages 60-69 = 85 mL/min/1.73 sq.m. Ages 70+ = 75 mL/min/1.73 sq.m. Chronic Kidney Disease: Less than 60 mL/min/1.73 square meters End Stage Renal Disease: Less than 15 mL/min/1.73 square meters Glucose [Mass/Vol] 97 mg/dL Normal 70 - 105 mg/dL AO ADM SS Glucose [Mass/Vol] 114 mg/dL Invalid Interpretation Code AO Chemistry S Comment on above: Interpretive Data: E stimated average glucose (eAG) is a calculated value from Hemoglobin A1C and is hardware supplies sales representative of the average blood glucose level in the last 2-3 month period. Normal range: less than 114 mg/dL HbA1c (Bld) [Mass fraction] 5.6 % Normal 4.3 - 6.4 % AO ADM SS Hematocrit (Bld) [Volume fraction] 40.7 % Normal 34.0 - 46.0 % AO Workflow SS Hemoglobin (Bld) [Mass/Vol] 13.3 G/dL Normal 12.0 - 16.0 G/dL AO Workflow SS INR Coag (PPP) [Relative time] 1.1 {INR} Invalid Interpretation Code AO [facility] SS Comment on above: Interpretive Data: Casey dior [employer] (CHEST, 1991, 102:312S-25S) recommended therapeutic range for oral anticoagulant therapy is: LOW RISK: Prophylaxis of venous thrombosis INR: 2.0-3.0 Treatment of pulmonary embolism 2.0-3.0 Prevention of systemic embolism 2.0-3.0 HIGH RISK: Mechanical prosthetic valves 2.5-3.5 Lymphocytes (Bld) [#/Vol] 1.2 103/mcL Normal 0.9 - 4.3 10^3/mcL AO Workflow SS Lymphocytes/100 WBC (Bld) 19.7 % Low 20.0 - 40.0 % AO Workflow SS MCH (RBC) [Entitic mass] 28.0 pg Normal 27.0 - 33.0 pg AO Workflow SS MCHC 32.7 G/dL Normal 32.0 - 36.0 G/dL AO Workflow SS MCV (RBC) [Entitic vol] 85.9 fL Normal 80.0 - 99.0 fL AO Workflow SS Monocytes (Bld) [#/Vol] 0.4 103/mcL Normal 0.1 - 1.4 10^3/mcL AO Workflow SS Monocytes/100 WBC (Bld) 6.3 % Normal 2.0 - 13.0 % AO Workflow SS Neutrophils (Bld) [#/Vol] 4.4 103/mcL Normal 2.3 - 8.1 10^3/mcL AO Workflow SS Neutrophils/100 WBC (Bld) 72.8 % Normal 50.0 - 75.0 % AO Workflow SS Platelet mean volume (Bld) [Entitic vol] 8.2 fL Normal 6.6 - 10.5 fL AO Workflow SS Platelets (Bld) [#/Vol] 301 103/mcL Normal 150 - 450 10^3/mcL AO Workflow SS Potassium [Moles/Vol] 4.5 mmol/L Normal 3.5 - 5.1 mmol/L AO ADM SS PT Coag (PPP) [Time] 12.4 s Normal 9.0 - 1 4.4 seconds AO [facility] SS RBC (Bld) [#/Vol] 4.74 106/mcL Normal 4.10 - 5.3 0 10^6/mcL AO Workflow SS Sodium [Moles/Vol] 139 mmol/L Normal 136 - 145 mmol/L AO ADM SS Urea nitrogen [Mass/Vol] 14 mg/dL Normal 7 - 18 mg/dL AO ADM SS Urea nitrogen/Creatinine [Mass ratio] 20 ratio Normal 7 - 27 ratio AO ADM SS WBC (Bld) [#/Vol] 6.1 103/mcL Normal 4.5 - 10.8 10^3/mcL AO Workflow SS LABORATORYOrdered By: Josafat Xiao on 07-07-2024 Cholesterol [Mass/Vol] 160 mg/dL Normal 0 - 200 mg/dL AO ADM SS Comment on above: Interpretive Data: C holesterol Reference Interval: Less than 200 Desirable 200-239 Borderline high risk 240 and above High risk Cholesterol in HDL [Mass/Vol] 60 mg/dL Normal 40 - 60 mg/dL AO ADM SS Cholesterol in LDL [Mass/Vol] 85 mg/dL Normal 0 - 130 mg/dL AO ADM SS Triglyceride [Mass/Vol] 77 mg/dL Normal 0 - 150 mg/dL AO ADM SS Comment on above: Interpretive Data: T riglyceride Reference Interval: Less than 150 Normal 150-199 Borderline high risk 200-499 High risk 500 or higher Very high risk LIPIDon 07-07-2024 Cholesterol [Mass/Vol] 160 mg/dL Normal 0-200 [facility] Comment on above: Result Comment: Chol esterol Reference Interval: Less than 200 Desirable 200-239 Borderline high risk 240 and above High risk Performed By: #### U ESAU RO UA #### [address] [place], [place] [address] Cholesterol in HDL [Mass/Vol] 60 mg/dL Normal 40-60 [facility] Comment on above: Performed By: #### U ESAU RO UA #### [id number] [place], [place] [address] Cholesterol in LDL [Mass/Vol] 85 mg/dL Normal 0-130 [facility] Comment on above: Performed By: #### U ESAU RO UA #### [place] [id number] [place], [place] [address] Triglyceride [Mass/Vol] 77 mg/dL Normal 0-150 [facility] Comment on above: Result Comment: Trig lyceride Reference Interval: Less than 150 Normal 150-199 Borderline high risk 200-499 High risk 500 or higher Very high risk Performed By: #### U ESAU RO UA #### [place] [place], [place] [address] PROon 07-07-2024 PT Coag (PPP) [Time] 12.4 s Normal 9.0-14.4 [facility] Comment on above: Performed By: #### U ESAU RO UA #### [place] [id number] [place], [place] [address] PT International Ratio 1.1 Normal [facility] Comment on above: Result Comment: [employer] [place] [employer] (CHEST, 1992, 102:312S-25S) recommended therapeutic range for oral anticoagulant therapy is: LOW RISK: Prophylaxis of venous thrombosis INR: 2.0-3.0 Treatment of pulmonary embolism 2.0-3.0 Prevention of systemic embolism 2.0-3.0 HIGH RISK: Mechanical prosthetic valves 2.5-3.5 Performed By: #### U ESAU RO, SHEILA #### [address] [address] Jac 03-29-2024 CNPN Telephone ([id number]) ---- HAZEL QUINN ([id number]) 1995 F Date Time Provider Department 03/29/24 YOBANI PALOMO NE50MN During your visit today, we recorded the following information about you: Cynthia Swanson RN 03/29/2024 3:25 PM Signed Cody Gil PA-C P Neur Epilepsy [facility] Message Pool Please sent patient OSH lab form for CBC, CMP, and ZNS level. ====== [facility], Laboratory . PH: [phone] Order Form completed, forwarded for signature via [employer] to ROSALEE. A copy to lab fax. JANET Renner Joyce, RN 03/29/2024 3:31 PM Signed Orders signed. Kiki Marie RN Allergies As of Date: 03/29/2024 Noted Allergy Reaction PENICILLINS 05/28/2019 2 - Rash PERCOCET (OXYCODONE-ACETAMIN OPHEN)06/15/2019 2 - Rash TAPE (ADHESIVE TAPE-SILICONES) 06/15/2019 14 - Other: See Comments Comments: Paper tape only, causes irritation Date Reviewed: 10/02/2019 Reviewed by: Trinh Monson ([place]) - Fully Assessed Reason for Visit: Lab Orders [8258] Prescriptions as of 03/29/2024 - zonisamide (ZONEGRAN) 100 mg capsule Take 4 capsules by mouth daily at bedtime. - sertraline (ZOLOFT) 100 mg tablet Take 1.5 tablets by mouth once daily. 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 HISTORY: ORDERING SYSTEM PROVIDED HISTORY: Reason for Exam: multiple masses of back, FINDINGS: 6 lesions are identified in the lower back, 3 on the right and 3 on the left. These are all located in the subcutaneous fat. All these lesions have fairly similar sonographic appearance. These are all mild to moderately echogenic relative to adjacent subcutaneous fat. Some of the lesions are fairly well-circumscribed but not clearly encapsulated. None of these shows significant vascularity. On the left side the most cephalad lesion is a largest 29 x 15 x 16 mm. 2 other left-sided lesions are 17 x 12 x 10 mm and 7 x 6 x 8 mm. On the right side the largest lesion is most cephalad and medial 17 by 22 x 11 mm. 2 other right-sided lesions are 14 x 10 x 16 mm and 5 x 5 x 4 mm. IMPRESSION: There are multiple soft tissue masses in the soft tissue of the lower back on both sides as described. These lesions could be fat containing masses such as lipoma. Ultrasound however cannot be histologically specific and cannot predict biological behavior of soft tissue lesions. The need for follow-up evaluation or intervention should be predicated on clinical criteria including pain and interval increase in size. 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 Parental targeted microarray testing (at no additional charge) is recommended to determine if the 862 Kb deletion of 2q13 is de marvin or inherited, which may help interpret clinical significance. Cheyenne De Souza, TON CONTAINER FILLER-MAGNETIZER Normal [facility] .Auto Diffon 07-01-2023 Basophil, Absolute 0.0 10 3/mcL Normal 0.0-0.2 [facility] ([place]) Comment on above: Performed By: #### C BC, VIDH, ANEU, ADIFF, FT4, TSH, FE #### [address] [address] Basophils/100 WBC (Bld) 0.4 % Normal 0.0-2.5 [facility] ([place]) Comment on above: Performed By: #### C BC, VIDH, ANEU, ADIFF, FT4, TSH, FE #### [address] [address] Eosinophil, Absolute 0.2 10 3/mcL Normal 0.0-0.4 [facility] ([place]) Comment on above: Performed By: #### C BC, VIDH, ANEU, ADIFF, FT4, TSH, FE #### [address] [address] Eosinophils/100 WBC (Bld) 2.3 % Normal 0.0-7.0 [facility] ([place]) Comment on above: Performed By: #### C BC, VIDH, ANEU, ADIFF, FT4, TSH, FE #### [address] [address] Lymphocyte, Absolute 1.6 10 3/mcL Normal 0.8-3.9 [facility] ([place]) Comment on above: Performed By: #### C BC, VIDH, ANEU, ADIFF, FT4, TSH, FE #### [address] [address] Lymphocytes/100 WBC (Bld) 20.5 % Normal 10.0-50.0 [facility] ([place]) Comment on above: Performed By: #### C BC, VIDH, ANEU, ADIFF, FT4, TSH, FE #### [address] [address] Monocyte, Absolute 0.6 10 3/mcL Normal 0.2-1.0 [facility] ([place]) Comment on above: Performed By: #### C BC, VIDH, ANEU, ADIFF, FT4, TSH, FE #### [address] [address] Monocytes/100 WBC (Bld) 8.0 % Normal 1.7-13.0 [facility] ([place]) Comment on above: Performed By: #### C BC, VIDH, ANEU, ADIFF, FT4, TSH, FE #### [address] [address] Neutrophils/100 WBC (Bld) 68.8 % Normal 37.0-80.0 [facility] ([place]) Comment on above: Performed By: #### C BC, VIDH, ANEU, ADIFF, FT4, TSH, FE #### [address] [address] .NEUABSon 07-01-2023 Neutrophil, Absolute 5.4 10 3/mcL Normal 2.9-6.2 [facility] ([place]) Comment on above: Performed By: #### C BC, VIDH, ANEU, ADIFF, FT4, TSH, FE #### [address] [address] CBCon 07-01-2023 Erythrocyte distribution width (RBC) [Ratio] 16.4 % High 11.5-14.5 [facility] ([place]) Comment on above: Performed By: #### C BC, VIDH, ANEU, ADIFF, FT4, TSH, FE #### [address] [address] Hematocrit (Bld) [Volume fraction] 37.7 % Normal 37.0-47.0 [facility] ([place]) Comment on above: Performed By: #### C BC, VIDH, ANEU, ADIFF, FT4, TSH, FE #### [address] [address] Hgb 12.2 G/dL Normal 12.0-16.0 [facility] ([place]) Comment on above: Performed By: #### C BC, VIDH, ANEU, ADIFF, FT4, TSH, FE #### [address] [address] MCH (RBC) [Entitic mass] 25.3 pg Low 27.0-31.2 [facility] ([place]) Comment on above: Performed By: #### C BC, VIDH, ANEU, ADIFF, FT4, TSH, FE #### [address] [address] MCHC 32.4 G/dL Low 33.0-37.0 [facility] ([place]) Comment on above: Performed By: #### C BC, VIDH, ANEU, ADIFF, FT4, TSH, FE #### [address] [address] MCV (RBC) [Entitic vol] 78.3 fL Low 80.0-94.0 [facility] ([place]) Comment on above: Performed By: #### C BC, VIDH, ANEU, ADIFF, FT4, TSH, FE #### [address] [address] Platelet 348 10 3/mcL Normal 130-400 [facility] ([place]) Comment on above: Performed By: #### C BC, VIDH, ANEU, ADIFF, FT4, TSH, FE #### [address] [address] Platelet mean volume (Bld) [Entitic vol] 8.4 fL Normal 7.4-10.4 [facility] ([place]) Comment on above: Performed By: #### C BC, VIDH, ANEU, ADIFF, FT4, TSH, FE #### [address] [address] RBC 4.82 10 6/mcL Normal 4.20-5.40 [facility] ([place]) Comment on above: Performed By: #### C BC, VIDH, ANEU, ADIFF, FT4, TSH, FE #### [address] [address] WBC 7.8 10 3/mcL Normal 4.6-10.8 [facility] ([place]) Comment on above: Performed By: #### C BC, VIDH, ANEU, ADIFF, FT4, TSH, FE #### [id number] [place], [place] [address] FEon 07-01-2023 Iron [Mass/Vol] 32 ug/dL Low 50-170 [facility] ([place]) Comment on above: Performed By: #### C BC, VIDH, ANEU, ADIFF, FT4, TSH, FE #### [id number] [place], [place] [address] FT4on 07-01-2023 Free T4 [Mass/Vol] 0.89 ng/dL Normal 0.76-1.46 [facility] ([place]) Comment on above: Performed By: #### C BC, VIDH, ANEU, ADIFF, FT4, TSH, FE #### [address] [address] LABORATORYOrdered By: SYSTEM SYSTEM on 07-01-2023 25-hydroxyvitamin D3 [Mass/Vol] 24.7 ng/mL Invalid Interpretation Code AO ADM SS Comment on above: Interpretive Data: I nterpretive Values Based on Total 25([place]) Vitamin D: Deficient <20 ng/mL Insufficient 20 - <30 ng/mL Sufficient 30-100 ng/mL Basophil, Absolute 0.0 103/mcL Invalid Interpretation Code 0.0 - 0.2 10^3/mcL AO Workflow SS Basophils/100 WBC (Bld) 0.4 % Invalid Interpretation Code 0.0 - 2.5 % AO Workflow SS Eosinophil, Absolute 0.2 103/mcL Invalid Interpretation Code 0.0 - 0.4 10^3/mcL AO Workflow SS Eosinophils/100 WBC (Bld) 2.3 % Invalid Interpretation Code 0.0 - 7.0 % AO Workflow SS Erythrocyte distribution width (RBC) [Ratio] 16.4 % Invalid Interpretation Code 11.5 - 14.5 % AO Workflow SS Free T4 [Mass/Vol] 0.89 ng/dL Invalid Interpretation Code 0.76 - 1.46 ng/dL AO ADM SS Hematocrit (Bld) [Volume fraction] 37.7 % Invalid Interpretation Code 37.0 - 47.0 % AO Workflow SS Hemoglobin (Bld) [Mass/Vol] 12.2 G/dL Invalid Interpretation Code 12.0 - 16.0 G/dL AO Workflow SS Iron [Mass/Vol] 32 ug/dL Invalid Interpretation Code 50 - 170 mcg/dL AO ADM SS Lymphocyte, Absolute 1.6 103/mcL Invalid Interpretation Code 0.8 - 3.9 10^3/mcL AO Workflow SS Lymphocytes/100 WBC (Bld) 20.5 % Invalid Interpretation Code 10.0 - 50.0 % AO Workflow SS MCH (RBC) [Entitic mass] 25.3 pg Invalid Interpretation Code 27.0 - 31.2 pg AO Workflow SS MCHC 32.4 G/dL Invalid Interpretation Code 33.0 - 37.0 G/dL AO Workflow SS MCV (RBC) [Entitic vol] 78.3 fL Invalid Interpretation Code 80.0 - 94.0 fL AO Workflow SS Monocyte, Absolute 0.6 103/mcL Invalid Interpretation Code 0.2 - 1.0 10^3/mcL AO Workflow SS Monocytes/100 WBC (Bld) 8.0 % Invalid Interpretation Code 1.7 - 13.0 % AO Workflow SS Neutrophil, Absolute 5.4 103/mcL Invalid Interpretation Code 2.9 - 6.2 10^3/mcL AO Workflow SS Neutrophils/100 WBC (Bld) 68.8 % Invalid Interpretation Code 37.0 - 80.0 % AO Workflow SS Platelet mean volume (Bld) [Entitic vol] 8.4 fL Invalid Interpretation Code 7.4 - 10.4 fL AO Workflow SS Platelets (Bld) [#/Vol] 348 103/mcL Invalid Interpretation Code 130 - 400 10^3/mcL AO Workflow SS RBC (Bld) [#/Vol] 4.82 106/mcL Invalid Interpretation Code 4.20 - 5.40 10^6/mcL AO Workflow SS TSH Qn 1.91 m[IU]/L Invalid Interpretation Code 0.36 - 3.74 mcIU/mL AO ADM SS WBC (Bld) [#/Vol] 7.8 103/mcL Invalid Interpretation Code 4.6 - 10.8 10^3/mcL AO Workflow SS TSHon 07-01-2023 TSH Qn 1.91 m[IU]/L Normal 0.36-3.74 [facility] ([place]) Comment on above: Performed By: #### C BC, VIDH, ANEU, ADIFF, FT4, TSH, FE #### [id number] [place], [place] [address] VIDHon 07-01-2023 Vit. D 25-Hydroxy 24.7 ng/mL Normal [facility] ([place]) Comment on above: Result Comment: Inte rpretive Values Based on Total 25([place]) Vitamin D: Deficient <20 ng/mL Insufficient 20 - <30 ng/mL Sufficient 30-100 ng/mL Performed By: #### C BC, VIDH, ANEU, ADIFF, FT4, TSH, FE #### [facility] [address] [place], [place] [address] No Panel Informationon 05-27 Culture Urine 10,000 - 50,000 cfu/ml Multiple bacterial morphotypes present. Probable Contamination. Suggest recollection if clinically indicated. [facility] LABORATORYOrdered By: SYSTEM SYSTEM on 09-21-2022 Albumin BCP dye [Mass/Vol] 3.5 G/dL Invalid Interpretation Code 3.5 - 5.0 G/dL AO ADM SS Albumin/Globulin [Mass ratio] 0.9 {ratio} Invalid Interpretation Code 1.1 - 2.5 ratio AO ADM SS ALP [Catalytic activity/Vol] 90 U/L Invalid Interpretation Code 40 - 135 U/L AO ADM SS ALT With P-5'-P [Catalytic activity/Vol] 26 U/L Invalid Interpretation Code 14 - 59 U/L AO ADM SS AST With P-5'-P [Catalytic activity/Vol] 16 U/L Invalid Interpretation Code 10 - 40 U/L AO ADM SS Bilirubin [Mass/Vol] 0.3 mg/dL Invalid Interpretation Code 0.2 - 1.0 mg/dL AO ADM SS Calcium [Mass/Vol] 9.3 mg/dL Invalid Interpretation Code 8.4 - 10.2 mg/dL AO ADM SS Chloride [Moles/Vol] 105 mmol/L Invalid Interpretation Code 98 - 107 mmol/L AO ADM SS CO2 [Moles/Vol] 22 mmol/L Invalid Interpretation Code 22 - 29 mmol/L AO ADM SS Creatinine [Mass/Vol] 0.65 mg/dL Invalid Interpretation Code 0.55 - 1.02 mg/dL AO ADM SS Electrolyte Balance 13.0 mEq/L Invalid Interpretation Code 4.0 - 15.0 mEq/L AO ADM SS Free T4 [Mass/Vol] 0.96 ng/dL Invalid Interpretation Code 0.76 - 1.46 ng/dL AO ADM SS GFR 131 ml/min/1.73sqm Invalid Interpretation Code AO Chemistry S GFR Non- 108 ml/min/1.73sqm Invalid Interpretation Code AO Chemistry S Globulin 4.0 G/dL Invalid Interpretation Code AO ADM SS Glucose [Mass/Vol] 90 mg/dL Invalid Interpretation Code 70 - 105 mg/dL AO ADM SS Potassium [Moles/Vol] 3.8 mmol/L Invalid Interpretation Code 3.5 - 5.1 mmol/L AO ADM SS Protein [Mass/Vol] 7.5 G/dL Invalid Interpretation Code 6.4 - 8.2 G/dL AO ADM SS Sodium [Moles/Vol] 140 mmol/L Invalid Interpretation Code 136 - 145 mmol/L AO ADM SS TSH Qn 0.66 m[IU]/L Invalid Interpretation Code 0.36 - 3.74 mcIU/mL AO ADM SS Urea nitrogen [Mass/Vol] 8 mg/dL Invalid Interpretation Code 7 - 18 mg/dL AO ADM SS Urea nitrogen/Creatinine [Mass ratio] 12 ratio Invalid Interpretation Code 7 - 27 ratio AO ADM SS LABORATORYOrdered By: Leelee Lomax on 09-21-2022 Cholesterol [Mass/Vol] 177 mg/dL Invalid Interpretation Code 0 - 200 mg/dL AO ADM SS Cholesterol in HDL [Mass/Vol] 51 mg/dL Invalid Interpretation Code 40 - 60 mg/dL AO ADM SS Cholesterol in LDL [Mass/Vol] 102 mg/dL Invalid Interpretation Code 0 - 130 mg/dL AO ADM SS Triglyceride [Mass/Vol] 119 mg/dL Invalid Interpretation Code 0 - 150 mg/dL AO ADM SS LABORATORYOrdered By: Asael Lozano on 03-29-2022 ADMITTED TO INTENSIVE CARE UNIT FOR CONDITION OF INTEREST:FIND:PT:^PAT IENT:ORD: No (03/29/22 7:53 PM) Invalid Interpretation Code AO Auto Urine SS EMPLOYED IN A HEALTHCARE SETTING:FIND:PT:^MAL ENT:ORD: Unknown (03/29/22 7:53 PM) Invalid Interpretation Code AO Auto Urine SS FIRST TEST FOR CONDITION OF INTEREST:FIND:PT:^PAT IENT:ORD: Unknown (03/29/22 7:53 PM) Invalid Interpretation Code AO Auto Urine SS HAS SYMPTOMS RELATED TO CONDITION OF INTEREST:FIND:PT:^PAT IENT:ORD: Yes (03/29/22 7:53 PM) Invalid Interpretation Code AO Auto Urine SS Illness or injury onset date and time [id number] Invalid Interpretation Code AO Auto Urine SS Patient was hospitalized because of this condition No (03/29/22 7:53 PM) Invalid Interpretation Code AO Auto Urine SS status Not (03/29/22 7:53 PM) Invalid Interpretation Code AO Auto Urine SS RESIDES IN A CONGREGATE CARE SETTING:FIND:PT:^MAL ENT:ORD: No (03/29/22 7:53 PM) Invalid Interpretation Code AO Auto Urine SS SARS-CoV-2 (COVID-19) RNA HERLINDA+probe Ql (Unsp spec) Positive results are indicative of the presence of SARS-CoV-2 RNA; clinical correlation with patient history and other diagnostic information is necessary to determine patient infection status. Positive results do not rule out bacterial infection or co-infection with other viruses. The agent detected may not be the definite cause of disease. Laboratories within the [facility] and its territories are required to report all positive results to the appropriate public health authorities.Detecti on of analyte target(s) does not imply that the corresponding virus(es) are infectious or are the causative agents for clinical symptoms.There is a risk of false positive values resulting from cross-contamination by target organisms, their nucleic acids or amplified product, or from non-specific signals in the assay.GRACIELA SARS-CoV-2 Assay is a Real-Time reverse-transcripta se polymerase chain reaction (RT-PCR) based qualitative in vitro diagnostic test intended for the qualitative detection of nucleic acid from the SARS-CoV-2 in nasopharyngeal swab specimens collected from individuals suspected of COVID-19 by their healthcare provider. Testing is limited to laboratories certified under the Clinical Laboratory Improvement Amendments of 1988 (CLIA), 42 U.S.C. 263a, to perform moderate and high complexity tests. Invalid Interpretation Code AO Auto Urine SS Vital Signs Date Time Vital Sign Value Performing Clinician [facility] 06-24-2025 15:34-0400 Body height 162.6 cm Arline Mcgregor MD Work Phone: [facility] 06-24-2025 15:34-0400 Body mass index (BMI) [Ratio] 63.13 kg/m2 Arline Mcgregor MD Work Phone: [facility] [employer] 06-24-2025 15:34-0400 Body weight 166.83 kg Arline Mcgregor MD Work Phone: [facility] [employer] 06-24-2025 15:34-0400 Diastolic blood pressure 83 mm[Hg] Arline Mcgregor MD Work Phone: [facility] [employer] 06-24-2025 15:34-0400 Heart rate 84 /min Arline Mcgregor MD Work Phone: [facility] [employer] 06-24-2025 15:34-0400 Systolic blood pressure 180 mm[Hg] Arline Mcgregor MD Work Phone: [facility] [employer] 04-02-2025 08:52-0400 Body height 162.6 cm Arline Mcgregor MD Work Phone: [facility] [employer] 04-02-2025 08:52-0400 Body mass index (BMI) [Ratio] 63.44 kg/m2 Arline Mcgregor MD Work Phone: [facility] [employer] 04-02-2025 08:52-0400 Body weight 167.65 kg Arline Mcgregor MD Work Phone: [facility] [employer] 04-02-2025 08:52-0400 Diastolic blood pressure 87 mm[Hg] Arline Mcgregor MD Work Phone: [facility] [employer] 04-02-2025 08:52-0400 Heart rate 89 /min Arline Mcgregor MD Work Phone: [facility] [employer] 04-02-2025 08:52-0400 Systolic blood pressure 143 mm[Hg] Arline Mcgregor MD Work Phone: [facility] 01-15-2025 01:02-0400 Heart rate 86 /min AMBER MARCUS MD [facility] 01-15-2025 01:02-0400 Respiratory rate 18 /min AMBER MARCUS MD [facility] 01-14-2025 23:26-0400 Body temperature 98.24 [degF] AMBER MARCUS MD [facility] 01-14-2025 23:26-0400 Body weight 145 kg AMBER MARCUS MD [facility] 01-14-2025 23:26-0400 Diastolic Blood Pressure Non-Invasive 97 mm[Hg] AMBER MARCUS MD [facility] 01-14-2025 23:26-0400 Heart rate 105 /min AMBER MARCUS MD [facility] 01-14-2025 23:26-0400 Respiratory rate 20 /min AMBER MARCUS MD [facility] 01-14-2025 23:26-0400 Systolic Blood Pressure Non-Invasive 148 mm[Hg] AMBER MARCUS MD [facility] 03-29-2022 22:54-0400 Diastolic blood pressure 84 mm[Hg] UCHE ROOT MD [facility] 03-29-2022 22:54-0400 Heart rate 99 /min UCHE ROOT MD [facility] 03-29-2022 22:54-0400 Respiratory rate 18 /min UCHE ROOT MD [facility] 03-29-2022 22:54-0400 Systolic blood pressure 131 mm[Hg] UCHE ROOT MD [facility] 03-29-2022 19:41-0400 Body temperature 98.06 [degF] UCHE ROOT MD [facility] 03-29-2022 19:41-0400 Diastolic blood pressure 84 mm[Hg] UCHE ROOT MD [facility] 03-29-2022 19:41-0400 Heart rate 120 /min UCHE ROOT MD [facility] 03-29-2022 19:41-0400 Respiratory rate 18 /min UCHE ROOT MD [facility] 03-29-2022 19:41-0400 Systolic blood pressure 137 mm[Hg] UCHE ROOT MD [facility] 03-07-2022 23:28-0400 Body temperature 98.06 [degF] KELLEY ROMAN MD [facility] 03-07-2022 23:28-0400 Diastolic blood pressure 92 mm[Hg] KELLEY ROMAN MD [facility] 03-07-2022 23:28-0400 Heart rate 98 /min KELLEY ROMAN MD [facility] 03-07-2022 23:28-0400 Mean blood pressure 106 mm[Hg] KELLEY ROMAN MD [facility] 03-07-2022 23:28-0400 Respiratory rate 18 /min KELLEY ROMAN MD [facility] 03-07-2022 23:28-0400 Systolic blood pressure 135 mm[Hg] KELLEY ROMAN MD [facility] Encounters Encounter Date Encounter Type Care Provider Facility Start: 06-24-2025 End: 06-24-2025 Office outpatient visit 25 minutes Arline Mcgregor MD Work Phone: [facility] Comment on above: BMI 60.0-69.9, adult (CMS/HCC) (Primary Dx); Class 3 severe obesity due to excess calories with serious comorbidity and body mass index (BMI) of 60.0 to 69.9 in adult (CMS/HCC); HERNAN on CPAP; Pre-diabetes Start: 06-24-2025 End: 06-24-2025 ambulatory [facility] Start: 04-02-2025 End: 04-02-2025 Office outpatient new 45 minutes Arline Mcgregor MD Work Phone: [facility] Comment on above: BMI 60.0-69.9, adult (HCC) (Primary Dx); Class 3 severe obesity due to excess calories with serious comorbidity and body mass index (BMI) of 60.0 to 69.9 in adult; HERNAN on CPAP Start: 04-02-2025 End: 04-02-2025 ambulatory [facility] Start: 02-05-2025 End: 02-05-2025 ambulatory [facility] Comment on above: Resources Start: 02-05-2025 End: 02-05-2025 E-mail encounter from caregiver [facility] Start: 02-05-2025 End: 02-05-2025 Telephone encounter Carmela [facility] Comment on above: Social Work Services Start: 01-29-2025 End: 01-29-2025 ambulatory ULICES ELLISAMRITA RUFF [facility] Facility:[facility] Start: 01-26-2025 End: 01-26-2025 ambulatory LETITIA CRISSY Facility:[facility] Start: 01-26-2025 End: 01-26-2025 Patient encounter procedure LETITIA CRISSY [facility] Start: 01-14-2025 End: 01-15-2025 Emergency department patient visit AMBER MARCUS MD [facility] Start: 08-14-2024 End: 08-14-2024 Subsequent hospital visit by physician Cheyenne De Souza APRN-MAGNETIZER Work Phone: [facility] Comment on above: Family history of ge ne mutation Start: 08-14-2024 End: 08-14-2024 ambulatory NO PRIMARY CARE [facility] Start: 07-07-2024 End: 07-07-2024 ambulatory ASHLEY PAULINOLATRICE TON CONTAINER FILLER-MAGNETIZER Facility:[facility] Start: 07-07-2024 End: 07-07-2024 Patient encounter procedure 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 [facility] Start: 03-29-2024 Telephone encounter Yobani joiner MD Work Phone: Neurology Comment on above: Lab Orders Start: 03-29-2024 End: 03-29-2024 ambulatory Cody Cafaro PA-C Work Phone: Neurology Comment on above: 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 status epilepticus, unspecified epilepsy type (HCC) (Primary Dx) Start: 03-29-2024 End: 03-29-2024 Telemedicine consultation with patient Cody Cafaro PA-C Work Phone: Neurology Start: 03-19-2024 End: 07-03-2024 Refill Yobani Palomo MD Work Phone: Neurology Comment on above: Refill Request Start: 01-24-2024 End: 01-25-2024 ambulatory ASHLEY WHITE Facility:[facility] Start: 01-24-2024 End: 01-24-2024 Patient encounter procedure ASHLEY PAULINOLATRICE TON CONTAINER FILLER-MAGNETIZER [facility] Start: 07-20-2023 End: 07-21-2023 ambulatory ASHLEY WHITE Facility:[facility] Start: 07-20-2023 End: 07-20-2023 Patient encounter procedure DANIELA CONTRERAS PA-C [facility] Start: 07-01-2023 End: 07-02-2023 ambulatory ASHLEY WHITE Facility:[facility] Start: 07-01-2023 End: 07-01-2023 Patient encounter procedure DANIELA BEN BAER [facility] Start: 05-27-2023 End: 06-01-[address] MACARENA DRIVER DO Facility:[facility] Start: 05-27-2023 End: 05-31-[address] MACARENA DRIVER DO [facility] Start: 03-09-2023 End: 03-09-2023 ambulatory Elsa Cowart TON CONTAINER FILLER.MAGNETIZER Work Phone: Neurology Comment on above: 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 status epilepticus, unspecified epilepsy type (HCC) Start: 03-09-2023 End: 03-09-2023 Telemedicine consultation with patient Elsa Cowart TON CONTAINER FILLER.MAGNETIZER Work Phone: [facility] Start: 09-21-2022 End: 09-21-2022 Patient encounter procedure 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 [facility] Start: 08-30-2022 Telephone encounter Yobani joiner MD Work Phone: Neurology Comment on above: Release Of Medical R ecords ([place]) Start: 03-29-2022 End: 03-29-2022 Emergency department patient visit UCHE ROOT MD [facility] Start: 03-07-2022 End: 03-07-2022 Emergency department patient visit KELLEY ROMAN MD [facility] Start: 10-30-2021 End: 10-30-2021 ambulatory [facility] [facility] Procedures Date Procedure Procedure Detail Performing Clinician Start: 02-23-2017 Excision KELLEY Villalta MD Comment on above: large sebaceous cyst of abdomen, AOH. Dr. Fernández Start: 03-17-2016 delivery only KELLEY ROMAN MD Laparoscopy KELLEY ROMAN MD Plan of Treatment Date Care Activity Detail Author Start: 2068 RSV Immunization for Adults (1 - 1-dose 75+ series) RSV Immunization for Adults (1 - 1-dose 75+ series) [facility] Start: 2043 Zoster Vaccines (1 o f 2) Zoster Vaccines (1 of 2) [facility] Start: 08-15-2028 DTaP/Tdap/Td Vaccine s (10 - Td or Tdap) DTaP/Tdap/Td Vaccines (10 - Td or Tdap) [facility] Start: 08-15-2028 Urine microalbumin profile DTaP,Tdap,Td Vaccine (9 - Td or Tdap) [facility] Start: 08-12-2025 End: 08-12-2025 Patient encounter procedure 08/12/2025 7:30 AM EST Office Visit [facility] Weight [facility] [address] [place] [address] [phone] Arline Mcgregor MD [address] [place] [phone] [facility] Weight Management [facility] Start: 06-24-2025 End: 06-24-2026 CORTISOL, LC/MS, SALIVA ([facility]) CORTISOL, LC/MS, SALIVA ([facility]) Lab Routine BMI 60.0-69.9, adult (CMS/[facility]) Class 3 severe obesity due to excess calories with serious comorbidity and body mass index (BMI) of 60.0 to 69.9 in adult (CMS/HCC) Expected: 06/24/2025 (Approximate), Expires: 06/24/2026 [facility] Work Phone: Comment on above: Expected: 06/24/2025 (Approximate), Expires: 06/24/2026 Start: 05-14-2025 End: 05-14-2025 Patient encounter procedure 05/14/2025 7:50 AM EDT Office Visit [facility] Weight Management [facility] [address] [place] [phone] Arline Mcgregor MD [address] [place] [address] [facility] Weight Management [facility] Start: 05-13-2025 COVID-19 Vaccine ( season) COVID-19 Vaccine () [facility] Start: 05-13-2025 Influenza vaccination [facility] Start: 05-13-2024 COVID-19 (2023-10 5 season) COVID-19 ( season) [facility] Start: 05-13-2024 Covid-19 Vaccine () Covid-19 Vaccine () [facility] Start: 05-13-2024 FLU (#1) FLU (#1) [facility] Start: 05-13-2024 Influenza vaccination Influenza Vacc ine (#1) [facility] Start: 03-29-2024 End: 06-28-2024 CBC panel - Blood by Automated count COMPLETE BLOOD COUNT Lab Routine Nonintractable epilepsy without status epilepticus, unspecified epilepsy type (HCC) Expected: 03/29/2024, Expires: 06/28/2024 [facility] Comment on above: Expected: 03/29/2024 , Expires: 06/28/2024 Start: 03-29-2024 End: 06-28-2024 Comprehensive metabolic 2000 panel - Serum or Plasma COMPREHENSIVE METABOLIC PANEL Lab Routine Nonintractable epilepsy without status epilepticus, unspecified epilepsy type (HCC) Expected: 03/29/2024, Expires: 06/28/2024 [facility] Comment on above: Expected: 03/29/2024 , Expires: 06/28/2024 Start: 03-29-2024 End: 06-28-2024 Zonisamide [Mass/volume] in Serum or Plasma ZONISAMIDE Lab Routine Nonintractable epilepsy without status epilepticus, unspecified epilepsy type (HCC) Expected: 03/29/2024, Expires: 06/28/2024 [facility] Work Phone: Comment on above: Expected: 03/29/2024 , Expires: 06/28/2024 Start: 2023 Screening for malign ant neoplasm of cervix [facility] Start: 05-13-2023 Covid-19 Vaccine ( season) Covid-19 Vaccine ( season) [facility] Start: 05-13-2023 Influenza vaccination INFLUENZA (Sea son Ended) [facility] Start: 05-13-2022 Influenza vaccination INFLUENZA (#1) [facility] Start: 07-03-2015 MMR (1 of 1 - Standa rd series) MMR (1 of 1 - Standard series) [facility] Start: 07-03-2015 Varicella (1 of 2 - 13+ 2-dose series) Varicella (1 of 2 - 13+ 2-dose series) [facility] Start: 2014 Microscopic observat ion [Identifier] in Cervix by Cyto stain Pap Smear [facility] Start: 2014 PAP TESTING PAP TESTING [facility] Start: 2014 Screening for malign ant neoplasm of cervix [facility] Start: 2012 Hepatitis B (1 of 3 - 19+ 3-dose series) Hepatitis B (1 of 3 - 19+ 3-dose series) [facility] Start: 2012 Urine microalbumin profile DTAP,TDAP,TD (1 - Tdap) [facility] Start: 2011 HEPATITIS C SCREENING HEPATITIS C [facility] Start: 2011 Hepatitis C screening Hepatitis C [facility] Start: 2011 HIV SCREENING HIV SCREENING [facility] Start: 2011 HIV screening HIV Screening [facility] Start: 2009 MenB (1 of 2 - MenB 2-Dose Series Bexsero) MenB (1 of 2 - MenB 2-Dose Series Bexsero) [facility] Start: 2006 Varicella vaccination Varicell a Vaccines (1 of 2 - 13+ 2-dose series) [facility] Start: 2005 Depression Monitoring Depression Mon itoring [facility] Start: 2000 Tetanus Diphtheria a nd Pertussis Vaccines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 [] Inexperienced [place] [] Old-bc-Gxtlmjf Doer [] Set-Routine Repeater [] Bhjgy-hzv-Pawdc Sufferer [] Lw-plgn-yp-Exercise Protester [] Emotional Data Entry Clerk [] Mlr-Xgmc-Ssqflr Sufferer [] Persistent Procrastinator [] Can?t-Say-No Pleaser [] Fast Pacer [] Pessimistic Thinker [] Unrealistic Achiever This patients demonstrates the following behaviors as they relate to her eating:structured She eats approximately 5-6 times per day. Her last meal/snack was at 6 pm. Plan: Obesity stable Continue current management, start weight loss program Focus on the meal structure, composition and portion control Discuss feeding and fasting period Discuss healthy lifestyle approach instead of dieting Discuss meal composition Discuss portion control Discuss meal planning including meal replacement, batch cooking, backup systems Bariatric surgery is the last option Discuss how to implement the changes Discuss now to start PA with fitness building Discuss weight loss medications including the mechanism of action, side effects, efficacy and health insurance coverage limitations. Provided additional information regarding the corresponding websites. HERNAN Zepbound FDA approved for HERNAN and weight Discuss side effects in details Continue current management, continue weight loss program stable Advised patient that they are cleared medically to proceed with enrollment in our non-surgical weight loss management program Goals: 3 month weight goal: 20 lbs 6 month weight goal: 20 lbs 12 month weight goal: 20 lbs Tests Labwork:none - to be drawn 2 weeks prior to first physician follow up visit Additional Labwork: None - to be drawn 2 weeks prior to first physician follow up visit Consultations: Cardiology Risk Stratification: None Pulmonary Evaluation: None Other Consultations:None Obtain prior medical records from: Available record is reviewed [] Refer for Surgical Weight Loss Evaluation Mail labwork order with schedule Current Meds Patient's Medications New Prescriptions TIRZEPATIDE-WEIGHT MANAGEMENT (ZEPBOUND) 2.5 MG/0.5ML SOLUTION AUTO-INJECTOR Inject 2.5 mg under the skin every 7 days. Previous Medications ALBUTEROL 108 (90 BASE) MCG/ACT INHALER Inhale 2 puffs every 4 hours as needed for shortness of breath. BUSPIRONE (BUSPAR) 5 MG TABLET Take 5 mg by mouth 2 times daily. METFORMIN XR (GLUCOPHAGE-XR) 500 MG 24 HR TABLET Take 500 mg by mouth with evening meal. Please see attached for detailed directions PANTOPRAZOLE (PROTONIX) 40 MG EC TABLET Take 40 mg by mouth every morning (before breakfast). SERTRALINE (ZOLOFT) 100 MG TABLET Take 200 mg by mouth daily. ZONISAMID (more content not included)... [facility] 02-05-2025 Telephone encounter Note Out-patient Epilepsy Social Work Consult Patient: Hazel QUINN ) Reason for Consult: Community Resources/Financial Referring Provider: Elsa Cowart Contact Type: Phone call, 1st attempt Presenting Concerns: Patient had bad service during phone call and eventually call dropped. She described difficulties with getting her medications, though was able to get them filled. SW offered sending goodRX information if needed and patient was agreeable. Resources/Referrals provided: GoodRX coupons provided. Plan for follow up: No need for additional follow up at this time, patient to reach out with additional concerns ANA Guajardo February 05, 2025 5:05 PM [facility] 02-05-2025 Miscellaneous Notes Out-patient Epilepsy Social Work Consult Patient: Hazel QUINN ) Reason for Consult: Community Resources/Financial Referring Provider: Elsa Cowart Contact Type: Phone call, 1st attempt Presenting Concerns: Patient had bad service during phone call and eventually call dropped. She described difficulties with getting her medications, though was able to get them filled. SW offered sending goodRX information if needed and patient was agreeable. Resources/Referrals provided: GoodRX coupons provided. Plan for follow up: No need for additional follow up at this time, patient to reach out with additional concerns ANA Guajardo February 05, 2025 5:05 PM documented in this encounter [facility] 01-29-2025 Note HNO ID: [id number] Author: ELSA COWART APRN.MAGNETIZER Service: ? Author Type: Nurse Practitioner Type: Progress Notes Filed: 01/29/2025 16:51 Note Text: [facility] VIRTUAL VISIT I have communicated my name and active licensure. The patient's identity and physical location were verified at the time of this visit. Either the patient or their legal hardware supplies sales representative has been informed of the risks and benefits of -- and alternatives to -- treatment through a remote evaluation and consents to proceed with the evaluation remotely. Unable to bring patient through on video. Called patient and interview done over ell phone. Patient lives in [place], [place]. HISTORY OF PRESENT ILLNESS: Hazel QUINN is a 29 year old RHF who is diagnosed with seizures, and presents today for inability to afford her medications.. They are an established patient of Dr. Palomo's and was last seen on 03/09/2023. Seizures: None LS was April of 2019 ASM's: Off ZNS x 1.5 weeks. Unable to afford amount after insurance. Charge is $360.00 per month. Stopped taking because she has been seizure free since 2019. Working, going to school. has young kids at home, and unable to afford the amount after insurance co-pay. In other health, stable. Occupation: Works FT. Going to school. Lives with and two kids. Driving: yes Mood: good Memory: good CURRENT OUTPATIENT MEDICATIONS: Current Outpatient Medications Medication Sig zonisamide (ZONEGRAN) 100 mg capsule Take 4 capsules by mouth daily at bedtime. sertraline (ZOLOFT) 100 mg tablet Take 1.5 tablets by mouth once daily. CONTINUE HOME MEDICATION No current facility-administered medications for this visit. No past medical history on file. No past surgical history on file. No family history on file. ASSESSMENT: Hazel QUINN is a 29 year old RHF with history of seizures. Stopped taking ZNS 1.5 weeks ago due to cost leftover after insurance, need to take care of her family. Has young kids at home. Seizure free. Limited pharmacies in her area. Consented to taking ZNS 200mg a day for now. Will discuss options with Dr. Palomo and social work. PLAN: - LABS: none - Medications: -ZNS 200mg daily -continue with all other meds -Follow all seizure precautions. -No driving if off medications. -Never abruptly stop taking your medication. Call office for suggestions and help. - Consults: none - Follow up: per plan. I spent 10 minutes during this encounter counseling on medications, stopping medications, safety, no driving, documentation. Elsa Cowart, MELVIN.MAGNETIZER January 29, 2025 [facility] 01-15-2025 Hospital Discharg e instructions Patient Education 01/15/2025 00:53:38 Kidney Stone w/ Colic Kidney Stone with Pain The sharp cramping pain on either side of your lower back and nausea/vomiting that you have are because of a small stone that has formed in the kidney. It is now passing down a narrow tube (ureter) on its way to your bladder. Once the stone reaches your bladder, the pain will often stop. But it may come back as the stone continues to pass out of the bladder and through the urethra. The stone may pass in your urine stream in one piece. The size may be 1/16 inch to 1/4 inch (1 mm to 6 mm). Or, the stone may break up into jl fragments that you may not even notice. Once you have had a kidney stone, you are at risk of getting another one in the future. There are 4 types of kidney stones. Eighty percent are calcium stones mostly calcium oxalate but also some with calcium phosphate. The other 3 types include uric acid stones, struvite stones (from a preceding infection), and rarely, cystine stones. Most stones will pass on their own, but may take from a few hours to a few days. Sometimes the stone is too large to pass by itself. In that case, the healthcare provider will need to use other ways to remove the stone. These techniques include: Lithotripsy. This uses ultrasound waves to break up the stone. Ureteroscopy. This pushes a basket-like instrument through the urethra and bladder and into the ureter to pull out the stone. Various types of direct surgery through the skin Home care The following are general care guidelines: Drink plenty of fluids. This means at least 12, 8-ounce glasses of fluid mostly water a day. Each time you urinate, do so in a jar. Pour the urine from the jar through the strainer and into the toilet. Continue doing this until 24 hours after your pain stops. By then, if there was a kidney stone, it should pass from your bladder. Some stones dissolve into sand-like particles and pass right through the strainer. In that case, you won t ever see a stone. Save any stone that you find in the strainer and bring it to your healthcare provider to look at. It may be possible to stop certain types of stones from forming. For this reason, it is important to know what kind of stone you have. Try to stay as active as possible. This will help the stone pass. Don't stay in bed unless your pain keeps you from getting up. You may notice a red, pink, or brown color to your urine. This is normal while passing a kidney stone. If you develop pain, you may take ibuprofen or naproxen for pain, unless another medicine was prescribed. If you have chronic liver or kidney disease, talk with your healthcare provider before taking these medicines. Also talk with your provider if you've had a stomach ulcer or GI bleeding. Preventing stones Each year for the next 5 to 7 years, you are at risk that a new stone will form. Your risk is a 50% chance over this time period. The risk is higher if you have a family history of kidney stones or have certain chronic illnesses like hypertension, obesity, or diabetes. But you can make changes to your lifestyle and diet that can lower your risk for another stone. Most kidney stones are made of calcium. The following is advice for preventing another calcium stone. If you don t know the type of stone you have, follow this advice until the cause of your stone is found. Things that help: The most important thing you can do is to drink plenty of fluids each day. See home care above. Eat foods that contain phytates. These include wheat, rice, rye, barley, and beans. Phytates are substances that may lower your risk for any type of stone to form. Eat more fruits and vegetables. Choose those that are high in potassium. Eat foods high in natural citrate like fruit and low-sugar fruit juices. Having too little calcium in your diet can put you at risk for calcium kidney stones. Eat a normal amount of calcium in your diet and talk with your healthcare provider if you are taking calcium supplements. Cutting back on your calcium intake may raise your risk. New research shows that eating calcium-rich and oxalate-rich foods together lowers your risk for stones by binding the minerals in the stomach and intestines before they can reach the kidneys. Limit salt intake to 2 grams (1 teaspoon) per day. Use limited amounts when cooking, and don t add salt at the table. Processed and canned foods are usually high in salt. Spinach, rhubarb, peanuts, cashews, almonds, grapefruit, and grapefruit juice are all high oxalate foods. You should limit how much of these you eat. Or eat them with calcium-rich foods. These include dairy products, dark leafy greens, soy products, and calcium-enriched foods. Reducing the amount of animal meat and high protein foods in your diet may lower your risk for uric acid stones. Avoid excess sugar (sucrose) and fructose (sweetener in many soft drinks) in your diet. If you take vitamin C as a supplement, don't take more than 1,000 mg a day. A dietitian or your healthcare provider can give you information about changes in your diet that will help prevent more kidney stones from forming. Follow-up care Follow up with your healthcare provider, or as advised, if the pain lasts more than 48 hours. Talk with your provider about urine and blood tests to find out the cause of your stone. If you had an X-ray, CT scan, or other diagnostic test, you will be told of any new findings that may affect your care. Call 911 Call 911 if you have any of these: Weakness, dizziness, or fainting When to seek medical advice Call your healthcare provider right away if any of these occur: Pain that is not controlled by the medicine given Repeated vomiting or unable to keep down fluids Fever of 100.4 F (38 C) or higher, or as directed by your healthcare provider Passage of solid red or brown urine (can't see through it) or urine with lots of blood clots Foul-smelling or cloudy urine Unable to pass urine for 8 hours and increasing bladder pressure [id number] [employer]. [address] [place] [address]. All rights reserved. This information is not intended as a substitute for professional medical care. Always follow your healthcare professional's instructions. Follow Up Care 01/14/2025 23:22:27 With:LETITIA WOODWARD DO Address: [address] [facility] [place], [place] [id number] [phone] When:2-4 days [facility] 01-15-2025 Emergency department Discharge summary Discharge Instructions Thank you for allowing [facility] to assist you with your healthcare needs. The following is important discharge information regarding your hospital visit. Diagnosis from Today's Visit Kidney stone on left side What to Do Next Instructions from Your Care Team No qualifying data available. Post Acute Orders No qualifying data available. You Need to Schedule the Following Appointments Follow Up with HALKO, LETITIA DO When:Within 2-4 days Where:[address] [facility] [place] [address] [phone] Allergies Percocet 5/325 Hives Tape, Paper Rash Medications Please ask your primary doctor or pharmacist before taking any other medication not listed, including over the counter drugs, herbal medications, vitamins and or supplements as they may interact with your home medications. What How Much When Why Instructions Last Dose New ketorolac (ketorolac 10 mg oral tablet) 1 tab(s) by mouth Four (4) times a day as needed for as needed for pain Duration: 3 Days not to exceed 40 mg/ day and 5 days duration for all dose forms Printed Prescription Unchanged albuterol (albuterol MDI (90 mcg/ inh) CFC free inhalation aerosol) 2 puff(s) by inhalation Every 4 hours as needed for as needed for wheezing Duration: 14 Days Unchanged busPIRone (busPIRone 5 mg oral tablet) 1 tab(s) by mouth Two (2) times a day Duration: 30 Days Unchanged DME (CPAP Supplies) See instructions Sleep apnea in adult Mask Unchanged DME (CPAP Supplies) See instructions Sleep apnea in adult Mask Unchanged sertraline (sertraline 100 mg oral tablet) 2 tab(s) by mouth Once a day Duration: 90 Days Unchanged zonisamide (zonisamide 100 mg oral capsule) 4 cap by mouth Daily at bedtime Please take this list to your next doctor s visit. Bring all medications you take, including over the counter medications, herbals and other supplements with you to your doctor s visit. Patients and families are reminded to discard old lists and to update any records with all medication providers or retail pharmacies. Education Materials Kidney Stone with Pain The sharp cramping pain on either side of your lower back and nausea/vomiting that you have are because of a small stone that has formed in the kidney. It is now passing down a narrow tube (ureter) on its way to your bladder. Once the stone reaches your bladder, the pain will often stop. But it may come back as the stone continues to pass out of the bladder and through the urethra. The stone may pass in your urine stream in one piece. The size may be 1/16 inch to 1/4 inch (1 mm to 6 mm). Or, the stone may break up into jl fragments that you may not even notice. Once you have had a kidney stone, you are at risk of getting another one in the future. There are 4 types of kidney stones. Eighty percent are calcium stones mostly calcium oxalate but also some with calcium phosphate. The other 3 types include uric acid stones, struvite stones (from a preceding infection), and rarely, cystine stones. Most stones will pass on their own, but may take from a few hours to a few days. Sometimes the stone is too large to pass by itself. In that case, the healthcare provider will need to use other ways to remove the stone. These techniques include: Lithotripsy. This uses ultrasound waves to break up the stone. Ureteroscopy. This pushes a basket-like instrument through the urethra and bladder and into the ureter to pull out the stone. Various types of direct surgery through the skin Home care The following are general care guidelines: Drink plenty of fluids. This means at least 12, 8-ounce glasses of fluid mostly water a day. Each time you urinate, do so in a jar. Pour the urine from the jar through the strainer and into the toilet. Continue doing this until 24 hours after your pain stops. By then, if there was a kidney stone, it should pass from your bladder. Some stones dissolve into sand-like particles and pass right through the strainer. In that case, you won t ever see a stone. Save any stone that you find in the strainer and bring it to your healthcare provider to look at. It may be possible to stop certain types of stones from forming. For this reason, it is important to know what kind of stone you have. Try to stay as active as possible. This will help the stone pass. Don't stay in bed unless your pain keeps you from getting up. You may notice a red, pink, or brown color to your urine. This is normal while passing a kidney stone. If you develop pain, you may take ibuprofen or naproxen for pain, unless another medicine was prescribed. If you have chronic liver or kidney disease, talk with your healthcare provider before taking these medicines. Also talk with your provider if you've had a stomach ulcer or GI bleeding. Preventing stones Each year for the next 5 to 7 years, you are at risk that a new stone will form. Your risk is a 50% chance over this time period. The risk is higher if you have a family history of kidney stones or have certain chronic illnesses like hypertension, obesity, or diabetes. But you can make changes to your lifestyle and diet that can lower your risk for another stone. Most kidney stones are made of calcium. The following is advice for preventing another calcium stone. If you don t know the type of stone you have, follow this advice until the cause of your stone is found. Things that help: The most important thing you can do is to drink plenty of fluids each day. See home care above. Eat foods that contain phytates. These include wheat, rice, rye, barley, and beans. Phytates are substances that may lower your risk for any type of stone to form. Eat more fruits and vegetables. Choose those that are high in potassium. Eat foods high in natural citrate like fruit and low-sugar fruit juices. Having too little calcium in your diet can put you at risk for calcium kidney stones. Eat a normal amount of calcium in your diet and talk with your healthcare provider if you are taking calcium supplements. Cutting back on your calcium intake may raise your risk. New research shows that eating calcium-rich and oxalate-rich foods together lowers your risk for stones by binding the minerals in the stomach and intestines before they can reach the kidneys. Limit salt intake to 2 grams (1 teaspoon) per day. Use limited amounts when cooking, and don t add salt at the table. Processed and canned foods are usually high in salt. Spinach, rhubarb, peanuts, cashews, almonds, grapefruit, and grapefruit juice are all high oxalate foods. You should limit how much of these you eat. Or eat them with calcium-rich foods. These include dairy products, dark leafy greens, soy products, and calcium-enriched foods. Reducing the amount of animal meat and high protein foods in your diet may lower your risk for uric acid stones. Avoid excess sugar (sucrose) and fructose (sweetener in many soft drinks) in your diet. If you take vitamin C as a supplement, don't take more than 1,000 mg a day. A dietitian or your healthcare provider can give you information about changes in your diet that will help prevent more kidney stones from forming. Follow-up care Follow up with your healthcare provider, or as advised, if the pain lasts more than 48 hours. Talk with your provider about urine and blood tests to find out the cause of your stone. If you had an X-ray, CT scan, or other diagnostic test, you will be told of any new findings that may affect your care. Call 911 Call 911 if you have any of these: Weakness, dizziness, or fainting When to seek medical advice Call your healthcare provider right away if any of these occur: Pain that is not controlled by the medicine given Repeated vomiting or unable to keep down fluids Fever of 100.4 F (38 C) or higher, or as directed by your healthcare provider Passage of solid red or brown urine (can't see through it) or urine with lots of blood clots Foul-smelling or cloudy urine Unable to pass urine for 8 hours and increasing bladder pressure [id number] [employer]. [address] [place] [address], [place] [address]. All rights reserved. This information is not intended as a substitute for professional medical care. Always follow your healthcare professional's instructions. Additional Information VACCINATE! IT SAVES LIVES! Members of the community who have not yet received the COVID-19 vaccine and would like to receive it can visit one of [facility] vaccine clinics. There are many vaccine clinic locations within the [facility]. For locations and available times, please visit [email or web address] [email or web address] It is important to note that some COVID mobile vaccine clinics are held outdoors and may be canceled in rainy or stormy conditions. To learn more about pediatric vaccinations (ages 5-11), we invite you to visit the [facility] webpage. [email or web address] [email or web address]-Ooyum-Qlbdhiluuvg-Freq jxoxtj-Tevwa-[email or web address].html To learn more about the COVID-19 vaccine, we invite you to visit the CDC website for a list of frequently asked questions. https://www.cdc.gov/coronavirus/ 2019-ncov/vaccines/faq.html [facility] Access Instructions: Stay connected with your healthcare team and access your personal medical information anytime with the [facility] Patient Portal. If you would like a full copy of your medical records please contact the [facility] Medical Records Department Tuesday through Tuesday between 8a.m. and 4:30p.m. Please follow the directions below to access the portal: 1.Access the email account you provided upon registration to the hospital.2.Look for an invitation email from [facility].3.Open the email and access the invitation link: Accept Invitation to [facility]4.Fill in the required bee to create your account. Sign into [email or web address] with your username and password that you created in the above steps to stay up to date. You can then view a summary of results, a summary of your visits, and the ability to download your summaries to your computer or send the information securely to a physician. Remember that your healthcare information is confidential, so carefully consider who you will allow to register on the [facility] Patient Portal for access to your information. You can also access the [facility] Patient Portal on the [employer]. Simply click on Health Records under Health Data and then click on the [employer] logo. HOW TO SAFELY DISPOSE OF PRESCRIPTION MEDICATIONS Please use one of the following methods to safely dispose of your unused medications. 1.Use a drug disposal kit: the drug disposal pouch allows you to safely discard your old and unused drugs. Ask your nurse to give you one when you are discharged.2.Visit a local take-back location: Many local pharmacies and police departments have programs that collect old and unwanted prescription drugs. Call your local pharmacy or go to http://Health in Reach.Kihon/9I1Ck1y to find one close to you.3.Make use of household items: Use cat litter or old coffee grounds to dispose medications if other options are not available. Mix your drugs with these household products, seal them in an airtight container and throw it into the garbage. Call [facility]: [phone] to be sure your drugs can be disposed of in this way. Some medicines may require a different approach.4.Never flush your medications down the toilet. IF YOU HAVE BEEN PRESCRIBED AN OPIOIDS FOR PAIN If you have been prescribed an opioid (such as hydrocodone, oxycodone or morphine), it is critical to understand the possible side effects and risks of opioid pain medications. Even when taken as directed, opioids can have several side effects including: Tolerance, meaning you might need to take more of a medication for the same pain relief. Nausea, vomiting and/or constipation. Sleepiness, dizziness, dry mouth, confusion, depression or itching. Physical dependence, meaning you have withdrawal symptoms when a medication is stopped ? this can develop within a few days. KNOW YOUR RESPONSIBILITIES It is important to know exactly how much and how often to take the opioid pain medications you are prescribed. Never take opioids in higher amounts or more often than prescribed. Do not combine opioids with alcohol or other drugs that cause drowsiness, such as benzodiazepines, also known as benzos, including diazepam and alprazolam, muscle relaxants or sleep aids. Never sell or share prescription opioids. This is illegal. Store opioids in a secure place and out of reach of others (including children, family, friends and visitors). The last page(s) of this document has been signed and retained as a CHART COPY Signatures Patient Education Materials Kidney Stone w/ Colic Medication Leaflets My discharge plan and instructions have been reviewed and explained to me and I,HAZEL QUINN understand my current condition and have read and understand these discharge instructions. I have received a written copy of the plan/instructions. If I have questions, I am aware that I should contact my doctor. 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 Multiplanar reformatted images are provided for review. Automated exposure control, iterative reconstruction, and/or weight based adjustment of the mA/kV was utilized to reduce the radiation dose to as low as reasonably achievable. COMPARISON: CT abdomen-pelvis 06/21/2017 HISTORY: ORDERING SYSTEM PROVIDED HISTORY: Reason for Exam: L flank pain, hematuria FINDINGS: Lower Chest: Visualized lower thorax demonstrates no consolidation or pleural effusion. Organs: The liver demonstrates no biliary duct dilatation or gross mass. The gallbladder demonstrates no calcified gallstones or gross wall thickening. The pancreas demonstrates no gross mass, gross inflammatory process, or ductal dilatation. Spleen is normal in size. Adrenal glands are normal in size. Right kidney demonstrates no hydronephrosis or obstructive calculi. Right ureter is normal caliber. The left kidney demonstrates minimal hydronephrosis without renal calculi. There is minimal left hydroureter, without ureteral calculus. At the posterior left bladder lumen, adjacent the left uterovesical junction, there is a 5 mm calculus. GI/Bowel: Stomach and duodenal sweep demonstrate no acute abnormality. Small bowel and colon are normal in caliber. Appendix is normal in caliber without gross wall thickening or inflammatory change. There are mildly enlarged mesenteric nodes, nonspecific, which may be reactive. Pelvis: Uterus and ovaries are grossly normal in morphology. There are small pelvic calcifications, compatible with vascular calcifications. Peritoneum/Retroperitoneum: Aorta is normal in caliber. Bones/Soft Tissues: Osseous structures are intact. Evaluation for mass and inflammatory process is limited by absence of intravenous contrast. IMPRESSION: 1. 5 mm calculus at the posterior left bladder lumen, adjacent the left uterovesical junction. Minimal left hydroureteronephrosis. No renal calculi. Interpreted by: Antonio Sadler Preliminary Report By: Antonio Sadler Electronically signed By Antonio Sadler Dictated Date: 01/15/2025 12:25:34 AM Prelim Date: 01/15/2025 12:41:09 AM Sign Date: 01/15/2025 12:41:09 AM Ordering Provider: [facility]07-18-2024 Telephone encounter Note* Telephone Encounter - Cynthia Swanson RN - 03/29/2024 3:30 PM EDT Orders signed. Kiki Marie RN [facility]07-18-2024 Miscellaneous Notes* Telephone Encounter - Cynthia Swanson RN - 03/29/2024 3:30 PM EDT Orders signed. Kiki Marie RN * Telephone Encounter - Cynthia Swanson RN - 03/29/2024 3:04 PM EDT Images from the original note were not included. Cody Gil PA-C P Neur Epilepsy [employer] Please sent patient OSH lab form for CBC, CMP, and ZNS level. [facility], Laboratory . PH: [phone] Order Form completed, forwarded for signature via [employer] to [employer]. A copy to lab fax. Kiki Marie RN [facility] Telephone encounter Note * Telephone Encounter - Cynthia Swanson RN - 03/29/2024 3:04 PM EDT Images from the original note were not included. Cody Gil PA-C P Neur Epilepsy [employer] Please sent patient OSH lab form for CBC, CMP, and ZNS level. [facility], [facility] . PH: [phone] Order Form completed, forwarded for signature via [employer] to [employer]. A copy to lab fax. Kiki Marie RN [facility]07-18-2024 History of Present illness Narrative* Cody Gil PA-C - 03/29/2024 1:00 PM EDT [facility] VIRTUAL VISIT I have communicated my name and active licensure. The patient's identity and physical location wereverified at the time of this visit. Either the patient or their legal hardware supplies sales representative has been informed of the risks and benefits of -- and alternatives to -- treatment through a remote evaluation andconsents to proceed with the evaluation remotely. Patient on video by herself at work. Lives in [place], [place]. HISTORY OF PRESENT ILLNESS: Hazel QUINN is a 28 year old RHF who is diagnosed with seizures since 09/01/2013, and presents today for annual health/seizure update visit. Last seen on 03/09/23 by Elsa Cowart CNP. At the last visit, patient reported seizure freedom since 2019 on ZNS 400 mg QHS. Patient is currently taking ZNS 400 mg QHS. Denies side effects. Reports compliance, takes medications at bedtime. There have been no seizures since the last visit. Last seizure 2018. Mood: Notes her anxiety has worsened but her depression has improved. Denies SI or HI. Was previously going to counseling weekly but since her insurance changed from switching to a new job she needs to find a new counselor. Offered resources but patient states she has them. Discussed if she has difficulty finding a counseling or would like a psychiatry referral to reach out to our office. Takes Zoloft and Buspar which are prescribed by PCP. Sleep: Stable, endorses broken sleep. Advised trying 1 mg melatonin at night. 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 Tubes tied in 2019. Notes from MICHAEL with Elsa Cowart CNP on 03/09/23: Will also be out of ZNS in a couple days. Needs refills. They are an established patient of Dr. Trejo and was last seen on 11/18/2021 by Carol Ann Avelar CNP. Seizures:None Last seizure reported was April of 2019. AED's: ZNS 400mg QHS Zoloft 150mg daily (via counselor) No side effects or issues taking these medications. In other health, Anxiety (Buspar). Interacts with a counselor. No new medical issues, ED visit, or new health concerns.. 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 Mood: variable. Guarded Memory: good CURRENT SEIZURE DESCRIPTION AND FREQUENCY: Seizure Type A: GTC (Perhaps left version?) They typically occur out of sleep and have had her head snap to the left followed by GTC. PREVIOUS EVALUATIONS: EEG (10/05/13, [facility]): per report CLINICAL INTERPRETATION: This EEG shows diffuse background slowing. It is consistent with a nonspecific diffuse brain dysfunction. MRI Brain w/o contrast (11/01/16, [facility]): per report - UNREMARKABLE MRI Brain w/ & w/o contrast (09/13/13, [facility]): per report - UNREMARKABLE IMPRESSION: 1. No change in the tiny FLAIR hyperintensity within the LEFT posterior parietal gyrus. Correlationwith an EEG is needed to see if this correlates with a possible nidus for seizures. If there is persistent concern based on EEG results, correlation with a 3 Janiya MRI may be used for further evaluation. CURRENT OUTPATIENT MEDICATIONS: Current Outpatient Medications Medication Sig zonisamide (ZONEGRAN) 100 mg capsule Take 4 capsules by mouth daily at bedtime. sertraline (ZOLOFT) 100 mg tablet Take 1.5 tablets by mouth once daily. CONTINUE HOME MEDICATION No current facility-administered medications for this visit. No past medical history on file. No past surgical history on file. No family history on file. ASSESSMENT: Hazel Quinn is a 28 year old RHF with history of seizures. No seizures since 2019. Remains on ZNS and Zoloft. Buspar was recently added for her anxiety. Working FT and driving. Has a counselorand mental health providers. Counseled on effects of ZNS. Continue with plan.. 03/29/24 update: Patient has remained seizure free since 2019 on ZNS 400 mg QHS. Denies side effects. Will continue medication at this time. PLAN: - LABS: ZNS, CMP, and CBC. Trough levels discussed. Will route chart to nursing team to send OSH lab form. - Medications: -continue with ZNS 400mg QHS, rfs sent -Follow all seizure precautions. - Consults: none - Follow up: [address] Palomo, sooner if needed I spent a total of 10 minutes on the date of the service which included preparing to see the patient, [id number] patient care, completing clinical documentation, obtaining and/or reviewing separately obtained history, counseling and educating the patient/family/caregiver, and ordering medications, tests, or procedures. Cody Gil PA-C March 29, 2024 documented in this encounterPark[facility]24 NoteHNO ID: [id number] Author: CODY GIL PA-C Service: ? Author Type: Physician Rn Interventional Type: Progress Notes Filed: 03/29/2024 13:11 Note Text: [facility] VIRTUAL VISIT I have communicated my name and active licensure. The patient's identity and physical location were verified at the time of this visit. Either the patient or their legal hardware supplies sales representative has been informed of the risks and benefits of -- and alternatives to -- treatment through a remote evaluation and consents to proceed with the evaluation remotely. Patient on video by herself at work. Lives in [place], [place]. HISTORY OF PRESENT ILLNESS: Hazel QUINN is a 28 year old RHF who is diagnosed with seizures since 09/01/2013, and presents today for annual health/seizure update visit. Last seen on 03/09/23 by Elsa Cowart CNP. At the last visit, patient reported seizure freedom since 2019 on ZNS 400 mg QHS. Patient is currently taking ZNS 400 mg QHS. Denies side effects. Reports compliance, takes medications at bedtime. There have been no seizures since the last visit. Last seizure 2019. Mood: Notes her anxiety has worsened but her depression has improved. Denies SI or HI. Was previously going to counseling weekly but since her insurance changed from switching to a new job she needs to find a new counselor. Offered resources but patient states she has them. Discussed if she has difficulty finding a counseling or would like a psychiatry referral to reach out to our office. Takes Zoloft and Buspar which are prescribed by PCP. Sleep: Stable, endorses broken sleep. Advised trying 1 mg melatonin at night. 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 Tubes tied in 2019. Notes from MICHAEL with Elsa Cowart CNP on 03/09/23: Will also be out of ZNS in a couple days. Needs refills. They are an established patient of Dr. Palomo's and was last seen on 11/18/2021 by Carol Ann Avelar CNP. Seizures:None Last seizure reported was April of 2019. AED's: ZNS 400mg QHS Zoloft 150mg daily (via counselor) No side effects or issues taking these medications. In other health, Anxiety (Buspar). Interacts with a counselor. No new medical issues, ED visit, or new health concerns.. 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 Mood: variable. Guarded Memory: good CURRENT SEIZURE DESCRIPTION AND FREQUENCY: Seizure Type A: GTC (Perhaps left version?) They typically occur out of sleep and have had her head snap to the left followed by GTC. PREVIOUS EVALUATIONS: EEG (10/05/13, [facility]): per report CLINICAL INTERPRETATION: This EEG shows diffuse background slowing. It is consistent with a nonspecific diffuse brain dysfunction. MRI Brain w/o contrast (11/01/16, [facility]): per report - UNREMARKABLE MRI Brain w/ AND w/o contrast (09/13/13, [facility]): per report - UNREMARKABLE IMPRESSION: 1. No change in the tiny FLAIR hyperintensity within the LEFT posterior parietal gyrus. Correlation with an EEG is needed to see if this correlates with a possible nidus for seizures. If there is persistent concern based on EEG results, correlation with a 3 Janiya MRI may be used for further evaluation. CURRENT OUTPATIENT MEDICATIONS: Current Outpatient Medications Medication Sig zonisamide (ZONEGRAN) 100 mg capsule Take 4 capsules by mouth daily at bedtime. sertraline (ZOLOFT) 100 mg tablet Take 1.5 tablets by mouth once daily. CONTINUE HOME MEDICATION No current facility-administered medications for this visit. No past medical history on file. No past surgical history on file. No family history on file. ASSESSMENT: Hazel Quinn is a 28 year old RHF with history of seizures. No seizures since 2019. Remains on ZNS and Zoloft. Buspar was recently added for her anxiety. Working FT and driving. Has a counselor and mental health providers. Counseled on effects of ZNS. Continue with plan.. 03/29/24 update: Patient has remained seizure free since 2019 on ZNS 400 mg QHS. Denies side effects. Will continue medication at this time. PLAN: - LABS: ZNS, CMP, and CBC. Trough levels discussed. Will route chart to nursing team to send OSH lab form. - Medications: -continue with ZNS 400mg QHS, rfs sent -Follow all seizure precautions. - Consults: none - Follow up: [address] Palomo, sooner if needed I spent a total of 10 minutes on the date of the service which included preparing to see the patient, [id number] patient care, completing clinical documentation, obtaining and/or reviewing separately obtained history, counseling and educating the patient/family/caregiver, and ordering medications, tests, or procedures. Cody Gil PA-C [facility] Telephone encounter Note* Telephone Encounter - Drew Bates PA-C - 03/19/2024 4:56 PM EDT Patient due for follow up, last appointment 03/09/2023. Routed to schedulers. Patient can call [phone] to schedule an appointment. The following approved medication requests have been transmitted electronically. Requested Prescriptions Signed Prescriptions Disp Refills zonisamide (ZONEGRAN) 100 mg capsule 360 capsule 1 Sig: Take 4 capsules by mouth daily at bedtime. Authorizing Provider: DREW BATES PA-C [facility]07-08-2024 Miscellaneous Notes* Telephone Encounter - Drew Bates PA-C - 03/19/2024 4:56 PM EDT Patient due for follow up, last appointment 03/09/2023. Routed to schedulers. Patient can call [phone] to schedule an appointment. The following approved medication requests have been transmitted electronically. Requested Prescriptions Signed Prescriptions Disp Refills zonisamide (ZONEGRAN) 100 mg capsule 360 capsule 1 Sig: Take 4 capsules by mouth daily at bedtime. Authorizing Provider: DREW BATES PA-C * Telephone Encounter - Tierra Ridley - 03/19/2024 4:38 PM EDT Prescription Refill: Requested by: pharmacy Please E-Scribe Caller Contact Number: Pharmacy Name: [facility] Pharm[facility] Pharmacy Number: [phone] Generic/ brand: generic 30 or 90 day supply requested: 90 Last appointment: 03/09/23 Next Appointment: needs to schedule an appt Patient of Dr. Palomo [facility] Telephone encounter Note * Telephone Encounter - Tierra Ridley - 03/19/2024 4:38 PM EDT Prescription Refill: Requested by: pharmacy Please E-Scribe Caller Contact Number: Pharmacy Name: [facility] Pharmacy Pharmacy Number: [phone] Generic/ brand: generic 30 or 90 day supply requested: 90 Last appointment: 03/09/23 Next Appointment: needs to schedule an appt Patient of Dr. Palomo [facility]04-29-20[facility] Evaluation + Plan note Future Scheduled Tests Laboratory* Basic Metabolic Panel 01/09/24 * A1C Hemoglobin 01/09/24 * Complete Blood Count 01/09/24 * Prothrombin Time - Panel 01/09/24 [facility] 11-08-2023 Note* Exam Date Time Procedure Performing Provider Status 07/20/23 10:15 AM Echocardiogram, Adult (AOH) Auth (Verified) [facility] 09-17-2023 Note. MICRO - Microbiology PROCEDURE: Urine Culture [*1] SOURCE: Urine, Clean Catch BODY SITE: COLLECTED DATE/TIME: 05/27/2023 15:10 EDT RECEIVED DATE/TIME: 05/28/2023 14:25 EDT START DATE/TIME: 05/28/2023 14:25 EDT FREE TEXT SOURCE: FINAL REPORTS Final Report [] Verified Date/Time/Personnel: 05/29/2023 15:05 EDT 10,000 - 50,000 cfu/ml Multiple bacterial morphotypes present. Probable Contamination. Suggest recollection if clinically indicated. Performing Locations *1: This test was performed at: [facility], [address] [place] [address], [facility]- , [facility] ([place])03-09-2023 History of Present illness Narrative* Elsa Cowart APRN.MAGNETIZER - 03/09/2023 10:29 AM EDT [facility] VIRTUAL VISIT I have communicated my name and active licensure. The patient's identity and physical location wereverified at the time of this visit. Either the patient or their legal hardware supplies sales representative has been informed of the risks and benefits of -- and alternatives to -- treatment through a remote evaluation andconsents to proceed with the evaluation remotely. Patient on video by herself at work. Lives in [place], [place]. HISTORY OF PRESENT ILLNESS: Hazel QUINN is a 27 year old RHF who is diagnosed with seizures since 09/01/2013, and presents today for annual health/seizure update visit. Will also be out of ZNS in a couple days. Needs refills. They are an established patient of Dr. Trejo and was last seen on 11/18/2021 by Carol Ann Avelar CNP. Seizures:None Last seizure reported was April of 2019. AED's: ZNS 400mg QHS Zoloft 150mg daily (via counselor) No side effects or issues taking these medications. In other health, Anxiety (Buspar). Interacts with a counselor. No new medical issues, ED visit, or new health concerns.. 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 Mood: variable. Guarded Memory: good CURRENT OUTPATIENT MEDICATIONS: Current Outpatient Medications Medication Sig zonisamide (ZONEGRAN) 100 mg capsule Take 4 capsules by mouth daily at bedtime. sertraline (ZOLOFT) 100 mg tablet Take 1.5 tablets by mouth once daily. CONTINUE HOME MEDICATION No current facility-administered medications for this visit. No past medical history on file. No past surgical history on file. No family history on file. ASSESSMENT: Hazel Quinn is a 27 year old RHF with history of seizures. No seizures since 2019. Remains on ZNS and Zoloft. Buspar was recently added for her anxiety. Working FT and driving. Has a counselorand mental health providers. Counseled on effects of ZNS. Continue with plan.. PLAN: - LABS: ZNS, cmp - Medications: -continue with ZNS 400mg QHS, rfs -continue with Zoloft 150mg daily -continue with all other daily medications. -Follow all seizure precautions. - Consults: none - Follow up: 12 months or sooner if needed. I spent 15 minutes during this encounter counseling on seizures, medications and precautions, lifestyle changes, documentation. Elsa Cowart APRN.GERALDO March 09, 2023 [facility] Miscellaneous Notes* Telephone Encounter - Mikki Cummings - 08/30/2022 4:52 PM EST Faxed to Medical Records; auth uploaded to [employer]. documented in [facility]Park[facility] Hospital Discharge instructions Patient Education 03/29/2022 22:30:40 Bronchospasm (Adult) Bronchospasm (Adult) Bronchospasm occurs when the airways (bronchial tubes) go into spasm and contract. This makes it hard to breathe and causes wheezing (a high-pitched whistling sound). Bronchospasm can also cause frequent coughing without wheezing. Bronchospasm is due to irritation, inflammation, or allergic reaction of the airways. People with asthma get bronchospasm. However, not everyone with bronchospasm has asthma. Being exposed to harmful fumes, a recent case of bronchitis, exercise, or a flare-up of chronic obstructive pulmonary disease (COPD) may cause the airways to spasm. An episode of bronchospasm may last 7 to 14 days. Medicine may be prescribed to relax the airways and prevent wheezing. Antibiotics will be prescribed only if your healthcare provider thinks there is a bacterial infection. Antibioticsdo not help a viral infection. Home care Drink lots of water or other fluids (at least 10 glasses a day) during an attack. This will loosen lung secretions and make it easier to breathe. If you have heart or kidney disease, check with your doctor before you drink extra fluids. Take prescribed medicine exactly at the times advised. If you take an inhaled medicine to help withbreathing, don't use it more than once every 4 hours, unless told to do so. If prescribed an antibiotic or prednisone, take all of the medicine, even if you are feeling better after a few days. Don't smoke. Also avoid being exposed to secondhand smoke. If you were given an inhaler, use it exactly as directed. If you need to use it more often than prescribed, your condition may be getting worse. Contact your healthcare provider. Follow-up care Follow up with your healthcare provider, or as advised. If you are age 65 or older, have a chronic lung disease or condition that affects your immune system, or you smoke, ask your healthcare provider about getting a pneumococcal vaccine, as well as a yearly flu shot (influenza vaccine). When to seek medical advice Call your healthcare provider right away if any of these occur: You need to use your inhalers more often than usual Fever of 100.4 F (38 C) or higher, or as directed by your healthcare provider Cough that brings up lots of dark-colored sputum (mucus) You don't get better within 24 hours Call 911 Call 911 if any of these occur: Coughing up bloody sputum (mucus) Chest pain with each breath Increased wheezing or shortness of breath [phone] [employer]. [address] [place] [address]. All rights reserved. This information is not intended as a substitute for professional medical care. Always follow yourhealthcare professional's instructions. 03/29/2022 22:30:30 COVID-19 Prevent the Spread of COVID-19 If You Are Sick (01/29/2020)(CUSTOM) Prevent the Spread of COVID-19 If You Are Sick Accessible version: https://www.cdc.gov/coronavirus/2019-ncov/wi-cvx-tmv-sick/fybyu-psqw-pvat.html If you are sick with COVID-19 or think you might have COVID-19, follow the steps below to help protect other people in your home and community. Stay home except to get medical care. Stay home. Most people with COVID-19 have mild illness and are able to recover at home without medical care. Do not leave your home, except to get medical care. Do not visit public areas. Take care of yourself. Get rest and stay hydrated. Get medical care when needed. Call your doctor before you go to their office for care. But, if you have trouble breathing or other concerning symptoms, call 911 for immediate help. Avoid public transportation, ride-sharing, or taxis. Separate yourself from other people and pets in your home. As much as possible, stay in a specific room and away from other people and pets in your home. Also, you should use a separate bathroom, if available. If you need to be around other people or animalsin or outside of the home, wear a cloth face covering. See COVID-19 and Animals if you have questions about pets: https://www.cdc.gov/coronavirus/2019ncov/faq.html#CQLRA66rzuqqoh Monitor your symptoms. Common symptoms of COVID-19 include fever and cough. Trouble breathing is a more serious symptom that means you should get medical attention. Follow care instructions from your healthcare provider and local health department. Your local health authorities will give instructions on checking your symptoms and reporting information. If you develop emergency warning signs for COVID-19 get medical attention immediately. Emergency warning signs include*: Trouble breathing Persistent pain or pressure in the chest New confusion or not able to be woken Bluish lips or face *This list is not all inclusive. Please consult your medical provider for any other symptoms that are severe or concerning to you. Call 911 if you have a medical emergency. If you have a medical emergency and need to call 911, notify the carbon dioxide operator that you have or think you might have, COVID-19. If possible, put on a facemask before medical help arrives Call ahead before visiting your doctor. Call ahead. Many medical visits for routine care are being postponed or done by phone or telemedicine. If you have a medical appointment that cannot be postponed, call your doctor s office. This will help the office protect themselves and other patients. If you are sick, wear a cloth covering over your nose and mouth. You should wear a cloth face covering over your nose and mouth if you must be around other people or animals, including pets (even at home). You don t need to wear the cloth face covering if you are alone. If you can t put on a cloth face covering (because of trouble breathing for example), cover your coughs and sneezes in some other way.Try to stay at least 6 feet away from other people. This will help protect the people around you. Note: During the COVID-19 pandemic, medical grade facemasks are reserved for healthcare workers andsome first responders. You may need to make a cloth face covering using a scarf or bandana. Cover your coughs and sneezes. Cover your mouth and nose with a tissue when you cough or sneeze. Throw used tissues in a lined trash can. Immediately wash your hands with soap and water for at least 20 seconds. If soap and water are not available, clean your hands with an alcohol-based hand teacher private that contains at least 60% alcohol. Clean your hands often. Wash your hands often with soap and water for at least 20 seconds. This is especially important after blowing your nose, coughing, or sneezing; going to the bathroom; and before eating or preparing food. Use hand teacher private if soap and water are not available. Use an alcohol-based hand teacher private with atleast 60% alcohol, covering all surfaces of your hands and rubbing them together until they feel dry. Soap and water are the best option, especially if your hands are visibly dirty. \ Avoid touching your eyes, nose, and mouth with unwashed hands. Avoid sharing personal household items. Do not share dishes, drinking glasses, cups, eating utensils, towels, or bedding with other people in your home. Wash these items thoroughly after using them with soap and water or put them in the coin machine mechanic. Clean all high-touch surfaces everyday. Clean and disinfect high-touch surfaces in your sick room and bathroom. Let someone else clean and disinfect surfaces in common areas, but not your bedroom and bathroom. If a caregiver or other person needs to clean and disinfect a sick person s bedroom or bathroom, they should do so on an as-needed basis. The caregiver/other person should wear a mask and wait as long as possible after the sick person has used the bathroom High-touch surfaces include phones, remote controls, counters, tabletops, doorknobs, bathroom fixtures, toilets, keyboards, tablets, and bedside tables. Clean and disinfect areas that may have blood, stool, or body fluids on them. Use household mechanical technologist and disinfectants. Clean the area or item with soap and water or another detergent if it is dirty. Then use a household disinfectant. Be sure to follow the instructions on the label to ensure safe and effective use of the product. Many products recommend keeping the surface wet for several minutes to ensure germs are killed. Many also recommend precautions such as wearing gloves and making sure you have good ventilation during use of the product. Most EPA-registered household disinfectants should be effective. How to discontinue home isolation. People with COVID-19 who have stayed home (home isolated) can stop home isolation under the following conditions: If you will not have a test to determine if you are still contagious, you can leave home after these three things have happened: You have had no fever for at least 72 hours (that is three full days of no fever without the use ofmedicine that reduces fevers) AND other symptoms have improved (for example, when your cough or shortness of breath has improved) AND at least 10 days have passed since your symptoms first appeared. If you will be tested to determine if you are still contagious, you can leave home after these three things have happened: You no longer have a fever (without the use of medicine that reduces fevers) AND other symptoms have improved (for example, when your cough or shortness of breath has improved) AND you received two negative tests in a row, 24 hours apart. Your doctor will follow CDC guidelines. In all cases, follow the guidance of your healthcare provider and local health department. The decision to stop home isolation should be made in consultation with your healthcare provider and state and local health departments. Local decisions depend on local circumstances. cdc.gov/coronavirus Follow Up Care 03/29/2022 19:38:16 With:your pcp Address:Unknown When:03/30/2022 Comments:Schedule appointment as soon as possibleReturn to ED if symptoms worsenStart tailovid now. Can discuss with your doctor in am antibody treatment but you will already be on day 6. Return if oxygen saturation drops to 88% at rest [facility] 07-18-2022 Note Discharge Instructions Thank you for allowing [facility] to assist you with your healthcare needs. The following is importantdischarge information regarding your hospital visit. Diagnosis from Today's Visit Cough Shortness of breath Sore throat - Adult What to Do Next Instructions from Your Care Team Covid-19 Discharge Packet (ED ONLY) - Ordered -- 03/29/22 22:31:00 EDT, Once Discharge Return to Work, School, or Sports (Return to Work, School, or Sports) - Ordered -- 04/04/22, May return to: work, 03/29/22 22:31:00 EDT Post Acute Orders No qualifying data available. You Need to Schedule the Following Appointments Follow Up with your pcp When 03/30/2022 12:00 AM EDT Why: Schedule appointment as soon as possible Return to ED if symptoms worsen Start paxlovid now. Can discuss with your doctor in am antibody treatment but you will already be on day 6. Return if oxygen saturation drops to 88% at rest Allergies Percocet 5/325 (Hives) Tape, Paper (Rash) Medications Please ask your primary doctor or pharmacist before taking any other medication not listed, including over the counter drugs, herbal medications, vitamins and or supplements as they may interact withyour home medications. What How Much When Why Instructions Last Dose New nirmatrelvir-ritonavir (Paxlovid 150 mg-100 mg (300 mg-100 mg Dose) oral tablet) 1 Packet(s) by mouth Two (2) times a day Duration: 5 Days Take 1 Packet = two 150mg nirmatrelvir tabs and one 100mg ritonavir tab. 3 tablets to be taken together by mouth twice a day for 5 days Printed Prescription New predniSONE (predniSONE 10 mg oral tablet) 3 by mouth Two (2) times a day 1st dose in am Printed Prescription Unchanged albuterol (ProAir HFA MDI (90 mcg/ inh) inhalation aerosol) 2 puff(s) by inhalation Every 4 hours as needed for as needed for wheezing Cough Unchanged brompheniramine/ dextromethorphan/ PSE (Bromfed DM oral syrup) 2.5 Milliliter by mouth Every 6 hours as needed for for cold symptoms Acute URI Duration: 5 Days Unchanged sertraline (sertraline 100 mg oral tablet) 1.5 tab(s) by mouth Once a day 1 1/ 2 (ONE AND A HALF) TABLET DAILY Unchanged zonisamide (zonisamide 100 mg oral capsule) 4 cap by mouth Daily at bedtime Please take this list to your next doctor s visit. Bring all medications you take, including over the counter medications, herbals and other supplements with you to your doctor s visit. Patients and families are reminded to discard old lists and to update any records with all medication providers or retail pharmacies. Education Materials Bronchospasm (Adult) Bronchospasm occurs when the airways (bronchial tubes) go into spasm and contract. This makes it hard to breathe and causes wheezing (a high-pitched whistling sound). Bronchospasm can also cause frequent coughing without wheezing. Bronchospasm is due to irritation, inflammation, or allergic reaction of the airways. People with asthma get bronchospasm. However, not everyone with bronchospasm has asthma. Being exposed to harmful fumes, a recent case of bronchitis, exercise, or a flare-up of chronic obstructive pulmonary disease (COPD) may cause the airways to spasm. An episode of bronchospasm may last 7 to 14 days. Medicine may be prescribed to relax the airways and prevent wheezing. Antibiotics will be prescribed only if your healthcare provider thinks there is a bacterial infection. Antibioticsdo not help a viral infection. Home care Drink lots of water or other fluids (at least 10 glasses a day) during an attack. This will loosen lung secretions and make it easier to breathe. If you have heart or kidney disease, check with your doctor before you drink extra fluids. Take prescribed medicine exactly at the times advised. If you take an inhaled medicine to help withbreathing, don't use it more than once every 4 hours, unless told to do so. If prescribed an antibiotic or prednisone, take all of the medicine, even if you are feeling better after a few days. Don't smoke. Also avoid being exposed to secondhand smoke. If you were given an inhaler, use it exactly as directed. If you need to use it more often than prescribed, your condition may be getting worse. Contact your healthcare provider. Follow-up care Follow up with your healthcare provider, or as advised. If you are age 65 or older, have a chronic lung disease or condition that affects your immune system, or you smoke, ask your healthcare provider about getting a pneumococcal vaccine, as well as a yearly flu shot (influenza vaccine). When to seek medical advice Call your healthcare provider right away if any of these occur: You need to use your inhalers more often than usual Fever of 100.4 F (38 C) or higher, or as directed by your healthcare provider Cough that brings up lots of dark-colored sputum (mucus) You don't get better within 24 hours Call 911 Call 911 if any of these occur: Coughing up bloody sputum (mucus) Chest pain with each breath Increased wheezing or shortness of breath [phone] [employer]. [address] [place] [address], [place] [address]. All rights reserved. This information is not intended as a substitute for professional medical care. Always follow yourhealthcare professional's instructions. Prevent the Spread of COVID-19 If You Are Sick Accessible version: https://www.cdc.gov/coronavirus/2019-ncov/qw-fmv-egx-sick/oknfh-rwcv-riet.html If you are sick with COVID-19 or think you might have COVID-19, follow the steps below to help protect other people in your home and community. Stay home except to get medical care. Stay home. Most people with COVID-19 have mild illness and are able to recover at home without medical care. Do not leave your home, except to get medical care. Do not visit public areas. Take care of yourself. Get rest and stay hydrated. Get medical care when needed. Call your doctor before you go to their office for care. But, if you have trouble breathing or other concerning symptoms, call 911 for immediate help. Avoid public transportation, ride-sharing, or taxis. Separate yourself from other people and pets in your home. As much as possible, stay in a specific room and away from other people and pets in your home. Also, you should use a separate bathroom, if available. If you need to be around other people or animalsin or outside of the home, wear a cloth face covering. See COVID-19 and Animals if you have questions about pets: https://www.cdc.gov/coronavirus/2019ncov/faq.html#TTIGB95bbxdniz Monitor your symptoms. Common symptoms of COVID-19 include fever and cough. Trouble breathing is a more serious symptom that means you should get medical attention. Follow care instructions from your healthcare provider and local health department. Your local health authorities will give instructions on checking your symptoms and reporting information. If you develop emergency warning signs for COVID-19 get medical attention immediately. Emergency warning signs include*: Trouble breathing Persistent pain or pressure in the chest New confusion or not able to be woken Bluish lips or face *This list is not all inclusive. Please consult your medical provider for any other symptoms that are severe or concerning to you. Call 911 if you have a medical emergency. If you have a medical emergency and need to call 911, notify the carbon dioxide operator that you have or think you might have, COVID-19. If possible, put on a facemask before medical help arrives Call ahead before visiting your doctor. Call ahead. Many medical visits for routine care are being postponed or done by phone or telemedicine. If you have a medical appointment that cannot be postponed, call your doctor s office. This will help the office protect themselves and other patients. If you are sick, wear a cloth covering over your nose and mouth. You should wear a cloth face covering over your nose and mouth if you must be around other people or animals, including pets (even at home). You don t need to wear the cloth face covering if you are alone. If you can t put on a cloth face covering (because of trouble breathing for example), cover your coughs and sneezes in some other way.Try to stay at least 6 feet away from other people. This will help protect the people around you. Note: During the COVID-19 pandemic, medical grade facemasks are reserved for healthcare workers andsome first responders. You may need to make a cloth face covering using a scarf or bandana. Cover your coughs and sneezes. Cover your mouth and nose with a tissue when you cough or sneeze. Throw used tissues in a lined trash can. Immediately wash your hands with soap and water for at least 20 seconds. If soap and water are not available, clean your hands with an alcohol-based hand teacher private that contains at least 60% alcohol. Clean your hands often. Wash your hands often with soap and water for at least 20 seconds. This is especially important after blowing your nose, coughing, or sneezing; going to the bathroom; and before eating or preparing food. Use hand teacher private if soap and water are not available. Use an alcohol-based hand teacher private with atleast 60% alcohol, covering all surfaces of your hands and rubbing them together until they feel dry. Soap and water are the best option, especially if your hands are visibly dirty. \ Avoid touching your eyes, nose, and mouth with unwashed hands. Avoid sharing personal household items. Do not share dishes, drinking glasses, cups, eating utensils, towels, or bedding with other people in your home. Wash these items thoroughly after using them with soap and water or put them in the coin machine mechanic. Clean all high-touch surfaces everyday. Clean and disinfect high-touch surfaces in your sick room and bathroom. Let someone else clean and disinfect surfaces in common areas, but not your bedroom and bathroom. If a caregiver or other person needs to clean and disinfect a sick person s bedroom or bathroom, they should do so on an as-needed basis. The caregiver/other person should wear a mask and wait as long as possible after the sick person has used the bathroom High-touch surfaces include phones, remote controls, counters, tabletops, doorknobs, bathroom fixtures, toilets, keyboards, tablets, and bedside tables. Clean and disinfect areas that may have blood, stool, or body fluids on them. Use household mechanical technologist and disinfectants. Clean the area or item with soap and water or another detergent if it is dirty. Then use a household disinfectant. Be sure to follow the instructions on the label to ensure safe and effective use of the product. Many products recommend keeping the surface wet for several minutes to ensure germs are killed. Many also recommend precautions such as wearing gloves and making sure you have good ventilation during use of the product. Most EPA-registered household disinfectants should be effective. How to discontinue home isolation. People with COVID-19 who have stayed home (home isolated) can stop home isolation under the following conditions: If you will not have a test to determine if you are still contagious, you can leave home after these three things have happened: You have had no fever for at least 72 hours (that is three full days of no fever without the use ofmedicine that reduces fevers) AND other symptoms have improved (for example, when your cough or shortness of breath has improved) AND at least 10 days have passed since your symptoms first appeared. If you will be tested to determine if you are still contagious, you can leave home after these three things have happened: You no longer have a fever (without the use of medicine that reduces fevers) AND other symptoms have improved (for example, when your cough or shortness of breath has improved) AND you received two negative tests in a row, 24 hours apart. Your doctor will follow CDC guidelines. In all cases, follow the guidance of your healthcare provider and local health department. The decision to stop home isolation should be made in consultation with your healthcare provider and state and local health departments. Local decisions depend on local circumstances. cdc.gov/coronavirus Additional Information VACCINATE! IT SAVES LIVES! Members of the community who have not yet received the COVID-19 vaccine and would like to receive it can visit one of [facility] vaccine clinics. There are many vaccine clinic locations within the [facility]. For locations and available times, please visit [email or web address]. It is important to note that some COVID mobile vaccine clinics are held outdoors and may be canceled in rainy orstormy conditions. To learn more about pediatric vaccinations (ages 5-11), we invite you to visit the [facility] webpage. [email or web address]-[email or web address] stions.htmlTo learn more about the COVID-19 vaccine, we invite you to visit the [facility] website for a list of frequently asked questions. [email or web address] [facility] Patient Portal Access Instructions: Stay connected with your healthcare team and access your personal medical information anytime with the [facility] Patient Portal. If you would like a full copy of your medical records please contact the [facility] Medical Records Department Tuesday through Tuesday between 8a.m. and 4:30p.m. Please follow the directions below to access the portal: 1.Access the email account you provided upon registration to the hospital.2.Look for an invitation email from [facility].3.Open the email and access the invitation link: Accept Invitation to [facility]4.Fill in the required bee to create your account. Sign into [email or web address] with your username and password that you created in the above steps to stay up to date. You can then view a summary of results, a summary of your visits, and the ability to download your summaries to your computer or send the information securely to a physician. Remember that your healthcare information is confidential, so carefully consider who you will allow to register on the [facility] Patient Portal for access to your information. You can also access the [facility] Patient Portal on the [employer]. Simply click on Health Records under [employer] and then click on the [facility] logo. HOW TO SAFELY DISPOSE OF PRESCRIPTION MEDICATIONS Please use one of the following methods to safely dispose of your unused medications. 1.Use a drug disposal kit: the drug disposal pouch allows you to safely discard your old and unuseddrugs. Ask your nurse to give you one when you are discharged.2.Visit a local take-back location: Many local pharmacies and police departments have programs that collect old and unwanted prescriptiondrugs. Call your local pharmacy or go to http://Health in Reach.Kihon/0T3Sg6n to find one close to you.3.Make use of household items: Use cat litter or old coffee grounds to dispose medications if other options arenot available. Mix your drugs with these household products, seal them in an airtight container andthrow it into the garbage. Call [facility]: [phone] to be sure your drugs can be disposed of in this way. Some medicines may require a different approach.4.Never flush your medications down the toilet. IF YOU HAVE BEEN PRESCRIBED AN OPIOIDS FOR PAIN If you have been prescribed an opioid (such as hydrocodone, oxycodone or morphine), it is critical to understand the possible side effects and risks of opioid pain medications. Even when taken as directed, opioids can have several side effects including: Tolerance, meaning you might need to take more of a medication for the same pain relief. Nausea, vomiting and/or constipation. Sleepiness, dizziness, dry mouth, confusion, depression or itching. Physical dependence, meaning you have withdrawal symptoms when a medication is stopped ? this can develop within a few days. KNOW YOUR RESPONSIBILITIES It is important to know exactly how much and how often to take the opioid pain medications you are prescribed. Never take opioids in higher amounts or more often than prescribed. Do not combine opioids with alcohol or other drugs that cause drowsiness, such as benzodiazepines, also known as benzos,including diazepam and alprazolam, muscle relaxants or sleep aids. Never sell or share prescriptionopioids. This is illegal. Store opioids in a secure place and out of reach of others (including children, family, friends and visitors). The last page(s) of this document has been signed and retained as a CHART COPY Signatures Patient Education Materials Bronchospasm (Adult) COVID-19 Prevent the Spread of COVID-19 If You Are Sick (01/29/2020)(CUSTOM) Medication Leaflets My discharge plan and instructions have been reviewed and explained to me and I,HAZEL QUINNd my current condition and have read and understand these discharge instructions. I have received a written copy of the plan/instructions. If I have questions, I am aware that I should contact my doctor. 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 No focal consolidation. No visible pneumothorax or pleural effusion. IMPRESSION: No acute cardiopulmonary findings. Interpreted by: Koki Alcaraz Preliminary Report By: Koki Alcaraz Electronically signed By Koki Alcaraz Dictated Date: 03/29/2022 8:19:32 PM Prelim Date: 03/29/2022 8:20:09 PM Sign Date: 03/29/2022 8:20:09 PM Ordering Provider: [place] [id number] Note ORIGINAL EXAMINATION: ONE XRAY VIEW OF THE CHEST 03/29/2022 8:15 pm COMPARISON: Chest radiograph 06/03/2015 HISTORY: ORDERING SYSTEM PROVIDED HISTORY: Reason for Exam: Shortness of breath, cough, fever FINDINGS: Cardiomediastinal contours are normal. No focal consolidation. No visible pneumothorax or pleural effusion. IMPRESSION: No acute cardiopulmonary findings. Interpreted by: Koki Alcaraz Preliminary Report By: Koki Alcaraz Electronically signed By Koki Alcaraz Dictated Date: 03/29/2022 8:19:32 PM Prelim Date: 03/29/2022 8:20:09 PM Sign Date: 03/29/2022 8:20:09 PM Ordering Provider: [address]18-2022 SARS-CoV-2 (COVID-19) RNA HERLINDA+probe Ql (Nph)Positive *ABN* (03/29/22 7:53 PM)AO Auto Urine [id number] Hospital Discharge instructions Patient Education 03/07/2022 23:49:25 Allergic Reaction, Insect (General) Insect Sting Allergy, Generalized You are having an allergic reaction to an insect sting. This may occur after a sting by a wasp, honeybee, yellow jacket, or other insect. This may cause an itchy rash and swelling in the face or other parts of the body. A more severe reaction may cause you to feel dizzy, faint, or have trouble breathing or swallowing. Other warning signs are listed below. Symptoms can include: Rash, hives, redness, welts, or blisters in areas other than the sting site Itching, burning, stinging, pain in areas other than the sting site Dry, flaky, cracking, scaly skin Swelling in areas other than the sting site Stomach pain or cramps More severe symptoms include: Swelling of the face or lips or drooling Trouble swallowing, feeling like your throat is closing Trouble breathing, wheezing Dizziness or a sudden decrease in blood pressure Hoarse voice or trouble speaking Severe nausea, vomiting, or diarrhea Feeling faint or lightheaded Rapid heart rate Home care Medicine The healthcare provider may prescribe medicines to relieve swelling, itching, and pain. Follow the provider s instructions when taking these medicines. If you had a severe reaction, the provider may prescribe an injectable epinephrine kit. Epinephrinewill stop the progression of an allergic reaction. Before you leave the hospital, be sure that you understand when and how to use this medicine. Oral diphenhydramine is an zlnx-bxj-ikfjsnu antihistamine available at pharmacies and grocery stores. Unless a prescription antihistamine was given, diphenhydramine may be used to reduce itching if large areas of the skin are involved. It may make you sleepy, so be careful using it in the daytime or when going to school, working, or driving. Note: Don t use diphenhydramine if you have glaucoma orif you are a man with trouble urinating due to an enlarged prostate. There are other antihistaminesthat cause less drowsiness and are good choices for daytime use. Ask your pharmacist for suggestions. Don t use diphenhydramine cream on your skin. It can cause a further reaction in some people. Calamine lotion or oatmeal baths sometimes help with itching. You may use acetaminophen or ibuprofen to control pain, unless another pain medicine was prescribed. Note: If you have chronic liver or kidney disease or ever had a stomach ulcer or gastrointestinal bleeding, talk with your provider before using these medicines. General care Avoid tight clothing and things that heat up your skin (such as hot showers or baths, or direct sunlight). Heat makes the itching worse. An ice pack will relieve local areas of intense itching and redness. Apply 5 to 10 minutes. To makean ice pack, put ice cubes in a plastic bag that seals at the top. Wrap the bag in a clean, thin towel or cloth. Don t put ice directly on the skin. Ticks If you try to remove a tick, do the following: Use a set of fine tweezers and inside barrel polisher the tick as close to the skin as is possible. Pull upwards, using even, steady pressure. Don t jerk or twist the tick. The tick s bodily fluids may contain infection-causing organisms. So don t squeeze, crush, or puncture the body of the tick. Don t use a smoldering match or cigarette, nail italian, petroleum jelly, liquid soap, or kerosene. They may irritate the tick. If any mouthparts of the tick remain in the skin, these can be removed with tweezers. If you can t remove the mouth (of a tick) easily with clean tweezers, leave it alone and let the skin heal. After the tick is removed, wash the bite area with rubbing alcohol, iodine, or soap and water. Put the tick in a sealed container and completely cover it with alcohol. Never try to kill or crusha tick with your hand or fingers. Stings Wasps, yellow jackets, and hornets don t leave a stinger behind. But if a honeybee stings you, a stinger may stay in your skin. The stinger of a honeybee releases a substance that will attract other bees to you. So try to move away from the nest immediately. Once you are away from the nest, then remove the stinger as quickly as possible by: Scraping the stinger out with the edge of a dull knife or plastic card (credit card). Don't use a tweezer or your fingers to remove the stinger since that may squeeze more toxin from the stinger. Wash the affected area with soap and warm water 2 to 3 times a day. Don't break a blister, if present. Next apply an ice pack for 5 to 10 minutes. To make an ice pack, put ice cubes in a plastic bag that seals at the top. Wrap the bag in a clean, thin towel or cloth. Don t put ice directly on the skin. Contact your healthcare provider and ask what can be used to help decrease the swelling and itchingto the affected area. To prevent an infection, don't scratch the affected areas. Always check the sting area for signs ofan infection: increased redness, swelling, or pain to the affected area. Preventing future reactions Future reactions could be worse than this one. So try to avoid situations where you might be stung: Don't walk in grass without shoes. Avoid wearing sandals. Don't leave food uncovered when eating outside. Sweet treats, watermelon, and ice cream attract insects. Don't drink from uncovered sweetened drinks in cans when outside. Insects are attracted to soda drink cans and sometimes crawl inside of them. Don't wear bright colored clothes with flowery prints and patterns when outside. Don t wear perfume when outside. Smell attracts insects. Wear long pants, long-sleeved shirts, socks, and work gloves when working outside. Be aware that honeybees nest in trees. Wasps and yellow jackets nest in the ground, trees or roof eaves. Avoid garbage cans when outside. Auto-injectable epinephrine If you are at high risk for another sting due to where you work or play, or if your reaction included dizziness, fainting or trouble breathing or swallowing, an auto-injectable epinephrine may be prescribed. If not, ask your healthcare provider for one and always carry it with you. Learn how to usethe device. If you begin to feel the symptoms of another reaction in the future, use the auto-injectable epinephrine to inject yourself, and then call 911. Don't wait until symptoms become severe. Remember that the auto-injectable epinephrine is a rescue medicine only. You still need someone to take you to the hospital or call 911 after you have received the medicine. Follow-up care Follow up with your healthcare provider, or as advised if your symptoms do not continue to improve. Call 911 Call 911 if any of these occur: Trouble breathing or swallowing, wheezing Cool, moist, pale skin Hoarse voice or trouble speaking Confused Very drowsy or trouble waking up Fainting or loss of consciousness Rapid heart rate Low blood pressure or feeling dizzy or weak Feeling of doom Severe nausea, vomiting, or diarrhea Seizure Swelling in the face, eyelids, lips, mouth, throat or tongue Drooling When to seek medical advice Call your healthcare provider right away if any of the following occur: Spreading areas of itching, redness or swelling Headache, fever, chills, muscle or joint aching Increased pain or swelling Signs of infection of the affected area: oSpreading redness oIncrease in pain or swelling oFluid or colored drainage from the affected site [id number] [employer]. [address] [place] [address], [place] [address]. All rights reserved. This information is not intended as a substitute for professional medical care. Always follow [facility] professional's instructions. Follow Up Care 03/07/2022 22:43:07 With:ASHLEY WHITE APRN-MAGNETIZER Address: [address] [place] [phone] When:2-4 days [facility] Evaluation + Plan note No data available for this section [facility] Evaluation + Plan note Future Appointments Appointment Date:08/20/2024 04:30:00 PM Scheduled Provider:LETITIA WOODWARD DO Location:[facility] Appointment Type:PC OV [facility] Evaluation + Plan note Future Appointments Appointment Date:01/16/2025 04:30:00 PM Scheduled Provider:LETITIA WOODWARD DO Location:[facility] Appointment Type:PC OV Appointment Date:02/21/2025 08:00:00 AM Scheduled Provider:LETITIA WOODWARD DO Location:[facility] Appointment Type:PC Wellness Annual Future Scheduled Tests Laboratory* A1C Hemoglobin 02/18/25 * Complete Blood Count 02/18/25 * Lipid Profile 02/18/25 * Hepatitis C Antibody IgG 02/18/25 * Complete Metabolic Panel 02/18/25 Radiology* XR Chest 2 Views (PA & Lateral) 08/20/24 [facility] Evaluation + Plan note Future Appointments Appointment Date:08/05/2025 04:30:00 PM Scheduled Provider:LETITIA WOODWARD DO Location:[facility] Appointment Type:PC OV Future Scheduled Tests Radiology* XR Chest 2 Views (PA & Lateral) 08/20/24 [facility] Evaluation note* Diagnosis Nonintractable epilepsy without status epilepticus, unspecified epilepsy type (HCC) documented in this encounter [facility] note* Diagnosis Nonintractable epilepsy without status epilepticus, unspecified epilepsy type (HCC)- Primary documented in this encounter [facility] note* Diagnosis Seizure (HCC)- Primary Other convulsions Nonintractable epilepsy without status epilepticus, unspecified epilepsy type (HCC) Depression with anxiety Dysthymic disorder Obesity, Class III, BMI >= 40 Morbid obesity Nonintractable epilepsy without status epilepticus, unspecified epilepsy type (HCC) [facility] Diagnosis Family history of gene mutation documented in this encounter [facility] note* Diagnosis BMI 60.0-69.9, adult (HCC)- Primary Class 3 severe obesity due to excess calories with serious comorbidity and body mass index (BMI) of 60.0 to 69.9 in adult HERNAN on CPAP documented in this encounter [facility] note* Diagnosis BMI 60.0-69.9, adult (CMS/HCC)- Primary Class 3 severe obesity due to excess calories with serious comorbidity and body mass index (BMI) of 60.0 to 69.9 in adult (CMS/HCC) HERNAN on CPAP Pre-diabetes Other abnormal glucose documented in this encounter [facility] Discharge instructions No data available for this section [facility] Progress note No data available for this section [facility] Reason for visit Narrative* Referral (Routine) - Closed Specialty Diagnoses / Procedures Referred By Wendy jerome Referred To Contact Lab Diagnoses Family history of gene mutation Procedures Cytogenomic Microarray Analysis of Blood Cheyenne De Souza, TON CONTAINER FILLER-MAGNETIZER [address] [address] Phone: tel: fax: Referral ID Status Reason Start Date Expiration Date Visits Re quested Visits Authorized [id number] Closed 10/24/2023 10/23/2024 1 1 [facility] note* KEIRA Quinn: PERFORM Event Display: Patient Summary Documents Authored Date: [id number] [facility] Summary Purpose Family History No Family History Records Found No data available for this section No data available for this section No data available for this section No data available for this section No Family History Records Found No data available for this section No Family History Records Found No data available for this section No data available for this section No Family History Records FoundNo Family History Records FoundNo Family History Records Found Advance Directives No Advanced Directives Records FoundNo Advanced Directives Records FoundNo Advanced Directives Records FoundNo Advanced Directives Records FoundNo Advanced Directives Records FoundNo Advanced Directives Records Found Additional Source Comments Care Team (unrecognized sect ion and content) Personnel Name: 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 Address: Address: [address] [place] [address] [facility] [place] [place] [id number] Care Team Personnel Name: ASHLEY WHITE APRN-MAGNETIZER Position: P4 Advanced Practice Nurse Med Service: Active Provider Member Role: Primary Care Physician Address: Address: [address] [place] [address] [place] [address] [place] Care Team Related Persons Name: MICHELLE LÓPEZ Address: [facility] Address: Home [address] [place], [place] [id number] Address: [place] [id number] [facility] [address] [place], [place] [id number] Name: ARMANI LÓPEZ Address: Home [address] [place], [place] [id number] [place] Name: ARMANI LÓPEZ Name: ARMANI LÓPEZ Address: Home [address] [place], [place] [id number] [place] Name: LEONIDAS QUINN Name: DOLORES QUINN Address: Home [address] [place], [place] [id number] [place] Name: DOLORES QUINN Address: [address] [place], [place] [id number] [place] Name: DOLORES QUINN Address: [address] [place], [place] [id number] [place] Name: DOLORES QUINN Address: [address] [place], [place] [id number] [place] Name: DOLORES QUINN Address: [address] [place], [place] [id number] [place] Name: DOLORES QUINN Address: [address] [place], [place] [id number] [place] Name: DOLORES QUINN Address: [address] [place], [place] [id number] [place] Name: DOLORES QUINN Address: [address] [place], [place] [id number] [place] Name: DOLORES QUINN Address: [address] [place], [place] [phone] [place] Care Team Personnel Name: 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 Position: P4 Advanced Practice Nurse Member Role: Primary Care Physician Address: Address: [address] [place] [address] [place] [address]- Care Team Related Persons Name: MICHELLE LÓPEZ Address: [facility] Address: Home [address] [place], [place] [id number] Address: Temporary [address] [place], [place] [id number] Name: ARMANI LÓPEZ Name: ARMANI LÓPEZ Address: Home [address] [place], [place] [id number] [place] Name: ARMANI LÓPEZ Address: [address] [place], [place] [id number] [place] Name: LEONIDAS QUINN Name: DOLORES QUINN Address: [address] [place], [place] [id number] [place] Name: DOLORES QUINN Address: [address] [place], [place] [phone] [place] Name: DOLORES QUINN Address: [address] [place], [place] [id number] [place] Name: DOLORES QUINN Address: [address] [place], [place] [phone] [place] Name: DOLORES QUINN Address: [address] [place], [place] [id number] [place] Name: DOLORES QUINN Address: [address] [place], [place] [id number] [place] Name: DOLORES QUINN Address: [address] [place], [place] [id number] [place] Name: DOLORES QUINN Address: [address] [place], [place] [phone] [place] Name: DOLORES QUINN Address: [address] [place], [place] [phone] [place] INFORMATION SOURCE (unrecogn ized section and content) DATE CREATED AUTHOR 07/08/2022 [facility] DATE CREATED AUTHOR AUTHOR'S SULYIZ ATION 01/26/2024 [facility] DATE CREATED AUTHOR AUTHOR'S ORGANIZ ATION 09/30/2024 [facility] DATE CREATED AUTHOR AUTHOR'S ORGANIZ ATION 01/27/2025 [facility] DATE CREATED AUTHOR AUTHOR'S ORGANIZ ATION 02/08/2025 [facility] DATE CREATED AUTHOR AUTHOR'S ORGANIZ ATION 06/26/2025 [facility] Source Comments (unrecognize d section and content) In the event this informatio n is protected by the Federal Confidentiality of Alcohol and Drug Abuse Patient Records regulations: The Federal rules restrict any use of the information to criminally investigate or prosecute any alcohol or drug abuse patient.[facility] HospitalIn the event this information is protected by the Federal Confidentiality of Alcohol and Drug Abuse Patient Records regulations: The Federal rules restrict any use of the information to criminally investigate or prosecute any alcohol or drug abuse patient.[facility] HospitalIn the event this information is protected by the Federal Confidentiality of Alcohol and Drug Abuse Patient Records regulations: The Federal rules restrict any use of the information to criminally investigate or prosecute any alcohol or drug abuse patient.[facility] HospitalIn the event this information is protected by the Federal Confidentiality of Alcohol and Drug Abuse Patient Records regulations: The Federal rules restrict any use of the information to criminally investigate or prosecute any alcohol or drug abuse patient.[facility] HospitalIn the event this information is protected by the Federal Confidentiality of Alcohol and Drug Abuse Patient Records regulations: The Federal rules restrict any use of the information to criminally investigate or prosecute any alcohol or drug abuse patient.[facility] HospitalIn the event this information is protected by the Federal Confidentiality of Alcohol and Drug Abuse Patient Records regulations: The Federal rules restrict any use of the information to criminally investigate or prosecute any alcohol or drug abuse patient.[facility] HospitalIn the event this information is protected by the Federal Confidentiality of Alcohol and Drug Abuse Patient Records regulations: The Federal rules restrict any use of the information to criminally investigate or prosecute any alcohol or drug abuse patient.[facility] Reason for Visit (unrecogniz ed section and content) Reason Comments Release Of Medical Records Vanessa Reason Comments Follow Up Refill Request Reason Comments Epilepsy Follow Up Reason Comments Lab Orders Reason Onset Date Comments Refill Request 03/19/2024 Reason Comments Social Work Services Reason Comments Weight Loss Med Pt New Specialty Diagnoses / Procedures Referred By Contac t Referred To Contact Weight Management Diagnoses Morbid (severe) obesity due to excess calories (HCC) Procedures eval & treat Letitia Woodward, DO [address] [place] [address] Phone: tel: fax: Arline Mcgregor MD Phone: tel: fax: Referral ID Status Reason Start Date Expiration Date V isits Requested Visits Authorized [id number] Pending Review 01/29/2025 01/29/2026 1 1 Reason Comments Weight Loss Med Pt FU #2 Care Teams (unrecognized sec tion and content) Photoresist Contact Printer Relationship Specialty Start Date End Date Judy Ulices Ellis DELANEY PCP - General Family Medicine 05/05/17 Photoresist Contact Printer Relationship Specialty Start Date End Date Judy Ulices Ellis DELANEY PCP - General Family Medicine 05/05/17 Photoresist Contact Printer Relationship Specialty Start Date End Date Judy Ulices Ellis DELANEY PCP - General Family Medicine 05/05/17 Photoresist Contact Printer Relationship Specialty Start Date End Date Judy Ulices Ellis DELANEY PCP - General Family Medicine 05/05/17 Photoresist Contact Printer Relationship Specialty Start Date End Date Judy Ulices Ellis DELANEY PCP - General Family Medicine 05/05/17 Photoresist Contact Printer Relationship Specialty Start Date End Date No Primary Care, , [place] [address] PCP - General Pediatrics 06/22/18 Cheyenne De Souza, TON CONTAINER FILLER-MAGNETIZER [address] [facility] [address] [place] [address] Nurse Practitioner Medical Clinical Genetics 10/24/23 [place] [address] Net Finisher 10/27/23 Photoresist Contact Printer Relationship Specialty Start Date End Date Ulices [place] RHETT PCP - General Family Medicine 05/05/17 Photoresist Contact Printer Relationship Specialty Start Date End Date Letitia Woodward DO [address] [place] [address] PCP - General Family Medicine 03/14/25 Photoresist Contact Printer Relationship Specialty Start Date End Date Letitia Woodward DO [address] [place] [address] PCP - General Family Medicine 03/14/25 FOR RECORDS PERTAINING TO PATIENTS WHO ARE OR HAVE BEEN ENROLLED IN A CHEMICAL DEPENDENCY/SUBSTANCEABUSE PROGRAM, SOME INFORMATION MAY BE OMITTED. This clinical summary was aggregated from multiple sources. Caution should be exercised in using it in the provision of clinical care. This summary normalizes information from multiple sources, and as a consequence, information in this document may materially change the coding, format and clinical context of patient data. In addition, data may be omitted in some cases. CLINICAL DECISIONS SHOULD BE BASED ON THE PRIMARY CLINICAL RECORDS. [employer] provides no warranty or guarantee of the accuracy or completeness of information in this document.
[2025-08-01 19:08] LABS: HPV APTIMA, High Risk Negative (Negative)
== END 2025-07-29 23:59 | disposition home or self-care (01) ==
PROVIDERS: Referring Provider Nurse Practitioner Family; Visit Provider Nurse Practitioner Family
DX: Z00.00 Encounter for general adult medical examination without abnormal findings (principal)
CPT/HCPCS: 87624; 88175; G0145